=== PATIENT | female | born 1970 | race Caucasian/White ===

== ENCOUNTER → 2016-10-30 | Outpatient (REF) | payer BC ==
[~2016-10-30] MED LIST: PROBCAP4 PO; VITAD1000T PO; [UNRECOGNIZED DRUG - OTHER] SC
[2016-11-03 14:08] LABS: F8 ACTIVITY FOR F8 PANEL 147 % (57-163); F8 ACTIVITY vWB FOR F8 PANEL 116 % (50-200); F8 ANTIGEN FOR F8 PANEL 175 % (50-200); INTERPRETATION: Note (.)
== END ==
LOC: M LAB REF 16:40
PROVIDERS: ATTEND Internal Medicine Medical Oncology
DX: D69.3 Immune thrombocytopenic purpura (principal)

== ENCOUNTER → 2016-12-04 | Outpatient (REF) | payer BC ==
[2016-12-04 19:52] LABS: MICROSCOPIC INDICATED? MAN YES (NO)
[2016-12-04 21:48] LABS: BACTERIA, URINE LARGE AMOUNT; HYALINE CAST, URINE NONE SEEN /lpf (0-1); MICROSCOPIC EXAM PERFORMED; SQUAMOUS EPITHELIAL CELL URINE SMALL AMOUNT /hpf (SMALL AMT)
== END ==
LOC: M LAB REF 16:39
PROVIDERS: ATTEND Internal Medicine Medical Oncology
DX: D69.3 Immune thrombocytopenic purpura (principal)

== ENCOUNTER → 2016-12-09 | Outpatient (REF) | payer BC | LOC: M LAB REF 12:35 | PROVIDERS: ATTEND Internal Medicine Medical Oncology | DX: D69.3 Immune thrombocytopenic purpura (principal) ==

== ENCOUNTER → 2017-01-23 | Outpatient (REF) | payer BC | LOC: M LAB REF 14:22 | PROVIDERS: ATTEND Internal Medicine Nephrology | DX: N39.0 Urinary tract infection, site not specified (principal) ==

== ENCOUNTER → 2017-02-27 | Outpatient (REF) | payer BC | LOC: M LAB REF 17:09 | PROVIDERS: ATTEND Internal Medicine Nephrology | DX: N39.0 Urinary tract infection, site not specified (principal) ==

== ENCOUNTER 2017-03-14 14:00 | Outpatient (CLI) | payer BC ==
[~2017-03-14] VITALS: Ht 154.9 cm; Wt 65.8 kg
[2017-03-14] MEDS ORDERED: cefTRIAXone SOD 2 GM in D5W MINI-BAG PLUS 50 ML IV ONE (14:15)
[2017-03-14] MEDS ORDERED: MAGN400T5 PO (15:52)
[2017-03-15] MEDS ORDERED: ROCE1INJ4 IV (14:32)
== END 2017-03-14 15:15 | disposition home or self-care (01) ==
LOC: M INFU 14:00
PROVIDERS: ATTEND Internal Medicine Nephrology
DX: N39.0 Urinary tract infection, site not specified (principal); B96.20 Unspecified Escherichia coli [E. coli] as the cause of diseases classified elsewhere; M31.1 Thrombotic microangiopathy; Z88.2 Allergy status to sulfonamides; Z79.899 Other long term (current) drug therapy
CPT/HCPCS: 96365; J0696

== ENCOUNTER 2017-03-15 13:40 | Outpatient (CLI) | payer BC ==
[~2017-03-15 13:40] MED LIST changes: +MAGN400T5 PO
[2017-03-15 14:00] VITALS: BP 135/92
[2017-03-15] MEDS ORDERED: ROCE1INJ4 IV (14:32)
[2017-03-15] MEDS ORDERED: cefTRIAXone SOD 2 GM in D5W MINI-BAG PLUS 50 ML IV ONE (15:00)
== END 2017-03-15 15:45 | disposition home or self-care (01) ==
LOC: M OPCLI4PR 13:40 → M PED 13:46 → M OPCLI4PR 15:45
PROVIDERS: ATTEND Internal Medicine Nephrology
DX: N39.0 Urinary tract infection, site not specified (principal); B96.20 Unspecified Escherichia coli [E. coli] as the cause of diseases classified elsewhere; Z16.30 Resistance to unspecified antimicrobial drugs; Z88.2 Allergy status to sulfonamides
CPT/HCPCS: 96365; J0696

== ENCOUNTER 2017-03-16 13:58 | Outpatient (CLI) | payer BC ==
[~2017-03-16] VITALS: Ht 154.9 cm; Wt 65.0 kg
[~2017-03-16 13:58] MED LIST changes: +ROCE1INJ4 IV
[2017-03-16] MEDS ORDERED: cefTRIAXone SOD 2 GM in D5W MINI-BAG PLUS 50 ML IV ONE (14:15)
[2017-03-16 14:28] VITALS: BP 118/72
== END 2017-03-16 14:48 | disposition home or self-care (01) ==
LOC: M OPCLI4PR 13:58 → M PED 14:05 → M OPCLI4PR 14:48
PROVIDERS: ATTEND Internal Medicine Nephrology
DX: N39.0 Urinary tract infection, site not specified (principal); B96.20 Unspecified Escherichia coli [E. coli] as the cause of diseases classified elsewhere; Z16.30 Resistance to unspecified antimicrobial drugs; Z88.2 Allergy status to sulfonamides
CPT/HCPCS: 96365; J0696

== ENCOUNTER 2017-03-17 14:07 | Outpatient (CLI) | payer BC ==
[~2017-03-17 14:07] MED LIST changes: +cefTRIAXone SOD 2 GM in D5W MINI-BAG PLUS 50 ML IV ONE
== END 2017-03-17 15:15 | disposition home or self-care (01) ==
LOC: M INFU 14:07
PROVIDERS: ATTEND Internal Medicine Nephrology
DX: N39.0 Urinary tract infection, site not specified (principal); Z88.2 Allergy status to sulfonamides; Z79.899 Other long term (current) drug therapy
CPT/HCPCS: 96365; J0696

== ENCOUNTER 2017-03-18 13:54 | Outpatient (CLI) | payer BC ==
[~2017-03-18] VITALS: Ht 154.9 cm; Wt 65.9 kg
== END 2017-03-18 15:00 | disposition home or self-care (01) ==
LOC: M INFU 13:54
PROVIDERS: ATTEND Internal Medicine Nephrology
DX: N39.0 Urinary tract infection, site not specified (principal); Z88.2 Allergy status to sulfonamides; Z79.899 Other long term (current) drug therapy
CPT/HCPCS: 96365; J0696

== ENCOUNTER 2017-03-19 12:51 | Outpatient (CLI) | payer BC ==
[~2017-03-19] VITALS: Ht 154.9 cm; Wt 65.9 kg
[~2017-03-19 12:51] MED LIST changes: -cefTRIAXone SOD 2 GM in D5W MINI-BAG PLUS 50 ML IV ONE
[2017-03-19] MEDS ORDERED: cefTRIAXone SOD 2 GM in D5W MINI-BAG PLUS 50 ML IV ONE (13:00)
== END 2017-03-19 14:00 | disposition home or self-care (01) ==
LOC: M INFU 12:51
PROVIDERS: ATTEND Internal Medicine Nephrology
DX: N39.0 Urinary tract infection, site not specified (principal); Z88.2 Allergy status to sulfonamides; Z79.899 Other long term (current) drug therapy
CPT/HCPCS: 96365; J0696

== ENCOUNTER 2017-03-20 13:51 | Outpatient (CLI) | payer BC ==
[~2017-03-20 13:51] MED LIST changes: +cefTRIAXone SOD 2 GM in D5W MINI-BAG PLUS 50 ML IV ONE
== END 2017-03-20 14:55 | disposition home or self-care (01) ==
LOC: M INFU 13:51
PROVIDERS: ATTEND Internal Medicine Nephrology
DX: N39.0 Urinary tract infection, site not specified (principal); Z88.2 Allergy status to sulfonamides; Z79.899 Other long term (current) drug therapy
CPT/HCPCS: 96365; J0696

== ENCOUNTER → 2017-03-28 | Outpatient (REF) | payer BC ==
[~2017-03-28] MED LIST changes: -cefTRIAXone SOD 2 GM in D5W MINI-BAG PLUS 50 ML IV ONE
== END ==
LOC: M LAB REF 13:07
PROVIDERS: ATTEND Internal Medicine Nephrology
DX: N39.0 Urinary tract infection, site not specified (principal)

== ENCOUNTER → 2017-08-20 | Outpatient (CLI) | payer BC ==
--- NOTE | 2017-08-20 13:35 | REP ---
Clinical: Chronic medical renal disease stage III. Technique: Real time sparrow scale ultrasound examination using curved array transducer. Findings: The kidneys are normal in contour, size, echogenicity without hydronephrosis, nephrolithiasis, cystic or renal mass lesion. Scattered bilateral renovascular calcifications are consistent with chronic medical disease. No perinephric fluid collection. Right kidney measures 9.9 x 5.0 x 5.1 cm. Left kidney measures 10.5 x 4.2 x 4.2 cm. The bladder is under distended and grossly unremarkable as imaged. Impression: Chronic medical renal disease. No hydronephrosis. Signed by Michelet Smith MD 08/20/2017 01:26 P
== END ==
LOC: M RAD 12:41
PROVIDERS: ATTEND Internal Medicine Nephrology
DX: N18.3 Chronic kidney disease, stage 3 (moderate) (principal)

== ENCOUNTER 2018-08-11 10:19 | Inpatient (IN) | payer BC ==
[~2018-08-11 10:19] MED LIST changes: -MAGN400T5 PO; +PANTOPRAZOLE 40MG INJ (PROTONIX) (C9113) IV; -PROBCAP4 PO; -ROCE1INJ4 IV; -VITAD1000T PO; -[UNRECOGNIZED DRUG - OTHER] SC
[2018-08-11] MEDS: NS 1,000 ML IV ×3 (11:09→16:32)
[2018-08-11] MEDS: ONDANSETRON 4MG/2ML VIAL (J2405) IV ×3 (11:09→23:43)
[2018-08-11] MEDS: ACETAMINOPHEN 325 MG TAB PO (11:17)
[2018-08-11 11:18] LABS: BASO # 0.1 10^3/uL (0.0-0.2); BASO % 0.2 % (0.0-1.0); HEMATOCRIT 43.1 % (36.0-47.0); HEMOGLOBIN 15.1 g/dl (12.0-15.5); IMMATURE GRANULOCYTE % 0.6 % (0-3.0); LYMPH # 0.9 10^3/uL (1.5-4.5); LYMPH % 3.4 % (24.0-44.0); MEAN CORPUSCULAR HEMOGLOBIN 31.4 pg (27.0-33.0); MEAN CORPUSCULAR VOLUME 89.6 fl (80.0-96.0); MONO # 1.3 10^3/uL (0.0-0.8); MONO % 4.8 % (0.0-5.0); NEUTROPHILS # 24.4 10^3/uL (1.8-7.7); RED BLOOD COUNT 4.81 10^6/uL (4.00-5.40); RED CELL DISTRIBUTION WIDTH 13.1 % (11.5-14.5); WHITE BLOOD COUNT 26.9 10^3/uL (4.0-10.0)
[2018-08-11 11:30] LABS: INR 1.13; PROTHROMBIN TIME 14.6 SECONDS (12.1-14.4)
[2018-08-11 11:31] LABS: PARTIAL THROMBOPLASTIN TIME 38.6 SECONDS (25.4-37.6)
[2018-08-11 11:39] LABS: ERYTHROCYTE SEDIMENTATION RATE 50 mm/hr (0-20)
[2018-08-11 11:49] LABS: INFLUENZA A AMPLIFICATION NEGATIVE (NEGATIVE); INFLUENZA B AMPLIFICATION NEGATIVE (NEGATIVE)
[2018-08-11 11:54] LABS: ALBUMIN 3.4 GM/DL (3.2-5.2); ALBUMIN/GLOBULIN RATIO 0.58 (1.00-1.93); ALKALINE PHOSPHATASE 107 U/L (45-117); ALT/SGPT 33 U/L (12-78); ANION GAP 11 MEQ/L (8-16); AST/SGOT 32 U/L (7-37); BILIRUBIN,DIRECT 0.1 MG/DL (0.0-0.2); BILIRUBIN,TOTAL 0.7 MG/DL (0.2-1.0); BLOOD UREA NITROGEN 30 MG/DL (7-18); CALCIUM LEVEL 8.9 MG/DL (8.5-10.1); CARBON DIOXIDE LEVEL 25 MEQ/L (21-32); CHLORIDE LEVEL 93 MEQ/L (98-107); CREATININE FOR GFR 1.86 MG/DL (0.55-1.30); GLOMERULAR FILTRATION RATE 30.8 (>58); GLUCOSE, FASTING 123 MG/DL (70-100); LIPASE 116 U/L (73-393); POTASSIUM SERUM 4.2 MEQ/L (3.5-5.1); SODIUM LEVEL 129 MEQ/L (136-145); TOTAL PROTEIN 9.3 GM/DL (6.4-8.2)
[2018-08-11 11:55] LABS: PLATELET COUNT, AUTOMATED 74 10^3/uL (150-450)
[2018-08-11 11:56] LABS: PLATELET F 71; POSITIVE MORPH POS FLAG
[2018-08-11] MEDS: METOCLOPRAMIDE INJ 10MG/2ML VIAL (J2765) IV (13:09)
[2018-08-11 13:59] LABS: LACTIC ACID SEPSIS PROTOCOL 2.2 MMOL/L (0.4-2.0)
[2018-08-11 14:46] LABS: KETONE, URINE AUTO RFX 1+ mg/dL (NEGATIVE); MUCUS, URINE RFX SMALL (NEGATIVE); RBC, URINE AUTO RFX 60 /HPF (0-3); SPECIFIC GRAVITY UR AUTO RFX 1.019 (1.002-1.035); SQUAM EPITHELIAL CELL UR AURFX 0 /HPF (0-6)
[2018-08-11 14:47] LABS: LEUKOCYTE ESTERASE UR AUTO RFX TRACE (NEGATIVE); NITRITE, URINE AUTO RFX POSITIVE (NEGATIVE); WBC, URINE AUTO RFX 23 /HPF (0-3)
[2018-08-11] MEDS: PANTOPRAZOLE 40MG INJ (PROTONIX) (C9113) IV ×2 (15:28→21:03)
[2018-08-11] MEDS: cefTRIAXone SOD 1 GM in D5W MINI-BAG PLUS 50 ML IV (15:28)
[2018-08-11 15:35] LABS: CPK CREATINE PHOSPHOKINASE 110 U/L (26-192)
[2018-08-11] MEDS: PROMETHAZINE INJ 25 MG/ML VIAL (J2550) IV (16:32)
[2018-08-11 17:49] LABS: REASON FOR REVIEW PLATELET MORPHOLOGY; SLIDE REVIEW Report; SOURCE PERIPHERAL SMEAR
[2018-08-11 17:55] LABS: HEMATOCRIT 38.3 % (36.0-47.0); HEMOGLOBIN 13.2 g/dl (12.0-15.5); MEAN CORPUSCULAR HEMOGLOBIN 31.1 pg (27.0-33.0); MEAN CORPUSCULAR HGB CONC 34.5 g/dl (32.0-36.5); MEAN CORPUSCULAR VOLUME 90.1 fl (80.0-96.0); RED BLOOD COUNT 4.25 10^6/uL (4.00-5.40); RED CELL DISTRIBUTION WIDTH 13.2 % (11.5-14.5); WHITE BLOOD COUNT 29.6 10^3/uL (4.0-10.0)
[2018-08-11 17:58] LABS: PLATELET COUNT, AUTOMATED 45 10^3/uL (150-450)
[2018-08-11 18:06] LABS: FIBRINOGEN 524 MG/DL (221-452)
[2018-08-11 18:28] LABS: LACTIC ACID SEPSIS PROTOCOL 3.5 MMOL/L (0.4-2.0)
[2018-08-11 18:40] LABS: LDH LACTATE DEHYDROGENASE 207 U/L (84-246)
[2018-08-11] MEDS: predniSONE 20 MG TAB PO (19:45)
[2018-08-11] MEDS: PERCOCET 5MG/325MG TAB PO (21:03)
[2018-08-12] MEDS: ACETAMINOPHEN TAB 650MG DOSE (2X325MG) PO ×4 (00:13→18:32)
[2018-08-12] MEDS: SUCRALFATE 1 GM TAB PO ×3 (00:13→21:00)
[2018-08-12] MEDS: NS 1,000 ML IV ×2 (00:16→16:19)
[2018-08-12 00:40] LABS: HEMATOCRIT 38.1 % (36.0-47.0); HEMOGLOBIN 13.6 g/dl (12.0-15.5); MEAN CORPUSCULAR HEMOGLOBIN 31.4 pg (27.0-33.0); MEAN CORPUSCULAR HGB CONC 35.7 g/dl (32.0-36.5); RED BLOOD COUNT 4.33 10^6/uL (4.00-5.40); RED CELL DISTRIBUTION WIDTH 13.2 % (11.5-14.5)
[2018-08-12 00:44] LABS: PLATELET COUNT, AUTOMATED 30 10^3/uL (150-450); POS COUNT POS FLAG; WHITE BLOOD COUNT 30.1 10^3/uL (4.0-10.0)
[2018-08-12] MEDS: cefTRIAXone SOD 1 GM in D5W MINI-BAG PLUS 50 ML IV ×2 (03:15→16:20)
[2018-08-12] MEDS: ONDANSETRON 4MG/2ML VIAL (J2405) IV ×3 (05:11→18:24)
[2018-08-12 06:04] LABS: BASO % 0.1 % (0.0-1.0); HEMATOCRIT 36.5 % (36.0-47.0); HEMOGLOBIN 12.9 g/dl (12.0-15.5); IMMATURE GRANULOCYTE % 0.7 % (0-3.0); LYMPH # 0.6 10^3/uL (1.5-4.5); LYMPH % 2.6 % (24.0-44.0); MEAN CORPUSCULAR HEMOGLOBIN 31.3 pg (27.0-33.0); MEAN CORPUSCULAR HGB CONC 35.3 g/dl (32.0-36.5); MEAN CORPUSCULAR VOLUME 88.6 fl (80.0-96.0); MONO # 1.6 10^3/uL (0.0-0.8); MONO % 6.3 % (0.0-5.0); NEUTROPHILS # 22.2 10^3/uL (1.8-7.7); NEUTROPHILS % 90.3 % (36.0-66.0); RED BLOOD COUNT 4.12 10^6/uL (4.00-5.40); RED CELL DISTRIBUTION WIDTH 13.3 % (11.5-14.5); WHITE BLOOD COUNT 24.6 10^3/uL (4.0-10.0)
[2018-08-12 06:16] LABS: INR 1.21; PROTHROMBIN TIME 15.5 SECONDS (12.1-14.4)
[2018-08-12 06:27] LABS: POS COUNT POS FLAG
[2018-08-12 06:28] LABS: ALBUMIN 2.7 GM/DL (3.2-5.2); ALBUMIN/GLOBULIN RATIO 0.51 (1.00-1.93); ALKALINE PHOSPHATASE 86 U/L (45-117); ALT/SGPT 23 U/L (12-78); ANION GAP 8 MEQ/L (8-16); AST/SGOT 11 U/L (7-37); BILIRUBIN,TOTAL 0.4 MG/DL (0.2-1.0); BLOOD UREA NITROGEN 18 MG/DL (7-18); CARBON DIOXIDE LEVEL 25 MEQ/L (21-32); CHLORIDE LEVEL 105 MEQ/L (98-107); CREATININE FOR GFR 1.21 MG/DL (0.55-1.30); GLOMERULAR FILTRATION RATE 50.6 (>58); GLUCOSE, FASTING 191 MG/DL (70-100); PLATELET COUNT, AUTOMATED 21 10^3/uL (150-450); POTASSIUM SERUM 3.5 MEQ/L (3.5-5.1); SODIUM LEVEL 138 MEQ/L (136-145)
[2018-08-12] MEDS: predniSONE 20 MG TAB PO (08:29)
[2018-08-12] MEDS: PANTOPRAZOLE 40MG INJ (PROTONIX) (C9113) IV ×2 (08:29→21:00)
[2018-08-12] MEDS: VANCOMYCIN HCL 1,000 MG, VIAL MATE ADAPTER 1 EACH in D5W 250 ML IV (08:29)
[2018-08-12] MEDS ORDERED: PANTOPRAZOLE 40MG INJ (PROTONIX) (C9113) IV (09:00)
[2018-08-12] MEDS: VANCOMYCIN HCL 500 MG in D5W MINI-BAG PLUS 100 ML IV (10:30)
[2018-08-12 12:07] LABS: IMMEDIATE SPIN CROSSMATCH 1
[2018-08-12 14:12] LABS: IMMEDIATE SPIN CROSSMATCH 1
[2018-08-12] MEDS: PERCOCET 5MG/325MG TAB PO ×2 (14:12→14:43)
[2018-08-12 16:36] LABS: HEMATOCRIT 34.6 % (36.0-47.0); HEMOGLOBIN 12.1 g/dl (12.0-15.5); MEAN CORPUSCULAR HEMOGLOBIN 31.7 pg (27.0-33.0); MEAN CORPUSCULAR VOLUME 90.6 fl (80.0-96.0); RED BLOOD COUNT 3.82 10^6/uL (4.00-5.40); RED CELL DISTRIBUTION WIDTH 13.3 % (11.5-14.5); WHITE BLOOD COUNT 19.5 10^3/uL (4.0-10.0)
[2018-08-12 16:41] LABS: PLATELET COUNT, AUTOMATED 9 10^3/uL (150-450); POS COUNT POS FLAG
[2018-08-12 16:42] LABS: IMMATURE PLATELET FRACTION % 31.4 % (0.0-9.6)
[2018-08-12] MEDS ORDERED: IMMUNE GLOBULIN 10% 10GM 100ML 0 GM in APPROPRIATE DILUENT 1 EA IV (17:15)
[2018-08-12] MEDS: IMMUNE GLOBULIN 10% 10GM 100ML 10 GM in APPROPRIATE DILUENT 1 EA IV (18:00)
[2018-08-12] MEDS: IMMUNE GLOBULIN 10% 20GM 200ML 60 GM in APPROPRIATE DILUENT 1 EA IV (18:00)
[2018-08-12 18:09] LABS: BASO % 0.1 % (0.0-1.0); HEMATOCRIT 33.6 % (36.0-47.0); HEMOGLOBIN 11.8 g/dl (12.0-15.5); IMMATURE GRANULOCYTE % 0.6 % (0-3.0); LYMPH # 0.6 10^3/uL (1.5-4.5); LYMPH % 3.4 % (24.0-44.0); MEAN CORPUSCULAR HEMOGLOBIN 31.2 pg (27.0-33.0); MEAN CORPUSCULAR HGB CONC 35.1 g/dl (32.0-36.5); MEAN CORPUSCULAR VOLUME 88.9 fl (80.0-96.0); MONO # 1.5 10^3/uL (0.0-0.8); MONO % 8.5 % (0.0-5.0); NEUTROPHILS # 15.8 10^3/uL (1.8-7.7); NEUTROPHILS % 87.4 % (36.0-66.0); RED BLOOD COUNT 3.78 10^6/uL (4.00-5.40); RED CELL DISTRIBUTION WIDTH 13.4 % (11.5-14.5); WHITE BLOOD COUNT 18.1 10^3/uL (4.0-10.0)
[2018-08-12 18:14] LABS: PLATELET COUNT, AUTOMATED 4 10^3/uL (150-450); POS COUNT POS FLAG; POSITIVE MORPH POS FLAG; SUSPECT SAMPLE POS FLAG
[2018-08-12 18:21] LABS: FIBRINOGEN 733 MG/DL (221-452); INR 1.19; PROTHROMBIN TIME 15.3 SECONDS (12.1-14.4)
[2018-08-12 18:30] LABS: LDH LACTATE DEHYDROGENASE 215 U/L (84-246)
[2018-08-12] MEDS: diphenhydrAMINE 25 MG CAP PO (18:32)
[2018-08-13] MEDS: NS 1,000 ML IV ×2 (01:20→06:25)
[2018-08-13] MEDS: cefTRIAXone SOD 1 GM in D5W MINI-BAG PLUS 50 ML IV (04:30)
[2018-08-13 05:35] LABS: BASO % 0.1 % (0.0-1.0); HEMATOCRIT 27.5 % (36.0-47.0); IMMATURE GRANULOCYTE % 0.6 % (0-3.0); LYMPH % 6.8 % (24.0-44.0); MEAN CORPUSCULAR HEMOGLOBIN 33.4 pg (27.0-33.0); MEAN CORPUSCULAR HGB CONC 35.6 g/dl (32.0-36.5); MEAN CORPUSCULAR VOLUME 93.9 fl (80.0-96.0); MONO # 1.7 10^3/uL (0.0-0.8); MONO % 11.9 % (0.0-5.0); NEUTROPHILS # 11.8 10^3/uL (1.8-7.7); NEUTROPHILS % 80.6 % (36.0-66.0); RED BLOOD COUNT 2.93 10^6/uL (4.00-5.40); RED CELL DISTRIBUTION WIDTH 13.5 % (11.5-14.5); WHITE BLOOD COUNT 14.6 10^3/uL (4.0-10.0)
[2018-08-13 05:38] LABS: HEMOGLOBIN 9.8 g/dl (12.0-15.5); PLATELET COUNT, AUTOMATED 7 10^3/uL (150-450); POS COUNT POS FLAG; POSITIVE MORPH POS FLAG; SUSPECT SAMPLE POS FLAG
[2018-08-13 05:46] LABS: FIBRINOGEN 616 MG/DL (221-452); INR 1.18; PROTHROMBIN TIME 15.2 SECONDS (12.1-14.4)
[2018-08-13] MEDS: ONDANSETRON 4MG/2ML VIAL (J2405) IV ×4 (05:48→18:07)
[2018-08-13 06:04] LABS: ALBUMIN 2.2 GM/DL (3.2-5.2); ALBUMIN/GLOBULIN RATIO 0.35 (1.00-1.93); ALKALINE PHOSPHATASE 75 U/L (45-117); ALT/SGPT 24 U/L (12-78); ANION GAP 4 MEQ/L (8-16); AST/SGOT 13 U/L (7-37); BILIRUBIN,TOTAL 0.5 MG/DL (0.2-1.0); BLOOD UREA NITROGEN 23 MG/DL (7-18); CALCIUM LEVEL 8.3 MG/DL (8.5-10.1); CARBON DIOXIDE LEVEL 28 MEQ/L (21-32); CHLORIDE LEVEL 108 MEQ/L (98-107); CREATININE FOR GFR 1.25 MG/DL (0.55-1.30); GLOMERULAR FILTRATION RATE 48.7 (>58); GLUCOSE, FASTING 110 MG/DL (70-100); LDH LACTATE DEHYDROGENASE 165 U/L (84-246); POTASSIUM SERUM 3.7 MEQ/L (3.5-5.1); SODIUM LEVEL 140 MEQ/L (136-145); TOTAL PROTEIN 8.4 GM/DL (6.4-8.2)
[2018-08-13 08:06] LABS: HAPTOGLOBIN 197 mg/dL (34-200)
[2018-08-13] MEDS: predniSONE 20 MG TAB PO (08:06)
[2018-08-13] MEDS: SUCRALFATE 1 GM TAB PO ×2 (08:06→20:01)
[2018-08-13] MEDS: PANTOPRAZOLE 40MG INJ (PROTONIX) (C9113) IV ×2 (08:06→19:58)
[2018-08-13] MEDS: VANCOMYCIN HCL 1,000 MG, VIAL MATE ADAPTER 1 EACH in D5W 250 ML IV (08:07)
[2018-08-13] MEDS: ACETAMINOPHEN TAB 650MG DOSE (2X325MG) PO ×2 (08:08→18:07)
[2018-08-13] MEDS ORDERED: IMMUNE GLOBULIN 10% 10GM 100ML 10 GM in APPROPRIATE DILUENT 1 EA IV (09:00)
[2018-08-13] MEDS ORDERED: IMMUNE GLOBULIN 10% 20GM 200ML 60 GM in APPROPRIATE DILUENT 1 EA IV (09:00)
[2018-08-13] MEDS ORDERED: NON-FORMULARY 1 EA EA SQ (11:00)
[2018-08-13 12:42] LABS: HEMATOCRIT 31.5 % (36.0-47.0); HEMOGLOBIN 10.9 g/dl (12.0-15.5); MEAN CORPUSCULAR HEMOGLOBIN 32.2 pg (27.0-33.0); MEAN CORPUSCULAR HGB CONC 34.6 g/dl (32.0-36.5); MEAN CORPUSCULAR VOLUME 93.2 fl (80.0-96.0); RED BLOOD COUNT 3.38 10^6/uL (4.00-5.40); RED CELL DISTRIBUTION WIDTH 13.5 % (11.5-14.5); WHITE BLOOD COUNT 13.4 10^3/uL (4.0-10.0)
[2018-08-13 12:48] LABS: PLATELET COUNT, AUTOMATED 23 10^3/uL (150-450); POS COUNT POS FLAG
[2018-08-13] MEDS: ACYCLOVIR 200 MG CAPSULE PO ×3 (13:03→20:01)
[2018-08-13] MEDS ORDERED: ROMIPLOSTIM 250MCG VIAL (NPLATE) (J2796 PER 10MCG) (FOR ONCOLOGY) SC (14:00)
[2018-08-13] MEDS: cefTRIAXone SOD 2 GM in D5W MINI-BAG PLUS 50 ML IV (16:12)
[2018-08-13] MEDS: ROMIPLOSTIM 250MCG VIAL (NPLATE) (J2796 PER 10MCG) (FOR ONCOLOGY) SC (16:14)
[2018-08-13] MEDS: diphenhydrAMINE 25 MG CAP PO (18:07)
[2018-08-13] MEDS: IMMUNE GLOBULIN 10% 10GM 100ML 10 GM in APPROPRIATE DILUENT 1 EA IV (18:44)
[2018-08-13] MEDS: IMMUNE GLOBULIN 10% 20GM 200ML 60 GM in APPROPRIATE DILUENT 1 EA IV (20:14)
[2018-08-14] MEDS: ONDANSETRON 4MG/2ML VIAL (J2405) IV ×5 (00:13→23:43)
[2018-08-14] MEDS: ACETAMINOPHEN TAB 650MG DOSE (2X325MG) PO (02:26)
[2018-08-14] MEDS: diphenhydrAMINE 25 MG CAP PO (02:26)
[2018-08-14] MEDS: cefTRIAXone SOD 2 GM in D5W MINI-BAG PLUS 50 ML IV ×2 (03:58→15:48)
[2018-08-14 05:42] LABS: BASO % 0.3 % (0.0-1.0); HEMATOCRIT 26.7 % (36.0-47.0); HEMOGLOBIN 9.5 g/dl (12.0-15.5); IMMATURE GRANULOCYTE % 1.5 % (0-3.0); LYMPH # 1.8 10^3/uL (1.5-4.5); LYMPH % 15.6 % (24.0-44.0); MEAN CORPUSCULAR HEMOGLOBIN 34.8 pg (27.0-33.0); MEAN CORPUSCULAR HGB CONC 35.6 g/dl (32.0-36.5); MEAN CORPUSCULAR VOLUME 97.8 fl (80.0-96.0); MONO # 1.3 10^3/uL (0.0-0.8); MONO % 11.3 % (0.0-5.0); NEUTROPHILS # 8.3 10^3/uL (1.8-7.7); NEUTROPHILS % 71.3 % (36.0-66.0); RED BLOOD COUNT 2.73 10^6/uL (4.00-5.40); RED CELL DISTRIBUTION WIDTH 15.2 % (11.5-14.5); WHITE BLOOD COUNT 11.7 10^3/uL (4.0-10.0)
[2018-08-14 05:51] LABS: PLATELET COUNT, AUTOMATED 65 10^3/uL (150-450)
[2018-08-14 05:52] LABS: IMMATURE PLATELET FRACTION % 33.3 % (0.0-9.6)
[2018-08-14 05:55] LABS: INR 1.18; PROTHROMBIN TIME 15.1 SECONDS (12.1-14.4)
[2018-08-14 06:01] LABS: ALBUMIN 1.8 GM/DL (3.2-5.2); ALBUMIN/GLOBULIN RATIO 0.26 (1.00-1.93); ALKALINE PHOSPHATASE 111 U/L (45-117); ALT/SGPT 63 U/L (12-78); ANION GAP 4 MEQ/L (8-16); AST/SGOT 66 U/L (7-37); BILIRUBIN,TOTAL 0.4 MG/DL (0.2-1.0); BLOOD UREA NITROGEN 30 MG/DL (7-18); C REACTIVE PROTEIN QUANTITATIV 6.72 MG/DL (0.00-0.30); CALCIUM LEVEL 8.3 MG/DL (8.5-10.1); CARBON DIOXIDE LEVEL 27 MEQ/L (21-32); CHLORIDE LEVEL 108 MEQ/L (98-107); CREATININE FOR GFR 1.39 MG/DL (0.55-1.30); GLOMERULAR FILTRATION RATE 43.1 (>58); GLUCOSE, FASTING 115 MG/DL (70-100); POTASSIUM SERUM 3.4 MEQ/L (3.5-5.1); SODIUM LEVEL 139 MEQ/L (136-145); TOTAL PROTEIN 8.7 GM/DL (6.4-8.2)
[2018-08-14] MEDS: ACYCLOVIR 200 MG CAPSULE PO ×5 (06:34→21:02)
[2018-08-14] MEDS: predniSONE 20 MG TAB PO (08:32)
[2018-08-14] MEDS: PANTOPRAZOLE 40MG INJ (PROTONIX) (C9113) IV ×2 (08:33→21:02)
[2018-08-14] MEDS: SUCRALFATE 1 GM TAB PO ×2 (08:33→21:02)
[2018-08-14] MEDS: POTASSIUM CHLORIDE 10 MEQ SR TABLET PO (08:33)
[2018-08-14 09:47] LABS: CHLORIDE,RANDOM URINE 13 MEQ/L; CREATININE,RANDOM URINE 28.6 MG/DL; SODIUM,RANDOM URINE 18 MEQ/L; TOTAL PROTEIN,RANDOM URINE 36.2 MG/DL (0.0-12.0)
[2018-08-14 11:35] LABS: OSMOLALITY URINE 228 MOSM/KG (500-800)
[2018-08-14 11:39] LABS: HAPTOGLOBIN 227 mg/dL (34-200)
[2018-08-14 11:39] LABS: APPEARANCE, URINE CLEAR (CLEAR); BACTERIA, URINE AUTO 1+ (NEGATIVE); BILIRUBIN, URINE AUTO NEGATIVE (NEGATIVE); BLOOD, URINE BLOOD 2+ (NEGATIVE); COLOR, URINE STRAW (YELLOW); GLUCOSE, URINE (UA) AUTO NEGATIVE (NEGATIVE); HAPTOGLOBIN 238 mg/dL (34-200); KETONE, URINE AUTO NEGATIVE (NEGATIVE); LEUKOCYTE ESTERASE, URINE AUTO NEGATIVE (NEGATIVE); NITRITE, URINE AUTO NEGATIVE (NEGATIVE); PROTEIN, URINE AUTO NEGATIVE (NEGATIVE); RBC, URINE AUTO 3 /HPF (0-3); SPECIFIC GRAVITY URINE AUTO 1.006 (1.002-1.035); SQUAMOUS EPITHELIAL CELL UR AU 0 /HPF (0-6); UROBILINOGEN, URINE AUTO 0.2 mg/dL (0.0-2.0); WBC, URINE AUTO 1 /HPF (0-3)
[2018-08-14 11:44] LABS: HEMATOCRIT 31.2 % (36.0-47.0); HEMOGLOBIN 11.2 g/dl (12.0-15.5); MEAN CORPUSCULAR HEMOGLOBIN 34.5 pg (27.0-33.0); MEAN CORPUSCULAR HGB CONC 35.9 g/dl (32.0-36.5); RED BLOOD COUNT 3.25 10^6/uL (4.00-5.40); RED CELL DISTRIBUTION WIDTH 14.2 % (11.5-14.5); WHITE BLOOD COUNT 16.8 10^3/uL (4.0-10.0)
[2018-08-14 11:46] LABS: PLATELET COUNT, AUTOMATED 97 10^3/uL (150-450)
[2018-08-14] MEDS: NS 1,000 ML IV (12:06)
[2018-08-14 13:15] LABS: CSF MONONUCLEAR CELL % 25.9 % (0-0); CSF POLYMORPHONUCLEAR CELL % 74.1 % (0-0); CSF RBC < 2 10^3/uL (<2); CSF WBC 1944 /uL (0-10)
[2018-08-14 13:17] LABS: COLOR, CSF YELLOW (COLORLESS); CSF TUBE# CELL CNT TUBE 1
[2018-08-14 13:18] LABS: APPEARANCE, CSF HAZY (CLEAR); CSF DIFF IF INDICATED? YES (NO)
[2018-08-14 13:19] LABS: CSF MONONUCLEAR CELL % 21.8 % (0-0); CSF POLYMORPHONUCLEAR CELL % 78.2 % (0-0); CSF RBC < 2 10^3/uL (<2); CSF WBC 1412 /uL (0-10)
[2018-08-14 13:20] LABS: APPEARANCE, CSF HAZY (CLEAR); CSF DIFF IF INDICATED? YES (NO); CSF TUBE# CELL CNT TUBE 4
[2018-08-14 13:36] LABS: CSF TUBE# GLU TUBE 2; CSF TUBE# TP TUBE 2; GLUCOSE CSF 49 MG/DL (40-75); TOTAL PROTEIN,CSF 94 MG/DL (15-45)
[2018-08-14] MEDS ORDERED: LIDOCAINE 1% MDV 20ML VIAL As Ordered (15:09)
[2018-08-14] MEDS: SODIUM CHLORIDE 0.9% INJ 10 ML SYR IV (17:01)
[2018-08-15 00:06] LABS: GLYCOPROTEIN IV ANTIBODY Positive (Negative); HLA CLASS 1 ANTIBODY Positive (Negative); IIb/IIIa ANTIBODY Positive (Negative); Ib/IX ANTIBODY Positive (Negative)
[2018-08-15] MEDS: cefTRIAXone SOD 2 GM in D5W MINI-BAG PLUS 50 ML IV (05:12)
[2018-08-15] MEDS: ACYCLOVIR 200 MG CAPSULE PO ×2 (05:13→09:10)
[2018-08-15] MEDS: SODIUM CHLORIDE 0.9% INJ 10 ML SYR IV ×2 (05:13→09:11)
[2018-08-15] MEDS: ONDANSETRON 4MG/2ML VIAL (J2405) IV (05:13)
[2018-08-15 05:36] LABS: BASO # 0.1 10^3/uL (0.0-0.2); BASO % 0.7 % (0.0-1.0); EOS % 0.1 % (0.0-3.0); HEMATOCRIT 27.8 % (36.0-47.0); HEMOGLOBIN 9.7 g/dl (12.0-15.5); LYMPH # 3.1 10^3/uL (1.5-4.5); LYMPH % 20.2 % (24.0-44.0); MEAN CORPUSCULAR HEMOGLOBIN 33.1 pg (27.0-33.0); MEAN CORPUSCULAR HGB CONC 34.9 g/dl (32.0-36.5); MEAN CORPUSCULAR VOLUME 94.9 fl (80.0-96.0); MONO % 12.9 % (0.0-5.0); NEUTROPHILS # 9.3 10^3/uL (1.8-7.7); NEUTROPHILS % 61.1 % (36.0-66.0); PLATELET COUNT, AUTOMATED 101 10^3/uL (150-450); RED BLOOD COUNT 2.93 10^6/uL (4.00-5.40); RED CELL DISTRIBUTION WIDTH 12.7 % (11.5-14.5); WHITE BLOOD COUNT 15.2 10^3/uL (4.0-10.0)
[2018-08-15 05:44] LABS: INR 1.09; PROTHROMBIN TIME 14.2 SECONDS (12.1-14.4)
[2018-08-15 05:59] LABS: ALBUMIN/GLOBULIN RATIO 0.36 (1.00-1.93); ALKALINE PHOSPHATASE 111 U/L (45-117); ALT/SGPT 82 U/L (12-78); ANION GAP 4 MEQ/L (8-16); AST/SGOT 45 U/L (7-37); BILIRUBIN,TOTAL 0.6 MG/DL (0.2-1.0); BLOOD UREA NITROGEN 30 MG/DL (7-18); CALCIUM LEVEL 7.2 MG/DL (8.5-10.1); CARBON DIOXIDE LEVEL 29 MEQ/L (21-32); CHLORIDE LEVEL 109 MEQ/L (98-107); CREATININE FOR GFR 1.35 MG/DL (0.55-1.30); GLOMERULAR FILTRATION RATE 44.6 (>58); GLUCOSE, FASTING 108 MG/DL (70-100); POTASSIUM SERUM 3.8 MEQ/L (3.5-5.1); SODIUM LEVEL 142 MEQ/L (136-145); TOTAL PROTEIN 7.6 GM/DL (6.4-8.2)
[2018-08-15] MEDS: ACETAMINOPHEN TAB 650MG DOSE (2X325MG) PO (09:10)
[2018-08-15] MEDS: amLODIPine 5 MG TAB PO (09:10)
[2018-08-15] MEDS: PANTOPRAZOLE 40MG INJ (PROTONIX) (C9113) IV (09:10)
[2018-08-15] MEDS: SUCRALFATE 1 GM TAB PO (09:10)
== END 2018-08-15 11:52 | disposition home health service (06) | DRG 720 ==
LOC: M ED 10:19 → M ED INP 17:43 → M PCU 20:51
PROVIDERS: Specialist
PROC: 009U3ZX Drainage of Spinal Canal, Percutaneous Approach, Diagnostic (ICD-10-PCS; principal; 2018-08-14)
DX: A40.3 Sepsis due to Streptococcus pneumoniae (principal); D69.3 Immune thrombocytopenic purpura; N17.9 Acute kidney failure, unspecified; M32.9 Systemic lupus erythematosus, unspecified; E87.1 Hypo-osmolality and hyponatremia; B37.0 Candidal stomatitis; N39.0 Urinary tract infection, site not specified; B96.29 Other Escherichia coli [E. coli] as the cause of diseases classified elsewhere; Z88.2 Allergy status to sulfonamides; K29.70 Gastritis, unspecified, without bleeding; Z90.81 Acquired absence of spleen

== ENCOUNTER → 2018-08-25 | Outpatient (REF) | payer BC ==
[2018-08-25 15:46] LABS: BASO # 0.1 10^3/uL (0.0-0.2); BASO % 0.7 % (0.0-1.0); EOS % 0.2 % (0.0-3.0); HEMATOCRIT 33.4 % (36.0-47.0); HEMOGLOBIN 10.9 g/dl (12.0-15.5); IMMATURE GRANULOCYTE % 0.6 % (0-3.0); LYMPH # 1.8 10^3/uL (1.5-4.5); LYMPH % 19.3 % (24.0-44.0); MEAN CORPUSCULAR HEMOGLOBIN 31.7 pg (27.0-33.0); MEAN CORPUSCULAR HGB CONC 32.6 g/dl (32.0-36.5); MEAN CORPUSCULAR VOLUME 97.1 fl (80.0-96.0); MONO # 1.6 10^3/uL (0.0-0.8); MONO % 17.3 % (0.0-5.0); NEUTROPHILS # 5.6 10^3/uL (1.8-7.7); NEUTROPHILS % 61.9 % (36.0-66.0); PLATELET COUNT, AUTOMATED 188 10^3/uL (150-450); RED BLOOD COUNT 3.44 10^6/uL (4.00-5.40); RED CELL DISTRIBUTION WIDTH 16.2 % (11.5-14.5); WHITE BLOOD COUNT 9.1 10^3/uL (4.0-10.0)
[2018-08-25 15:47] LABS: ALBUMIN 3.1 GM/DL (3.2-5.2); ALBUMIN/GLOBULIN RATIO 0.56 (1.00-1.93); ALKALINE PHOSPHATASE 134 U/L (45-117); ALT/SGPT 27 U/L (12-78); ANION GAP 6 MEQ/L (8-16); AST/SGOT 18 U/L (7-37); BILIRUBIN,TOTAL 0.5 MG/DL (0.2-1.0); BLOOD UREA NITROGEN 23 MG/DL (7-18); C REACTIVE PROTEIN QUANTITATIV 2.42 MG/DL (0.00-0.30); CALCIUM LEVEL 8.9 MG/DL (8.5-10.1); CARBON DIOXIDE LEVEL 29 MEQ/L (21-32); CHLORIDE LEVEL 100 MEQ/L (98-107); CREATININE FOR GFR 1.24 MG/DL (0.55-1.30); GLOMERULAR FILTRATION RATE 49.1 (>58); GLUCOSE, FASTING 85 MG/DL (70-100); POTASSIUM SERUM 4.6 MEQ/L (3.5-5.1); SODIUM LEVEL 135 MEQ/L (136-145); TOTAL PROTEIN 8.6 GM/DL (6.4-8.2)
[2018-08-25 16:13] LABS: ADD MORPHOLOGY? YES; POS COUNT POS FLAG
[2018-08-25 16:14] LABS: PLATELET ESTIMATE NORMAL (NORMAL)
[2018-08-25 16:15] LABS: GIANT PLATELETS 1+; POLYCHROMASIA 1+
[2018-08-25 16:41] LABS: ERYTHROCYTE SEDIMENTATION RATE 126 mm/hr (0-20)
== END ==
LOC: M SFHCPLAZ 12:18
DX: G00.1 Pneumococcal meningitis (principal)
CPT/HCPCS: 80053

== ENCOUNTER → 2018-08-31 | Outpatient (REF) | payer BC ==
[2018-08-31 15:23] LABS: BASO # 0.1 10^3/uL (0.0-0.2); BASO % 0.7 % (0.0-1.0); EOS % 0.5 % (0.0-3.0); HEMATOCRIT 31.8 % (36.0-47.0); HEMOGLOBIN 10.6 g/dl (12.0-15.5); IMMATURE GRANULOCYTE % 0.6 % (0-3.0); LYMPH # 1.7 10^3/uL (1.5-4.5); MEAN CORPUSCULAR HEMOGLOBIN 32.3 pg (27.0-33.0); MEAN CORPUSCULAR HGB CONC 33.3 g/dl (32.0-36.5); MONO # 1.1 10^3/uL (0.0-0.8); MONO % 13.1 % (0.0-5.0); NEUTROPHILS # 5.5 10^3/uL (1.8-7.7); NEUTROPHILS % 65.1 % (36.0-66.0); RED BLOOD COUNT 3.28 10^6/uL (4.00-5.40); RED CELL DISTRIBUTION WIDTH 17.2 % (11.5-14.5); WHITE BLOOD COUNT 8.5 10^3/uL (4.0-10.0)
[2018-08-31 15:47] LABS: POSITIVE MORPH POS FLAG
[2018-08-31 16:06] LABS: ALBUMIN 3.4 GM/DL (3.2-5.2); ALBUMIN/GLOBULIN RATIO 0.67 (1.00-1.93); ALKALINE PHOSPHATASE 107 U/L (45-117); ALT/SGPT 26 U/L (12-78); ANION GAP 7 MEQ/L (8-16); AST/SGOT 17 U/L (7-37); BILIRUBIN,TOTAL 0.5 MG/DL (0.2-1.0); BLOOD UREA NITROGEN 22 MG/DL (7-18); C REACTIVE PROTEIN QUANTITATIV 1.02 MG/DL (0.00-0.30); CALCIUM LEVEL 9.4 MG/DL (8.5-10.1); CARBON DIOXIDE LEVEL 28 MEQ/L (21-32); CHLORIDE LEVEL 101 MEQ/L (98-107); COMPLEMENT C3 106 MG/DL (90-180); COMPLEMENT C4 5 MG/DL (10-40); CREATININE FOR GFR 1.41 MG/DL (0.55-1.30); GLOMERULAR FILTRATION RATE 42.4 (>58); GLUCOSE, FASTING 91 MG/DL (70-100); POTASSIUM SERUM 3.9 MEQ/L (3.5-5.1); RHEUMATOID FACTOR QUANT < 10.0 IU/ML (<15.0); SODIUM LEVEL 136 MEQ/L (136-145); TOTAL PROTEIN 8.5 GM/DL (6.4-8.2)
[2018-08-31 19:55] LABS: ERYTHROCYTE SEDIMENTATION RATE 126 mm/hr (0-20)
[2018-09-03 00:31] LABS: ANA (HEP2) Positive (.)
== END ==
LOC: M LABDRAW1 13:16
DX: M32.9 Systemic lupus erythematosus, unspecified (principal); D69.3 Immune thrombocytopenic purpura; G00.1 Pneumococcal meningitis
CPT/HCPCS: 80053

== ENCOUNTER → 2018-09-08 | Outpatient (REF) | payer BC ==
[2018-09-08 14:17] LABS: APPEARANCE, URINE CLEAR (CLEAR); BACTERIA, URINE AUTO NEGATIVE (NEGATIVE); BILIRUBIN, URINE AUTO NEGATIVE (NEGATIVE); BLOOD, URINE BLOOD NEGATIVE (NEGATIVE); COLOR, URINE YELLOW (YELLOW); GLUCOSE, URINE (UA) AUTO NEGATIVE (NEGATIVE); KETONE, URINE AUTO NEGATIVE (NEGATIVE); LEUKOCYTE ESTERASE, URINE AUTO NEGATIVE (NEGATIVE); NITRITE, URINE AUTO NEGATIVE (NEGATIVE); PROTEIN, URINE AUTO NEGATIVE (NEGATIVE); RBC, URINE AUTO 1 /HPF (0-3); SPECIFIC GRAVITY URINE AUTO 1.014 (1.002-1.035); SQUAMOUS EPITHELIAL CELL UR AU 0 /HPF (0-6); UROBILINOGEN, URINE AUTO 0.2 mg/dL (0.0-2.0); WBC, URINE AUTO 2 /HPF (0-3)
[2018-09-08 14:19] LABS: BASO % 0.6 % (0.0-1.0); EOS % 0.3 % (0.0-3.0); HEMATOCRIT 36.8 % (36.0-47.0); HEMOGLOBIN 11.8 g/dl (12.0-15.5); IMMATURE GRANULOCYTE % 0.6 % (0-3.0); LYMPH # 1.3 10^3/uL (1.5-4.5); LYMPH % 21.1 % (24.0-44.0); MEAN CORPUSCULAR HEMOGLOBIN 32.1 pg (27.0-33.0); MEAN CORPUSCULAR HGB CONC 32.1 g/dl (32.0-36.5); MONO # 0.9 10^3/uL (0.0-0.8); MONO % 14.4 % (0.0-5.0); RED BLOOD COUNT 3.68 10^6/uL (4.00-5.40); RED CELL DISTRIBUTION WIDTH 16.2 % (11.5-14.5); WHITE BLOOD COUNT 6.3 10^3/uL (4.0-10.0)
[2018-09-08 14:33] LABS: URINE TOTAL PROTEIN 22.4 MG/DL (0-12)
[2018-09-08 14:45] LABS: CPK CREATINE PHOSPHOKINASE 39 U/L (26-192)
[2018-09-08 14:45] LABS: TOTAL PROTEIN 7.7 GM/DL (6.4-8.2)
[2018-09-08 14:49] LABS: PLATELET COUNT, AUTOMATED 78 10^3/uL (150-450); POS COUNT POS FLAG
[2018-09-08 14:54] LABS: ERYTHROCYTE SEDIMENTATION RATE 79 mm/hr (0-20)
[2018-09-08 15:01] LABS: IMMATURE PLATELET FRACTION % 50.7 % (0.0-9.6)
[2018-09-10 10:35] LABS: ALBUMIN 3.67 GM/DL (3.29-5.55); ALBUMIN % 47.6 % (55.8-66.1); ALPHA-1-GLOBULIN % 4.5 % (2.9-4.9); ALPHA-1-GLOBULINS 0.35 GM/DL (0.17-0.41); ALPHA-2-GLOBULINS 0.72 GM/DL (0.42-0.99); ALPHA-2-GLOBULINS % 9.4 % (7.1-11.8); BETA-1-GLOBULINS 0.45 GM/DL (0.28-0.60); BETA-1-GLOBULINS % 5.9 % (4.7-7.2); BETA-2-GLOBULINS 0.37 GM/DL (0.19-0.55); BETA-2-GLOBULINS % 4.8 % (3.2-6.5); GAMMA GLOBULIN % 27.8 % (11.1-18.8); GAMMA GLOBULINS 2.14 GM/DL (0.65-1.58)
[2018-09-10 11:57] LABS: IMMUNOTYPING SERUM IGG ABNORMAL (NORMAL); IMMUNOTYPING SERUM KAPPA ABNORMAL (NORMAL)
[2018-09-10 14:50] LABS: UPEP INTERPRETATION NO M-SPIKE NOTED; URINE VOLUME RANDOM ML
== END ==
LOC: M SFHCPLAZ 10:47
DX: R80.1 Persistent proteinuria, unspecified (principal); D69.3 Immune thrombocytopenic purpura
CPT/HCPCS: 82550

== ENCOUNTER → 2018-09-30 | Outpatient (CLI) | payer BC ==
[~2018-09-30] MED LIST changes: +ACYC200CA PO; +AMLO5TAB6 PO; +LEVO750T13 PO; +MAGN400T5 PO; -PANTOPRAZOLE 40MG INJ (PROTONIX) (C9113) IV; +PROBCAP14 PO; +PROBCAP4 PO; +PROHANCE 279.3MG/ML 15ML VIAL (A9576) As Ordered ONE; +PROTPAK PO; +ROCE1INJ6 IJ; +ROCE1INJ6 IV; +VITAD1000T PO; +[UNRECOGNIZED DRUG - CODE] SC; +[UNRECOGNIZED DRUG - OTHER] SC
--- NOTE | 2018-09-30 18:16 | REP ---
MRI lumbar spine without and with IV contrast: History: Low back pain with radiculopathy. Worsening low back pain. History of ITP. Recently treated for meningitis. Technique: Sagittal and axial T1 and T2-weighted scans are acquired in the usual fashion with and without fat saturation. Sequences include spin echo, turbo spin-echo, and STIR imaging sequences. Gadolinium enhancement dose: 6.4 ml of intravenous ProHance (half-dose protocol). Comparison CT imaging August 11, 2018. MRI findings: There is low T1 and high T2 signal intensity on either side of the posterior aspect of the L5-S1 disc. The posterior margin of this disc is seen to be bulging. There is associated thickening of the epidural soft tissues along the posterior aspect of the L5 and S1 vertebral bodies producing effacement of the epidural fat and minimal thecal sac compression. There is fairly avid gadolinium enhancement in this epidural tissue as well as in the posterior portion of the L5 S1 disc and the in the posterior aspect of the L5 and the S1 vertebral bodies. There is a small amount of T2 hyperintensity within the posterior portion of the L5-S1 disc. There is focal disruption of the endplates posteriorly suggesting early bone destruction. These changes are most compatible with acute infectious diskitis at L5-S1 with epidural granulation tissue and enhancement. No yeni epidural fluid collection is seen. There is osteoarthritic facet hypertrophy bilaterally at L5-S1. No central canal stenosis is seen. No other abnormal gadolinium enhancement is seen. There is mild diffuse bulging of the 4-5 disc and mild central canal stenosis is noted L4-5 due to disc bulging, developmentally short pedicles, and facet and ligamentum flavum hypertrophy. Study is otherwise unremarkable. Impression: Findings consistent with infectious diskitis L5-S1 with some epidural granulation tissue producing minimal thecal sac compression. There is early bony erosive change at the L5-S1 disc. Electronically Signed by Juan King MD 10/01/2018 08:49 A
== END ==
LOC: M RAD 15:40
PROVIDERS: ATTEND Internal Medicine Infectious Disease
DX: M51.26 Other intervertebral disc displacement, lumbar region (principal); M48.07 Spinal stenosis, lumbosacral region; M12.88 Other specific arthropathies, not elsewhere classified, other specified site
CPT/HCPCS: 72158; A9576

== ENCOUNTER → 2018-12-10 | Outpatient (REF) | payer BC ==
[~2018-12-10] MED LIST changes: -PROHANCE 279.3MG/ML 15ML VIAL (A9576) As Ordered ONE; +ZITHTAB PO
== END ==
LOC: M LAB REF 17:18
PROVIDERS: ATTEND Internal Medicine Nephrology
DX: N39.0 Urinary tract infection, site not specified (principal)

== ENCOUNTER → 2018-12-31 | Outpatient (REF) | payer BC ==
[2018-12-31 13:59] LABS: APPEARANCE, URINE CLEAR (CLEAR); BACTERIA, URINE AUTO NEGATIVE (NEGATIVE); BILIRUBIN, URINE AUTO NEGATIVE (NEGATIVE); BLOOD, URINE BLOOD NEGATIVE (NEGATIVE); COLOR, URINE YELLOW (YELLOW); GLUCOSE, URINE (UA) AUTO NEGATIVE (NEGATIVE); KETONE, URINE AUTO NEGATIVE (NEGATIVE); LEUKOCYTE ESTERASE, URINE AUTO NEGATIVE (NEGATIVE); MUCUS, URINE SMALL (NEGATIVE); NITRITE, URINE AUTO NEGATIVE (NEGATIVE); PROTEIN, URINE AUTO 1+ mg/dL (NEGATIVE); RBC, URINE AUTO 1 /HPF (0-3); SPECIFIC GRAVITY URINE AUTO 1.013 (1.002-1.035); SQUAMOUS EPITHELIAL CELL UR AU 0 /HPF (0-6); UROBILINOGEN, URINE AUTO 0.2 mg/dL (0.0-2.0); WBC, URINE AUTO 0 /HPF (0-3)
[2018-12-31 14:45] LABS: ALBUMIN 3.5 GM/DL (3.2-5.2); BILIRUBIN,TOTAL 0.4 MG/DL (0.2-1.0); CALCIUM LEVEL 9.1 MG/DL (8.5-10.1); CREATININE FOR GFR 1.19 MG/DL (0.55-1.30); FREE T4 1.26 NG/DL (0.76-1.46); GLOMERULAR FILTRATION RATE 51.3 (>58); POTASSIUM SERUM 4.4 MEQ/L (3.5-5.1); THYROID STIMULATING HORMONE 1.45 uIU/ML (0.358-3.740); TOTAL PROTEIN 8.1 GM/DL (6.4-8.2)
[2018-12-31 14:51] LABS: CREATININE,RANDOM URINE 99.8 MG/DL; TOTAL PROTEIN,RANDOM URINE 56.3 MG/DL (0.0-12.0)
[2019-01-01 14:18] LABS: RNP ANTIBODY 2.2 AI (0.0-0.9); SMITHS ANTIBODY 1.1 AI (0.0-0.9); SSA SJOGRENS A <0.2 AI (0.0-0.9); SSB SJOGRENS B <0.2 AI (0.0-0.9)
[2019-01-05 00:09] LABS: ANTI JO-1 ANTIBODIES <0.2 AI (0.0-0.9); CYCLIC CITRULLINATED PEPTIDE 8 units (0-19)
== END ==
LOC: M SFHCPLAZ 09:51
PROVIDERS: ATTEND Internal Medicine Rheumatology
DX: M32.9 Systemic lupus erythematosus, unspecified (principal)

== ENCOUNTER → 2019-03-24 | Outpatient (REF) | payer BC ==
[~2019-03-24] MED LIST changes: +ACYC1CAP20 PO; -ACYC200CA PO
[2019-03-24 15:09] LABS: BASO # 0.1 10^3/uL (0.0-0.2); BASO % 1.2 % (0.0-1.0); EOS % 0.6 % (0.0-3.0); HEMATOCRIT 40.6 % (36.0-47.0); HEMOGLOBIN 13.8 g/dl (12.0-15.5); LYMPH # 2.3 10^3/uL (1.5-4.5); LYMPH % 35.3 % (24.0-44.0); MEAN CORPUSCULAR HEMOGLOBIN 31.2 pg (27.0-33.0); MEAN CORPUSCULAR VOLUME 91.6 fl (80.0-96.0); MONO % 15.7 % (0.0-5.0); NEUTROPHILS % 46.9 % (36.0-66.0); PLATELET COUNT, AUTOMATED 155 10^3/uL (150-450); RED BLOOD COUNT 4.43 10^6/uL (4.00-5.40); WHITE BLOOD COUNT 6.5 10^3/uL (4.0-10.0)
[2019-03-24 15:11] LABS: APPEARANCE, URINE CLEAR (CLEAR); BACTERIA, URINE AUTO NEGATIVE (NEGATIVE); BILIRUBIN, URINE AUTO NEGATIVE (NEGATIVE); BLOOD, URINE BLOOD 1+ (NEGATIVE); COLOR, URINE STRAW (YELLOW); GLUCOSE, URINE (UA) AUTO NEGATIVE (NEGATIVE); KETONE, URINE AUTO NEGATIVE (NEGATIVE); LEUKOCYTE ESTERASE, URINE AUTO NEGATIVE (NEGATIVE); MUCUS, URINE SMALL (NEGATIVE); NITRITE, URINE AUTO NEGATIVE (NEGATIVE); PROTEIN, URINE AUTO NEGATIVE (NEGATIVE); RBC, URINE AUTO 3 /HPF (0-3); SPECIFIC GRAVITY URINE AUTO 1.001 (1.002-1.035); SQUAMOUS EPITHELIAL CELL UR AU 1 /HPF (0-6); UROBILINOGEN, URINE AUTO 0.2 mg/dL (0.0-2.0); WBC, URINE AUTO 1 /HPF (0-3)
[2019-03-24 15:26] LABS: CREATININE,RANDOM URINE < 13.0 MG/DL; TOTAL PROTEIN,RANDOM URINE 12.6 MG/DL (0.0-12.0)
[2019-03-24 16:07] LABS: ALBUMIN 3.3 GM/DL (3.2-5.2); BILIRUBIN,TOTAL 0.3 MG/DL (0.2-1.0); C REACTIVE PROTEIN QUANTITATIV 0.31 MG/DL (0.00-0.30); CALCIUM LEVEL 8.5 MG/DL (8.5-10.1); CREATININE FOR GFR 1.32 MG/DL (0.55-1.30); GLOMERULAR FILTRATION RATE 45.5 (>58); POTASSIUM SERUM 3.9 MEQ/L (3.5-5.1); TOTAL PROTEIN 7.9 GM/DL (6.4-8.2)
[2019-03-24 22:10] LABS: ERYTHROCYTE SEDIMENTATION RATE 44 mm/hr (0-20)
== END ==
LOC: M LAB REF 14:26
PROVIDERS: ATTEND Internal Medicine Rheumatology
DX: M32.9 Systemic lupus erythematosus, unspecified (principal)

== ENCOUNTER 2019-10-08 13:43 | Inpatient (IN) | payer BC ==
[~2019-10-08] VITALS: Ht 154.9 cm; Wt 64.3 kg
[~2019-10-08 13:43] MED LIST changes: +CEPH250T PO
[2019-10-08] MEDS ORDERED: predniSONE 20 MG TAB PO ONE (15:00)
[2019-10-08] MEDS ORDERED: IMMUNE GLOBULIN IV SCH (15:00)
[2019-10-08] MEDS ORDERED: NPLA500I SC (15:12)
[2019-10-08] MEDS ORDERED: ACET-897 PO (15:12)
[2019-10-08] MEDS ORDERED: IMMUNE GLOBULIN IV ONE (16:00)
[2019-10-08] MEDS ORDERED: IMMUNE GLOBULIN 10% 5GM 5 GM in IV 1 EA IV ONE (16:00)
--- NOTE | 2019-10-08 16:58 | HPEPDOC ---
[facility] Medical History & Physical Date of Admission Oct 08, 2019 Date of Service: Oct 08, 2019 Attending Physician: NATASHA NIELSON MD History and Physical CHIEF COMPLAINT: Sent by filter tip inspector/oncologist office for IVIG and prednisone HISTORY OF PRESENT ILLNESS: 49-year-old female with past medical history of ITP status post splenectomy and lupus is sent from filter tip inspector/oncologist office for ITP/lupus flare. Patient reports easy bruising with petechiae, epistaxis and found to have platelet count of 1 at oncologist's office today. She was advised to come to the emergency room for IVIG infusion and steroids. Patient also reports generalized fatigue and migratory arthralgia with a cough over the past couple of weeks, denies fever. She has no other complaints at this time, denies any shortness of breath, nausea, vomiting, abdominal pain or diarrhea. 10 point review of system is negative except for above PAST MEDICAL HISTORY: 1. ITP. 2. Lupus. PAST SURGICAL HISTORY: 1. 2. 2. Splenectomy 3. SOCIAL HISTORY: Never smoker. Denies alcohol. Denies drug use FAMILY HISTORY: Positive for heart disease in her mother ALLERGIES: Please see below. HOME MEDICATIONS: Please see below. PHYSICAL EXAMINATION: VITAL SIGNS: Please see below. GENERAL: No distress HEENT: Normocephalic, atraumatic, moist mucous membranes NECK: Supple CARDIOVASCULAR EXAMINATION: S1, S2, no murmurs RESPIRATORY EXAMINATION: Clear to auscultation, no wheezing ABDOMINAL EXAMINATION: Soft, nontender, nondistended, positive bowel sounds EXTREMITIES: Range of motion intact SKIN: Petechiae noted on all extremities NEUROLOGICAL EXAMINATION: Alert and oriented 3, no focal deficits PSYCHIATRIC EXAMINATION: Calm and cooperative LABORATORY DATA: See below. MICROBIOLOGY: Please see below. ASSESSMENT: 49-year-old female with past medical history of ITP and lupus is admitted for ITP flare up. PLAN: 1. ITP flare. IVIG 65 g per day for 2 days, started on prednisone 80 mg daily with slow taper, ordered rheumatological workup workup, respiratory viral panel ordered. DVT prophylaxis: None. GI prophylaxis: Not needed Vital Signs Vital Signs Date Time Temp Pulse Resp B/P (MAP) Pulse Ox O2 Delivery O2 Flow Rate FiO2 10/08/19 15:16 166/98 (120) 10/08/19 13:47 97.3 100 20 98 Room Air Home Medications Scheduled Romiplostim (Nplate) 500 Mcg Vial, 300 MCG SC QWEEK Scheduled PRN Acetaminophen (Tylenol Extra Strength) 500 Mg Tablet, 1,000 MG PO TID PRN for PAIN Allergies Coded Allergies: Sulfa (Sulfonamide Antibiotics) (Verified Allergy, Mild, rash, 01/07/19) A-FIB/CHADSVASC A-FIB History Current/History of A-Fib/PAF?: No NATASHA NIELSON MD Oct 08, 2019 16:58
[2019-10-08] MEDS ORDERED: ACETAMINOPHEN TAB 650MG DOSE (2X325MG) PO ONE (17:00)
[2019-10-08] MEDS ORDERED: diphenhydrAMINE 25 MG CAP PO ONE (17:00)
[2019-10-08 21:00] VITALS: BP 160/80
[2019-10-09] VITALS (18 sets, daily range): BP systolic 140–160; BP diastolic 68–100
[2019-10-09 05:45] LABS: HEMATOCRIT 31.5 % (36.0-47.0); HEMOGLOBIN 10.2 g/dl (12.0-15.5); MEAN CORPUSCULAR HEMOGLOBIN 28.3 pg (27.0-33.0); MEAN CORPUSCULAR HGB CONC 32.4 g/dl (32.0-36.5); MEAN CORPUSCULAR VOLUME 87.3 fl (80.0-96.0); RED BLOOD COUNT 3.61 10^6/uL (4.00-5.40); WHITE BLOOD COUNT 4.3 10^3/uL (4.0-10.0)
[2019-10-09 05:46] LABS: PLATELET COUNT, AUTOMATED 1 10^3/uL (150-450)
[2019-10-09 06:21] LABS: ALBUMIN 2.4 GM/DL (3.2-5.2); ALT/SGPT 19 U/L (12-78); BILIRUBIN,TOTAL 0.7 MG/DL (0.2-1.0); BLOOD UREA NITROGEN 32 MG/DL (7-18); CALCIUM LEVEL 8.1 MG/DL (8.5-10.1); CARBON DIOXIDE LEVEL 24 MEQ/L (21-32); CHLORIDE LEVEL 104 MEQ/L (98-107); CREATININE FOR GFR 1.59 MG/DL (0.55-1.30); GLOMERULAR FILTRATION RATE 36.6 (>51); GLUCOSE, FASTING 157 MG/DL (70-100); MAGNESIUM LEVEL 2.2 MG/DL (1.8-2.4); POTASSIUM SERUM 4.7 MEQ/L (3.5-5.1); RHEUMATOID FACTOR QUANT < 10.0 IU/ML (<15.0); SODIUM LEVEL 135 MEQ/L (136-145); TOTAL PROTEIN 8.5 GM/DL (6.4-8.2)
[2019-10-09] MEDS: ACETAMINOPHEN 500 MG TAB PO PRN ×2 (08:00→17:21)
[2019-10-09] MEDS: predniSONE 20 MG TAB PO SCH (08:00)
[2019-10-09] MEDS ORDERED: diphenhydrAMINE 25 MG CAP PO ONE (17:00)
[2019-10-09] MEDS ORDERED: IMMUNE GLOBULIN IV ONE (18:00)
[2019-10-09] MEDS ORDERED: IMMUNE GLOBULIN 10% 5GM 5 GM in IV 1 EA IV ONE (18:00)
--- NOTE | 2019-10-09 21:50 | IPNPDOC ---
Date Seen The patient was seen on 10/09/19. Progress Note HISTORY OF PRESENT ILLNESS: 49-year-old female with past medical history of ITP status post splenectomy and lupus is sent from business integration analyst/oncologist office for ITP/lupus flare. Patient reports easy bruising with petechiae, epistaxis and found to have platelet count of 1 at oncologist's office today. She was advised to come to the emergency room for IVIG infusion and steroids. Patient also rep orts generalized fatigue and migratory arthralgia with a cough over the past couple of weeks, denies fever. She has no other complaints at this time, denies any shortness of breath, nausea, vomiting, abdominal pain or diarrhea. 10/09/19 No acute events overnight, received slow infusion of IVIG which completed around 10:30 am today which would explain the lack of improvement in platelet count. Patient without complaints, denies SOB, CP, N/V/D or abdominal pain. 10 point review of system is negative except for above PHYSICAL EXAMINATION: VITAL SIGNS: Please see below. GENERAL: No distress HEENT: Normocephalic, atraumatic, moist mucous membranes NECK: Supple CARDIOVASCULAR EXAMINATION: S1, S2, no murmurs RESPIRATORY EXAMINATION: Clear to auscultation, no wheezing ABDOMINAL EXAMINATION: Soft, nontender, nondistended, positive bowel sounds EXTREMITIES: Range of motion intact SKIN: Petechiae noted on all extremities NEUROLOGICAL EXAMINATION: Alert and oriented 3, no focal deficits PSYCHIATRIC EXAMINATION: Calm and cooperative LABORATORY DATA: See below. MICROBIOLOGY: Please see below. ASSESSMENT: 49-year-old female with past medical history of ITP and lupus is admitted for ITP flare up. PLAN: 1. ITP flare. IVIG 65 g per day for 2 days, continue prednisone 80 mg daily with slow taper, rheumatological & infectious workup negative so far. DVT prophylaxis: None. GI prophylaxis: Not needed VS, I&O, 24H, Fishbone Vital Signs/I&O Vital Signs Date Time Temp Pulse Resp B/P (MAP) Pulse Ox O2 Delivery O2 Flow Rate FiO2 10/09/19 19:03 97.3 87 20 160/80 (106) 95 Room Air I&O- Last 24 Hours up to 6 AM 10/09/19 06:00 Intake Total 0 ml Output Total 400 ml Balance -400 ml Laboratory Data 24H LABS Laboratory Tests 2 10/08/19 22:57: Urine Color YELLOW, Urine Appearance CLEAR, Urine pH 6.0, Urine Specific [place] 1.005, Urine Protein 2+H, Urine Glucose (UA) NEGATIVE, Urine Ketones NEGATIVE, Urine Blood 3+H, Urine Nitrite NEGATIVE, Urine Bilirubin NEGATIVE, Urine Urobilinogen 0.2, Urine Leukocyte Esterase NEGATIVE, Urine WBC (Auto) 4H, Urine RBC (Auto) 90H, Urine Hyaline Casts (Auto) 0, Urine Bacteria (Auto) 1+H, Urine Squamous Epithelial Cells 0, Urine Mucus (Auto) SMALL, Urine Sperm (Auto) 10/09/19 05:29: Nucleated Red Blood Cells % (auto) 0.0, Anion Gap 7L, Glomerular Filtration Rate 36.6L, Calcium Level 8.1L, Phosphorus Level 4.0, Magnesium Level 2.2, Total Bilirubin 0.7, Aspartate Amino Transf (AST/SGOT) 23, Alanine Aminotransferase (ALT/SGPT) 19, Alkaline Phosphatase 79, Total Protein 8.5H, Albumin 2.4L, Albumin/Globulin Ratio 0.39L, Rheumatoid Factor < 10.0 CBC/BMP Laboratory Tests 10/09/19 05:29 Microbiology Microbiology 10/08/19 Respiratory Virus Panel (PCR) (PRISCILLA) - Final, Complete NATASHA NIELSON MD Oct 09, 2019 21:50
[2019-10-10 00:45] VITALS: BP 152/70
[2019-10-10] MEDS: ACETAMINOPHEN 500 MG TAB PO PRN (00:51)
[2019-10-10 04:00] VITALS: BP 148/70
[2019-10-10 05:48] LABS: HEMATOCRIT 24.3 % (36.0-47.0); HEMOGLOBIN 8.4 g/dl (12.0-15.5); MEAN CORPUSCULAR HEMOGLOBIN 31.8 pg (27.0-33.0); MEAN CORPUSCULAR HGB CONC 34.6 g/dl (32.0-36.5); RED BLOOD COUNT 2.64 10^6/uL (4.00-5.40)
[2019-10-10 05:54] LABS: PLATELET COUNT, AUTOMATED 17 10^3/uL (150-450)
[2019-10-10 06:10] LABS: CALCIUM LEVEL 7.7 MG/DL (8.5-10.1); CREATININE FOR GFR 1.59 MG/DL (0.55-1.30); GLOMERULAR FILTRATION RATE 36.6 (>51); POTASSIUM SERUM 4.1 MEQ/L (3.5-5.1)
[2019-10-10 08:00] VITALS: BP 140/70
[2019-10-10] MEDS: predniSONE 20 MG TAB PO SCH (09:07)
[2019-10-10] MEDS ORDERED: PRED10TA2 PO (10:57)
[2019-10-10] MEDS ORDERED: PROT1TAB2 PO (10:57)
[2019-10-10 12:00] VITALS: BP 140/90
--- NOTE | 2019-10-10 20:46 | DS.PDOC ---
Discharge Summary General Date of Admission Oct 08, 2019 at 15:59 Date of Discharge 10/10/19 Attending Physician: NATASHA NIELSON MD Discharge Summary PROCEDURES PERFORMED DURING STAY: None. ADMITTING DIAGNOSES: 1. ITP flare. DISCHARGE DIAGNOSES: 1. ITP flare. 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 HISTORY OF PRESENT ILLNESS: 49-year-old female with past medical history of ITP and lupus with chronic kidney disease, was admitted for ITP flare with platelet count of 1. Patient had been evaluated by laundry agent oncologist and sent to the hospital for admission and treatment with IVIG and high-dose steroids. Patient received 2 days of IVIG along with prednisone 80 mg daily 2 days. Patient's platelet count has increased to 17, she has remained asymptomatic, only having scant epistaxis, no other signs of gross bleeding. Patient patient's hemoglobin is down trending over the past month, possibly due to occult bleed, UA on admission showed hematuria as well. Patient not having gross bleeding, hemolytic workup is negative, has an appointment with hematology oncology tomorrow, advised that further outpatient workup and treatment as necessary. Patient understands and agrees with discharge plan. HOSPITAL COURSE: As above DISCHARGE MEDICATIONS: Please see below. ALLERGIES: Please see below. PHYSICAL EXAMINATION: VITAL SIGNS: Please see below. GENERAL: No distress HEENT: Normocephalic, atraumatic, moist mucous membranes NECK: Supple CARDIOVASCULAR EXAMINATION: S1, S2, no murmurs RESPIRATORY EXAMINATION: Clear to auscultation, no wheezing ABDOMINAL EXAMINATION: Soft, nontender, nondistended, positive bowel sounds EXTREMITIES: Range of motion intact SKIN: No rash NEUROLOGICAL EXAMINATION: Alert and oriented 3, no focal deficits PSYCHIATRIC EXAMINATION: Calm and cooperative LABORATORY DATA: Please see below. PROGNOSIS: Fair ACTIVITY: As tolerated. DIET: Regular DISCHARGE PLAN: Follow with PCP and laundry agent tomorrow DISPOSITION: 01 Home, Self-Care. DISCHARGE INSTRUCTIONS: 1. As above DISCHARGE CONDITION: Stable. TIME SPENT ON DISCHARGE: Greater than 34 minutes. Vital Signs/I&Os Vital Signs Date Time Temp Pulse Resp B/P (MAP) Pulse Ox O2 Delivery O2 Flow Rate FiO2 10/10/19 12:00 97.7 72 20 140/90 (107) 96 Room Air I&O- Last 24 Hours up to 6 AM 10/10/19 06:00 Intake Total 1840 ml Output Total 3250 ml Balance -1410 ml Laboratory Data Labs 24H Laboratory Tests 2 10/10/19 05:23: Nucleated Red Blood Cells % (auto) 0.2H, Immature Platelet Fraction 62.2H, Anion Gap 6L, Glomerular Filtration Rate 36.6L, Calcium Level 7.7L CBC/BMP Laboratory Tests 10/10/19 05:23 Microbiology Microbiology 10/08/19 Respiratory Virus Panel (PCR) (PRISCILLA) - Final, Complete Discharge Medications Scheduled Pantoprazole Sodium (Protonix) 40 Mg Tablet.dr, 1 TAB PO DAILY Prednisone (Prednisone) 10 Mg Tablet, 1 TAB PO DAILY Take 6 tabs daily x3 days then 4 tabs daily x3 days then 2 tabs daily x3 days then 1 tab daily x3 days then 0.5 tab daily x3 Romiplostim (Nplate) 500 Mcg Vial, 300 MCG SC QWEEK, (Reported) Scheduled PRN Acetaminophen (Tylenol Extra Strength) 500 Mg Tablet, 1,000 MG PO TID PRN for PAIN, (Reported) Allergies Coded Allergies: Sulfa (Sulfonamide Antibiotics) (Verified Allergy, Mild, rash, 01/07/19) NATASHA NIELSON MD Oct 10, 2019 20:46
== END 2019-10-10 13:26 | disposition home or self-care (01) | DRG 661 ==
LOC: EDBD 13:43 → M ED 13:43 → M ED INP 15:59 → ENRESERVTM 20:04 → ENRESERVDT 20:04 → M PCU 21:00
PROVIDERS: ADMIT Internal Medicine; ATTEND Internal Medicine
DX: D69.3 Immune thrombocytopenic purpura (principal); B18.9 Chronic viral hepatitis, unspecified; Z79.899 Other long term (current) drug therapy; Z90.81 Acquired absence of spleen; Z88.2 Allergy status to sulfonamides

== ENCOUNTER 2019-10-27 09:47 | Inpatient (IN) | payer BC ==
[~2019-10-27] VITALS: Ht 154.9 cm; Wt 63.8 kg
[2019-10-27] VITALS (14 sets, daily range): BP systolic 124–144; BP diastolic 80–85
[~2019-10-27 09:47] MED LIST changes: +ACET-897 PO; +HEPARIN SOD (PORCINE) 5000 UNITS/ML VIAL SC SCH; +NPLA500I SC; +PRED10TA2 PO; +PROT1TAB2 PO
[2019-10-27] MEDS ORDERED: predniSONE 20 MG TAB PO ONE (10:15)
[2019-10-27 10:42] LABS: INR 1.01
[2019-10-27] MEDS ORDERED: IMMUNE GLOBULIN IV SCH (10:45)
[2019-10-27] MEDS ORDERED: PANT-23 PO (10:49)
[2019-10-27] MEDS ORDERED: PRED20TA PO (10:49)
[2019-10-27] MEDS ORDERED: FERR1TAB8 PO (10:51)
[2019-10-27] MEDS ORDERED: ASCO500T PO (10:51)
[2019-10-27 10:58] LABS: ALBUMIN 2.8 GM/DL (3.2-5.2); BILIRUBIN,TOTAL 0.6 MG/DL (0.2-1.0); CALCIUM LEVEL 8.1 MG/DL (8.5-10.1); CREATININE FOR GFR 1.66 MG/DL (0.55-1.30); GLOMERULAR FILTRATION RATE 34.8 (>51); POTASSIUM SERUM 4.3 MEQ/L (3.5-5.1); TOTAL PROTEIN 7.5 GM/DL (6.4-8.2)
[2019-10-27] MEDS ORDERED: IMMUNE GLOBULIN 10% 20GM 200ML 20 GM in IV 1 EA IV ONE ×6 (11:15)
[2019-10-27] MEDS ORDERED: IMMUNE GLOBULIN 10% 5GM 5 GM in IV 1 EA IV ONE (11:15)
[2019-10-27] MEDS ORDERED: diphenhydrAMINE 25 MG CAP As Ordered ONE (12:08)
[2019-10-27] MEDS ORDERED: ACETAMINOPHEN 500 MG TAB As Ordered ONE (12:08)
[2019-10-27] MEDS ORDERED: diphenhydrAMINE 25 MG CAP PO ONE (12:15)
[2019-10-27] MEDS ORDERED: ACETAMINOPHEN 500 MG TAB PO ONE (12:15)
--- NOTE | 2019-10-27 13:47 | HPEPDOC ---
[facility] Medical History & Physical Date of Admission Oct 27, 2019 Date of Service: Oct 27, 2019 Other Provider Tj Mills Attending Physician: DOMO REYNA MD History and Physical CHIEF COMPLAINT: ITP flare instructed to present to ER for IVIG and prednisone flare HISTORY OF PRESENT ILLNESS: Patient is a pleasant 49-year-old female with past medical history significant for ITP status post splenectomy and lupus. Who presented to the ER at the direction of her solutions engineer/oncologist Dr. Mueller ITP/lupus flare. On presentation she complained of nose bleed from bilateral nostrils that been going on for the last couple of days.She denied any petechia, denied any hematuria, denied any blood per rectum, denied any arthralgia, denied any fever, denied any recent illness. She does admit to general lethargic. Denies chest pain, denies nausea, denied vomiting, denies changes in vision. Denies any recent illness. Denies shortness of breath, or difficulty breathing. In the ER patient received IV steroids, and her IVIG was started. ROS CONSTITUTIONAL: No fevers, denies chills, denies weight loss, Admits to lethargy HEENT: No rhinorrhea, admits nosebleeds CARDIOVASCULAR: No murmurs no palpitations and arrhythmias RESPIRATORY: Not cough, No SOB, no issues to report GASTROINTESTINAL: No nausea, no vomiting, no difficulty swallowing, no pain with eating, no diarrhea HEMATOLOGICAL:Positive for nosebleeding, oral mucosa, bleeding, HEMATOLOGIC/LYMPHATIC: Positive for bleeding, no swelling PAST MEDICAL HISTORY: 1. ITP. 2. Lupus. PAST SURGICAL HISTORY: 1. 2. 2. Splenectomy 3. SOCIAL HISTORY: Never smoker. Denies alcohol. Denies drug use FAMILY HISTORY: Positive for heart disease in her mother ALLERGIES: Please see below. HOME MEDICATIONS: Please see below. PHYSICAL EXAMINATION: VITAL SIGNS: Please see below. GENERAL: Pleasant, female, accompanied by her , in no acute distress HEENT: Normocephalic, atraumatic, mild epitaxis noted noted from bilateral nostrils, oral mucosa has open blisters NECK: Supple CARDIOVASCULAR EXAMINATION: S1, S2, no murmurs, no gallops RESPIRATORY EXAMINATION: Clear to auscultation, no wheezing ABDOMINAL EXAMINATION: No organomegaly, normal bowel sounds present EXTREMITIES: Range of motion intact SKIN: Petechiae noted on all extremities LABORATORY DATA: See below. MICROBIOLOGY: Please see below. ASSESSMENT: 49-year-old female with past medical history of ITP and lupus is admitted for ITP flare up. Will begin treatment with IVIG and IV steroids PLAN: #ITP flare. Secondary to lupus flare, secondary to ITP flare, secondary to stress, secondary to possibility of accessory spleen IVIG 65 g per day, started on prednisone 40 mg daily with slow taper -Will f/u w Heme to determine duration of treatment and if pt needs repeat imaging to look for accessory spleen -f/u DAYLIN complement 3 and complement 4, and double-stranded DNA ordered to investigate if lupus flare contributing to acute drop in plts #Lupus -f/u DAYLIN complement 3 and complement 4, and double-stranded DNA #OSWALDO -Baseline creatine in 1.28 -Presenting creatinine is 1.66, gentle IV hydration -Will continue to monitor -f/u urine studies to calculate FENA #Macrocytic anemia -Vitamin B12 -Folate -Reticulocyte count -TSH #Hyperglycemia -likely 2/2 steroids.continue monitor GI prophylaxis: -Oral Protonix DVT prophylaxis: -Teds Vital Signs Vital Signs Date Time Temp Pulse Resp B/P (MAP) Pulse Ox O2 Delivery O2 Flow Rate FiO2 10/27/19 13:09 98.2 97 16 135/81 (99) 97 Room Air Laboratory Data Labs 24H Laboratory Tests 2 10/27/19 10:17: Prothrombin Time 13.0, Prothromb Time International Ratio 1.01, Anion Gap 8, Glomerular Filtration Rate 34.8L, Calcium Level 8.1L, Total Bilirubin 0.6, Aspartate Amino Transf (AST/SGOT) 26, Alanine Aminotransferase (ALT/SGPT) 36, Alkaline Phosphatase 115, Total Protein 7.5, Albumin 2.8L, Albumin/Globulin Ratio 0.60L CBC/BMP Laboratory Tests 10/27/19 10:17 Home Medications Scheduled Ascorbic Acid (Ascorbic Acid) 500 Mg Tablet, 1,000 MG PO DAILY Ferrous Sulfate (Ferrous Sulfate) 325 Mg Tablet, 325 MG PO DAILY Pantoprazole Sodium (Pantoprazole Sodium) 40 Mg Tablet.dr, 40 MG PO DAILY Taking while on prednisone Prednisone (Prednisone) 20 Mg Tablet, 40 MG PO ASDIRECTED 40mg per Oncology with IVIG Will taper after IVIG administration Romiplostim (Nplate) 500 Mcg Vial, 300 MCG SC QWEEK Scheduled PRN Acetaminophen (Tylenol Extra Strength) 500 Mg Tablet, 1,000 MG PO TID PRN for PAIN Allergies Coded Allergies: Sulfa (Sulfonamide Antibiotics) (Verified Allergy, Mild, rash, 10/27/19) GME ATTESTATION GME ATTESTATION My faculty preceptor for this patient encounter was physically present during the encounter and was fully available. All aspects of the patient interview, examination, medical decision making process, and medical care plan development were reviewed and approved by the faculty preceptor. The faculty preceptor is aware and concurs with the plan as stated in the body of this note and will attest to such by his/her cosignature. ATTENDING NOTE I examined the patient at 132pm, reviewed and edited the note and agree with the findings as documented by the resident. SILVESTRE ALVES DO Oct 27, 2019 13:47 DOMO REYNA MD Oct 27, 2019 16:31
[2019-10-27] MEDS ORDERED: SODIUM CHLORIDE 0.9% NASAL GEL 15GM (AYR) PRN (14:00)
[2019-10-27 14:21] LABS: PARTIAL THROMBOPLASTIN TIME 35.9 SECONDS (25.0-38.4)
[2019-10-27] MEDS: PANTOPRAZOLE 40MG TAB (PROTONIX) PO SCH (15:04)
[2019-10-27 18:07] LABS: COMPLEMENT C4 1.99999 MG/DL (10-40)
[2019-10-28] VITALS (17 sets, daily range): BP systolic 127–143; BP diastolic 81–95
[2019-10-28 06:06] LABS: HEMATOCRIT 24.5 % (36.0-47.0); HEMOGLOBIN 8.1 g/dl (12.0-15.5); MEAN CORPUSCULAR HEMOGLOBIN 31.8 pg (27.0-33.0); MEAN CORPUSCULAR HGB CONC 33.1 g/dl (32.0-36.5); MEAN CORPUSCULAR VOLUME 96.1 fl (80.0-96.0); RED BLOOD COUNT 2.55 10^6/uL (4.00-5.40); WHITE BLOOD COUNT 6.5 10^3/uL (4.0-10.0)
[2019-10-28 06:19] LABS: PLATELET COUNT, AUTOMATED 2 10^3/uL (150-450)
[2019-10-28 06:35] LABS: CALCIUM LEVEL 7.6 MG/DL (8.5-10.1); CREATININE FOR GFR 1.49 MG/DL (0.55-1.30); GLOMERULAR FILTRATION RATE 39.4 (>51); THYROID STIMULATING HORMONE 0.44 uIU/ML (0.358-3.740)
[2019-10-28] MEDS ORDERED: IMMUNE GLOBULIN 10% 20GM 200ML 40 GM in IV 1 EA IV ONE (09:00)
[2019-10-28] MEDS ORDERED: IMMUNE GLOBULIN IV ONE (09:00)
[2019-10-28] MEDS ORDERED: IMMUNE GLOBULIN 10% 5GM 5 GM in IV 1 EA IV ONE (09:00)
[2019-10-28] MEDS: PANTOPRAZOLE 40MG TAB (PROTONIX) PO SCH (09:13)
[2019-10-28] MEDS: FERROUS SULFATE 325MG TAB PO SCH (09:13)
[2019-10-28] MEDS: ASCORBIC ACID 500 MG TAB PO SCH (09:13)
[2019-10-28] MEDS: predniSONE 20 MG TAB PO SCH (09:13)
[2019-10-28] MEDS: ACETAMINOPHEN 500 MG TAB PO PRN ×2 (10:36→19:49)
[2019-10-28] MEDS ORDERED: diphenhydrAMINE 25 MG CAP PO ONE (10:45)
[2019-10-28 10:50] LABS: FOLATE 6.7 NG/ML (>5.4)
[2019-10-28] MEDS ORDERED: IMMUNE GLOBULIN IV SCH (13:30)
--- NOTE | 2019-10-28 14:24 | IPNPDOC ---
Text Note Date of Service The patient was seen on 10/28/19. NOTE SUBJECTIVE: Patient was examined at bedside. She had no acute complains. She was accompanied by her husbands. She tolerated her IVIG treatment yesterday without any difficulties. NS PHYSICAL EXAMINATION: VITAL SIGNS: Please see below. GENERAL: alert no acute complaints HEENT: Normocephalic, atraumatic, moist oral mucosal, no bleeding NECK: Supple, no JVD CARDIOVASCULAR EXAMINATION: S1, S2, no murmurs, no gallops RESPIRATORY EXAMINATION: Clear to auscultation, no wheezing LABORATORY DATA: Please see below. ASSEMENT AND PLAN: ASSESSMENT: 49-year-old female with past medical history of ITP and lupus is admitted for ITP flare up. Will begin treatment with IVIG and IV steroids PLAN: #ITP flare. Secondary to lupus flare, secondary to ITP flare, secondary to stress, secondary to possibility of accessory spleen IVIG 65 g per day, for a total of 2 days. This is day 2. Started on prednisone 40 mg daily at discharge --Pending lups flare labs #Lupus -pending DAYLIN complement 3 and complement 4, and double-stranded DNA #OSWALDO -Baseline creatine in 1.28 -Presenting creatinine is 1.66, gentle IV hydration -Will continue to monitor -f/u urine studies to calculate FENA #Macrocytic anemia -Vitamin B12 -Folate -Reticulocyte count -TSH #Hyperglycemia -likely 2/2 steroids.continue monitor GI prophylaxis: -Oral Protonix DVT prophylaxis: -Teds VS,Fishbone, I+O VS, Fishbone, I+O Laboratory Tests 10/28/19 05:16 Vital Signs Date Time Temp Pulse Resp B/P (MAP) Pulse Ox O2 Delivery O2 Flow Rate FiO2 10/28/19 11:45 97.9 80 17 127/82 (97) 98 Room Air I&O- Last 24 Hours up to 6 AM 10/28/19 06:00 Intake Total 1112 ml Output Total 1225 ml Balance -113 ml SILVESTRE ALVES DO Oct 28, 2019 14:24
[2019-10-28] MEDS ORDERED: NS 1,000 ML IV SCH (15:00)
[2019-10-29 01:35] LABS: CREATININE,RANDOM URINE 28.9 MG/DL
[2019-10-29 06:00] VITALS: BP 137/87
[2019-10-29 06:05] LABS: HEMATOCRIT 23.6 % (36.0-47.0); HEMOGLOBIN 7.6 g/dl (12.0-15.5); MEAN CORPUSCULAR HEMOGLOBIN 32.2 pg (27.0-33.0); MEAN CORPUSCULAR HGB CONC 32.2 g/dl (32.0-36.5); RED BLOOD COUNT 2.36 10^6/uL (4.00-5.40); WHITE BLOOD COUNT 8.9 10^3/uL (4.0-10.0)
[2019-10-29 06:07] LABS: PLATELET COUNT, AUTOMATED 82 10^3/uL (150-450)
[2019-10-29 06:34] LABS: CALCIUM LEVEL 8.1 MG/DL (8.5-10.1); CREATININE FOR GFR 1.46 MG/DL (0.55-1.30); GLOMERULAR FILTRATION RATE 40.4 (>51); MAGNESIUM LEVEL 2.1 MG/DL (1.8-2.4)
[2019-10-29] MEDS: PANTOPRAZOLE 40MG TAB (PROTONIX) PO SCH (09:29)
[2019-10-29] MEDS: predniSONE 20 MG TAB PO SCH (09:29)
[2019-10-29] MEDS: ASCORBIC ACID 500 MG TAB PO SCH (09:29)
[2019-10-29] MEDS: FERROUS SULFATE 325MG TAB PO SCH (09:30)
[2019-10-29 10:03] LABS: FOLATE 7.2 NG/ML (>5.4)
--- NOTE | 2019-10-29 13:14 | IPNPDOC ---
Text Note Date of Service The patient was seen on 10/29/19. NOTE SUBJECTIVE: Patient was examined at bedside. She was accompanied by her . She has completed her IVIG treatments. She states she feels better, just little tired. Patient had no events overnight PHYSICAL EXAMINATION: VITAL SIGNS: Please see below. GENERAL: Pleasant, ambulating in the room HEENT: No bleeding noticed and oral mucosa, neck is supple CARDIOVASCULAR EXAMINATION: S1, S2, no murmurs, no gallops RESPIRATORY EXAMINATION: Clear to auscultation, no wheezing Skin exam had no bruising, no murmurs, no erythema, no sign of trauma LABORATORY DATA: Please see below. ASSEMENT AND PLAN: ASSESSMENT: 49-year-old female with past medical history of ITP and lupus is admitted for ITP flare up. Will begin treatment with IVIG and IV steroids PLAN: #ITP flare. Secondary to lupus flare, secondary to ITP flare, secondary to stress, secondary to possibility of accessory spleen -Has completed two day treatment of IVIG - Will follow up with him otology and oncology #Lupus -pending DAYLIN -Pending anti double stranded DNA -Low C3 and C4 #OSWALDO on CKD stage 3 -Baseline creatine in 1. -Improviing #Macrocytic anemia -B12, folate, within normal limits, will repeat H&H every 6 hours, and monitor until stable. -Will Transfuse if patient become symptomatic #Hyperglycemia -likely 2/2 steroids.continue monitor GI prophylaxis: -Oral Protonix DVT prophylaxis: -Teds VS,Fishbone, I+O VS, Fishbone, I+O Laboratory Tests 10/29/19 05:13 Vital Signs Date Time Temp Pulse Resp B/P (MAP) Pulse Ox O2 Delivery O2 Flow Rate FiO2 10/29/19 06:00 98.0 79 17 137/87 (104) 97 10/28/19 22:00 Room Air I&O- Last 24 Hours up to 6 AM 10/29/19 06:00 Intake Total 1670 ml Output Total 5155 ml Balance -3485 ml SILVESTRE ALVES DO Oct 29, 2019 13:14
[2019-10-29 14:00] VITALS: BP 143/91
[2019-10-29 14:06] LABS: HEMATOCRIT 26.6 % (36.0-47.0); HEMOGLOBIN 8.9 g/dl (12.0-15.5)
[2019-10-29 18:30] VITALS: BP 148/92
[2019-10-29 19:24] LABS: HEMATOCRIT 27.7 % (36.0-47.0); HEMOGLOBIN 8.8 g/dl (12.0-15.5)
[2019-10-30] VITALS: BP 125/68
[2019-10-30 07:13] LABS: HEMATOCRIT 25.6 % (36.0-47.0); HEMOGLOBIN 8.2 g/dl (12.0-15.5); MEAN CORPUSCULAR HEMOGLOBIN 31.8 pg (27.0-33.0); MEAN CORPUSCULAR VOLUME 99.2 fl (80.0-96.0); PLATELET COUNT, AUTOMATED 206 10^3/uL (150-450); RED BLOOD COUNT 2.58 10^6/uL (4.00-5.40)
[2019-10-30 07:36] LABS: CALCIUM LEVEL 8.3 MG/DL (8.5-10.1); CREATININE FOR GFR 1.4 MG/DL (0.55-1.30); GLOMERULAR FILTRATION RATE 42.4 (>51); POTASSIUM SERUM 3.8 MEQ/L (3.5-5.1)
[2019-10-30 07:57] VITALS: BP 166/84
[2019-10-30] MEDS: predniSONE 20 MG TAB PO SCH (08:10)
[2019-10-30] MEDS: PANTOPRAZOLE 40MG TAB (PROTONIX) PO SCH (08:10)
[2019-10-30] MEDS: FERROUS SULFATE 325MG TAB PO SCH (08:10)
[2019-10-30] MEDS: ASCORBIC ACID 500 MG TAB PO SCH (08:11)
[2019-10-30] MEDS ORDERED: PRED10TA2 PO (08:34)
--- NOTE | 2019-10-30 16:03 | DS.PDOC ---
Discharge Summary General Date of Admission Oct 27, 2019 at 11:12 Date of Discharge 10/30/19 Attending Physician: MELISA SAMUELS MD Discharge Summary PROCEDURES PERFORMED DURING STAY: None. ADMITTING DIAGNOSES: 1. ITP flare. DISCHARGE DIAGNOSES: 1. ITP flare. 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 HISTORY OF PRESENT ILLNESS/HOSPITAL COURSE:lorenzo is a pleasant 49-year-old female with past medical history significant for ITP status post splenectomy and lupus. Who presented to the ER at the direction of her dielectric testing machine operator/oncologist Dr. Mueller ITP/lupus flare. On presentation she complained of nose bleed from bilateral nostrils that been going on for the last couple of days.She denied any petechia, denied any hematuria, denied any blood per rectum, denied any arthralgia, denied any fever, denied any recent illness. She does admit to general lethargic. Denies chest pain, denies nausea, denied vomiting, denies changes in vision. Denies any recent illness. Denies shortness of breath, or difficulty breathing. During admission she received 2 days of IVIG along with prednisone 40 mg daily 2 days. Patient's platelet count has increased to 206 on day of discharge. She presented with a plaletet count of 2. On day of discharge, patient did not have any symptomatic bleeding. She was discharged high spirits and encouraged to follow-up with dielectric testing machine operator as well as dot compliance manager for her ITP and lupus respectively. Patient agreed with discharge plan. DISCHARGE MEDICATIONS: Please see below. ALLERGIES: Please see below. PHYSICAL EXAMINATION: VITALS: See Below GENERAL APPEARANCE: Alert no acute distress. SKIN: Warm, well perfused. ENT: , Neck supple, no thyromegaly, moist oral mucosa, no bleeding, no epistaxis THORAX: Symmetrical. LUNGS: Clear to auscultation bilaterally. HEART: Normal S1, S2. No murmurs, no rubs, no gallops ABDOMEN: Soft. No masses. Bowel sounds are present. TRUNK/SPINE:Straight. EXTREMITIES: Moves all extremities equally. No gross deformities. PULSES: 2+ upper and lower extremity . LABORATORY DATA: Please see below. PROGNOSIS: Fair ACTIVITY: As tolerated. DIET: Regular DISCHARGE PLAN: Follow with PCP, dielectric testing machine operator as well as dot compliance manager DISPOSITION: 01 Home, Self-Care. DISCHARGE INSTRUCTIONS: 1. Follow-up with dielectric testing machine operator, dot compliance manager PCP 2. Monitor for symptomatic bleeding DISCHARGE CONDITION: Stable. TIME SPENT ON DISCHARGE: Greater than 37 minutes. Vital Signs/I&Os Vital Signs Date Time Temp Pulse Resp B/P (MAP) Pulse Ox O2 Delivery O2 Flow Rate FiO2 10/30/19 07:57 99.0 77 18 166/84 (111) 98 Room Air I&O- Last 24 Hours up to 6 AM 10/30/19 06:00 Intake Total 1840 ml Output Total 1800 ml Balance 40 ml Laboratory Data Labs 24H Laboratory Tests 2 10/30/19 07:00: Nucleated Red Blood Cells % (auto) 1.1H, Anion Gap 4L, Glomerular Filtration Rate 42.4L, Calcium Level 8.3L, Magnesium Level 2.0 CBC/BMP Laboratory Tests 10/29/19 19:08 10/30/19 07:00 Microbiology Microbiology 10/30/19 Stool Occult Blood (PRISCILLA) - Final, Complete Discharge Medications Scheduled Ascorbic Acid (Ascorbic Acid) 500 Mg Tablet, 1,000 MG PO DAILY, (Reported) Ferrous Sulfate (Ferrous Sulfate) 325 Mg Tablet, 325 MG PO DAILY, (Reported) Pantoprazole Sodium (Pantoprazole Sodium) 40 Mg Tablet.dr, 40 MG PO DAILY, (Reported) Taking while on prednisone Prednisone (Prednisone) 10 Mg Tablet, 10 MG PO TAPER Take 4 tabs daily x 3 days, then 3 tabs daily x 3 days, then 2 tabs daily x 3 days, then 1 tab daily x 3 days and stop Romiplostim (Nplate) 500 Mcg Vial, 300 MCG SC QWEEK, (Reported) Scheduled PRN Acetaminophen (Tylenol Extra Strength) 500 Mg Tablet, 1,000 MG PO TID PRN for PAIN, (Reported) Allergies Coded Allergies: Sulfa (Sulfonamide Antibiotics) (Verified Allergy, Mild, rash, 10/27/19) SILVESTRE ALVES DO Oct 30, 2019 15:59
== END 2019-10-30 10:55 | disposition home or self-care (01) | DRG 346 ==
LOC: M ED 09:47 → M ED INP 11:12 → ENRESERV 12:39 → M MSPAV 13:14 → M PED 10-29 17:58
PROVIDERS: ADMIT Internal Medicine; ATTEND Internal Medicine
DX: M32.9 Systemic lupus erythematosus, unspecified (principal); D69.3 Immune thrombocytopenic purpura; N17.9 Acute kidney failure, unspecified; Z90.81 Acquired absence of spleen; D53.9 Nutritional anemia, unspecified; Z79.899 Other long term (current) drug therapy; Z88.2 Allergy status to sulfonamides; R73.9 Hyperglycemia, unspecified; Z79.52 Long term (current) use of systemic steroids

== ENCOUNTER 2019-11-15 12:49 | Outpatient (CLI) | payer BC ==
[~2019-11-15] VITALS: Ht 160 cm; Wt 65.0 kg
[~2019-11-15 12:49] MED LIST changes: +ASCO500T PO; +FERR1TAB8 PO; -HEPARIN SOD (PORCINE) 5000 UNITS/ML VIAL SC SCH; +PANT-23 PO; +PRED20TA PO
[2019-11-15] MEDS ORDERED: IMMUNE GLOBULIN 10% 20 GM in IV 1 EA IV ONE (13:00)
[2019-11-15 13:16] VITALS: BP 125/78
[2019-11-15] MEDS ORDERED: DECA4TAB PO (13:16)
[2019-11-15 14:00] VITALS: BP 131/74
[2019-11-15 14:30] VITALS: BP 129/68
[2019-11-15 15:00] VITALS: BP 134/74
[2019-11-15 16:00] VITALS: BP 146/80
[2019-11-15 16:20] VITALS: BP 138/71
== END 2019-11-15 16:15 | disposition home or self-care (01) ==
LOC: M INFU 12:49
PROVIDERS: ATTEND Internal Medicine Hematology
DX: D69.3 Immune thrombocytopenic purpura (principal); Z88.2 Allergy status to sulfonamides
CPT/HCPCS: 96365; 96366; J1459

== ENCOUNTER 2019-11-23 09:12 | Outpatient (CLI) | payer BC ==
[~2019-11-23] VITALS: Ht 154.9 cm; Wt 64.5 kg
[2019-11-23 09:10] VITALS: BP 128/77
[~2019-11-23 09:12] MED LIST changes: +DECA4TAB PO
[2019-11-23] MEDS ORDERED: RITU10VLL IV (09:25)
[2019-11-23] MEDS ORDERED: IMMUNE GLOBULIN 10% 20 GM in IV 1 EA IV ONE (09:30)
[2019-11-23 09:45] VITALS: BP 131/78
[2019-11-23 10:00] VITALS: BP 123/75
[2019-11-23 10:15] VITALS: BP 133/71
[2019-11-23 11:31] VITALS: BP 122/80
[2019-11-24] MEDS ORDERED: ACET-897 PO (10:42)
[2019-11-24] MEDS ORDERED: [UNRECOGNIZED DRUG - CODE] SQ (10:42)
== END 2019-11-23 11:30 | disposition home or self-care (01) ==
LOC: M INFU 09:12
PROVIDERS: ATTEND Internal Medicine Hematology
DX: D69.3 Immune thrombocytopenic purpura (principal); Z88.2 Allergy status to sulfonamides
CPT/HCPCS: 96365; 96366; J1459

== ENCOUNTER 2019-11-24 09:47 | Inpatient (IN) | payer BC ==
[~2019-11-24] VITALS: Ht 154.9 cm; Wt 63.5 kg
[2019-11-24] VITALS (8 sets, daily range): BP systolic 121–140; BP diastolic 71–79
[~2019-11-24 09:47] MED LIST changes: +RITU10VLL IV
--- NOTE | 2019-11-24 10:13 | REP ---
Clinical: Trauma. Fall . Comparison: 08/12/2018 . Findings: The ventricles, sulci, and cisterns are normal in position and appearance. Reed-white differentiation is maintained. No acute intracranial hemorrhage, mass/mass effect, pathology or trauma/injury. No evidence for acute infarction. No extra-axial fluid collection. Calvarium is intact. Paranasal sinuses and mastoid air cells are clear. Impression: Normal noncontrast head CT. No evidence for acute intracranial pathology or trauma/injury. Electronically Signed by Michelet Smith MD 11/24/2019 10:06 A
[2019-11-24] MEDS ORDERED: ACET-897 PO (10:42)
[2019-11-24] MEDS ORDERED: [UNRECOGNIZED DRUG - CODE] SQ (10:42)
[2019-11-24 11:08] LABS: CK-MB VALUE MASS < 1.0 NG/ML (<3.6); CPK CREATINE PHOSPHOKINASE 22 U/L (26-192); MB/CK RELATIVE INDEX 4.55 (< OR =4); TROPONIN I < 0.02 NG/ML (< 0.10)
[2019-11-24] MEDS ORDERED: IMMUNE GLOBULIN 10% 20 GM in IV 1 EA IV ONE (16:00)
--- NOTE | 2019-11-24 16:19 | HPEPDOC ---
[facility] Medical History & Physical Date of Admission Nov 24, 2019 Date of Service: Nov 24, 2019 Attending Physician: NATASHA NIELSON MD History and Physical CHIEF COMPLAINT: Syncope, low platelets HISTORY OF PRESENT ILLNESS: 49-year-old female with past medical history of ITP, SLE and chronic kidney disease presents from home with a syncopal episode. Patient felt nauseous with dry heaving, had bowel movement and afterwards felt nauseous again before having a syncopal episode. Patient's was nearby who reports patient woke up after a few seconds, asymptomatic since then. Patient went to her oncologist appointment today, found to have platelet count of 2 and advised to come to the hospital for syncopal workup and IVIG. Patient has had multiple hospitalizations over the past 2 months for steroids/IVIG for ITP, was also started on Rituxan last week. Patient is currently comfortable in bed, denies any shortness of breath, dizziness, headache, chest pain, abdominal pain, nausea, vomiting or diarrhea. 10 point review of systems is negative except for above PAST MEDICAL HISTORY: 1. ITP. 2. SLE. 3. Chronic kidney disease. PAST SURGICAL HISTORY: 1. Splenectomy 3. SOCIAL HISTORY: Never smoker. Social use. Denies drug use FAMILY HISTORY: Mother has heart disease ALLERGIES: Please see below. HOME MEDICATIONS: Please see below. PHYSICAL EXAMINATION: VITAL SIGNS: Please see below. GENERAL: No distress HEENT: Normocephalic, atraumatic, moist mucous membranes NECK: Supple CARDIOVASCULAR EXAMINATION: S1, S2, no murmurs RESPIRATORY EXAMINATION: Clear to auscultation, no wheezing ABDOMINAL EXAMINATION: Soft, nontender, nondistended, positive bowel sounds EXTREMITIES: Range of motion intact SKIN: No rash NEUROLOGICAL EXAMINATION: Alert and oriented 3, no focal deficits PSYCHIATRIC EXAMINATION: Calm and cooperative LABORATORY DATA: See below. MICROBIOLOGY: Please see below. ASSESSMENT: 49-year-old female with past medical history of ITP, lupus, chronic kidney disease presents from oncologist's office with low platelets, who also had a syncopal episode at home earlier today. PLAN: 1. Vasovagal Syncope. Patient was nauseous prior to syncopal episode, only passed out for a few seconds, asymptomatic since then, telemonitoring. Extensive workup is not needed 2) ITP. We'll discuss with oncologist, IVIG 20 g 1, further dosing based on oncologist recommendations, we'll discuss need for inpatient liver/spleen imaging. 3) chronic kidney disease. Creatinine close to baseline, we'll monitor DVT prophylaxis: Contraindicated. GI prophylaxis: Not needed Vital Signs Vital Signs Date Time Temp Pulse Resp B/P (MAP) Pulse Ox O2 Delivery O2 Flow Rate FiO2 11/24/19 13:25 98.7 19 97 140/79 (99) 100 Room Air Laboratory Data Labs 24H Laboratory Tests 2 11/24/19 10:21: Total Creatine Kinase 22L, Creatine Kinase MB < 1.0, Creatine Kinase MB Relative Index 4.55H, Troponin I < 0.02 Home Medications Scheduled Rituximab (Rituxan) 10 Mg/1 Ml Vial, 125 MG IV ASDIRECTED PATIENT RECEIVED OVER 3 DAYS ON 11/16, 11/17, 11/18/2019 Romiplostim (Nplate) 125 Mcg Vial, 125 MCG SQ QWEEK FRIDAYS Scheduled PRN Acetaminophen (Tylenol Extra Strength) 500 Mg Tablet, 1,000 MG PO TID PRN for PAIN Allergies Coded Allergies: Sulfa (Sulfonamide Antibiotics) (Verified Allergy, Mild, rash, 10/27/19) A-FIB/CHADSVASC A-FIB History Current/History of A-Fib/PAF?: No NATASHA NIELSON MD Nov 24, 2019 16:19
[2019-11-24] MEDS ORDERED: IMMUNE GLOBULIN IV ONE (17:00)
[2019-11-24] MEDS: diphenhydrAMINE 25 MG CAP PO PRN (18:33)
[2019-11-24] MEDS: ACETAMINOPHEN 500 MG TAB PO PRN (18:34)
--- NOTE | 2019-11-24 20:35 | ECGEPIP ---
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
[2019-11-25 06:00] VITALS: BP 118/73
[2019-11-25 06:52] LABS: HEMATOCRIT 30.3 % (36.0-47.0); HEMOGLOBIN 9.5 g/dl (12.0-15.5); MEAN CORPUSCULAR HEMOGLOBIN 30.9 pg (27.0-33.0); MEAN CORPUSCULAR HGB CONC 31.4 g/dl (32.0-36.5); MEAN CORPUSCULAR VOLUME 98.7 fl (80.0-96.0); PLATELET COUNT, AUTOMATED 13 10^3/uL (150-450); RED BLOOD COUNT 3.07 10^6/uL (4.00-5.40); WHITE BLOOD COUNT 4.7 10^3/uL (4.0-10.0)
[2019-11-25 07:13] LABS: ALBUMIN 2.3 GM/DL (3.2-5.2); BILIRUBIN,TOTAL 0.3 MG/DL (0.2-1.0); CREATININE FOR GFR 1.67 MG/DL (0.55-1.30); GLOMERULAR FILTRATION RATE 34.6 (>51); MAGNESIUM LEVEL 2.2 MG/DL (1.8-2.4); POTASSIUM SERUM 4.1 MEQ/L (3.5-5.1)
[2019-11-25] MEDS ORDERED: IMMUNE GLOBULIN 10% 20 GM in IV 1 EA IV ONE ×2 (09:15→11:00)
--- NOTE | 2019-11-25 12:55 | REP ---
Nuclear liver spleen scan: History: Prior splenectomy 05/24/1993 the [employer] and ITP. Subsequent repeat splenectomy for recurrent splenic tissue. Technique: 6.4 mCi technetium 99m sulfur colloid is injected and standard liver spleen scan images are acquired. Scintigraphic findings: Homogeneous hepatic uptake is seen. No focal liver mass lesion is seen. The liver is not felt to be overall enlarged. No uptake is seen in the left upper quadrant to suggest recurrent splenic tissue. There is some colloid shift, with uptake in the skeletal reticular appendiceal system. The study is otherwise unremarkable. Impression: There is some colloid shift which may reflect mild hepatocellular dysfunction. There is no evidence of residual or recurrent splenic activity. No focal liver lesion is seen. Electronically Signed by Juan King MD 11/25/2019 12:47 P
[2019-11-25 14:00] VITALS: BP 133/80
[2019-11-25 14:31] VITALS: BP 146/78
--- NOTE | 2019-11-25 14:34 | DS.PDOC ---
Discharge Summary General Date of Admission Nov 24, 2019 at 11:41 Date of Discharge 11/25/2019 Attending Physician: NATASAH NIELSON MD Discharge Summary PROCEDURES PERFORMED DURING STAY: None. ADMITTING DIAGNOSES: 1. ITP flare, vasovagal syncope. DISCHARGE DIAGNOSES: 1. ITP flare, vasovagal syncope. COMPLICATIONS/CHIEF COMPLAINT: Autoimmune Thrombocytopenia,Systemic Lupus. HISTORY OF PRESENT ILLNESS: [49-year-old female with past medical history of ITP, lupus and chronic kidney disease, was admitted for Ms. Little syncope and ITP flare. Patient was treated with IVIG based on recommendations from oncologist, Dr. Mueller. Patient had a vasovagal syncopal episode, asymptomatic since then, telemetry monitoring without any abnormalities, no extensive workup needed. Patient's platelet count improved to 13 today, patient is cleared for discharge and close follow with Dr. Mueller in within the next few days. Patient is clinically, he was in, I was able for discharge and outpatient follow-up at this time. Patient underwent liver/spleen nuclear medicine test to assess for accessory splenic tissue which was negative. HOSPITAL COURSE: As above. DISCHARGE MEDICATIONS: Please see below. ALLERGIES: Please see below. PHYSICAL EXAMINATION: VITAL SIGNS: Please see below. GENERAL: No distress HEENT: Normocephalic, atraumatic, moist mucous membranes NECK: Supple CARDIOVASCULAR EXAMINATION: S1, S2, no murmurs RESPIRATORY EXAMINATION: Clear to auscultation, no wheezing ABDOMINAL EXAMINATION: Soft, nontender, nondistended, positive bowel sounds EXTREMITIES: Range of motion intact SKIN: No rash NEUROLOGICAL EXAMINATION: Alert and oriented 3, no focal deficits PSYCHIATRIC EXAMINATION: Calm and cooperative LABORATORY DATA: Please see below. IMAGING: Liver/spleen test negative for residual splenic tissue PROGNOSIS: Fair ACTIVITY: As tolerated. DIET: Cardiac DISCHARGE PLAN: Follow with oncologist within 1 week and PCP within 1-2 weeks DISPOSITION: Home. DISCHARGE INSTRUCTIONS: 1. As above. DISCHARGE CONDITION: Stable. TIME SPENT ON DISCHARGE: Greater than 34 minutes. Vital Signs/I&Os Vital Signs Date Time Temp Pulse Resp B/P (MAP) Pulse Ox O2 Delivery O2 Flow Rate FiO2 11/25/19 06:00 97.0 79 17 118/73 (88) 99 Room Air I&O- Last 24 Hours up to 6 AM 11/25/19 06:00 Intake Total 300 ml Output Total 1250 ml Balance -950 ml Laboratory Data Labs 24H Laboratory Tests 2 11/25/19 06:30: Nucleated Red Blood Cells % (auto) 1.5H, Anion Gap 2L, Glomerular Filtration Rate 34.6L, Calcium Level 8.0L, Magnesium Level 2.2, Total Bilirubin 0.3, Aspartate Amino Transf (AST/SGOT) 18, Alanine Aminotransferase (ALT/SGPT) 21, Alkaline Phosphatase 64, Total Protein 8.0, Albumin 2.3L, Albumin/Globulin Ratio 0.40L CBC/BMP Laboratory Tests 11/25/19 06:30 Discharge Medications Scheduled Romiplostim (Nplate) 125 Mcg Vial, 125 MCG SQ QWEEK, (Reported) FRIDAYS Scheduled PRN Acetaminophen (Tylenol Extra Strength) 500 Mg Tablet, 1,000 MG PO TID PRN for PAIN, (Reported) Allergies Coded Allergies: Sulfa (Sulfonamide Antibiotics) (Verified Allergy, Mild, rash, 10/27/19) NATASHA NIELSON MD Nov 25, 2019 14:34
[2019-11-25 15:00] VITALS: BP 140/77
[2019-11-25 15:39] VITALS: BP 138/76
[2019-11-25 16:23] VITALS: BP 139/82
[2019-11-25] MEDS: diphenhydrAMINE 25 MG CAP PO PRN (16:23)
[2019-11-25] MEDS: ACETAMINOPHEN 500 MG TAB PO PRN (16:23)
== END 2019-11-25 18:25 | disposition home or self-care (01) | DRG 661 ==
LOC: M ED 09:47 → M ED INP 11:41 → ENRESERV 12:31 → M MSPAV 13:25
PROVIDERS: ADMIT Internal Medicine; ATTEND Internal Medicine
DX: D69.3 Immune thrombocytopenic purpura (principal); R55 Syncope and collapse; N18.9 Chronic kidney disease, unspecified; Z79.899 Other long term (current) drug therapy; Z88.2 Allergy status to sulfonamides; M32.9 Systemic lupus erythematosus, unspecified

== ENCOUNTER 2019-12-08 06:53 | Outpatient (CLI) | payer BC ==
[~2019-12-08] VITALS: Ht 154.9 cm; Wt 64.5 kg
[~2019-12-08 06:53] MED LIST changes: +[UNRECOGNIZED DRUG - CODE] SQ
[2019-12-08 07:00] VITALS: BP 134/71
[2019-12-08] MEDS ORDERED: IMMUNE GLOBULIN 10% 20 GM in IV 1 EA IV ONE (07:30)
[2019-12-08 07:39] LABS: HEMATOCRIT 27.9 % (36.0-47.0); MEAN CORPUSCULAR HEMOGLOBIN 29.9 pg (27.0-33.0); MEAN CORPUSCULAR HGB CONC 32.3 g/dl (32.0-36.5); MEAN CORPUSCULAR VOLUME 92.7 fl (80.0-96.0); RED BLOOD COUNT 3.01 10^6/uL (4.00-5.40)
[2019-12-08 08:00] VITALS: BP 120/72
[2019-12-08 08:14] LABS: PLATELET COUNT, AUTOMATED 16 10^3/uL (150-450)
[2019-12-08 08:30] VITALS: BP 137/77
[2019-12-08 09:00] VITALS: BP 147/77
[2019-12-08 09:59] VITALS: BP 154/77
== END 2019-12-08 10:00 | disposition home or self-care (01) ==
LOC: M INFU 06:53
PROVIDERS: ATTEND Internal Medicine Hematology
DX: D69.3 Immune thrombocytopenic purpura (principal); Z88.2 Allergy status to sulfonamides
CPT/HCPCS: 85027; 85049; 85055; 96365; 96366; J1459

== ENCOUNTER 2019-12-15 07:56 | Outpatient (CLI) | payer BC ==
[~2019-12-15] VITALS: Ht 154.9 cm; Wt 64.5 kg
[2019-12-15] VITALS (7 sets, daily range): BP systolic 129–143; BP diastolic 68–83
[2019-12-15] MEDS ORDERED: NS IV ONE (08:15)
[2019-12-15] MEDS ORDERED: FAMOTIDINE/NS 20 MG/50 ML BAG (S0028) IV ONE (08:15)
[2019-12-15] MEDS ORDERED: ACETAMINOPHEN TAB 650MG DOSE (2X325MG) PO ONE (08:15)
[2019-12-15] MEDS ORDERED: diphenhydrAMINE 25 MG CAP PO ONE (08:15)
[2019-12-15] MEDS ORDERED: dexameTHASONE 20 MG/5 ML VIAL (J1100) IV ONE (08:15)
[2019-12-15] MEDS ORDERED: RITUXIMAB IV ONE (08:15)
[2019-12-15 08:42] LABS: HEMATOCRIT 30.9 % (36.0-47.0); MEAN CORPUSCULAR HEMOGLOBIN 29.2 pg (27.0-33.0); MEAN CORPUSCULAR HGB CONC 32.4 g/dl (32.0-36.5); MEAN CORPUSCULAR VOLUME 90.4 fl (80.0-96.0); RED BLOOD COUNT 3.42 10^6/uL (4.00-5.40); WHITE BLOOD COUNT 5.2 10^3/uL (4.0-10.0)
[2019-12-15 08:44] LABS: PLATELET COUNT, AUTOMATED 27 10^3/uL (150-450)
== END 2019-12-15 12:30 | disposition home or self-care (01) ==
LOC: M INFU 07:56
PROVIDERS: ATTEND Internal Medicine Hematology
DX: D69.3 Immune thrombocytopenic purpura (principal); Z88.2 Allergy status to sulfonamides
CPT/HCPCS: 36415; 85027; 85049; 85055; 96375; 96413; 96415; J1100; J9312

== ENCOUNTER 2019-12-16 07:42 | Outpatient (CLI) | payer BC ==
[~2019-12-16] VITALS: Ht 155 cm; Wt 64.5 kg
[2019-12-16] MEDS ORDERED: dexameTHASONE 20 MG IV IV ONE ×2 (08:00→08:15)
[2019-12-16] MEDS ORDERED: FAMOTIDINE 20 MG IV IV ONE ×2 (08:00)
[2019-12-16] MEDS ORDERED: diphenhydrAMINE 25 MG PO PO ONE (08:00)
[2019-12-16] MEDS ORDERED: ACETAMINOPHEN 650 MG PO PO ONE (08:00)
[2019-12-16] MEDS ORDERED: RITUXIMAB IV ONE (09:00)
[2019-12-16] MEDS ORDERED: NS IV ONE (09:00)
[2019-12-17] MEDS ORDERED: [UNRECOGNIZED DRUG - CODE] PO (14:40)
[2019-12-20] MEDS ORDERED: [UNRECOGNIZED DRUG - CODE] PO (09:21)
== END 2019-12-16 12:15 | disposition home or self-care (01) ==
LOC: M INFU 07:42
PROVIDERS: ATTEND Internal Medicine Hematology
DX: D69.3 Immune thrombocytopenic purpura (principal); Z88.2 Allergy status to sulfonamides
CPT/HCPCS: J1100; J9312

== ENCOUNTER 2019-12-17 07:55 | Outpatient (CLI) | payer BC ==
[~2019-12-17] VITALS: Ht 155 cm; Wt 64.5 kg
[2019-12-17 08:00] VITALS: BP 160/94
[2019-12-17] MEDS ORDERED: dexameTHASONE 20 MG IV IV ONE ×2 (08:00→08:15)
[2019-12-17] MEDS ORDERED: diphenhydrAMINE 25 MG PO PO ONE (08:00)
[2019-12-17] MEDS ORDERED: ACETAMINOPHEN 650 MG PO PO ONE (08:00)
[2019-12-17] MEDS ORDERED: FAMOTIDINE 20 MG IV IV ONE ×2 (08:00)
[2019-12-17] MEDS ORDERED: RITUXIMAB IV ONE (09:00)
[2019-12-17] MEDS ORDERED: NS IV ONE (09:00)
[2019-12-17 09:45] VITALS: BP 111/62
[2019-12-17 10:15] VITALS: BP 122/89
[2019-12-17 10:45] VITALS: BP 109/61
[2019-12-17 11:10] VITALS: BP 121/67
[2019-12-17 12:00] VITALS: BP 109/62
[2019-12-17] MEDS ORDERED: [UNRECOGNIZED DRUG - CODE] PO (14:40)
[2019-12-20] MEDS ORDERED: [UNRECOGNIZED DRUG - CODE] PO (09:21)
== END 2019-12-17 11:30 | disposition home or self-care (01) ==
LOC: M INFU 07:55
PROVIDERS: ATTEND Internal Medicine Hematology
DX: D69.3 Immune thrombocytopenic purpura (principal); Z88.2 Allergy status to sulfonamides
CPT/HCPCS: 96367; 96375; 96413; 96415; J1100; J9312

== ENCOUNTER 2019-12-17 12:50 | Outpatient (CLI) | payer BC ==
[~2019-12-17] VITALS: Ht 154.9 cm; Wt 64.5 kg
[2019-12-17 13:00] VITALS: BP 126/82
[2019-12-17] MEDS ORDERED: IMMUNE GLOBULIN 10% 20 GM in IV 1 EA IV ONE (14:00)
[2019-12-17] MEDS ORDERED: ACETAMINOPHEN TAB 650MG DOSE (2X325MG) PO ONE (14:00)
[2019-12-17] MEDS ORDERED: diphenhydrAMINE INJ 50MG/ML VIAL (J1200) IV ONE (14:00)
[2019-12-17 14:30] VITALS: BP 119/59
[2019-12-17] MEDS ORDERED: [UNRECOGNIZED DRUG - CODE] PO (14:40)
[2019-12-17 15:00] VITALS: BP 122/59
[2019-12-17 15:30] VITALS: BP 109/61
[2019-12-17 16:00] VITALS: BP 122/67
[2019-12-17 16:45] VITALS: BP 119/66
[2019-12-20] MEDS ORDERED: [UNRECOGNIZED DRUG - CODE] PO (09:21)
== END 2019-12-17 16:45 | disposition home or self-care (01) ==
LOC: M INFU 12:50
PROVIDERS: ATTEND Internal Medicine Hematology
DX: D69.3 Immune thrombocytopenic purpura (principal); Z88.2 Allergy status to sulfonamides
CPT/HCPCS: 36415; 85027; 85049; 85055; 96365; 96366; 96375; J1200; J1459

== ENCOUNTER 2019-12-20 11:57 | Outpatient (CLI) | payer BC ==
[~2019-12-20] VITALS: Ht 154.9 cm; Wt 64.5 kg
[~2019-12-20 11:57] MED LIST changes: +[UNRECOGNIZED DRUG - CODE] PO
[2019-12-20] MEDS ORDERED: diphenhydrAMINE 25 MG CAP PO ONE (12:15)
[2019-12-20] MEDS ORDERED: IMMUNE GLOBULIN 10% 20 GM in IV 1 EA IV ONE (12:15)
[2019-12-20] MEDS ORDERED: ACETAMINOPHEN TAB 650MG DOSE (2X325MG) PO ONE (12:15)
[2019-12-20 12:45] VITALS: BP 139/82
[2019-12-20 13:30] VITALS: BP 146/89
[2019-12-20 14:00] VITALS: BP 132/89
[2019-12-20 14:30] VITALS: BP 128/61
[2019-12-20 15:35] VITALS: BP 122/63
[2019-12-23] MEDS ORDERED: [UNRECOGNIZED DRUG - CODE] PO (11:54)
== END 2019-12-20 15:35 | disposition home or self-care (01) ==
LOC: M INFU 11:57
PROVIDERS: ATTEND Internal Medicine Hematology
DX: D69.3 Immune thrombocytopenic purpura (principal); Z88.2 Allergy status to sulfonamides
CPT/HCPCS: 36415; 82565; 83735; 84132; 84520; 85027; 85049; 85055; 96365; 96366; 96372; J1459; J2796

== ENCOUNTER 2019-12-22 14:51 | Outpatient (CLI) | payer BC ==
[~2019-12-22] VITALS: Ht 154.9 cm; Wt 64.5 kg
[2019-12-22 15:00] VITALS: BP 132/61
[2019-12-22 15:50] VITALS: BP 111/60
[2019-12-22] MEDS ORDERED: diphenhydrAMINE 25 MG CAP PO ONE (16:00)
[2019-12-22] MEDS ORDERED: IMMUNE GLOBULIN 10% 20 GM in IV 1 EA IV ONE (16:00)
[2019-12-22] MEDS ORDERED: ACETAMINOPHEN TAB 650MG DOSE (2X325MG) PO ONE (16:00)
[2019-12-22 16:20] VITALS: BP 131/65
[2019-12-22 16:50] VITALS: BP 169/92
[2019-12-22 17:45] VITALS: BP 160/90
[2019-12-23] MEDS ORDERED: [UNRECOGNIZED DRUG - CODE] PO (11:54)
== END 2019-12-22 17:45 | disposition home or self-care (01) ==
LOC: M INFU 14:51
PROVIDERS: ATTEND Internal Medicine Hematology
DX: D69.3 Immune thrombocytopenic purpura (principal); Z88.2 Allergy status to sulfonamides
CPT/HCPCS: 36415; 85027; 85049; 85055; 96365; 96366; J1459

== ENCOUNTER 2019-12-29 11:20 | Outpatient (CLI) | payer BC ==
[~2019-12-29] VITALS: Ht 154.9 cm; Wt 64.5 kg
[2019-12-29] MEDS ORDERED: IMMUNE GLOBULIN 10% 20 GM in IV 1 EA IV ONE (11:30)
[2019-12-29] MEDS ORDERED: ACETAMINOPHEN TAB 650MG DOSE (2X325MG) PO ONE (11:45)
[2019-12-29 11:50] VITALS: BP 170/81
[2019-12-29 12:45] VITALS: BP 142/65
[2019-12-29 13:15] VITALS: BP 127/60
[2019-12-29 14:35] VITALS: BP 149/65
[2020-01-03] MEDS ORDERED: CARV3.12 PO (11:24)
== END 2019-12-29 14:35 | disposition home or self-care (01) ==
LOC: M INFU 11:20
PROVIDERS: ATTEND Internal Medicine Hematology
DX: D69.3 Immune thrombocytopenic purpura (principal); Z88.2 Allergy status to sulfonamides
CPT/HCPCS: 36415; 85027; 85049; 85055; 96365; 96366; J1459

== ENCOUNTER → 2019-12-31 | Outpatient (CLI) | payer BC ==
[~2019-12-31] MED LIST changes: +CARV3.12 PO
--- NOTE | 2019-12-31 15:54 | REP ---
ULTRASOUND ABDOMEN: Real-time sonographic evaluation of the abdomen performed to evaluate for possible hematoma or fluid collection. No definite hematoma or fluid collection is seen in any portion of the visualized abdomen. In order to completely exclude retroperitoneal hematoma, CT is recommended. Electronically Signed by Abdulaziz Reed MD 12/31/2019 03:58 P
== END ==
LOC: M RAD 14:35
PROVIDERS: ATTEND Internal Medicine Hematology
DX: R31.9 Hematuria, unspecified (principal); D69.6 Thrombocytopenia, unspecified

== ENCOUNTER 2020-01-05 13:19 | Outpatient (CLI) | payer BC ==
[~2020-01-05] VITALS: Ht 154.9 cm; Wt 63.7 kg
[2020-01-05 13:25] VITALS: BP 150/87
[2020-01-05] MEDS ORDERED: diphenhydrAMINE 25 MG CAP PO ONE (13:30)
[2020-01-05] MEDS ORDERED: ACETAMINOPHEN 325 MG TAB PO ONE (13:30)
[2020-01-05] MEDS ORDERED: IMMUNE GLOBULIN 10% 20 GM in IV 1 EA IV ONE (13:30)
[2020-01-05] MEDS ORDERED: IMMUNE GLOBULIN 10% 20GM 200ML BOTTLE (PRIVIGEN) (J1459 PER 500MG) As Ordered ONE (13:42)
[2020-01-05 14:15] VITALS: BP 141/74
[2020-01-05 14:45] VITALS: BP 147/70
[2020-01-05 15:13] VITALS: BP 130/74
[2020-01-05 16:00] VITALS: BP 144/74
== END 2020-01-05 16:00 | disposition home or self-care (01) ==
LOC: M INFU 13:19
PROVIDERS: ATTEND Internal Medicine Hematology
DX: D69.3 Immune thrombocytopenic purpura (principal); Z88.2 Allergy status to sulfonamides
CPT/HCPCS: 96365; 96366; J1459

== ENCOUNTER → 2020-01-05 | Outpatient (CLI) | payer BC ==
--- NOTE | 2020-01-05 13:43 | REP ---
MRI CERVICAL SPINE WITHOUT CONTRAST: HISTORY: Hand numbness. Neck and mid back pain. Tingling in the arms and legs. History of ITP. No comparison cervical spine imaging. TECHNIQUE: Sagittal and axial T1- and T2-weighted scans are acquired in the usual fashion with and without fat saturation. Sequences include spin echo, turbo spin-echo, and STIR imaging sequences. MRI FINDINGS: There is a small hemangioma in the C2 vertebral body. At C6, there is a hemangioma posteriorly measuring 10 mm in greatest diameter. Cortical and medullary bone signal intensity are otherwise normal. No bony destructive lesion is seen. Alignment is normal. Vertebral body heights are preserved. Craniocervical junction is unremarkable. Cervical cord is normal in coarse, caliber and signal intensity on T1- and T2-weighted scans. There is no evidence of intramedullary lesion or signal abnormality. Axial and sagittal images at the C2-3 level show no abnormality. At C3-C4, there is no evidence of disc protrusion central canal stenosis or foraminal narrowing. At C4-C5, there is a tiny annulus tear in the midline of the posterior disc margin with very subtle indentation of the ventral subarachnoid space. No central canal stenosis is seen. No foraminal narrowing is seen. At C5-6, there is a small central focal disc protrusion effacing the ventral subarachnoid space and contacting the ventral margin of the cord. There is minimal ligamentum flavum hypertrophy at C5-6. The mid line AP dimension of the thecal sac is 7.8 mm at C5-6. Canal size is felt to be borderline. Neural foramen are adequate. At C6-C7, there is mild central disc bulging. No other finding. The C7-T1 level is unremarkable. IMPRESSION: Borderline canal size at C5-6 with a central small focal disc protrusion at C5-6. Incidental hemangioma at the C6 and C2 vertebral bodies. Otherwise negative. Electronically Signed by Juan King MD 01/05/2020 03:26 P
== END ==
LOC: M RAD 10:51
PROVIDERS: ATTEND Internal Medicine Hematology
DX: M50.222 Other cervical disc displacement at C5-C6 level (principal); R20.0 Anesthesia of skin

== ENCOUNTER → 2020-01-05 | Outpatient (CLI) | payer BC ==
--- NOTE | 2020-01-05 13:52 | REP ---
MRI THORACIC SPINE WITHOUT CONTRAST: HISTORY: Thoracic pain. Lupus thrombocytopenia. Neck and mid back pain with bilateral arm and leg numbness and tingling. No comparison thoracic imaging. TECHNIQUE: Sagittal and axial T1- and T2-weighted scans are acquired in the usual fashion with and without fat saturation. Sequences include spin echo, turbo spin-echo, and STIR imaging sequences. MRI FINDINGS: Incidental note is made of a small hemangioma in the T4 vertebral body. No bony destructive lesion is seen. Cortical and medullary bone signal intensity are otherwise normal. The thoracic cord is normal in coarse, caliber and signal intensity on T1- and T2-weighted scans. There are mild degenerative disc spurring changes along the anterior margin of the mid thoracic spine. No cord compressive lesion is seen. No thoracic disc herniation is seen. No extra vertebral abnormality is observed. IMPRESSION: Mild degenerative disc changes in the mid thoracic spine. Incidental hemangioma T4. No cord compressive lesion, foraminal encroachment, or abnormal intramedullary lesion is seen. Electronically Signed by Juan King MD 01/05/2020 03:26 P
== END ==
LOC: M RAD 10:44
PROVIDERS: ATTEND Internal Medicine Nephrology
DX: M54.6 Pain in thoracic spine (principal); M32.10 Systemic lupus erythematosus, organ or system involvement unspecified; D69.6 Thrombocytopenia, unspecified

== ENCOUNTER 2020-01-07 11:18 | Outpatient (CLI) | payer BC ==
[~2020-01-07] VITALS: Ht 154.9 cm; Wt 63.7 kg
[2020-01-07 11:25] VITALS: BP 148/76
[2020-01-07] MEDS ORDERED: diphenhydrAMINE 25 MG PO PO ONE (11:30)
[2020-01-07] MEDS ORDERED: ACETAMINOPHEN 325 MG TAB PO ONE (11:30)
[2020-01-07] MEDS ORDERED: IMMUNE GLOBULIN 10% 20 GM in IV 1 EA IV ONE (12:00)
[2020-01-07 12:15] VITALS: BP 134/91
[2020-01-07 12:45] VITALS: BP 138/73
[2020-01-07 13:15] VITALS: BP 155/83
[2020-01-07 14:04] VITALS: BP 156/94
== END 2020-01-07 14:00 | disposition home or self-care (01) ==
LOC: M INFU 11:18
PROVIDERS: ATTEND Internal Medicine Hematology
DX: D69.3 Immune thrombocytopenic purpura (principal); Z88.2 Allergy status to sulfonamides
CPT/HCPCS: 36415; 85027; 85049; 85055; 96365; 96366; J1459

== ENCOUNTER 2020-01-10 12:26 | Outpatient (CLI) | payer BC ==
[~2020-01-10] VITALS: Ht 154.9 cm; Wt 63.7 kg
[2020-01-10] MEDS ORDERED: IMMUNE GLOBULIN 10% 20 GM in IV 1 EA IV ONE (12:45)
[2020-01-10] MEDS ORDERED: ACETAMINOPHEN 325 MG TAB PO ONE (12:45)
[2020-01-10] MEDS ORDERED: diphenhydrAMINE 25 MG CAP PO ONE (12:45)
[2020-01-10 13:30] VITALS: BP 174/79
[2020-01-10 13:45] VITALS: BP 158/68
[2020-01-10 14:15] VITALS: BP 143/71
[2020-01-10 15:30] VITALS: BP 134/91
== END 2020-01-10 15:30 | disposition home or self-care (01) ==
LOC: M INFU 12:26
PROVIDERS: ATTEND Internal Medicine Hematology
DX: D69.3 Immune thrombocytopenic purpura (principal); Z88.2 Allergy status to sulfonamides
CPT/HCPCS: 36415; 85027; 85049; 85055; 96365; 96366; J1459; J2796

== ENCOUNTER 2020-01-13 10:00 | Outpatient (CLI) | payer BC ==
[~2020-01-13] VITALS: Ht 154.9 cm; Wt 63.7 kg
[2020-01-13 10:05] VITALS: BP 159/92
[2020-01-13] MEDS ORDERED: diphenhydrAMINE 25MG CAP PO ONE (10:15)
[2020-01-13] MEDS ORDERED: IMMUNE GLOBULIN 10% 20 GM in IV 1 EA IV ONE (10:15)
[2020-01-13] MEDS ORDERED: ACETAMINOPHEN TAB 650MG DOSE (2X325MG) PO ONE (10:15)
[2020-01-13 11:08] LABS: BASO # 0.1 10^3/uL (0.0-0.2); BASO % 2.5 % (0.0-1.0); EOS % 0.4 % (0.0-3.0); HEMOGLOBIN 9.6 g/dl (12.0-15.5); LYMPH # 1.7 10^3/uL (1.5-5.0); LYMPH % 35.2 % (24.0-44.0); MEAN CORPUSCULAR HEMOGLOBIN 27.4 pg (27.0-33.0); MEAN CORPUSCULAR VOLUME 85.5 fl (80.0-96.0); NEUTROPHILS # 1.9 10^3/uL (1.5-8.5); NEUTROPHILS % 40.7 % (36.0-66.0); RED BLOOD COUNT 3.51 10^6/uL (4.00-5.40); WHITE BLOOD COUNT 4.7 10^3/uL (4.0-10.0)
[2020-01-13 11:10] LABS: PLATELET COUNT, AUTOMATED 7 10^3/uL (150-450)
[2020-01-13 11:25] LABS: ALBUMIN 2.9 GM/DL (3.2-5.2); BILIRUBIN,TOTAL 0.3 MG/DL (0.2-1.0); CALCIUM LEVEL 8.4 MG/DL (8.5-10.1); CREATININE FOR GFR 1.52 MG/DL (0.55-1.30); GLOMERULAR FILTRATION RATE 38.5 (>51); POTASSIUM SERUM 4.1 MEQ/L (3.5-5.1); TOTAL PROTEIN 8.3 GM/DL (6.4-8.2)
[2020-01-13 12:00] VITALS: BP 173/93
[2020-01-13 12:30] VITALS: BP 177/82
[2020-01-13 13:00] VITALS: BP 137/77
[2020-01-13 13:30] VITALS: BP 129/80
[2020-01-13 14:05] VITALS: BP 152/83
== END 2020-01-13 14:05 | disposition home or self-care (01) ==
LOC: M INFU 10:00
PROVIDERS: ATTEND Internal Medicine Medical Oncology
DX: D69.3 Immune thrombocytopenic purpura (principal); Z88.2 Allergy status to sulfonamides
CPT/HCPCS: 80053; 85025; 96365; 96366; J1459

== ENCOUNTER 2020-01-17 12:42 | Outpatient (CLI) | payer BC ==
[2020-01-17] VITALS (7 sets, daily range): BP systolic 121–166; BP diastolic 66–94
[~2020-01-17] VITALS: Ht 154.9 cm; Wt 63.7 kg
[2020-01-17] MEDS ORDERED: diphenhydrAMINE 25MG CAP PO ONE (13:30)
[2020-01-17] MEDS ORDERED: ACETAMINOPHEN TAB 650MG DOSE (2X325MG) PO ONE (13:30)
[2020-01-17] MEDS ORDERED: dexameTHASONE 20 MG IV IV ONE ×2 (13:45)
[2020-01-17] MEDS ORDERED: IMMUNE GLOBULIN 10% 5 GM in IV 1 EA IV ONE (14:30)
[2020-01-17] MEDS ORDERED: IMMUNE GLOBULIN 10% 20 GM in IV 1 EA IV ONE (14:30)
[2020-01-17] MEDS: FAMOTIDINE 20 MG IV IV ONE ×4 (16:00→16:43)
[2020-01-17] MEDS ORDERED: RITUXIMAB IV ONE (16:30)
[2020-01-17] MEDS: RITUXIMAB IV ONE ×2 (16:30→17:30)
[2020-01-17] MEDS: NS IV ONE ×2 (16:30→17:30)
[2020-01-17] MEDS ORDERED: NS IV ONE (16:30)
[2020-01-24] MEDS ORDERED: TRAM50TA2 PO (09:07)
[2020-01-24] MEDS ORDERED: PROM50TA28 PO (11:27)
== END 2020-01-17 18:45 | disposition other institution (70) ==
LOC: M INFU 12:42
PROVIDERS: ATTEND Internal Medicine Hematology
DX: D69.3 Immune thrombocytopenic purpura (principal); Z88.2 Allergy status to sulfonamides
CPT/HCPCS: 36415; 70450; 71045; 80048; 82550; 82553; 83735; 84439; 84443; 84484; 85025; 85027; 85049; 85055; 85610; 85730; 93005; 93041; 94760; 96360; 96361; 96367; 96413; 96415; 99285; J1100; J1459; J2796; J9312

== ENCOUNTER 2020-01-17 18:52 | Emergency (ER) | payer BC ==
[~2020-01-17] VITALS: Ht 154.9 cm; Wt 68.2 kg
[2020-01-17] MEDS ORDERED: NS 1,000 ML IV ONE ×2 (19:30→22:00)
[2020-01-17 19:33] LABS: BASO # 0.1 10^3/uL (0.0-0.2); BASO % 0.3 % (0.0-1.0); EOS % 0.1 % (0.0-3.0); HEMATOCRIT 37.1 % (36.0-47.0); HEMOGLOBIN 11.9 g/dl (12.0-15.5); LYMPH % 4.9 % (24.0-44.0); MEAN CORPUSCULAR HEMOGLOBIN 27.2 pg (27.0-33.0); MEAN CORPUSCULAR HGB CONC 32.1 g/dl (32.0-36.5); MEAN CORPUSCULAR VOLUME 84.9 fl (80.0-96.0); MONO # 0.3 10^3/uL (0.0-0.8); MONO % 1.5 % (0.0-5.0); NEUTROPHILS # 18.7 10^3/uL (1.5-8.5); NEUTROPHILS % 92.4 % (36.0-66.0); RED BLOOD COUNT 4.37 10^6/uL (4.00-5.40); WHITE BLOOD COUNT 20.2 10^3/uL (4.0-10.0)
--- NOTE | 2020-01-17 19:38 | REPVR ---
PROCEDURE INFORMATION: Exam: CT Head Without Contrast Exam date and time: 01/17/2020 7:32 PM Age: 49 years old Clinical indication: Pain; Headache; Additional info: Syncope, incontinent, vomiting TECHNIQUE: Imaging protocol: Computed tomography of the head without contrast. Radiation optimization: All CT scans at this facility use at least one of these dose optimization techniques: automated exposure control; mA and/or kV adjustment per patient size (includes targeted exams where dose is matched to clinical indication); or iterative reconstruction. COMPARISON: CT Head without contrast 11/24/2019 9:58 AM FINDINGS: Brain: There is no evidence for an acute large vessel territorial infarct, intracranial hemorrhage, mass, mass effect, or herniation. Incidental note is made of calcifications in the globus pallidus bilaterally, which are unchanged compared to the prior CT on 11/24/2019. Brainstem: Unremarkable. Midline shift: There is no midline shift. Ventricles: Normal. No ventriculomegaly. Bones/joints: Unremarkable. No acute fracture. Sinuses: There is mild opacification of the left ethmoid sinus. No air-fluid levels. The sinuses were not fully imaged. Mastoid air cells: Visualized mastoid air cells are well-aerated. Soft tissues: Unremarkable. IMPRESSION: No acute intracranial abnormality. Electronically signed by: Tj Méndez On 01/17/2020 19:38:18 PM
[2020-01-17 19:44] LABS: INR 1.12; PARTIAL THROMBOPLASTIN TIME 32.9 SECONDS (25.0-38.4); PROTHROMBIN TIME 14.2 SECONDS (11.8-14.0)
[2020-01-17 19:58] LABS: PLATELET COUNT, AUTOMATED 22 10^3/uL (150-450)
[2020-01-17 20:10] LABS: CALCIUM LEVEL 8.3 MG/DL (8.5-10.1); CK-MB VALUE MASS 1.1 NG/ML (<3.6); CREATININE FOR GFR 1.55 MG/DL (0.55-1.30); FREE T4 1.39 NG/DL (0.76-1.46); GLOMERULAR FILTRATION RATE 37.7 (>51); MB/CK RELATIVE INDEX 2.39 (< OR =4); POTASSIUM SERUM 3.8 MEQ/L (3.5-5.1); THYROID STIMULATING HORMONE 1.74 uIU/ML (0.358-3.740); TROPONIN I 0.02 NG/ML (< 0.10)
[2020-01-17 23:06] VITALS: BP 132/87
--- NOTE | 2020-01-18 07:07 | REP ---
CHEST, SINGLE VIEW: There is no evidence of acute infiltrate. No pleural effusion is seen. The heart is normal in size. The mediastinal silhouette is unremarkable. The visualized osseous structures are intact. IMPRESSION: No acute pulmonary disease. Electronically Signed by Abdulaziz Reed MD 01/18/2020 10:41 A
--- NOTE | 2020-01-18 09:14 | ECGEPIP ---
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
== END 2020-01-17 23:08 | disposition home or self-care (01) ==
LOC: M ED 18:52
DX: I95.1 Orthostatic hypotension (principal); R00.0 Tachycardia, unspecified; R94.31 Abnormal electrocardiogram [ECG] [EKG]; I10 Essential (primary) hypertension; D69.3 Immune thrombocytopenic purpura; R55 Syncope and collapse; Z79.899 Other long term (current) drug therapy; Z88.2 Allergy status to sulfonamides

== ENCOUNTER 2020-01-19 11:48 | Outpatient (CLI) | payer BC ==
[2020-01-19] VITALS (8 sets, daily range): BP systolic 160–178; BP diastolic 88–98
[~2020-01-19] VITALS: Ht 154.9 cm; Wt 63.7 kg
[2020-01-19] MEDS ORDERED: IMMUNE GLOBULIN 10% 20 GM in IV 1 EA IV ONE (12:15)
[2020-01-19] MEDS ORDERED: ACETAMINOPHEN TAB 650MG DOSE (2X325MG) PO ONE (12:15)
[2020-01-19] MEDS ORDERED: IMMUNE GLOBULIN 10% 40 GM in IV 1 EA IV ONE (12:15)
[2020-01-19] MEDS ORDERED: diphenhydrAMINE 25MG CAP PO ONE (12:15)
[2020-01-19 13:21] LABS: ALBUMIN 3.1 GM/DL (3.2-5.2); BILIRUBIN,TOTAL 0.6 MG/DL (0.2-1.0); CALCIUM LEVEL 8.9 MG/DL (8.5-10.1); CREATININE FOR GFR 1.36 MG/DL (0.55-1.30); GLOMERULAR FILTRATION RATE 43.8 (>51); POTASSIUM SERUM 3.5 MEQ/L (3.5-5.1); TOTAL PROTEIN 8.8 GM/DL (6.4-8.2)
== END 2020-01-19 17:45 | disposition home or self-care (01) ==
LOC: M INFU 11:48
PROVIDERS: ATTEND Internal Medicine Hematology
DX: D69.3 Immune thrombocytopenic purpura (principal); Z88.2 Allergy status to sulfonamides
CPT/HCPCS: 36415; 36592; 80053; 85027; 85049; 85055; 96365; 96366; G0463; J1459

== ENCOUNTER 2020-01-20 10:09 | Outpatient (CLI) | payer BC ==
[~2020-01-20] VITALS: Ht 154.9 cm; Wt 63.7 kg
[2020-01-20] VITALS (9 sets, daily range): BP systolic 138–170; BP diastolic 79–98
[2020-01-20] MEDS ORDERED: diphenhydrAMINE 25MG CAP PO ONE (10:30)
[2020-01-20] MEDS ORDERED: ACETAMINOPHEN TAB 650MG DOSE (2X325MG) PO ONE (10:30)
[2020-01-20] MEDS ORDERED: IMMUNE GLOBULIN 10% 40 GM in IV 1 EA IV ONE (11:00)
[2020-01-20] MEDS ORDERED: IMMUNE GLOBULIN 10% 20 GM in IV 1 EA IV ONE (11:00)
[2020-01-24] MEDS ORDERED: TRAM50TA2 PO (09:07)
[2020-01-24] MEDS ORDERED: PROM50TA28 PO (11:27)
== END 2020-01-20 15:40 | disposition home or self-care (01) ==
LOC: M INFU 10:09
PROVIDERS: ATTEND Internal Medicine Medical Oncology
DX: D69.3 Immune thrombocytopenic purpura (principal); Z88.2 Allergy status to sulfonamides
CPT/HCPCS: 96365; 96366; J1459

== ENCOUNTER → 2020-01-26 | Outpatient (CLI) | payer BC ==
[~2020-01-26] MED LIST changes: +PROM50TA28 PO; +TRAM50TA2 PO
[2020-01-26 11:10] LABS: BILIRUBIN,TOTAL 0.5 MG/DL (0.2-1.0); CALCIUM LEVEL 8.8 MG/DL (8.5-10.1); CREATININE FOR GFR 1.57 MG/DL (0.55-1.30); GLOMERULAR FILTRATION RATE 37.1 (>51); PERCENT SATURATION 14.2 % (13.2-45.0); POTASSIUM SERUM 4.3 MEQ/L (3.5-5.1); TOTAL PROTEIN 9.4 GM/DL (6.4-8.2)
[2020-01-26 11:19] LABS: BASO # 0.1 10^3/uL (0.0-0.2); EOS % 0.3 % (0.0-3.0); HEMATOCRIT 29.8 % (36.0-47.0); HEMOGLOBIN 9.9 g/dl (12.0-15.5); LYMPH # 1.9 10^3/uL (1.5-5.0); LYMPH % 26.9 % (24.0-44.0); MEAN CORPUSCULAR HEMOGLOBIN 28.3 pg (27.0-33.0); MEAN CORPUSCULAR HGB CONC 33.2 g/dl (32.0-36.5); MEAN CORPUSCULAR VOLUME 85.1 fl (80.0-96.0); MONO # 1.3 10^3/uL (0.0-0.8); MONO % 19.3 % (0.0-5.0); NEUTROPHILS # 3.5 10^3/uL (1.5-8.5); NEUTROPHILS % 50.6 % (36.0-66.0); WHITE BLOOD COUNT 6.9 10^3/uL (4.0-10.0)
[2020-01-26 11:25] LABS: PLATELET COUNT, AUTOMATED 45 10^3/uL (150-450)
== END ==
LOC: M LAB 09:59
PROVIDERS: ATTEND Internal Medicine Hematology
DX: D47.2 Monoclonal gammopathy (principal)

== ENCOUNTER 2020-01-28 11:35 | Outpatient (CLI) | payer BC ==
[~2020-01-28] VITALS: Ht 154.9 cm; Wt 63.2 kg
[2020-01-28 11:40] VITALS: BP 161/89
[2020-01-28] MEDS ORDERED: ACETAMINOPHEN TAB 650MG DOSE (2X325MG) PO ONE (12:00)
[2020-01-28] MEDS ORDERED: diphenhydrAMINE 25MG CAP PO ONE (12:00)
[2020-01-28] MEDS ORDERED: IMMUNE GLOBULIN 10% 10 GM in IV 1 EA IV ONE (12:30)
[2020-01-28] MEDS ORDERED: IMMUNE GLOBULIN 10% 20 GM in IV 1 EA IV ONE (12:30)
[2020-01-28 12:50] VITALS: BP 159/93
[2020-01-28 13:20] VITALS: BP 154/84
[2020-01-28 13:50] VITALS: BP 156/85
[2020-01-28 14:50] VITALS: BP 145/78
[2020-01-28 15:15] VITALS: BP 153/84
== END 2020-01-28 15:15 | disposition home or self-care (01) ==
LOC: M INFU 11:35
PROVIDERS: ATTEND Internal Medicine Hematology
DX: D47.2 Monoclonal gammopathy (principal); Z88.2 Allergy status to sulfonamides
CPT/HCPCS: 96365; 96366; J1459

== ENCOUNTER → 2020-01-28 | Outpatient (CLI) | payer BC ==
[2020-01-28 10:48] LABS: BASO # 0.1 10^3/uL (0.0-0.2); BASO % 1.8 % (0.0-1.0); EOS % 0.3 % (0.0-3.0); HEMATOCRIT 29.7 % (36.0-47.0); HEMOGLOBIN 9.7 g/dl (12.0-15.5); LYMPH # 1.9 10^3/uL (1.5-5.0); LYMPH % 31.8 % (24.0-44.0); MEAN CORPUSCULAR HGB CONC 32.7 g/dl (32.0-36.5); MEAN CORPUSCULAR VOLUME 85.6 fl (80.0-96.0); MONO # 1.2 10^3/uL (0.0-0.8); MONO % 19.8 % (0.0-5.0); NEUTROPHILS # 2.7 10^3/uL (1.5-8.5); NEUTROPHILS % 45.3 % (36.0-66.0); RED BLOOD COUNT 3.47 10^6/uL (4.00-5.40)
[2020-01-28 11:02] LABS: PLATELET COUNT, AUTOMATED 3 10^3/uL (150-450)
[2020-01-28 11:19] LABS: BILIRUBIN,TOTAL 0.5 MG/DL (0.2-1.0); CALCIUM LEVEL 8.9 MG/DL (8.5-10.1); CREATININE FOR GFR 1.5 MG/DL (0.55-1.30); GLOMERULAR FILTRATION RATE 39.1 (>51); POTASSIUM SERUM 4.1 MEQ/L (3.5-5.1); TOTAL PROTEIN 9.5 GM/DL (6.4-8.2)
== END ==
LOC: M LAB 10:24
PROVIDERS: ATTEND Internal Medicine Hematology
DX: D47.2 Monoclonal gammopathy (principal)

== ENCOUNTER 2020-01-31 12:28 | Outpatient (CLI) | payer BC ==
[~2020-01-31] VITALS: Ht 154.9 cm; Wt 63.2 kg
[2020-01-31] MEDS ORDERED: diphenhydrAMINE 25MG CAP PO ONE (12:45)
[2020-01-31] MEDS ORDERED: ACETAMINOPHEN 325 MG TAB PO ONE (12:45)
[2020-01-31 13:00] VITALS: BP 160/89
[2020-01-31] MEDS ORDERED: IMMUNE GLOBULIN 10% 10 GM in IV 1 EA IV ONE (13:15)
[2020-01-31] MEDS ORDERED: IMMUNE GLOBULIN 10% 20 GM in IV 1 EA IV ONE (13:15)
[2020-01-31 14:00] VITALS: BP 131/76
[2020-01-31 14:30] VITALS: BP 124/74
[2020-01-31 15:00] VITALS: BP 132/71
[2020-01-31 15:30] VITALS: BP 134/74
[2020-01-31 16:40] VITALS: BP 153/93
== END 2020-01-31 16:40 | disposition home or self-care (01) ==
LOC: M INFU 12:28
PROVIDERS: ATTEND Internal Medicine Hematology
DX: D47.2 Monoclonal gammopathy (principal); Z88.2 Allergy status to sulfonamides
CPT/HCPCS: 36415; 80053; 85027; 85049; 85055; 96365; 96366; J1459; J2796

== ENCOUNTER → 2020-01-31 | Outpatient (CLI) | payer BC ==
[2020-01-31 10:23] LABS: BASO # 0.1 10^3/uL (0.0-0.2); BASO % 2.1 % (0.0-1.0); EOS % 0.5 % (0.0-3.0); HEMATOCRIT 31.1 % (36.0-47.0); HEMOGLOBIN 10.1 g/dl (12.0-15.5); LYMPH # 1.8 10^3/uL (1.5-5.0); LYMPH % 26.6 % (24.0-44.0); MEAN CORPUSCULAR HEMOGLOBIN 27.6 pg (27.0-33.0); MEAN CORPUSCULAR HGB CONC 32.5 g/dl (32.0-36.5); MONO # 1.2 10^3/uL (0.0-0.8); MONO % 17.6 % (0.0-5.0); NEUTROPHILS # 3.5 10^3/uL (1.5-8.5); NEUTROPHILS % 52.6 % (36.0-66.0); RED BLOOD COUNT 3.66 10^6/uL (4.00-5.40); WHITE BLOOD COUNT 6.7 10^3/uL (4.0-10.0)
[2020-01-31 10:25] LABS: PLATELET COUNT, AUTOMATED 10 10^3/uL (150-450)
[2020-01-31 10:54] LABS: BILIRUBIN,TOTAL 0.5 MG/DL (0.2-1.0); CALCIUM LEVEL 8.7 MG/DL (8.5-10.1); CREATININE FOR GFR 1.49 MG/DL (0.55-1.30); GLOMERULAR FILTRATION RATE 39.4 (>51); POTASSIUM SERUM 4.1 MEQ/L (3.5-5.1); TOTAL PROTEIN 9.4 GM/DL (6.4-8.2)
== END ==
LOC: M LAB 10:04
PROVIDERS: ATTEND Internal Medicine Hematology
DX: D47.2 Monoclonal gammopathy (principal)

== ENCOUNTER → 2020-02-02 | Outpatient (CLI) | payer BC ==
[2020-02-02 11:02] LABS: BASO # 0.1 10^3/uL (0.0-0.2); BASO % 1.4 % (0.0-1.0); EOS % 0.5 % (0.0-3.0); HEMATOCRIT 31.5 % (36.0-47.0); HEMOGLOBIN 10.1 g/dl (12.0-15.5); LYMPH # 1.6 10^3/uL (1.5-5.0); LYMPH % 21.6 % (24.0-44.0); MEAN CORPUSCULAR HEMOGLOBIN 27.6 pg (27.0-33.0); MEAN CORPUSCULAR HGB CONC 32.1 g/dl (32.0-36.5); MEAN CORPUSCULAR VOLUME 86.1 fl (80.0-96.0); MONO # 1.1 10^3/uL (0.0-0.8); MONO % 14.6 % (0.0-5.0); NEUTROPHILS # 4.5 10^3/uL (1.5-8.5); NEUTROPHILS % 61.4 % (36.0-66.0); RED BLOOD COUNT 3.66 10^6/uL (4.00-5.40); WHITE BLOOD COUNT 7.3 10^3/uL (4.0-10.0)
[2020-02-02 11:03] LABS: PLATELET COUNT, AUTOMATED 52 10^3/uL (150-450)
[2020-02-02 11:29] LABS: BILIRUBIN,TOTAL 0.5 MG/DL (0.2-1.0); CALCIUM LEVEL 8.9 MG/DL (8.5-10.1); CREATININE FOR GFR 1.58 MG/DL (0.55-1.30); GLOMERULAR FILTRATION RATE 36.9 (>51); PERCENT SATURATION 8.1 % (13.2-45.0); POTASSIUM SERUM 4.4 MEQ/L (3.5-5.1); TOTAL PROTEIN 9.6 GM/DL (6.4-8.2)
== END ==
LOC: M LAB 10:21
PROVIDERS: ATTEND Internal Medicine Hematology
DX: D47.2 Monoclonal gammopathy (principal)

== ENCOUNTER 2020-02-04 11:36 | Outpatient (CLI) | payer BC ==
[~2020-02-04] VITALS: Ht 154.9 cm; Wt 63.2 kg
[2020-02-04] MEDS ORDERED: IMMUNE GLOBULIN 10% 10 GM in IV 1 EA IV ONE (11:45)
[2020-02-04] MEDS ORDERED: diphenhydrAMINE 25MG CAP PO ONE (11:45)
[2020-02-04] MEDS ORDERED: ACETAMINOPHEN TAB 650MG DOSE (2X325MG) PO ONE (11:45)
[2020-02-04] MEDS ORDERED: IMMUNE GLOBULIN 10% 20 GM in IV 1 EA IV ONE (11:45)
[2020-02-04 12:15] VITALS: BP 178/77
[2020-02-04 13:00] VITALS: BP 138/80
[2020-02-04 13:30] VITALS: BP 136/82
[2020-02-04 14:00] VITALS: BP 158/80
[2020-02-04 14:54] VITALS: BP 140/78
[2020-02-04 15:43] VITALS: BP 138/88
== END 2020-02-04 15:45 | disposition home or self-care (01) ==
LOC: M INFU 11:36
PROVIDERS: ATTEND Internal Medicine Hematology
DX: D47.2 Monoclonal gammopathy (principal); Z88.2 Allergy status to sulfonamides
CPT/HCPCS: 96365; 96366; J1459

== ENCOUNTER → 2020-02-07 | Outpatient (CLI) | payer BC ==
[2020-02-07 09:00] LABS: BASO # 0.1 10^3/uL (0.0-0.2); BASO % 2.3 % (0.0-1.0); EOS % 0.6 % (0.0-3.0); HEMATOCRIT 31.2 % (36.0-47.0); HEMOGLOBIN 10.1 g/dl (12.0-15.5); LYMPH # 1.4 10^3/uL (1.5-5.0); LYMPH % 28.8 % (24.0-44.0); MEAN CORPUSCULAR HEMOGLOBIN 27.5 pg (27.0-33.0); MEAN CORPUSCULAR HGB CONC 32.4 g/dl (32.0-36.5); MONO % 20.4 % (0.0-5.0); NEUTROPHILS # 2.3 10^3/uL (1.5-8.5); NEUTROPHILS % 47.7 % (36.0-66.0); RED BLOOD COUNT 3.67 10^6/uL (4.00-5.40); WHITE BLOOD COUNT 4.9 10^3/uL (4.0-10.0)
[2020-02-07 09:01] LABS: PLATELET COUNT, AUTOMATED 40 10^3/uL (150-450)
[2020-02-07 09:30] LABS: BILIRUBIN,TOTAL 0.5 MG/DL (0.2-1.0); CALCIUM LEVEL 8.9 MG/DL (8.5-10.1); CREATININE FOR GFR 1.74 MG/DL (0.55-1.30); PERCENT SATURATION 17.4 % (13.2-45.0); POTASSIUM SERUM 4.2 MEQ/L (3.5-5.1); TOTAL PROTEIN 9.4 GM/DL (6.4-8.2)
== END ==
LOC: M LAB 08:36
PROVIDERS: ATTEND Internal Medicine Hematology
DX: D47.2 Monoclonal gammopathy (principal)

== ENCOUNTER 2020-02-09 10:11 | Outpatient (CLI) | payer BC ==
[~2020-02-09] VITALS: Ht 154.9 cm; Wt 63.2 kg
[2020-02-09 10:20] VITALS: BP 143/75
[2020-02-09] MEDS ORDERED: ACETAMINOPHEN 325 MG TAB PO ONE (10:30)
[2020-02-09] MEDS ORDERED: IMMUNE GLOBULIN 10% 10 GM in IV 1 EA IV ONE (10:30)
[2020-02-09] MEDS ORDERED: diphenhydrAMINE 25MG CAP PO ONE (10:30)
[2020-02-09] MEDS ORDERED: IMMUNE GLOBULIN 10% 20 GM in IV 1 EA IV ONE (10:30)
[2020-02-09 11:20] VITALS: BP 126/75
[2020-02-09 11:50] VITALS: BP 137/85
[2020-02-09 12:20] VITALS: BP 146/93
[2020-02-09 12:50] VITALS: BP 154/80
[2020-02-09 14:10] VITALS: BP 134/78
== END 2020-02-09 14:15 | disposition home or self-care (01) ==
LOC: M INFU 10:11
PROVIDERS: ATTEND Internal Medicine Hematology
DX: D47.2 Monoclonal gammopathy (principal); Z88.2 Allergy status to sulfonamides
CPT/HCPCS: 36415; 85027; 85049; 85055; 96365; 96366; J1459

== ENCOUNTER → 2020-03-08 | Outpatient (REF) | payer BC ==
[2020-03-08 10:35] LABS: APPEARANCE, URINE CLEAR (CLEAR); BACTERIA, URINE AUTO NEGATIVE (NEGATIVE); BILIRUBIN, URINE AUTO NEGATIVE (NEGATIVE); BLOOD, URINE BLOOD NEGATIVE (NEGATIVE); COLOR, URINE YELLOW (YELLOW); GLUCOSE, URINE (UA) AUTO NEGATIVE (NEGATIVE); KETONE, URINE AUTO NEGATIVE (NEGATIVE); LEUKOCYTE ESTERASE, URINE AUTO NEGATIVE (NEGATIVE); MUCUS, URINE SMALL (NEGATIVE); NITRITE, URINE AUTO NEGATIVE (NEGATIVE); PROTEIN, URINE AUTO 2+ mg/dL (NEGATIVE); RBC, URINE AUTO 2 /HPF (0-3); SPECIFIC GRAVITY URINE AUTO 1.013 (1.002-1.035); SQUAMOUS EPITHELIAL CELL UR AU 1 /HPF (0-6); UROBILINOGEN, URINE AUTO 0.2 mg/dL (0.0-2.0); WBC, URINE AUTO 1 /HPF (0-3)
[2020-03-08 10:45] LABS: COMPLEMENT C3 71 MG/DL (90-180); COMPLEMENT C4 2 MG/DL (10-40)
[2020-03-08 11:01] LABS: TOTAL PROTEIN,RANDOM URINE 108.3 MG/DL (0.0-12.0)
[2020-03-10 11:45] LABS: DRVV SCREEN 52.6 SEC
[2020-03-10 11:51] LABS: PTT LUPUS TYPE ANTICOAG SCREEN 1.3 (0-1.2)
[2020-03-10 12:00] LABS: DRVV CONFIRM 41.1 SEC
[2020-03-10 12:06] LABS: NORMALIZED RATIO 1.3 (0.00-1.20)
[2020-03-10 14:08] LABS: ANTI DS-DNA AB Positive (Negative); BETA-2 GLYCOPROTEIN I ABY IGA 13 (0-25); BETA-2 GLYCOPROTEIN I ABY IGG <9 (0-20); BETA-2 GLYCOPROTEIN I ABY IGM 23 (0-32); CARDIOLIPIN IGA ANTIBODY 11 APL U/mL (0-11); CARDIOLIPIN IGG ANTIBODY <9 GPL U/mL (0-14); CARDIOLIPIN IGM ANTIBODY 46 MPL U/mL (0-12); ENDOMYSIAL ABY IgA Negative (Negative); SSA SJOGRENS A <0.2 AI (0.0-0.9); SSB SJOGRENS B <0.2 AI (0.0-0.9)
== END ==
LOC: M LAB REF 09:45
PROVIDERS: ATTEND Internal Medicine
DX: D69.3 Immune thrombocytopenic purpura (principal)

== ENCOUNTER → 2020-03-28 | Outpatient (REF) | payer BC ==
[~2020-03-28] MED LIST changes: +AMLO1TAB24 PO; -AMLO5TAB6 PO; +CELL500T PO; +FAMO40TA3 PO; +PRED10PA2 PO; +PROM75TA2 PO
[2020-03-28 18:25] LABS: INR 1.1; PROTHROMBIN TIME 13.9 SECONDS (11.8-14.0)
== END ==
LOC: M LAB REF 16:33
PROVIDERS: ATTEND Internal Medicine Nephrology
DX: R31.9 Hematuria, unspecified (principal)

== ENCOUNTER 2020-04-20 11:24 | Inpatient (IN) | payer BC ==
[2020-04-20] VITALS (11 sets, daily range): BP systolic 57–180; BP diastolic 36–103
[~2020-04-20] VITALS: Ht 154.9 cm; Wt 76.5 kg
[~2020-04-20 11:24] MED LIST changes: -CELL500T PO; -FAMO40TA3 PO; -PRED10PA2 PO
--- NOTE | 2020-04-20 12:23 | IRHP ---
[facility] IR Pre-Procedure H & P General Date of Service: Apr 20, 2020 Procedure: Same Day Surgery Interval History and Physical I have seen the patient and reviewed last H & P performed within 30 days. There is no significant interval change. History of Present Illness Chief Complaint The patient is a 49-year-old female admitted with a reason for visit of Proteinuria. PRE-PROCEDURE DIAGNOSIS: proteinuria HEART: normal rate LUNGS: normal breathing at rest. ASA Classification ASA Classification: III-Severe systemic dis. Mallampati Score: II NPO: Yes Problems with prior sedation: No Obstructive Sleep Apnea: No Plan moderate sedation Allergies Coded Allergies: Sulfa (Sulfonamide Antibiotics) (Verified Allergy, Mild, rash, 10/27/19) Home Medications Scheduled Eltrombopag Olamine (Promacta), 50 MG PO DAILY Scheduled PRN Acetaminophen (Tylenol Extra Strength), 1,000 MG PO TID PRN for PAIN, (Reported) Discontinued Medications Eltrombopag Olamine (Promacta), 75 MG PO DAILY Discontinued Reason: Pt states not taking VS, I&O, 24H, Fishbone Vital Signs/I&O Vital Signs Date Time Temp Pulse Resp B/P (MAP) Pulse Ox O2 Delivery O2 Flow Rate FiO2 04/20/20 11:40 98.3 80 18 97 Room Air Laboratory Data CBC/BMP HOMAR RITCHIE MD Apr 20, 2020 12:23
[2020-04-20 12:26] LABS: HEMATOCRIT 31.2 % (36.0-47.0); HEMOGLOBIN 9.7 g/dl (12.0-15.5); MEAN CORPUSCULAR HEMOGLOBIN 26.4 pg (27.0-33.0); MEAN CORPUSCULAR HGB CONC 31.1 g/dl (32.0-36.5); MEAN CORPUSCULAR VOLUME 84.8 fl (80.0-96.0); PLATELET COUNT, AUTOMATED 191 10^3/uL (150-450); RED BLOOD COUNT 3.68 10^6/uL (4.00-5.40); WHITE BLOOD COUNT 8.3 10^3/uL (4.0-10.0)
[2020-04-20] MEDS ORDERED: diphenhydrAMINE 50MG/ML VIAL (J1200) As Ordered ONE (12:37)
[2020-04-20] MEDS ORDERED: MIDAZOLAM INJ 2MG/2ML VIAL (J2250 PER 1MG) As Ordered ONE (12:38)
[2020-04-20] MEDS ORDERED: fentaNYL 100 MCG/2 ML INJECTION (J3010) As Ordered ONE (12:38)
[2020-04-20] MEDS ORDERED: PROMETHAZINE INJ 25 MG/ML VIAL (J2550) As Ordered ONE (12:38)
[2020-04-20] MEDS ORDERED: LIDOCAINE 1% MDV 20ML VIAL As Ordered ONE (12:39)
--- NOTE | 2020-04-20 13:16 | POST-OPPD ---
Postoperative Procedure Note Date Of Procedure: Apr 20, 2020 Time Of Procedure: 13:15 PREOPERATIVE DIAGNOSIS: proteinuria POSTOPERATIVE DIAGNOSIS: same FINDINGS: unremarkable left kidney PROCEDURE: left kidney biopsy SURGEON: gulshan ANESTHESIA: mod sed SPECIMENS: cores x 3 ESTIMATED BLOOD LOSS: < 5 ml COMPLICATIONS: none POSTOPERATIVE CONDITION: stable HOMAR RITCHIE MD Apr 20, 2020 13:16
[2020-04-20] MEDS ORDERED: ONDANSETRON 4MG/2ML VIAL As Ordered ONE ×2 (13:47→17:10)
[2020-04-20] MEDS ORDERED: ACETAMINOPHEN TAB 650MG DOSE (2X325MG) PO ONE (16:00)
[2020-04-20] MEDS ORDERED: ACETAMINOPHEN 325 MG TAB As Ordered ONE (16:01)
[2020-04-20] MEDS ORDERED: NS 1,000 ML IV SCH (17:15)
[2020-04-20] MEDS ORDERED: NS 1,000 ML IV ONE ×5 (17:15→23:45)
[2020-04-20] MEDS ORDERED: ONDANSETRON 4MG/2ML VIAL IV ONE (17:15)
[2020-04-20 17:31] LABS: MEAN CORPUSCULAR HEMOGLOBIN 26.7 pg (27.0-33.0); MEAN CORPUSCULAR HGB CONC 31.2 g/dl (32.0-36.5); MEAN CORPUSCULAR VOLUME 85.5 fl (80.0-96.0); RED BLOOD COUNT 2.21 10^6/uL (4.00-5.40); WHITE BLOOD COUNT 18.4 10^3/uL (4.0-10.0)
[2020-04-20 17:44] LABS: HEMATOCRIT 18.9 % (36.0-47.0); HEMOGLOBIN 5.9 g/dl (12.0-15.5); PLATELET COUNT, AUTOMATED 85 10^3/uL (150-450)
[2020-04-20] MEDS ORDERED: ISOVUE-370 76% 100ML VIAL As Ordered ONE (19:11)
[2020-04-20] MEDS ORDERED: ACETAMINOPHEN TAB 650MG DOSE (2X325MG) PO PRN (19:15)
--- NOTE | 2020-04-20 19:41 | HPEPDOC ---
General Date of Admission 04/20/20 Date of Service: Apr 20, 2020 Chief Complaint The patient is a 49-year-old female admitted with a reason for visit of Proteinuria. Source: Patient Exam Limitations: No limitations Severity: Severe Associated Symptoms: Weakness History of Present Illness Patient's 49 years old female with past medical history of ITP, chronic kidney diseases, status post splenectomy, SLE, infectious meningitis,monoclonal gammopathy of uncertain significance presented hospital for elective kidney biopsy. Of note, the patient has a history of relapsing, refractory ITP. She receives Promacta 50 mg by mouth daily. After biopsy patient developed severe hypotension. Hemoglobin dropped to 5.7, platelets count dropped from 191 to 85. Patient received 2 units of blood transfusion, aggressive IV fluid replenish. Dr. Mills will proceed with abdominal CT to rule out possible retroperitoneal bleed. I talked to Dr. Umaña, she recommended blood transfusion with platelets transfusion if platelets significantly drop and initiate by mouth steroids. Home Medications Scheduled Eltrombopag Olamine (Promacta) 50 Mg Tablet, 50 MG PO DAILY Scheduled PRN Acetaminophen (Tylenol Extra Strength) 500 Mg Tablet, 1,000 MG PO TID PRN for PAIN, (Reported) Allergies Coded Allergies: Sulfa (Sulfonamide Antibiotics) (Verified Allergy, Mild, rash, 10/27/19) Past Medical History Medical History chronic immune thrombocytopenic purpura and chronic kidney disease complicating systemic lupus erythematosus. anemia of chronic kidney disease, monoclonal gammopathy of uncertain significance as detailed above. She is status post splenectomy. There is also a history of infectious meningitis in the past as well as degenerative disease of the spine documented on MRI imaging in January 2020 Surgical History She is status post splenectomy Family History The patient's parents are alive and well. There is no history of immune thrombocytopenic purpura in any first-degree relatives. Family history is otherwise noncontributory. Social History * Smoker: Denies Alcohol: Denies Drugs: denies A-FIB/CHADSVASC A-FIB History Current/History of A-Fib/PAF?: No Current PO Anticoag Therapy: No Review of Systems Constitutional: Reports: Weakness; Denies: Chills, Fever Eyes: Denies: Pain ENT: Denies: Head Aches Skin: Denies: Rash Pulmonary: Denies: Dyspnea Cardiovascular: Denies: Chest Pain Gastrointestinal: Denies: Nausea Genitourinary: Denies: Dysuria Hematologic: Denies: Bruising, Petecchia Endocrine: Denies: Polydipsia Musculoskeletal: Denies: Neck Pain Neurological: Denies: Weakness Psych: Reports: Mood Normal Physical Examination General Exam: Positive: Alert, Cooperative Eye Exam: Positive: PERRLA ENT Exam: Positive: Atraumatic Neck Exam: Positive: Supple Chest Exam: Positive: Clear to auscultation Heart Exam: Positive: Tachycardic; Negative: Rate Normal Telemetry: Positive: Sinus Abdomen Exam: Positive: Normal bowel sounds Extremity Exam: Negative: Clubbing Skin Exam: Positive: Nl turgor and temperature; Negative: Rash Neuro Exam: Positive: Sensation Intact, Cranial Nerves 3-12 NL Psych Exam: Positive: Mental status NL Vital Signs Vital Signs Date Time Temp Pulse Resp B/P (MAP) Pulse Ox O2 Delivery O2 Flow Rate FiO2 04/20/20 18:35 93 18 99 Nasal Cannula 2 04/20/20 11:40 98.3 Laboratory Data Labs 24H Laboratory Tests 2 04/20/20 11:49: Nucleated Red Blood Cells % (auto) 0.7H 04/20/20 17:07: Nucleated Red Blood Cells % (auto) 0.2H, Immature Platelet Fraction 44.5H 04/20/20 17:18: Bedside Glucose (Misc Panel) 146H CBC/BMP Laboratory Tests 04/20/20 11:49 04/20/20 17:07 Assessment/Plan Patient's 49 years old female with past medical history of ITP, chronic kidney diseases, status post splenectomy, SLE, infectious meningitis,monoclonal gammopathy of uncertain significance presented hospital for elective kidney biopsy. Of note, the patient has a history of relapsing, refractory ITP. She receives Promacta 50 mg by mouth daily. After biopsy patient developed severe hypotension. Hemoglobin dropped to 5.7, platelets count dropped from 191 to 85. Patient received 2 units of blood transfusion, aggressive IV fluid replenish. Blood pressure was stabilized. Dr. Mills will proceed with abdominal CT after initial stabilization to rule out retroperitoneal bleed. I talked to Dr. Umaña, she recommended blood transfusion with platelets transfusion if platelets significantly drop and initiate by mouth steroids Problems (1) Acute blood loss as cause of postoperative anemia Status: Acute Problem Text: There is concern for retroperitoneal bleed after kidney biopsy We'll proceed with CT abd /pelvis after initial stabilization of BP. If there is bleeding from the biopsied kidney pt might need embolization. Will discuss CT findings with Dr. Mills and surgical team. Will start pressors if pt remains hypotensive We'll continue blood transfusion Will monitor platelets, if drop less than 50,000 we'll give platelets transfusion Will continue to monitor CBC every 4 hours Case discussed with Dr Vazquez as a sign out. (2) Idiopathic thrombocytopenia purpura Status: Acute Problem Text: patient has a history of relapsing, refractory ITP. She receives Promacta [address] mg by mouth daily Dr. Umaña recommended prednisone 60 mg by mouth daily (3) Thrombocytopenia Status: Acute Problem Text: See above Plan / VTE VTE Prophylaxis Ordered?: No VTE Exclusion Pharmacological: Active Bleeding ALANNAH EDUARDO DO Apr 20, 2020 19:41
[2020-04-20] MEDS ORDERED: predniSONE 20 MG TAB PO ONE (20:00)
--- NOTE | 2020-04-20 20:18 | IRPN ---
[facility] IR Progress Note IR Progress Note DATE: Apr 20, 2020 FOLLOW-UP: Status post left kidney biopsy today, patient became hypotensive 80/50 associated with a normal pulse rate, diaphoretic and nauseous. Patient rapidly responded to fluid bolus with blood pressure increase to 140s over 90s. Again when patient tried to sit up, blood pressure dropped and again fluid bolus was given. Patient received 5 L fluid bolus. Patient had a hemoglobin check which demonstrated hemoglobin level dropped from 9 to 6 and hematocrit 31 to 19. Platelets 85. Patient complained of some abdominal bloating but denied any back pain. Patient was given 2 units of blood stat, after which she felt better with improved color. Once patient was stabilized, patient was transferred under my supervision to the CT scanner. A CTA was performed, with noncontrast, arterial and venous phase images. I personally reviewed the CTA images. These demonstrate small-volume ascites measuring 20 Hounsfield units, in the abdomen. This is likely the source of her abdominal bloating. Arterial phase images demonstrate a small 1 mm vessel located anterior and inferior to the kidney which abruptly terminates in a small pseudoaneurysm. There is no pooling or extravasation of contrast from this region on delayed images. Minimal left perirenal hematoma. No significant retroperitoneal hematoma. No free blood in the abdomen. I discussed my findings with the patient and her . All questions were answered. I updated Dr. Link, admitting hospitalist. Patient was transferred in stable condition to the ICU. Admitted under the hospitalist team. Patient will be under observation overnight in the ICU with regular CBC check and conservative management. Please call with any critical updates or if patient becomes unstable. Thank you. Allergies Coded Allergies: Sulfa (Sulfonamide Antibiotics) (Verified Allergy, Mild, rash, 10/27/19) Current Medications Current Medications Medications (Trade) Dose Ordered Sig/Theodore Route PRN Reason Start Time Stop Time Status Last Admin Dose Admin Acetaminophen (Tylenol Tab) 650 mg Q4H PRN PO PAIN OR FEVER 04/20/20 19:15 Miscellaneous (Unresolved Patient Own Med Order) SEE LABEL COMMENTS DAILY XX 04/20/20 09:00 Patient Own Medication (Patient'S Own Med) Promacta 50mg tab... DAILY PO 04/21/20 09:00 UNV Prednisone (Deltasone) 60 mg DAILY PO 04/21/20 09:00 Sodium Chloride 1,000 ml @ 999 mls/hr Q1H1M IV 04/20/20 17:15 04/20/20 17:40 DC VS,Fishbone, I+O VS, Fishbone, I+O Laboratory Tests 04/20/20 11:49 04/20/20 17:07 Vital Signs Date Time Temp Pulse Resp B/P (MAP) Pulse Ox O2 Delivery O2 Flow Rate FiO2 04/20/20 19:50 93 18 100 Nasal Cannula 2 04/20/20 11:40 98.3 HOMAR RITCHIE MD Apr 20, 2020 20:18
--- NOTE | 2020-04-20 21:09 | REPVR ---
PROCEDURE INFORMATION: Exam: CT Abdomen And Pelvis Without And With Contrast Exam date and time: 04/20/2020 7:36 PM Age: 49 years old Clinical indication: Other: Acute blood loss; Additional info: Hypotension, acute blood loss TECHNIQUE: Imaging protocol: Computed tomography of the abdomen and pelvis without and with intravenous contrast. 3D rendering: MIP and/or 3D reconstructed images were created by the technologist. Radiation optimization: All CT scans at this facility use at least one of these dose optimization techniques: automated exposure control; mA and/or kV adjustment per patient size (includes targeted exams where dose is matched to clinical indication); or iterative reconstruction. Contrast material: ISOVUE 370; Contrast volume: 100 ml; Contrast route: INTRAVENOUS (IV); COMPARISON: CT ABD PELVIS W/O CONTRAST 08/11/2018 3:14 PM FINDINGS: Lungs: There is subpleural atelectasis of the dependent portions of the lungs. There may be minimal pleural effusions. Liver: There are no focal liver lesions present. Gallbladder and bile ducts: The gallbladder is normal. Pancreas: The pancreas is normal. Spleen: Splenectomy. Adrenals: The adrenal glands are unremarkable. Kidneys and ureters: The kidneys are normal. Stomach and bowel: There is no evidence of intestinal obstruction. Appendix: No evidence of appendicitis. Intraperitoneal space: Ascites. Some of the ascitic fluid in the left abdomen and pelvis could represent hemoperitoneum since the Hounsfield unit determination is 55. Vasculature: There is no evidence of an infrarenal abdominal aortic aneurysm. Lymph nodes: Unremarkable. No enlarged lymph nodes. Bladder: The bladder is unremarkable. Reproductive: Unremarkable as visualized. Bones/joints: There is cupping of multiple vertebral body end plates which could be due to osteopenic compression fractures. This finding was also present on the 2018 CT. Soft tissues: Unremarkable. IMPRESSION: Ascites with possible hemoperitoneum as well since some of the ascitic fluid appears radiodense in the left abdomen and pelvis. The source of the hemorrhage is not identified. Electronically signed by: Iona Birmingham On 04/20/2020 21:09:24 PM
[2020-04-20 21:23] LABS: BASO # 0.1 10^3/uL (0.0-0.2); BASO % 0.5 % (0.0-1.0); HEMATOCRIT 29.9 % (36.0-47.0); HEMOGLOBIN 9.6 g/dl (12.0-15.5); LYMPH # 1.5 10^3/uL (1.5-5.0); LYMPH % 11.3 % (24.0-44.0); MEAN CORPUSCULAR HEMOGLOBIN 28.1 pg (27.0-33.0); MEAN CORPUSCULAR HGB CONC 32.1 g/dl (32.0-36.5); MEAN CORPUSCULAR VOLUME 87.4 fl (80.0-96.0); MONO # 0.9 10^3/uL (0.0-0.8); NEUTROPHILS # 10.5 10^3/uL (1.5-8.5); NEUTROPHILS % 80.5 % (36.0-66.0); RED BLOOD COUNT 3.42 10^6/uL (4.00-5.40); WHITE BLOOD COUNT 13.1 10^3/uL (4.0-10.0)
[2020-04-20 21:26] LABS: PLATELET COUNT, AUTOMATED 80 10^3/uL (150-450)
[2020-04-20] MEDS ORDERED: ACETAMINOPHEN *IV* 1,000 MG in IV 1 EA IV ONE (21:45)
[2020-04-20] MEDS: ONDANSETRON 4MG/2ML VIAL IV PRN (22:08)
[2020-04-20] MEDS: PROMACTA 50 MG PO SCH (22:41)
[2020-04-20] MEDS: MORPHINE 2 MG/ML 1ML VIAL (J2270) IV PRN (23:12)
[2020-04-21] VITALS (52 sets, daily range): BP systolic 60–171; BP diastolic 35–94
[2020-04-21 00:21] LABS: BASO % 0.3 % (0.0-1.0); HEMATOCRIT 23.5 % (36.0-47.0); HEMOGLOBIN 7.6 g/dl (12.0-15.5); LYMPH # 1.5 10^3/uL (1.5-5.0); LYMPH % 12.5 % (24.0-44.0); MEAN CORPUSCULAR HGB CONC 32.3 g/dl (32.0-36.5); MEAN CORPUSCULAR VOLUME 86.7 fl (80.0-96.0); MONO # 1.3 10^3/uL (0.0-0.8); MONO % 10.7 % (0.0-5.0); NEUTROPHILS % 75.5 % (36.0-66.0); RED BLOOD COUNT 2.71 10^6/uL (4.00-5.40); WHITE BLOOD COUNT 11.9 10^3/uL (4.0-10.0)
[2020-04-21 00:23] LABS: PLATELET COUNT, AUTOMATED 63 10^3/uL (150-450)
[2020-04-21 00:43] LABS: ALBUMIN 2.2 GM/DL (3.2-5.2); BILIRUBIN,TOTAL 0.5 MG/DL (0.2-1.0); CALCIUM LEVEL 7.1 MG/DL (8.5-10.1); CREATININE FOR GFR 1.42 MG/DL (0.55-1.30); GLOMERULAR FILTRATION RATE 41.7 (>51); MAGNESIUM LEVEL 1.7 MG/DL (1.8-2.4); POTASSIUM SERUM 4.3 MEQ/L (3.5-5.1); TOTAL PROTEIN 5.3 GM/DL (6.4-8.2)
--- NOTE | 2020-04-21 00:44 | REPVR ---
PROCEDURE INFORMATION: Exam: CT Abdomen And Pelvis Without Contrast Exam date and time: 04/20/2020 11:39 PM Age: 49 years old Clinical indication: Abdominal pain; Generalized; Patient HX: S/P left renal bx; Additional info: Evaluate for further bleeding TECHNIQUE: Imaging protocol: Computed tomography of the abdomen and pelvis without contrast. Radiation optimization: All CT scans at this facility use at least one of these dose optimization techniques: automated exposure control; mA and/or kV adjustment per patient size (includes targeted exams where dose is matched to clinical indication); or iterative reconstruction. COMPARISON: CT ABD PELVIS W/O FOL BY WIT 04/20/2020 7:33 PM FINDINGS: Limitations: Limited without IV contrast. Lungs: Dependent atelectasis in the lung. Pleural space: Small bilateral pleural effusions. Heart: Mild pericardial effusion measuring up to 9 mm thick. Liver: Normal. No mass. Gallbladder and bile ducts: Normal. No calcified stones. No ductal dilation. Pancreas: Normal. No ductal dilation. Spleen: Status post splenectomy. Adrenals: Normal. No mass. Kidneys and ureters: No hydronephrosis. Mild left perinephric stranding. There is mild persistent nephrograms. Small gas in the left perinephric space. Residual contrast in the urinary collecting system. Stomach and bowel: No abnormal bowel wall thickening. Copious stool in the rectum. Rectum measures 6.6 cm in diameter. Evaluation of the bowel is limited secondary to fluid. Appendix: The appendix is not seen. However, there is no evidence of appendicitis. Intraperitoneal space: Moderate free fluid. No free air. Surgical clip in the left lower quadrant of the abdomen. Vasculature: Mild calcified atherosclerotic disease. No aortic aneurysm. Lymph nodes: Unremarkable. No enlarged lymph nodes. Bladder: Residual contrast in the bladder. Bladder is otherwise unremarkable. Reproductive: Uterus is normal. Bones/joints: Mild degenerative spine. No acute fracture. Soft tissues: Surgical clip in the umbilicus. IMPRESSION: 1. Examination is limited without intravascular contrast. 2. Mild left perinephric stranding. Small gas in the left perinephric space. Consistent with postop status. 3. Moderate free fluid. Consistent with hemoperitoneum. Mildly increased from prior. 4. Mild persistent nephrograms. Correlate with renal function. 5. Small bilateral pleural effusions. No change from prior. 6. Mild pericardial effusion. No change from prior. 7. Additional findings as described. COMMENTS: Verbally discussed with Dr. ESTEVEZ at 04/21/2020 12:41 AM EDT. Electronically signed by: Jossie Galeas On 04/21/2020 00:43:55 AM
[2020-04-21] MEDS: NS 1,000 ML IV SCH ×2 (01:00→11:21)
[2020-04-21] MEDS ORDERED: LIDOCAINE 1% MDV 20ML VIAL As Ordered ONE (02:14)
[2020-04-21] MEDS ORDERED: ISOVUE-300 61% 50ML VIAL As Ordered ONE ×3 (02:14→03:18)
--- NOTE | 2020-04-21 04:48 | POST-OPPD ---
Postoperative Procedure Note Date Of Procedure: Apr 21, 2020 Time Of Procedure: 04:45 PREOPERATIVE DIAGNOSIS: bleeding post kidney biopsy POSTOPERATIVE DIAGNOSIS: same FINDINGS: unremarkable SMA, KALPANA and left lumbar arteries. Contrast pooling distal to segmental left lower pole renal artery in region of biopsy tract. This appears same as on CTA. This was embolized successfully. PROCEDURE: embolization as above DOCTOR: Lina ANESTHESIA: per anesthesia team ESTIMATED BLOOD LOSS: < 5 ml COMPLICATIONS: none POSTOPERATIVE CONDITION: stable HOMAR RITCHIE MD Apr 21, 2020 04:48
--- NOTE | 2020-04-21 05:05 | IPNPDOC ---
Text Note Date of Service The patient was seen on 04/21/20. NOTE Subjective: Patient is a 49-year-old female with a PMHx of ITP (on Promacta), SLE, CKD3, s/p Splenectomy, Recent infectious meningitis, Monoclonal gammopathy of unknown significance who had presented to [facility] for an elective left kidney biopsy with IR, Dr. Mills. I was called evaluate this patient multiple times this evening for hypotension / abdominal pain / low Hg. Patient is reporting abdominal discomfort as well as dizziness and nausea. Objective: Vitals (See below) General: Lying in bed, awake / alert HEENT: NC, AT CVS: RRR, +S1S2 Lungs: Fair air entry b/l, -w/r/r Abdomen: Soft, tenderness diffusely, no rebound / guarding Extremities: - Edema, - Calf tenderness Assessment and plan: Acute blood loss anemia - likely 2/2 extravasation of blood - Repeat CBC has shown a drop in hemoglobin - Repeat CT abdomen has shown possible increase in hemoperitoneum - Case was discussed with Dr. Mills (IR), as well as Dr. Pierce (General surgery) - Patient will continue to receive 2 additional units of PRBC transfusion and IV fluid hydration - Dr. Mills will be taking patient urgently for angiography to evaluate for bleeding / possible intervention, Dr. Pierce may take patient to the OR for further intervention if required thereafter ITP - Platelet counts have trended down - s/p Home medications and dose of Prednisone based on hematology recommendations - Will transfuse platelets based on hematology recommendations if required VS,Aylin, I+O VS, Jenae, I+O Laboratory Tests 04/20/20 11:49 04/20/20 17:07 04/20/20 20:59 04/20/20 23:59 Vital Signs Date Time Temp Pulse Resp B/P (MAP) Pulse Ox O2 Delivery O2 Flow Rate FiO2 04/21/20 02:20 97.5 100 20 145/85 Room Air 04/21/20 02:15 98 04/20/20 20:24 2.0 I&O- Last 24 Hours up to 6 AM 04/21/20 06:00 Intake Total 6100 ml Output Total 770 ml Balance 5330 ml ELIEZER ESTEVEZ MD Apr 21, 2020 03:01
[2020-04-21 05:18] LABS: BASO % 0.1 % (0.0-1.0); HEMATOCRIT 25.1 % (36.0-47.0); HEMOGLOBIN 8.2 g/dl (12.0-15.5); LYMPH % 8.2 % (24.0-44.0); MEAN CORPUSCULAR HEMOGLOBIN 28.5 pg (27.0-33.0); MEAN CORPUSCULAR HGB CONC 32.7 g/dl (32.0-36.5); MEAN CORPUSCULAR VOLUME 87.2 fl (80.0-96.0); MONO # 0.3 10^3/uL (0.0-0.8); MONO % 2.3 % (0.0-5.0); NEUTROPHILS # 10.8 10^3/uL (1.5-8.5); NEUTROPHILS % 88.4 % (36.0-66.0); RED BLOOD COUNT 2.88 10^6/uL (4.00-5.40); WHITE BLOOD COUNT 12.3 10^3/uL (4.0-10.0)
[2020-04-21 05:20] LABS: PLATELET COUNT, AUTOMATED 72 10^3/uL (150-450)
[2020-04-21 05:34] LABS: CALCIUM LEVEL 6.8 MG/DL (8.5-10.1); CREATININE FOR GFR 1.32 MG/DL (0.55-1.30); GLOMERULAR FILTRATION RATE 45.4 (>51); MAGNESIUM LEVEL 1.7 MG/DL (1.8-2.4); POTASSIUM SERUM 4.6 MEQ/L (3.5-5.1)
[2020-04-21] MEDS: MORPHINE 2 MG/ML 1ML VIAL (J2270) IV PRN (06:12)
[2020-04-21] MEDS ORDERED: NS 1,000 ML IV ONE (06:25)
[2020-04-21] MEDS: ONDANSETRON 4MG/2ML VIAL IV PRN ×2 (06:28→16:19)
[2020-04-21] MEDS: PERCOCET 5MG/325MG TAB PO PRN ×2 (07:25→16:21)
[2020-04-21] MEDS ORDERED: MAG SULF 1GM/100ML (MAG RUN) 1 GM in IV 1 EA IV ONE (09:15)
[2020-04-21] MEDS ORDERED: PERCOCET 5MG/325MG TAB PO PRN (09:15)
[2020-04-21 09:17] LABS: BASO % 0.1 % (0.0-1.0); HEMATOCRIT 29.2 % (36.0-47.0); HEMOGLOBIN 9.5 g/dl (12.0-15.5); LYMPH # 1.1 10^3/uL (1.5-5.0); LYMPH % 9.4 % (24.0-44.0); MEAN CORPUSCULAR HEMOGLOBIN 28.4 pg (27.0-33.0); MEAN CORPUSCULAR HGB CONC 32.5 g/dl (32.0-36.5); MEAN CORPUSCULAR VOLUME 87.2 fl (80.0-96.0); MONO # 0.7 10^3/uL (0.0-0.8); MONO % 5.8 % (0.0-5.0); NEUTROPHILS # 10.1 10^3/uL (1.5-8.5); NEUTROPHILS % 83.8 % (36.0-66.0); RED BLOOD COUNT 3.35 10^6/uL (4.00-5.40); WHITE BLOOD COUNT 12.1 10^3/uL (4.0-10.0)
[2020-04-21 09:18] LABS: PLATELET COUNT, AUTOMATED 72 10^3/uL (150-450)
[2020-04-21] MEDS ORDERED: FUROSEMIDE 40MG/4ML VIAL (J1940) IV ONE ×2 (09:30→14:00)
--- NOTE | 2020-04-21 09:57 | CR ---
DATE OF CONSULTATION: 04/21/2020 REASON FOR CONSULTATION: Intra-abdominal bleeding. HISTORY OF THE PRESENT ILLNESS: The patient is a pleasant woman with a long history of idiopathic thrombocytopenic purpura (ITP). She has been treated previously with steroids, IV immunoglobulin, rituximab, methotrexate, splenectomy and others. Recently, she has been on eltrombopag (Promacta) after poorly responding to rituximab. She has undergone evaluation for possible lupus and has renal insufficiency for which a biopsy of the kidney was recommended to evaluate for lupus nephritis. She was brought into interventional radiology on 04/20/2020 and underwent a prone needle biopsy of the left kidney. She apparently tolerated this well initially, but then developed hypotension. Testing revealed that her hemoglobin had dropped significantly. She was transfused 2 units of packed red blood cells as well as some additional IV fluid. A CT scan was obtained that showed some free blood within the abdomen. She was admitted to the intensive care unit (ICU) for monitoring. Her blood pressure stabilized, but subsequently softened again and she has been receiving a third unit of packed red blood cells. A repeat CT scan shows increased blood within the abdomen from her prior study approximately [address] Vazquez has now consulted me to consider intervention to address her intra-abdominal bleeding. ALLERGIES: The patient has a reported allergy to SULFA ANTIBIOTICS: Her current medications include: - Tylenol as needed for pain - eltrombopag 50 mg by mouth daily Medical history is significant primarily for her longstanding ITP. She has systemic lupus erythematous with some chronic kidney disease. She has a degree of chronic anemia. SURGICAL HISTORY: The patient has undergone two sections. She underwent splenectomy, but required reoperation on two occasions for accessory or residual splenic tissue. These were apparently accomplished laparoscopically. She has also undergone endometrial ablation. FAMILY HISTORY: The record indicates the patient's parents are alive and there is no family history of immune thrombocytopenia. SOCIAL HISTORY: She denies tobacco use or alcohol use. REVIEW OF SYSTEMS: She is currently in significant discomfort both of her abdomen diffusely and her shoulders. She denies any history of cardiac or respiratory problems. The ITP has been difficult to treat and she has used multiple different drug regimens. She has been following in the hematology clinic at the [facility]. She has been seeing Dr. Kline of nephrology. PHYSICAL EXAMINATION: The patient is lying quietly in the ICU. She is alert and responsive. Her pulse is approximately 105. Blood pressure is 123/79. Room air oxygen saturation is normal. She has been afebrile. She is uncomfortable with any movement. Her lips are pale and the skin is somewhat dry. Heart exam reveals a regular tachycardia. The lungs are clear. The abdomen is full. There are a some bowel sounds present. The abdomen is full and she has diffuse mild to moderate tenderness to palpation. There is no evident hernia. LABORATORY STUDIES: Most recently at 2359 hours show a white count of 12, hemoglobin 8, hematocrit 24, and a platelet count of 63,000. Her chemistries also at 2359 hours on 04/20/2020 show a sodium of 143, potassium 4.3, chloride 114, CO2 of 21, BUN of 19, creatinine 1.4, and a glucose of 159. Protein is 5.3 with an albumin of 2.2. IMAGING: The patient had her CT-guided needle biopsy of the left kidney with the time stamp on the imaging right around 1:00 p.m. on 04/20/2020. She had a CT scan with contrast at 1934 hours on 04/20/2020. This shows a large amount of free fluid within the abdomen particularly around the liver, but also in the right and left paracolic gutters and down into the pelvis. There was no free air identified. She had a repeat CT scan at 5 minutes past midnight in the front of house manager of 04/21/2020. I reviewed the images of all of these studies. There appears to be more free fluid noted on the most recent study. She also has now developed some small areas of pleural effusion and/or atelectasis bilaterally. There is still no free air identified. She does have contrast in her bladder. IMPRESSION: The patient appears to be having significant intra-abdominal bleeding following her CT-guided percutaneous biopsy of the left kidney earlier today. She is now at the time of this dictation approximately 14 hours out from her biopsy. She is receiving her third unit of packed red blood cells currently and per the nurse caring for her she received approximately 6 liters of IV crystalloid otherwise during her treatment. RECOMMENDATIONS: At this point, I have spoken with Dr. Vazquez regarding care of the patient. He spoke with Dr. Mills after the second CT scan was obtained. I also spoke with Dr. Mills. I am concerned that the volume of free blood in the abdomen has increased from the earlier evening study until now. Dr. Vazquez also reported to me that when he spoke with the radiologist reading the studies that it was reported that there was increased blood the abdomen. She clearly has not stopped bleeding. Her platelet count is down to 63,000. She did receive a dose of prednisone earlier. Dr. Mills has suggested that she attempt arteriography to see if there is an embolizable source of bleeding. If she does not identify a bleeding point or cannot occlude it, then laparoscopy and/or laparotomy may be necessary to address her bleeding point. Unfortunately, this is likely to be difficult. She has a large amount of blood within the abdomen that would need to be cleared to be able to see anything. The bleeding is also on the side where she had her several procedures for her splenectomy and subsequent reoperation. The source of bleeding should be localized to the area right around and anterior to the inferior pole of the left kidney. If Dr. Mills is unsuccessful she will let me know and we can proceed to the operating room. I did speak with the patient about Dr. Mills's recommendations and the potential need for surgical intervention if angiographic techniques are not successful in stopping any bleeding. I did check with the blood bank and they do have one pheresis pack of platelets and I recommended they obtain additional platelets. I will be waiting to hear from Dr. Mills if surgical intervention is necessary. At this point, I would anticipate attempting laparoscopy to clear the blood and try to identify the source of bleeding but if this is unsuccessful, then a laparotomy hopefully focused on the area of interest would be necessary. GILMAR
[2020-04-21 10:43] LABS: CORTISOL BASELINE 37.2 UG/DL (4.3-22.4)
[2020-04-21] MEDS: PROCHLORPERAZINE 10MG/2ML VIAL (J0780 PER 1) IV PRN ×2 (10:44→19:40)
[2020-04-21] MEDS: predniSONE 20 MG TAB PO SCH (10:44)
[2020-04-21] MEDS: MORPHINE 4 MG/ML 1ML VIAL/SYRINGE (J2270) IV PRN ×2 (10:45→19:41)
[2020-04-21 13:13] LABS: BASO % 0.2 % (0.0-1.0); HEMATOCRIT 24.8 % (36.0-47.0); HEMOGLOBIN 8.2 g/dl (12.0-15.5); LYMPH # 1.5 10^3/uL (1.5-5.0); LYMPH % 6.5 % (24.0-44.0); MEAN CORPUSCULAR HEMOGLOBIN 28.4 pg (27.0-33.0); MEAN CORPUSCULAR HGB CONC 33.1 g/dl (32.0-36.5); MEAN CORPUSCULAR VOLUME 85.8 fl (80.0-96.0); MONO # 1.8 10^3/uL (0.0-0.8); MONO % 7.9 % (0.0-5.0); NEUTROPHILS # 19.7 10^3/uL (1.5-8.5); NEUTROPHILS % 84.5 % (36.0-66.0); RED BLOOD COUNT 2.89 10^6/uL (4.00-5.40); WHITE BLOOD COUNT 23.3 10^3/uL (4.0-10.0)
[2020-04-21 13:14] LABS: PLATELET COUNT, AUTOMATED 86 10^3/uL (150-450)
--- NOTE | 2020-04-21 13:45 | IPNPDOC ---
Text Note Date of Service The patient was seen on 04/21/20. NOTE Subjective: Complains of persistent severe abdominal pain and nausea and vomi ting. Not much urine output inspite of lasix, She is positive 6.5 liters. Nofever or chills, Does not complain of SOB. Physical Exam: Vitals (See below) General: Lying in bed, awake / alert, mild distress due to abdominal pain and nausea. Neck supple, No JVD. HEENT: NC, AT, moist mucous membranes an icteric eyes. CVS: tachycardia, regular, no rub, murmur or gallop Lungs: Fair air entry b/l, some basal crackles. Abdomen: Soft, tenderness diffusely, no rebound / guarding , bowel sounds slugg temo. Extremities: - Edema, - Calf tenderness Labs and Radiology Reviewed CT Abdomen and Pelvis: 1. Examination is limited without intravascular contrast. 2. Mild left perinephric stranding. Small gas in the left perinephric space. Consistent with postop status. 3. Moderate free fluid. Consistent with hemoperitoneum. Mildly increased from prior. 4. Mild persistent nephrograms. Correlate with renal function. 5. Small bilateral pleural effusions. No change from prior. 6. Mild pericardial effusion. No change from prior. 7. Copious stool in the rectum. Rectum measures 6.6 cm in diameter. 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 Of note, the patient has a history of relapsing, refractory ITP. After biopsy patient developed severe hypotension. Hemoglobin dropped to 5.7, platelets count dropped from 191 to 85. So the patient was admitted to ICU for bleeding post procedure with Acute blood loss anemia, hemorrhagic shock. CT abdomen showed Ascites with possible hemoperitoneum as well since some of the ascitic fluid appears radiodense in the left abdomen and pelvis. The source of the hemorrhage is not identified. All though out night she has been hypotensive with abdominal pain so Dr Pierce from surgery was consulted. It was felt that patient was actively bleeding as inspite of blood and fluid resuscitation she remained tachycardic. Her HH was not rising appropriately. Dr Mills took her back to the IR suite and did embolization of a lower renal pole branch artery. Acute blood anemia bleeding from area of kidney biopsy received 4 units of PRBC s/p IR embolization of lower pole branch of renal artery. Continue to monitor HH q 4 hours and transfuse at needed to maintain HH around 9.0 Hemorrhagic shock continue blood product transfusion as needed. remains tachycardic and HH again dropping will transfuse PRBC . After transfusion will give Lasix IV . She is > 5 l positive. Please hold IVF while getting blood products. Spoke with Dr Pierce again and updated him with her most recent labs and vitals. Abdominal pain severe and persistent due to hemoperitoneum and embolization of the lower pole of left kidney continue IV morphine 4 mg q 3 hours. Zofran. Hypocalcemia will give IV calcium gluconate Hypomagnesemia will give IV magnesium. ITP Thrombocytopenia discussed over phone with insights analyst continue platelets transfusion as needed prednisone po. SLE/CKD creatinine stable at this time will recheck appreciate Dr Kline's input. DVT prophylaxis TEDS VS,Fishbone, I+O VS, Fishbone, I+O Laboratory Tests 04/20/20 17:07 04/20/20 20:59 04/20/20 23:59 04/21/20 05:05 04/21/20 08:57 Vital Signs Date Time Temp Pulse Resp B/P (MAP) Pulse Ox O2 Delivery O2 Flow Rate FiO2 04/21/20 10:55 19 95 Room Air 04/21/20 09:45 98.0 128 139/85 04/21/20 09:30 97.0 I&O- Last 24 Hours up to 6 AM 04/21/20 06:00 Intake Total 6100 ml Output Total 1370 ml Balance 4730 ml CHINMAY PALACIOS MD Apr 21, 2020 13:45
[2020-04-21] MEDS ORDERED: CALCIUM GLUCONATE 1,000 MG in D5W MINI-BAG PLUS 100 ML IV ONE (14:00)
[2020-04-21] MEDS: PANTOPRAZOLE 40MG VIAL (C9113 PER 1) IV SCH (14:21)
[2020-04-21 17:34] LABS: BASO % 0.2 % (0.0-1.0); HEMATOCRIT 25.7 % (36.0-47.0); HEMOGLOBIN 8.7 g/dl (12.0-15.5); LYMPH # 1.4 10^3/uL (1.5-5.0); LYMPH % 7.9 % (24.0-44.0); MEAN CORPUSCULAR HEMOGLOBIN 29.6 pg (27.0-33.0); MEAN CORPUSCULAR HGB CONC 33.9 g/dl (32.0-36.5); MEAN CORPUSCULAR VOLUME 87.4 fl (80.0-96.0); MONO # 1.8 10^3/uL (0.0-0.8); MONO % 9.9 % (0.0-5.0); NEUTROPHILS # 14.7 10^3/uL (1.5-8.5); NEUTROPHILS % 81.1 % (36.0-66.0); RED BLOOD COUNT 2.94 10^6/uL (4.00-5.40); WHITE BLOOD COUNT 18.1 10^3/uL (4.0-10.0)
[2020-04-21 17:36] LABS: PLATELET COUNT, AUTOMATED 80 10^3/uL (150-450)
[2020-04-21 18:04] LABS: CREATININE FOR GFR 1.89 MG/DL (0.55-1.30)
[2020-04-21 18:05] LABS: ALBUMIN 2.5 GM/DL (3.2-5.2); BILIRUBIN,TOTAL 0.4 MG/DL (0.2-1.0); CALCIUM LEVEL 7.8 MG/DL (8.5-10.1); MAGNESIUM LEVEL 2.2 MG/DL (1.8-2.4); POTASSIUM SERUM 4.8 MEQ/L (3.5-5.1)
--- NOTE | 2020-04-21 20:05 | CR.PDOC ---
General Date of Consultation: Apr 21, 2020 Referring Provider: ALANNAH EDUARDO DO Primary Care Physician: Tj Rodriges MD Attending Physician: ALANNAH EDUARDO DO Consultation REASON FOR CONSULTATION/CHIEF COMPLAINT: ITP. HISTORY OF PRESENT ILLNESS: Ms. Marleen Gurrola is a 49-year-old woman with long-standing ITP, refractory to multiple treatments and is currently on Eltrombopag (Promacta) since February of this year. She had a kidney biopsy yesterday under interventional radiology and was noted to be hypotensive post kidney biopsy. Hemoglobin was noted to be decreased at 5.9. She has received packed red cell transfusions a total of 5 units since yesterday. She also underwent embolization of segmental left lower pole renal artery region of biopsy tract very early this morning. Platelet counts noted to be moderately decreased, but staying above 60 K/UL so far. She has been started on prednisone and also received a platelet transfusion. ALLERGIES: Please see below. HOME MEDICATIONS: Please see below. PAST MEDICAL HISTORY: Long-standing ITP. Chronic kidney disease. SLE. MGUS. Splenectomy. History of Infectious meningitis. PAST SURGICAL HISTORY: As above. FAMILY HISTORY: Noncontributory. SOCIAL HISTORY: . Nonsmoker. Does not drink alcohol. REVIEW OF SYSTEMS: CONSTITUTIONAL: Reports: Fatigue, Normal appetite; Denies: Chills, Fever, Malaise, Night Sweats, Weakness, Weight Loss, Lethargy. HEENT: Denies: Head Aches, Ear Pain, Dysphagia, Sinus Congestion, Post Nasal Drip, Sore Throat, Epistaxis CARDIOVASCULAR:Reports: Palpitations (on exertion); Lt Headedness Denies: Chest Pain, Orthopnea, Paroxysmal Noc. Dyspnea, Edema RESPIRATORY: Denies: Dyspnea, Cough, Pleuritic Chest Pain. GENITOURINARY: Denies: Dysuria, Frequency, Incontinence, Hematuria, Retention MUSCULOSKELETAL: . GASTROINTESTINAL: Reports diffuse abdominal pain and nausea Denies:Vomiting,Diarrhea, Constipation, Melena, Hematochezia Rest of review of systems negative. PHYSICAL EXAMINATION: VITAL SIGNS: Please see below. GENERAL APPEARANCE: Alert, awake, not in respiratory distress, pale looking. HEENT: Pinkish conjunctiva, anicteric sclerae. Moist oral mucosa. RESPIRATORY: Fair entry. No rales, rhonchi, no wheezes. CARDIOVASCULAR: S1, S2 regular. No murmur. No gallop. ABDOMEN: Tender, decreased bowel sounds. EXTREMITIES: No pedal edema. No cyanosis. No clubbing. No calf tenderness. NEUROLOGICAL: Alert, oriented 3, moves all extremities spontaneously PSYCHIATRIC: Mental status normal. Oriented 3. LABORATORY DATA: Please see below. ASSESSMENT/PLAN: Chronic ITP on Eltrombopag (Promacta). Presenting with abdominal bleed, post kidney biopsy. Underwent embolization early this morning. Would continue Promacta at 150 mg daily for now while patient has moderate thrombocytopenia as patient has been known to drop platelet counts in acute situations. Continue prednisone. Would consider IVIG if platelet count should decrease further. Would consider DIC workup ie check fibrinogen, PT, PTT if patient continues to show signs/evidence of bleeding. Thank you for informing us of Ms. Marleen Gurrola's admission. Vital Signs/I&O Vital Signs Date Time Temp Pulse Resp B/P (MAP) Pulse Ox O2 Delivery O2 Flow Rate FiO2 04/21/20 18:00 136 141/79 (99) 94 Room Air 04/21/20 17:00 97.8 04/21/20 16:51 20 04/21/20 09:30 97.0 I&O- Last 24 Hours up to 6 AM 04/21/20 06:00 Intake Total 6100 ml Output Total 1370 ml Balance 4730 ml Laboratory Data Labs 24H Laboratory Tests 2 04/20/20 20:59: Immature Granulocyte % (Auto) 0.7, Neutrophils (%) (Auto) 80.5H, Lymphocytes (%) (Auto) 11.3L, Monocytes (%) (Auto) 7.0H, Eosinophils (%) (Auto) 0.0, Basophils (%) (Auto) 0.5, Neutrophils # (Auto) 10.5H, Lymphocytes # (Auto) 1.5, Monocytes # (Auto) 0.9H, Eosinophils # (Auto) 0.0, Basophils # (Auto) 0.1, Nucleated Red Blood Cells % (auto) 0.3H 04/20/20 23:40: Bedside Glucose (Misc Panel) 172H 04/20/20 23:59: Immature Granulocyte % (Auto) 1.0, Neutrophils (%) (Auto) 75.5H, Lymphocytes (%) (Auto) 12.5L, Monocytes (%) (Auto) 10.7H, Eosinophils (%) (Auto) 0.0, Basophils (%) (Auto) 0.3, Neutrophils # (Auto) 9.0H, Lymphocytes # (Auto) 1.5, Monocytes # (Auto) 1.3H, Eosinophils # (Auto) 0.0, Basophils # (Auto) 0.0, Nucleated Red Blood Cells % (auto) 0.3H, Anion Gap 8, Glomerular Filtration Rate 41.7L, Lactic Acid Level 3.1*H, Calcium Level 7.1L, Magnesium Level 1.7L, Total Bilirubin 0.5, Aspartate Amino Transf (AST/SGOT) 17, Alanine Aminotransferase (ALT/SGPT) 12, Alkaline Phosphatase 52, Total Protein 5.3L, Albumin 2.2L, Albumin/Globulin Ratio 0.7L, Cortisol Baseline 37.2H 04/21/20 05:05: Immature Granulocyte % (Auto) 1.0, Neutrophils (%) (Auto) 88.4H, Lymphocytes (%) (Auto) 8.2L, Monocytes (%) (Auto) 2.3, Eosinophils (%) (Auto) 0.0, Basophils (%) (Auto) 0.1, Neutrophils # (Auto) 10.8H, Lymphocytes # (Auto) 1.0L, Monocytes # ( Auto) 0.3, Eosinophils # (Auto) 0.0, Basophils # (Auto) 0.0, Nucleated Red Blood Cells % (auto) 0.3H, Anion Gap 10, Glomerular Filtration Rate 45.4L, Calcium Level 6.8L, Magnesium Level 1.7L, Lactic Acid Followup at 4 Hours 2.0 04/21/20 08:57: Immature Granulocyte % (Auto) 0.9, Neutrophils (%) (Auto) 83.8H, Lymphocytes (%) (Auto) 9.4L, Monocytes (%) (Auto) 5.8H, Eosinophils (%) (Auto) 0.0, Basophils (%) (Auto) 0.1, Neutrophils # (Auto) 10.1H, Lymphocytes # (Auto) 1.1L, Monocytes # (Auto) 0.7, Eosinophils # (Auto) 0.0, Basophils # (Auto) 0.0, Nucleated Red Blood Cells % (auto) 0.4H 04/21/20 12:59: Immature Granulocyte % (Auto) 0.9, Neutrophils (%) (Auto) 84.5H, Lymphocytes (%) (Auto) 6.5L, Monocytes (%) (Auto) 7.9H, Eosinophils (%) (Auto) 0.0, Basophils (%) (Auto) 0.2, Neutrophils # (Auto) 19.7H, Lymphocytes # (Auto) 1.5, Monocytes # (Auto) 1.8H, Eosinophils # (Auto) 0.0, Basophils # (Auto) 0.0, Nucleated Red Blood Cells % (auto) 0.3H 04/21/20 17:06: Immature Granulocyte % (Auto) 0.9, Neutrophils (%) (Auto) 81.1H, Lymphocytes (%) (Auto) 7.9L, Monocytes (%) (Auto) 9.9H, Eosinophils (%) (Auto) 0.0, Basophils (%) (Auto) 0.2, Neutrophils # (Auto) 14.7H, Lymphocytes # (Auto) 1.4L, Monocytes # (Auto) 1.8H, Eosinophils # (Auto) 0.0, Basophils # (Auto) 0.0, Nucleated Red Blood Cells % (auto) 0.5H, Anion Gap 9, Glomerular Filtration Rate 30.0L, Calcium Level 7.8L, Magnesium Level 2.2, Total Bilirubin 0.4, Aspartate Amino Tr ansf (AST/SGOT) 15, Alanine Aminotransferase (ALT/SGPT) 14, Alkaline Phosphatase 52, Total Protein 6.0L, Albumin 2.5L, Albumin/Globulin Ratio 0.7L CBC/BMP Laboratory Tests 04/20/20 20:59 04/20/20 23:59 04/21/20 05:05 04/21/20 08:57 04/21/20 12:59 04/21/20 17:06 Microbiology Microbiology 04/21/20 Respiratory Virus Panel (PCR) (PRIS[facility]LLA) - Final, Complete Allergies Coded Allergies: Sulfa (Sulfonamide Antibiotics) (Verified Allergy, Mild, rash, 10/27/19) Home Medications Scheduled Eltrombopag Olamine (Promacta) 50 Mg Tablet, 50 MG PO DAILY for 90 Days, #90 Scheduled PRN Acetaminophen (Tylenol Extra Strength) 500 Mg Tablet, 1,000 MG PO TID PRN for PAIN, (Reported) KEVIN GORDILLO MD Apr 21, 2020 20:05
[2020-04-21] MEDS ORDERED: PROMETHAZINE INJ 25 MG/ML VIAL (J2550) IV PRN (20:15)
--- NOTE | 2020-04-21 20:45 | IPN ---
DATE: 04/21/2020 HISTORY: The patient had undergone a CT-guided percutaneous needle biopsy of the left kidney by Dr. Mills yesterday. The patient became hypotensive postprocedure, and on CT was found to have some significant intra-abdominal blood. She received a transfusion as well as some crystalloid. She subsequently had a repeat drop in her blood pressure and repeat CT showed additional accumulation of blood within the abdomen. I had been consulted by Dr. Vazquez to consider surgical intervention if necessary. I discussed with Dr. Mills the plan, and we agreed that she would attempt angiographic control, and I would take the patient to the operating room if necessary. The patient does have ITP with an underlying significant thrombocytopenia. Dr. Mills was able to perform arteriography and reported to me at about 4:15 this morning that she had identified a pooling of contrast after injection of an inferior pole renal vessel on the left. She reports that she embolized this area with Gelfoam and placed a coil. The patient has remained stable following this, although she is quite tachycardiac since early this morning. Her blood pressure has been acceptable. Vital signs: Show that the patient's pulse is in the 130s. Respiratory rate is in the 18-24 range. Her blood pressure is good. And oxygen saturation on room air are normal. Intake and output show that yesterday she had 5600 recorded in with 500 of urine output. Today she has had a liter of urine output. She has received 2 units of packed cells overnight and a third unit is being started this afternoon. PHYSICAL EXAMINATION: The patient is lying quietly on the hospital bed. She appears somewhat uncomfortable and complains of primarily abdominal pain with movement. She is not having any nausea or vomiting. She appears to be breathing easily. She is somewhat apprehensive but not markedly so. Heart exam shows a regular tachycardia. The lungs show bilateral breath sounds. She is breathing shallowly because of her abdominal discomfort. The abdomen is full and mildly protuberant. She does have a few bowel sounds present. She has some diffuse mild to moderate tenderness on palpation. She has strong radial and posterior tibial pulses. Laboratory studies most recently at 1259 hours this afternoon show a white count of 23,000, hemoglobin of 8, hematocrit of 25, and a platelet count of 86,000. Differential count shows 84% neutrophils, 6% lymphocytes and 8% monocytes. Chemistry profile at 5:05 this morning showed a sodium of 147, potassium 4.6, chloride 116, CO2 of 21, BUN of 18, creatinine 1.3 and a glucose of 185. Her lactic acid is 2.0 this morning. Her protein and albumin at about midnight were 5.3 and 2.2. The patient did receive a unit of pheresis platelets at 9:30 this morning by the order of Dr. Kline. IMPRESSION: Patient has an adequate blood pressure, though she remains quite tachycardiac at this point. She is making good urine output after fairly vigorous hydration yesterday. She has received a total of 5 units of packed red blood cells with the most recent coming after her most recent blood test showing a hemoglobin of 8 and a hematocrit of 25. I do not think she is having any ongoing bleeding at this point. Dr. Mills seemed quite confident that she had identified the source of the bleeding. I suspect the patient's tachycardia relates more to the pain of her hemoperitoneum and possibly also a contribution of pain from embolization of a portion of the inferior pole of the left kidney. The patient's platelet count has improved slightly today. She has been receiving steroids and did receive one pheresis pack of platelets. RECOMMENDATIONS: The patient should receive analgesics as necessary. Her pulse and blood pressure should certainly be monitored very closely, but she appears to be perfusing very well despite her significant tachycardia. I counseled the patient the resolution of her hemoperitoneum will take some time and that she will likely feel full because of the fluid within her abdomen for quite some time. I would expect that the discomfort of the blood would diminish fairly quickly. GILMAR
[2020-04-21 20:49] LABS: HEMATOCRIT 23.1 % (36.0-47.0); HEMOGLOBIN 7.6 g/dl (12.0-15.5); MEAN CORPUSCULAR HEMOGLOBIN 29.2 pg (27.0-33.0); MEAN CORPUSCULAR HGB CONC 32.9 g/dl (32.0-36.5); MEAN CORPUSCULAR VOLUME 88.8 fl (80.0-96.0); WHITE BLOOD COUNT 18.8 10^3/uL (4.0-10.0)
[2020-04-21 20:50] LABS: PLATELET COUNT, AUTOMATED 70 10^3/uL (150-450)
[2020-04-21 20:51] LABS: PLATELET COUNT, AUTOMATED 70 10^3/uL (150-450)
[2020-04-21 20:58] LABS: INR 1.34; PROTHROMBIN TIME 16.3 SECONDS (11.8-14.0)
[2020-04-21 20:59] LABS: PARTIAL THROMBOPLASTIN TIME 30.9 SECONDS (25.0-38.4)
[2020-04-21] MEDS ORDERED: ENTER DRUG NAME HERE (PATIENT'S OWN MED) PO SCH (21:00)
--- NOTE | 2020-04-21 21:00 | REPVR ---
PROCEDURE INFORMATION: Exam: XR Chest, 1 View Exam date and time: 04/21/2020 8:32 PM Age: 49 years old Clinical indication: Other: Hypoxia TECHNIQUE: Imaging protocol: XR of the chest Views: 1 view. COMPARISON: CR PORTABLE CHEST X-RAY 01/17/2020 7:28 PM FINDINGS: Tubes, catheters and devices: External monitoring devices are present. Surgical clips project in the epigastrium. Lungs: Coarse linear opacities at both lung bases. Low lung volumes. Focal of subsegmental atelectasis/consolidation left lower lobe Pleural space: Unremarkable. No pleural effusion. No pneumothorax. Heart/Mediastinum: Unremarkable. No cardiomegaly. Bones/joints: Unremarkable. IMPRESSION: Low lung volumes with discoid atelectasis at both lung bases. Focal subsegmental atelectasis/consolidation left lower lobe Electronically signed by: Modesta Bacon On 04/21/2020 21:00:34 PM
[2020-04-21 21:01] LABS: D-DIMER QUANT 787.53 ng/ml (<500)
[2020-04-21] MEDS: PROMACTA 50 MG PO SCH (21:19)
[2020-04-21 22:10] LABS: C REACTIVE PROTEIN QUANTITATIV 1.04 MG/DL (0.00-0.30)
[2020-04-21 23:42] LABS: ALBUMIN 2.4 GM/DL (3.2-5.2); ALT/SGPT 14 U/L (12-78); BILIRUBIN,DIRECT < 0.1 MG/DL (0.0-0.2); BILIRUBIN,TOTAL 0.5 MG/DL (0.2-1.0); BLOOD UREA NITROGEN 30 MG/DL (7-18); C REACTIVE PROTEIN QUANTITATIV 1.05 MG/DL (0.00-0.30); CALCIUM LEVEL 7.4 MG/DL (8.5-10.1); CARBON DIOXIDE LEVEL 18 MEQ/L (21-32); CHLORIDE LEVEL 112 MEQ/L (98-107); CPK CREATINE PHOSPHOKINASE 45 U/L (26-192); CREATININE FOR GFR 2.77 MG/DL (0.55-1.30); GLOMERULAR FILTRATION RATE 19.3 (>51); GLUCOSE, FASTING 214 MG/DL (70-100); NT-PRO BNP 595 PG/ML (<125); POTASSIUM SERUM 5.2 MEQ/L (3.5-5.1); SODIUM LEVEL 142 MEQ/L (136-145); TOTAL PROTEIN 5.7 GM/DL (6.4-8.2)
[2020-04-22] VITALS (10 sets, daily range): BP systolic 110–174; BP diastolic 64–99
[2020-04-22] MEDS: MORPHINE 4 MG/ML 1ML VIAL/SYRINGE (J2270) IV PRN ×2 (00:58→07:18)
[2020-04-22 03:24] LABS: HEMATOCRIT 34.9 % (36.0-47.0); MEAN CORPUSCULAR HEMOGLOBIN 29.4 pg (27.0-33.0); MEAN CORPUSCULAR HGB CONC 33.8 g/dl (32.0-36.5); RED BLOOD COUNT 4.01 10^6/uL (4.00-5.40); WHITE BLOOD COUNT 16.1 10^3/uL (4.0-10.0)
[2020-04-22 03:27] LABS: HEMOGLOBIN 11.8 g/dl (12.0-15.5); PLATELET COUNT, AUTOMATED 54 10^3/uL (150-450)
[2020-04-22 05:36] LABS: BASO % 0.1 % (0.0-1.0); HEMATOCRIT 33.7 % (36.0-47.0); HEMOGLOBIN 11.4 g/dl (12.0-15.5); LYMPH # 1.3 10^3/uL (1.5-5.0); LYMPH % 8.3 % (24.0-44.0); MEAN CORPUSCULAR HEMOGLOBIN 29.3 pg (27.0-33.0); MEAN CORPUSCULAR HGB CONC 33.8 g/dl (32.0-36.5); MEAN CORPUSCULAR VOLUME 86.6 fl (80.0-96.0); MONO # 3.6 10^3/uL (0.0-0.8); MONO % 23.3 % (0.0-5.0); NEUTROPHILS # 10.4 10^3/uL (1.5-8.5); NEUTROPHILS % 67.6 % (36.0-66.0); RED BLOOD COUNT 3.89 10^6/uL (4.00-5.40); WHITE BLOOD COUNT 15.3 10^3/uL (4.0-10.0)
[2020-04-22 05:38] LABS: PLATELET COUNT, AUTOMATED 60 10^3/uL (150-450)
[2020-04-22 05:42] LABS: ALBUMIN 2.6 GM/DL (3.2-5.2); MAGNESIUM LEVEL 2.1 MG/DL (1.8-2.4); PHOSPHORUS LEVEL 7.3 MG/DL (2.5-4.9)
[2020-04-22 05:44] LABS: CALCIUM LEVEL 7.7 MG/DL (8.5-10.1); CREATININE FOR GFR 3.11 MG/DL (0.55-1.30); GLOMERULAR FILTRATION RATE 16.9 (>51); POTASSIUM SERUM 5.7 MEQ/L (3.5-5.1)
[2020-04-22 05:46] LABS: PARTIAL THROMBOPLASTIN TIME 28.8 SECONDS (25.0-38.4)
[2020-04-22 05:48] LABS: D-DIMER QUANT 1660.9 ng/ml (<500)
[2020-04-22 05:49] LABS: INR 1.2; PROTHROMBIN TIME 14.9 SECONDS (11.8-14.0)
--- NOTE | 2020-04-22 06:08 | ECHO ---
DATE OF PROCEDURE: 04/21/2020 DATE OF : 1970 REFERRING PROVIDER: Dr. Galilea Toth ROOM #: [id number] REASON FOR STUDY: Pericardial effusion. 2-D MEASUREMENTS: IVS: 1.6 cm LVPW: 1.6 cm LV: 2.1 cm Aorta: 2.7 cm LA: 2.9 cm IVC: 1.9 cm DOPPLER MEASUREMENTS: Peak velocity across the aortic valve: 1.5 m/s Peak velocity across the LVOT: 1.2 m/s Mitral E: 0.7 Mitral A: 1.1 Ratio: 0.7 2-D COMMENTS: 1. Normal left ventricular size with moderately increased left ventricular wall thickness. Left ventricular systolic function is normal, with a left ventricular ejection fraction (LVEF) estimated at 65-70%. The left ventricle was hyperdynamic. 2. Normal left atrium. Normal right atrium and right ventricle. 3. The atrial septum appeared to be normal without evidence of defect or shunt. 4. Normal aortic root. 5. Small to moderate pericardial effusion noted, no evidence of cardiac tamponade, it was a moderate at the base of the heart, close to the right atrium. 6. The aortic valve, mitral valve, tricuspid valve, and pulmonic valve appear to be normal. The proximal pulmonary artery branches also appear to be normal. 7. The inferior vena cava was normal in size, central venous pressure appeared normal. DOPPLER: No significant valvular abnormalities detected, but trace mitral regurgitation and trace tricuspid regurgitation were noted in limited views. Abnormal relaxation pattern was noted across the mitral valve leaflets as well as the mitral valve annulus consistent with features of grade 1 left ventricular diastolic dysfunction. IMPRESSIONS: 1. Normal global left ventricular systolic function with a hyperdynamic left ventricle. Moderate concentric left ventricular hypertrophy was noted. There are features of grade 1 left ventricular diastolic dysfunction manifested by abnormal relaxation. 2. No significant valvular abnormalities detected, but trace mitral regurgitation and trace tricuspid regurgitation. 3. Small to moderate pericardial effusion noted as mentioned above, no evidence of cardiac tamponade. MTDD
[2020-04-22] MEDS: predniSONE 20 MG TAB PO SCH (08:27)
--- NOTE | 2020-04-22 10:03 | IPNPDOC ---
Text Note Date of Service The patient was seen on 04/22/20. NOTE Mrs. Gurrola is seen today. She had bleeding after kidney biopsy and subsequently had 5 units of packed RBC transfusion and mesenteric angiogram with embolization on the inferior pole of the left kidney. Post procedure she has remained hemodynamically stable but tachycardic. She is making adequate urine output. This morning she reports mild improvement of her abdominal discomfort, though feels overall bloated. She denies any nausea and has been tolerating clear liquids. Review of her final she was hemodynamically stable, tachycardic from mid 120s to mid 130s, regular rhythm I/O Showing a total of 1500 mL's of urine spontaneously yesterday On examination Patient overall looks comfortable, she is able to move around the bed without any increased discomfort. She is sitting up on the bed. She still has O2 via nasal cannula at 2 L and her sats are only mid 90s. She appears mildly anasarcous. Lung sounds are clear to auscultation bilaterally As mentioned she is tachycardic, she remains in sinus rhythm Abdomen looks mildly distended, soft no gross evidence of hematoma of the abdominal wall or flank area. She had a right groin access for her angiogram no evidence of bleeding likewise the left flank needle access point from her biopsy is also no evidence for ongoing bleed Mild extremity edema Impression and plan Chronic kidney disease status post percutaneous biopsy on the left kidney with subsequent intraperitoneal bleeding, status post mesenteric angiogram with embolization of the inferior pole of the left kidney Postembolization her hemoglobin and hematocrit has remained stable, has not required any further transfusion. Most recent hemoglobin at 11.4 Chronic ITP on Promacta Her latest platelet count is 60 which has been stable. It looks like her bleeding post biopsy has been stopped and she remains hemodynamically stable. She still remains tachycardic which most likely is multifactorial from the peritoneal irritation of the hemoperitoneum, adrenergic response from her bleeding in her biopsy. At this point I don't think she needs any surgical intervention. Would intermittently for follow-up on her but otherwise rest of the management will be in the medical side. VS,Fishbone, I+O VS, Fishbone, I+O Laboratory Tests 04/21/20 12:59 04/21/20 17:06 04/21/20 20:35 04/21/20 23:03 04/22/20 03:05 04/22/20 05:06 Vital Signs Date Time Temp Pulse Resp B/P (MAP) Pulse Ox O2 Delivery O2 Flow Rate FiO2 04/22/20 07:18 20 04/22/20 04:00 97.5 129 147/98 (114) 92 Room Air 04/21/20 09:30 97.0 I&O- Last 24 Hours up to 6 AM 04/22/20 05:59 Intake Total 3910 ml Output Total 1300 ml Balance 2610 ml JUAN JOSE JAMA MD Apr 22, 2020 10:03
--- NOTE | 2020-04-22 11:34 | IPNPDOC ---
Text Note Date of Service The patient was seen on 04/22/20. NOTE Subjective: Looks a little bit more comfortable today. Denies any nausea or v omiting. Says abdominal pain may be be a little better though she feels very bloated. Minimal urine output overnight. Infact she is now anuric. No fever or chills, Remains tachycardic to 120s to 130s sinus. She is at 8.1 liters positive balance in 2 days. Physical Exam: Vitals (See below) General: Lying in bed, awake / alert, No acute distress when laying still. Some distress due to pain when trying to move around. Neck supple, JVD present. HEENT: NC, AT, moist mucous membranes an icteric eyes. CVS: tachycardia, regular, no rub, murmur or gallop Lungs: Fair air entry b/l, some basal crackles. Abdomen: Soft, distended, tenderness all over, no guarding or rigidity, bowel sounds better heard today. Extremities: edema present. SKin: No hematoma at the flanks or groin or site of renal biopsy. Labs and Radiology Reviewed CT Abdomen and Pelvis: 1. Examination is limited without intravascular contrast. 2. Mild left perinephric stranding. Small gas in the left perinephric space. Consistent with postop status. 3. Moderate free fluid. Consistent with hemoperitoneum. Mildly increased from prior. 4. Mild persistent nephrograms. Correlate with renal function. 5. Small bilateral pleural effusions. No change from prior. 6. Mild pericardial effusion. No change from prior. 7. Copious stool in the rectum. Rectum measures 6.6 cm in diameter. 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 Of note, the patient has a history of relapsing, refractory ITP. After biopsy patient developed severe hypotension. Hemoglobin dropped to 5.7, platelets count dropped from 191 to 85. So the patient was admitted to ICU for bleeding post procedure with Acute blood loss anemia, hemorrhagic shock. CT abdomen showed Ascites with possible hemoperitoneum as well since some of the ascitic fluid appears radiodense in the left abdomen and pelvis. The source of the hemorrhage is not identified. All though out night she has been hypotensive with abdominal pain so Dr Pierce from surgery was consulted. It was felt that patient was actively bleeding as inspite of blood and fluid resuscitation she remained tachycardic. Her HH was not rising appropriately. Dr Mills took her back to the IR suite and did embolization of a lower renal pole branch artery. Anuric Acute renal Failure on CKD with Hyperkalemia and fluid overload. No resp compromise. Multifactorial ATN from hypotension with contrast exposure so probably also has contrast nephropathy No more IVF. plan as per nephrology. Hyperphosphatemia due to OSWALDO. Acute blood anemia bleeding from area of kidney biopsy received 7 units of PRBC and 1 unit of platelet. s/p IR embolization of lower pole branch of renal artery. Continue to monitor HH. S/P Hemorrhagic shock BP is stable but remains tachycardic. HH stable. Abdominal pain persistent due to hemoperitoneum and embolization of the lower pole of left kidney continue IV morphine 4 mg q 3 hours. Zofran. Hypocalcemia given IV calcium gluconate Hypomagnesemia replaced. ITP Thrombocytopenia appreciated hematology consult. continue platelets transfusion as needed prednisone po. SLE/CKD now with anuric OSWALDO DVT prophylaxis TEDS VS,Fishbone, I+O VS, Fishbone, I+O Laboratory Tests 04/21/20 12:59 04/21/20 17:06 04/21/20 20:35 04/21/20 23:03 04/22/20 03:05 04/22/20 05:06 Vital Signs Date Time Temp Pulse Resp B/P (MAP) Pulse Ox O2 Delivery O2 Flow Rate FiO2 04/22/20 08:00 97.7 133 22 164/81 (108) 96 Nasal Cannula 2.0 I&O- Last 24 Hours up to 6 AM 04/22/20 06:00 Intake Total 4010 ml Output Total 700 ml Balance 3310 ml CHINMAY PALACIOS MD Apr 22, 2020 11:34
[2020-04-22] MEDS ORDERED: FUROSEMIDE 100MG/10ML VIAL (J1940) IV ONE (13:00)
[2020-04-22] MEDS: GASTROGRAFIN SOLUTION 30ML PO SCH ×2 (13:36→14:17)
[2020-04-22] MEDS: PANTOPRAZOLE 40MG VIAL (C9113 PER 1) IV SCH (13:37)
[2020-04-22] MEDS: MEROPENEM INJ 500 MG in IV 1 EA IV SCH (13:38)
[2020-04-22 14:29] LABS: HEMATOCRIT 28.7 % (36.0-47.0); HEMOGLOBIN 9.7 g/dl (12.0-15.5); MEAN CORPUSCULAR HEMOGLOBIN 29.4 pg (27.0-33.0); MEAN CORPUSCULAR HGB CONC 33.8 g/dl (32.0-36.5); WHITE BLOOD COUNT 16.5 10^3/uL (4.0-10.0)
[2020-04-22 14:42] LABS: ALBUMIN 2.7 GM/DL (3.2-5.2); CALCIUM LEVEL 7.6 MG/DL (8.5-10.1); CREATININE FOR GFR 3.38 MG/DL (0.55-1.30); GLOMERULAR FILTRATION RATE 15.3 (>51); POTASSIUM SERUM 5.4 MEQ/L (3.5-5.1)
[2020-04-22 15:23] LABS: PLATELET COUNT, AUTOMATED 45 10^3/uL (150-450)
[2020-04-22] MEDS ORDERED: ROCURONIUM BROMIDE 50 MG/5 ML VIAL As Ordered ONE ×3 (16:43→20:17)
[2020-04-22] MEDS ORDERED: LIDOCAINE 2% 100MG/5ML SDV (FOR ANES.) As Ordered ONE (16:43)
[2020-04-22] MEDS ORDERED: propofoL 200 MG/20 ML VIAL As Ordered ONE (16:43)
[2020-04-22] MEDS ORDERED: dexameTHASONE 4 MG/ML 1ML VIAL (J1100 PER 1MG) As Ordered ONE (16:44)
[2020-04-22] MEDS ORDERED: ONDANSETRON 4MG/2ML VIAL As Ordered ONE (16:44)
[2020-04-22] MEDS ORDERED: MIDAZOLAM INJ 2MG/2ML VIAL (J2250 PER 1MG) As Ordered ONE (16:44)
[2020-04-22] MEDS ORDERED: fentaNYL 100 MCG/2 ML INJECTION (J3010) As Ordered ONE ×2 (16:44→21:10)
--- NOTE | 2020-04-22 17:26 | IPNPDOC ---
Text Note Date of Service The patient was seen on 04/22/20. NOTE I was informed by Dr. Kline that the pathologist looking at th [place]if[place] biopsy found small bowel mucosa on the specimen thus patient had small bowel puncture/injury aside from the bleeding. This was not recognized prior to the read of the pathologist. She remains hemodynamically stable (on the hypertensive side) but remains tachycardic with her HR in the 140s. She dropped her urine output overnight and was given a dose of lasix with effect today and she tolerated the lasix dose. On exam, she looks mildly uncomfortable and looks slightly winded when conversing. She is at 2L NC with sats about 94%. she continues to have mild distention with mild discomfort tenderness below the umbilicus at the midline without gross rebound or guarding to suggest peritonitis. Labs shows leukocytosis of 16,000 lower than it was yesterday, hgb of 9.7 slightly trailing from this morning's labs I repeated her CT today with PO contrast. Looks like the small bowel is deflected towards the right side and a large hematoma on the left side. There is large perihepatic fluid/hematoma. No extravasation. No free air. Stable probably improved bubbles of air around left kidney, new coil embolization at the lower pole of the kidney Impression and plan Patient with postprocedure bleeding from kidney biopsy and now with possible bowel injury from the biopsy. She remains tachycardic, despite repletion of the blood lost and maybe having some low grade sepsis from an infected hematoma c ollectiion vs ongoing injury/leak from the small bowel. I think it is prudent to have a look inside with laparoscopy to evacuate the hematoma and run the bowel to look for the injury and repair/resect the injured bowel. I had a long discussion with her and her regarding the pros and cons of acting and not acting on her current situation and they are in agreement with proceeding with surgery. I have given a call to our hospitalist and to our cryptoanalysis teacher as well as to Dr. Kline that we are proceeding with surgery. I have also called our blood bank and we have platelets available for her. VS,Fishbone, I+O VS, Fishbone, I+O Laboratory Tests 04/21/20 20:35 04/21/20 23:03 04/22/20 03:05 04/22/20 05:06 04/22/20 14:13 04/22/20 14:16 Vital Signs Date Time Temp Pulse Resp B/P (MAP) Pulse Ox O2 Delivery O2 Flow Rate FiO2 04/22/20 16:00 98.7 141 29 166/99 (121) 96 Nasal Cannula 2.0 I&O- Last 24 Hours up to 6 AM 04/22/20 06:00 Intake Total 4010 ml Output Total 700 ml Balance 3310 ml JUAN JOSE JAMA MD Apr 22, 2020 17:26
[2020-04-22] MEDS ORDERED: ETOMIDATE INJ 20MG/10ML VIAL As Ordered ONE (18:09)
[2020-04-22] MEDS ORDERED: LIDOCAINE 1% SDV 30ML VIAL As Ordered ONE (18:26)
[2020-04-22] MEDS ORDERED: BUPIVACAINE HCL 0.25% 30ML VIAL As Ordered ONE (18:26)
[2020-04-22] MEDS ORDERED: HYDROmorphone HCL 2 MG/ML 1ML VIAL (J1170) As Ordered ONE (19:05)
[2020-04-22] MEDS ORDERED: fentaNYL 250 MCG/5 ML INJECTION (J3010) As Ordered ONE (19:16)
[2020-04-22] MEDS ORDERED: BUPIVACAINE HCL 0.25% 10ML VIAL As Ordered ONE (20:21)
[2020-04-22] MEDS ORDERED: BUPIVACAINE LIPOSOME/PF 1.3% 20ML VIAL (13.3MG/ML)(EXPAREL)(C9290 PER1MG) As Ordered ONE (20:22)
[2020-04-22] MEDS ORDERED: PROPOFOL 1,000 MG/100 ML VIAL As Ordered ONE (20:44)
[2020-04-22] MEDS: propofoL 1,000 MG in IV 1 EA IV SCH (21:05)
--- NOTE | 2020-04-22 21:06 | POST-OPPD ---
Postoperative Procedure Note Date Of Procedure: Apr 22, 2020 PREOPERATIVE DIAGNOSIS: postprocedure bleed, sepsis, concern for infected hematoma, bowel injury POSTOPERATIVE DIAGNOSIS: hematoma and hemoperitoneum, no succus or sb injury noted, possible compartment syndrome, possible dic FINDINGS: PROCEDURE: Exploratory Laparotomy, evacuation of hematoma, placement of left subclavian triple lumen catheter SURGEON: Rich Reeves MD ENVIRONMENTAL PROTECTION GEOLOGIST: ANESTHESIA: General Anesthesia SPECIMENS: cultures - peritoneal fluid ESTIMATED BLOOD LOSS: 200 mLs, 3 L of hemoperitoneum and hematoma evacuated REPLACED: DRAINS: 2 19 manda drains, left at the medial side of the descending colon where most of the hematoma is located, right around the liver COMPLICATIONS: none POSTOPERATIVE CONDITION: stable, remains intubated in PACU RICH REEVES MD Apr 22, 2020 21:06
[2020-04-22] MEDS ORDERED: CALCIUM CHLORIDE 10% 1 GM/10 ML SYR As Ordered ONE (21:08)
[2020-04-22] MEDS ORDERED: fentaNYL 100 MCG/2 ML INJECTION (J3010) IV PRN (21:45)
[2020-04-22] MEDS ORDERED: fentaNYL 100 MCG/2 ML INJECTION (J3010) IV ONE (21:45)
[2020-04-22] MEDS ORDERED: HYDROMORPHONE HCL 0.5 MG/ 0.5 ML SYRINGE (J1170 PER 1) IV PRN (21:45)
[2020-04-22] MEDS ORDERED: ONDANSETRON 4MG/2ML VIAL IV PRN (21:45)
[2020-04-22] MEDS ORDERED: METOCLOPRAMIDE INJ 10MG/2ML VIAL (J2765 PER 1) IV PRN (21:45)
[2020-04-22] MEDS ORDERED: NS 1,000 ML IV SCH (21:45)
[2020-04-22 21:48] LABS: ABG BASE EXCESS -11.2 (-2.0-2.0); ABG HCO3 14.5 MEQ/L (22.0-26.0); ABG O2 SATURATION 96.6 % (95.0-99.0); ABG PARTIAL PRESSURE CO2 32.4 mmHg (35.0-45.0); ABG PARTIAL PRESSURE O2 88.2 mmHg (75.0-100.0); ABG STANDARD HCO3 15.8 MEQ/L (22.0-26.0); ABG TOTAL CO2 15.5 MEQ/L (22.0-29.0)
[2020-04-22 21:54] LABS: BASO % 0.2 % (0.0-1.0); HEMATOCRIT 39.1 % (36.0-47.0); LYMPH # 0.5 10^3/uL (1.5-5.0); MEAN CORPUSCULAR VOLUME 88.3 fl (80.0-96.0); MONO # 1.7 10^3/uL (0.0-0.8); MONO % 10.4 % (0.0-5.0); NEUTROPHILS % 85.8 % (36.0-66.0); RED BLOOD COUNT 4.43 10^6/uL (4.00-5.40); WHITE BLOOD COUNT 16.3 10^3/uL (4.0-10.0)
[2020-04-22 21:56] LABS: HEMOGLOBIN 13.3 g/dl (12.0-15.5); PLATELET COUNT, AUTOMATED 14 10^3/uL (150-450)
[2020-04-22 22:05] LABS: INR 1.45; PROTHROMBIN TIME 17.4 SECONDS (11.8-14.0)
[2020-04-22 22:06] LABS: FIBRINOGEN 169 MG/DL (221-452); PARTIAL THROMBOPLASTIN TIME 32.6 SECONDS (25.0-38.4)
[2020-04-22] MEDS ORDERED: IMMUNE GLOBULIN 10% 0 GM in IV 1 EA IV SCH (22:15)
--- NOTE | 2020-04-22 22:17 | CR ---
DATE OF CONSULTATION: 04/22/2020 REQUESTING PHYSICIAN: Galilea Toth MD CONSULTING PHYSICIAN: Jean Ramos MD REASON FOR CONSULTATION: Management of acute renal failure. CHIEF COMPLAINT: The patient was admitted on 04/20/2020 after complications of her renal biopsy. HISTORY OF PRESENT ILLNESS: Marleen Gurrola is a 49-year-old female with past medical history of chronic kidney disease stage III with a baseline creatinine of around 1.5, history of SLE, proteinuria, ITP, status post splenectomy chronically on Promacta. She has had proteinuria for about 3 years and in order to diagnose her for possible lupus nephritis, the patient was sent to IR for CT guided renal biopsy. The patient got a left renal biopsy done on 04/20/2020. However, after that the patient became hypotensive and went into hemorrhagic shock. She required 2 units of PRBC on 04/20/2020 and 5 units of PRBC yesterday and 1 unit of platelets yesterday. The patient underwent angiography in IR yesterday to localize the bleeding. There was contrast pooling distal to the segmental left lower pole renal artery which was embolized. The patient became oliguric today morning and she is developing metabolic acidosis. Nephrology service was called for further help in the management of this patient. I saw and evaluated the patient today morning at the bedside in the ICU. She is complaining of abdominal bloating and distension. The patient also complained of shortness of breath and she is nauseated and reports decreased appetite. She had severe pain yesterday and reports the pain is optimized with the current pain medications. PAST MEDICAL HISTORY: Past medical history of chronic kidney disease stage III, baseline creatinine of 1.5, history of proteinuria, SLE, ITP, anemia in chronic disease, monoclonal gammopathy of undetermined significance, history of infectious meningitis in the past. PAST SURGICAL HISTORY: Status post splenectomy, status post left-sided renal biopsy on 04/20/2020 followed by IR embolization of the left lower pole renal artery. ALLERGIES: The patient is allergic to SULFA DRUGS. FAMILY HISTORY: No significant family history of end-stage renal disease requiring hemodialysis. SOCIAL HISTORY: The patient denies any smoking, illicit drug abuse or alcohol abuse. REVIEW OF SYSTEMS: Constitutional: Patient reports feeling very weak and tired . Eyes: She denies any blurry vision, double vision. ENT: She denies any dysphagia, odynophagia, ear discharge. Cardiovascular: She reports fast heart rate. Respiratory: She reports moderate shortness of breath. She denies any cough. GI: She reports abdominal distension and pain. Genitourinary: She reports recent bleeding from left-sided renal biopsy site. She denies any hematuria. Musculoskeletal: She denies any muscle aches and pains. Skin: She denies any rashes or ulcers. Psychiatric: She denies any depression or anxiety. Hematologic/Oncologic: She reports recent bleeding from the biopsy site and she has history of ITP as well status post been splenectomy. All other review of systems is negative. PHYSICAL EXAMINATION: General: The patient is awake, alert, oriented times three, laying in bed, mild respiratory distress. Vital signs: Temperature is 97.7 degrees Fahrenheit, blood pressure 174/84, pulse is 132, respiratory rate of 22, saturating 95% on nasal cannula at 2 liters. Intake and output: Urine output was 1.5 liters yesterday and when I saw her in the morning, she was oliguric with less than 200 mL of urine since overnight. Head and neck exam: Extraocular muscles intact. Pupils equally round and reactive to light. Mucous membranes are moist. Neck is supple. She has elevated JVD. Cardiovascular: S1, S2, she has tachycardia. No edema of the bilateral lower extremities. Respiratory: Mildly decreased breath sounds at the bases with mild inspiratory crackles. Abdomen: Tense and tender to deep palpation all over. She has decreased bowel sounds. She actually has aortic pulsation and sounds in the abdominal area as well. Genitourinary: She has an indwelling Graves catheter, very small amount of urine was found in the Graves bag. Musculoskeletal: No clubbing or cyanosis. Pulses are 2+. ROAD ROLLER OPERATOR: No focal deficit. Power is 5/5 in all extremities. LABORATORY REVIEW: CBC showed WBC of 15.3, hemoglobin 11.4, platelets of 60 in the morning. Repeat CBC done in the afternoon showed WBC 16.5, hemoglobin 9.7, platelets of 45. INR done in the morning showed 1.2. BMP done in the morning showed sodium 140, potassium 5.7, chloride 113, bicarbonate 20, BUN 34, creatinine is 3.1, lactic acid today was 3, calcium 7.7, LDH was 362, albumin is 2.6. IMAGING STUDIES: Chest x-ray was done yesterday at nighttime which showed low lung volumes with discoid atelectasis in both lung huff. She got a CT scan of the abdomen and pelvis done today morning with oral contrast, official report is pending. The patient was taken to IR yesterday and she got embolization of the left lower pole renal artery. CURRENT INPATIENT MEDICATIONS: The patient's medications were all reviewed by me. Because of lactic acidosis and recent intraperitoneal bleed, I have started her empirically on meropenem 500 mg IV daily. I also gave her a dose of Lasix 60 mg IV times one dose. She continues to been on oxycodone as needed along with IV morphine for pain. She is on Promacta home dose of 50 mg daily and she is also on prednisone 60 mg daily. ASSESSMENT: 49-year-old female status post left renal biopsy on 04/20/2020. Postprocedure course was complicated by hemorrhagic shock. Nephrology service is following the patient for acute renal failure. PLAN: 1. Acute renal failure. The patient has acute oliguric renal failure which is multifactorial. She had hemorrhagic shock and multiple episodes of hypotension and she also had IV contrast yesterday with a fluoroscopic procedure.Now she has intra-abdominal blood. The patient has signs of fluid overload. I gave the patient a dose of 60 mg Lasix IV to convert her from oliguric renal failure nonoliguric renal failure. I will continue to monitor her labs and if needed if her acidosis gets worse than we might have to start the patient on hemodialysis. 2. Hyperkalemia. It is secondary to acute renal failure. I am hopeful that with the diuresis potassium level should improve. Repeat labs showed that her potassium was 5.4. 3. Normal anion gap metabolic acidosis. It is secondary to acute renal failure. No need of IV bicarbonate administration at this time since the patient is already fluid overloaded. I am hopeful that the acidosis should get better after lactic acidosis and renal function starts improving. 4. Lactic acidosis. It is secondary to hemorrhagic shock and possibility of gut complication because the preliminary renal biopsy from [facility] showed there was small intestine in the kidney biopsy. 5. Idiopathic thrombocytopenic purpura. The patient continues to be on her home dose of Eltrombopag. Hematology-oncology is also on board. Continue prednisone as well. 6. Hemorrhagic shock. The patient is getting transfusion as needed. Transfuse as needed for hemoglobin below 8. Continue to monitor serial CBCs. Patient is status post IR embolization of the left lower pole renal artery. 7. Presence of her small intestine in kidney biopsy. We got a call from [facility] from the renal pathology division that immuno sample had no kidney tissue in the biopsy specimen. They did see some small intestine and because of that and risk of intestinal perforation, the patient underwent CT scan of the abdomen and pelvis with oral contrast. Official report is pending. She is being empirically covered with IV meropenem. Thank you for involving me in the care of this patient. I shall be following the patient along with you tomorrow morning. Total critical care time spent in the management of this patient today morning in the ICU excluding all the procedures was 1 hour and 30 minutes. GILMAR
[2020-04-22 22:23] LABS: D-DIMER QUANT > 4000 ng/ml (<500)
[2020-04-22] MEDS ORDERED: IMMUNE GLOBULIN 10% 40 GM in IV 1 EA IV ONE (22:30)
[2020-04-22] MEDS ORDERED: IMMUNE GLOBULIN 10% 20 GM in IV 1 EA IV ONE (22:30)
[2020-04-22] MEDS ORDERED: IMMUNE GLOBULIN 10% 10 GM in IV 1 EA IV ONE (22:30)
[2020-04-22 22:33] LABS: ALBUMIN 1.5 GM/DL (3.2-5.2); BILIRUBIN,TOTAL 0.4 MG/DL (0.2-1.0); CALCIUM LEVEL 7.4 MG/DL (8.5-10.1); CREATININE FOR GFR 2.54 MG/DL (0.55-1.30); GLOMERULAR FILTRATION RATE 21.3 (>51); PHOSPHORUS LEVEL 6.2 MG/DL (2.5-4.9); POTASSIUM SERUM 4.7 MEQ/L (3.5-5.1); TOTAL PROTEIN 3.8 GM/DL (6.4-8.2)
[2020-04-22] MEDS ORDERED: SODIUM BICARBONATE 8.4% INJ 50 ML SYRINGE IV ONE (23:00)
[2020-04-22] MEDS: PROMACTA 50 MG PO SCH (23:02)
[2020-04-22] MEDS: methylPREDNISolone 125MG 2ML VIAL IV SCH (23:02)
[2020-04-22] MEDS: CHLORHEXIDINE GLUCONATE 0.12 % 15ML UDC (PERIDEX ORAL RINSE) MT SCH (23:02)
[2020-04-22] MEDS ORDERED: SODIUM BICARBONATE 8.4% INJ 50 ML SYRINGE As Ordered ONE (23:05)
[2020-04-23] VITALS (56 sets, daily range): BP systolic 59–189; BP diastolic 57–90; O2SAT 91–97
[2020-04-23] MEDS: propofoL 1,000 MG in IV 1 EA IV SCH ×6 (00:26→22:12)
[2020-04-23] MEDS: MORPHINE 4 MG/ML 1ML VIAL/SYRINGE (J2270) IV PRN ×7 (02:15→22:37)
[2020-04-23 02:37] LABS: ABG BASE EXCESS -0.7 (-2.0-2.0); ABG HCO3 22.1 MEQ/L (22.0-26.0); ABG O2 SATURATION 96.3 % (95.0-99.0); ABG PARTIAL PRESSURE CO2 29.5 mmHg (35.0-45.0); ABG PARTIAL PRESSURE O2 78.8 mmHg (75.0-100.0); ABG STANDARD HCO3 23.9 MEQ/L (22.0-26.0); ABG pH (ARTERIAL) 7.493 UNITS (7.350-7.450)
[2020-04-23 02:43] LABS: APPEARANCE, URINE CLEAR (CLEAR); BACTERIA, URINE AUTO NEGATIVE (NEGATIVE); BILIRUBIN, URINE AUTO NEGATIVE (NEGATIVE); BLOOD, URINE BLOOD 3+ (NEGATIVE); COLOR, URINE STRAW (YELLOW); GLUCOSE, URINE (UA) AUTO NEGATIVE (NEGATIVE); KETONE, URINE AUTO NEGATIVE (NEGATIVE); LEUKOCYTE ESTERASE, URINE AUTO NEGATIVE (NEGATIVE); MUCUS, URINE SMALL (NEGATIVE); NITRITE, URINE AUTO NEGATIVE (NEGATIVE); PROTEIN, URINE AUTO 1+ mg/dL (NEGATIVE); RBC, URINE AUTO 94 /HPF (0-3); SPECIFIC GRAVITY URINE AUTO 1.014 (1.002-1.035); SQUAMOUS EPITHELIAL CELL UR AU 0 /HPF (0-6); UROBILINOGEN, URINE AUTO 0.2 mg/dL (0.0-2.0); WBC, URINE AUTO 2 /HPF (0-3)
[2020-04-23 02:43] LABS: HEMATOCRIT 22.9 % (36.0-47.0); MEAN CORPUSCULAR HEMOGLOBIN 30.7 pg (27.0-33.0); MEAN CORPUSCULAR HGB CONC 35.8 g/dl (32.0-36.5); MEAN CORPUSCULAR VOLUME 85.8 fl (80.0-96.0); RED BLOOD COUNT 2.67 10^6/uL (4.00-5.40); WHITE BLOOD COUNT 10.3 10^3/uL (4.0-10.0)
[2020-04-23 02:48] LABS: HEMOGLOBIN 8.2 g/dl (12.0-15.5); PLATELET COUNT, AUTOMATED 7 10^3/uL (150-450)
[2020-04-23 02:55] LABS: INR 1.33; PROTHROMBIN TIME 16.2 SECONDS (11.8-14.0)
[2020-04-23 02:56] LABS: FIBRINOGEN 250 MG/DL (221-452); PARTIAL THROMBOPLASTIN TIME 73.3 SECONDS (25.0-38.4)
[2020-04-23 03:23] LABS: D-DIMER QUANT > 4000 ng/ml (<500)
[2020-04-23 05:32] LABS: BASO % 0.1 % (0.0-1.0); LYMPH # 0.5 10^3/uL (1.5-5.0); MEAN CORPUSCULAR HEMOGLOBIN 30.7 pg (27.0-33.0); MEAN CORPUSCULAR HGB CONC 35.8 g/dl (32.0-36.5); MEAN CORPUSCULAR VOLUME 85.8 fl (80.0-96.0); MONO # 1.3 10^3/uL (0.0-0.8); MONO % 12.8 % (0.0-5.0); NEUTROPHILS # 8.1 10^3/uL (1.5-8.5); NEUTROPHILS % 81.7 % (36.0-66.0); RED BLOOD COUNT 2.25 10^6/uL (4.00-5.40); WHITE BLOOD COUNT 9.9 10^3/uL (4.0-10.0)
[2020-04-23] MEDS: methylPREDNISolone 125MG 2ML VIAL IV SCH ×3 (05:32→18:01)
[2020-04-23 05:33] LABS: HEMATOCRIT 19.3 % (36.0-47.0); HEMOGLOBIN 6.9 g/dl (12.0-15.5); PLATELET COUNT, AUTOMATED 12 10^3/uL (150-450)
[2020-04-23 05:54] LABS: ABG BASE EXCESS -2.2 (-2.0-2.0); ABG HCO3 20.7 MEQ/L (22.0-26.0); ABG PARTIAL PRESSURE CO2 27.3 mmHg (35.0-45.0); ABG PARTIAL PRESSURE O2 85.4 mmHg (75.0-100.0); ABG STANDARD HCO3 22.6 MEQ/L (22.0-26.0); ABG TOTAL CO2 21.5 MEQ/L (22.0-29.0); ABG pH (ARTERIAL) 7.497 UNITS (7.350-7.450)
[2020-04-23 06:00] LABS: CALCIUM LEVEL 7.1 MG/DL (8.5-10.1); CREATININE FOR GFR 2.33 MG/DL (0.55-1.30); GLOMERULAR FILTRATION RATE 23.5 (>51); MAGNESIUM LEVEL 1.8 MG/DL (1.8-2.4); PHOSPHORUS LEVEL 4.7 MG/DL (2.5-4.9); POTASSIUM SERUM 3.5 MEQ/L (3.5-5.1)
--- NOTE | 2020-04-23 08:19 | CR ---
DATE OF CONSULTATION: 04/22/2020 History was obtained from the patient's chart and from collaterals as patient is intubated and sedated and unable to provide a history. 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 The patient was started on Promacta in February for her refractory ITP earlier this year. She also has a history of SLE and CKD and chronic anemia who initially presented for an outpatient procedure on 04/20/2020 of a left renal biopsy. Post procedure the patient developed hypotension and anemia. She had a CT at that time which showed free blood within the abdomen with hemoperitoneum. The patient was continued with multiple units of PRBC and did have improvement in her blood pressure. The patient had also gone for a repeat IR procedure where she had embolization of a left lower pole renal artery in the region of the biopsy tract. Post embolization however, the patient continued to have tachycardia and continued to require transfusions. She was also noted to have increasing abdominal distension as well as worsening renal failure and decreasing urine output. As of earlier in the day today the patient has had a total of 7 units of PRBC since her admission as well as 1 unit of platelets. She has also developed increased pleural effusions and has been requiring nasal cannula oxygen supplementation. Nephrology was consulted earlier today given her worsening renal failure as well as metabolic acidosis and hyperkalemia. She was given a dose of Lasix to see if she would have some improved urine output and she was not anuric. Later on in the afternoon however, the patient's repeat hemoglobin had shown a drop again and her platelets which had been around the 60s had showed a decrease as well. The patient also was noted to have increased lactic acidosis and there was some concern for potential bowel perforation and sepsis as the pathology results from the renal biopsy had reportedly shown some small bowel. The patient was started on broad-spectrum antibiotics with meropenem earlier in the day. Given her increasing abdominal distension and concern for possible abdominal compartment syndrome as well as for continued bleeding, the patient was taken to the OR where she had an exploratory laparotomy procedure performed. During the procedure there was evacuation of the hemoperitoneum and hematoma of approximately 3 liters of blood. There was no bowel injury that was visualized and no active bleeding source noted. Most of the clot appeared around the left bowel so there was possibility of an injury to the artery there initially. The patient did receive IV fluids during the surgery as well as an additional 4 units of PRBC and additional 1 unit of platelet. She was noted postoperatively to have increased urine output of 600 mL and her tachycardia did improve as well. The patient's blood pressure had remained stable throughout the surgery. She also had the placement of a right radial arterial line and a left subclavian triple-lumen catheter. The patient did continue to have oozing after closure of the incision and around her central line site. She was ordered for 2 units of FFP which are currently running. The patient also received 1 gram of calcium postoperatively as well. She remains intubated and is sedated with propofol. PAST MEDICAL AND SURGICAL HISTORY: 1. ITP. 2. CKD. 3. SLE. 4. Anemia. 5. Monoclonal gammopathy status post splenectomy. 6. History of meningitis. FAMILY HISTORY: No family history of ITP or other autoimmune disorders. HOME MEDICATIONS: - Promacta - Tylenol ALLERGIES: SULFA SOCIAL HISTORY: Denies history of alcohol use or tobacco use. REVIEW OF SYSTEMS: Unable to be obtained as the patient is intubated and sedated. PHYSICAL EXAMINATION: VITAL SIGNS: Temperature 98.7, pulse 124, respirations 15, blood pressure 132/67, oxygen saturation 100% on the vent. GENERAL: Patient is intubated and sedated. She is not responsive to any painful stimuli currently, she is deeply sedated. HEENT: Normocephalic, atraumatic. Pupils are small but subtly reactive to light bilaterally. There is moist mucous membranes noted. She has an OG tube in place which is draining dark maroon output. Neck is supple. Trachea is midline. No palpable cervical adenopathy. CARDIOVASCULAR: Tachycardiac, regular rate and rhythm. Normal S1, S2. Unable to appreciate any murmurs. There is a left subclavian line in place with some oozing around the dressing site. PULMONARY: Coarse ventilated breath sounds bilaterally with diminished breath sounds at the bases with no wheezing or rhonchi noted. ABDOMEN: Appears less distended from previous reportedly. There is a midline incision with a dressing in place which is soaked with some blood. She has two MAURO drains noted, one in the left side and one more on the right side, there appears to be blood in the MAURO drainage bags. EXTREMITIES: Are cool to the touch. There is no significant lower extremity edema noted bilaterally. LABORATORY DATA: Repeat CBC: WBC 16.3, hemoglobin 13.3, platelets are 14. Repeat chemistry is still pending. Chemistry from earlier in the afternoon: Sodium was 140, potassium 5.4, chloride is 111, bicarbonate is 18, BUN 42, creatinine is 3.38, glucose is 132. Repeat coagulations: INR increased to 1.45, PTT increase to 32.6, fibrinogen trending down to 169, D-dimer is increased. ABG: pH is 7.270, pCO2 of 32.4, pO2 of 85.2, lactic acid earlier was 3.0. IMAGING: Chest x-ray shows ET tube approximately 1.5 to 2 cm above the al. There is an OG tube in place coursing below the diaphragm. There is a left subclavian line in place. There appears to be layering effusions bilaterally, somewhat more on the left with pulmonary vascular congestion. ASSESSMENT/PLAN: The patient is a 49-year-old female with a history of ITP, SLE, CKD, status post splenectomy who presented initially for a left renal biopsy which was complicated by hemorrhagic shock. The patient had an IR embolization of the left renal artery however continued to have persistent tachycardia as well as continued to require transfusion of PRBCs and was noted to have worsening abdominal distension and acute on chronic renal failure with hyperkalemia and worsened non-anion gap metabolic acidosis. Earlier today the patient was noted to have worsening anemia and thrombocytopenia. Her pathology results from the renal biopsy had come back showing some specimens with small bowel tissue. Surgery has been following the patient and the decision was made to take her to the OR for exploratory laparotomy in particular to evaluate for possible perforated bowel. The patient had evacuation of hematoma and hemoperitoneum but was not found to have any significant bowel perforation. She had MAURO drains placed postoperatively and was also noted to have some continued oozing from her dressing. Hemorrhage secondary to possible mesenteric artery injury during a renal biopsy procedure. The patient is now status post 12 units of PRBC as well as 2 units of platelets and 2 units of FFP. The patient is having increasing coagulopathy as well as decreasing fibrinogen consistent with DIC likely secondary to her hemorrhage. The patient also with a history of ITP chronically and her platelets which had been stable around the 70s has been trending down and postoperatively after receiving a unit of platelets was noted to be 14. - Will transfuse the patient an additional 2 units of FFP for her DIC. She does not currently require cryoprecipitate but if her fibrinogen continues to trend down may need cryoprecipitate transfusion. - Will continue to monitor her coagulations and fibrinogen closely. - Will continue to monitor her hemoglobin and hematocrit and transfuse as needed. - The patient will be ordered an additional 2 units of platelets for transfusion and will continue to monitor her platelet count and transfuse as needed if there is continued bleeding. - The patient was on prednisone for her ITP as well as continued on her home medication of eltrombopag. She will be changed to Solu-Medrol now and will also administer IVIG for her worsening thrombocytopenia. It is likely multifactorial secondary to consumption from bleeding as well as DIC and her ITP. - Appreciate surgery consult and recommendations. She does have two MAURO drains in place in her abdomen and will continue to monitor their output. - The patient also has an OG tube in place which is draining some maroon colored fluid. Will change her pantoprazole to twice a day. Acute on chronic renal failure with a non-anion gap metabolic acidosis secondary to her acute renal failure. Patient also with a lactic acidosis secondary to hemorrhage. - Patient likely with a component abdominal compartment syndrome contributing to her worsening renal failure and decreasing urine output as postoperatively she did have improvement in her kidney function as well as increased urine output. - Will continue to monitor her intake and outputs and will continue to monitor electrolytes. Her hyperkalemia has also improved postoperatively. - The patient does continue to have metabolic acidosis and she was given 1 ampule of bicarbonate postoperatively. Her ABG also shows a respiratory acidosis as well which we will adjust her vent settings for compensation. - Will continue to trend her lactic acid. - Appreciate renal consult and their recommendations. Patient does not appear to require emergent dialysis at this time. Acute respiratory failure - Patient was intubated for her exploratory laparotomy surgery. Postoperatively she has been kept intubated and is on propofol for sedation. - Will continue the patient on propofol for sedation and will continue with daily sedation vacations weaning trials as tolerated. - - Continue with morphine as needed for pain control. - Patient does have evidence of bilateral pleural effusions and some associated atelectasis. She will likely benefit from some diuresis at some point to help optimize her respiratory status for extubation. - Patient did have hypoxemic respiratory failure prior to her surgery in the setting of pulmonary vascular congestion and pleural effusions. - Will continue with daily chest x-rays and ABGs while intubated. - Will continue the patient on PRVC with settings of 420 and increase her respiratory rate to 20 with a FiO2 of 40 and a PEEP of 5. Will continue to adjust her vent settings based on her ABGs. - Vent bundle care with head of bed elevation and chlorhexidine mouthwash. Patient with persistent tachycardia which appeared to have improved somewhat postoperatively. Likely in the setting of her hemorrhage as well as possibly from a component of pain. The patient also had an echocardiogram done which did show evidence of a small to moderate pericardial effusion with no evidence of tamponade. Will need to continue to monitor clinically and will likely need a repeat echocardiogram at some point in the future. DVT prophylaxis. TEDs and SCDs. GI prophylaxis. PPI. Code status. FULL CODE. Total critical care time spent not including procedures approximately 2 hours and 15 minutes. MTDD
[2020-04-23] MEDS: PANTOPRAZOLE 40MG VIAL (C9113 PER 1) IV SCH ×2 (08:36→20:24)
[2020-04-23] MEDS: MEROPENEM INJ 500 MG in IV 1 EA IV SCH ×2 (08:36→17:00)
[2020-04-23] MEDS: CHLORHEXIDINE GLUCONATE 0.12 % 15ML UDC (PERIDEX ORAL RINSE) MT SCH ×2 (08:36→20:24)
[2020-04-23] MEDS ORDERED: CALCIUM GLUCONATE 1,000 MG in D5W MINI-BAG PLUS 100 ML IV ONE (09:00)
--- NOTE | 2020-04-23 09:11 | REP ---
REASON: Followup. COMPARISON: Yesterday. The lung bases show bilateral pleural effusions, which have increased, along with bibasilar opacities, also increased, consistent with subsegmental atelectatic changes/basilar pneumonia/combination of both. Once again, the examination is limited by the lack of intravenous contrast administration. The degree of free fluid in the abdomen appears to have increased. There is dense material filling the gallbladder lumen, consistent with vicarious excretion of contrast material. There is abnormal low density seen in the inferior pole of the left kidney with spray artifact, all representing a change from the prior exam. There are additional surgical clips seen along the superior pole region of the left kidney; however, these were present on the prior exam. There is either matted bowel in the left abdomen and/or increased hemoperitoneum. Opacified bowel loops appear to be draped or partially draped over this region. Pancreas and adrenal glands unchanged. The patient is status post splenectomy. None of the given oral contrast has extravasated in the abdominal cavity. There is a Graves balloon in the urinary bladder. There is no evidence of change involving the imaged osseous structures. IMPRESSION: 1. Exam is limited. 2. New abnormal low density in the left kidney adjacent to new metallic spray artifact seen in that kidney. I have been given no history of instrumentation involving that kidney since the last exam; however, I cannot imagine it was not performed somehow. I am concerned that there is renal infarction. 3. Increased ascites and possible increased hemoperitoneum/hematoma/matted non-opacified bowel loops. 4. Increased pleural effusions and bibasilar opacities, as described above. 5. Other findings as described above. Electronically Signed by Bahman Cabrales DO 04/23/2020 09:38 A
[2020-04-23] MEDS ORDERED: KCL 20MEQ IN 100ML SWI (KRUN) 20 MEQ in IV 1 EA IV ONE ×4 (10:00→13:00)
--- NOTE | 2020-04-23 10:16 | REP ---
REASON: Assess for foreign body. Curvilinear radiodensities in the form of tubes scattered about the abdomen. Etiology uncertain. There is a right parasagittal skin staple line in place with 12 visible emma. There is a 2 cm long, 1 mm wide linear radiodensity in the right lower quadrant superimposed over the cecal region. There is a thread-like coiled metallic-appearing radiodensity in the left upper quadrant. Numerable surgical emma are also seen in the left upper quadrant. There is the distal portion of a nasogastric tube identified; the proximal port is in the distal esophagus with the tip being just distal to the gastroesophageal junction. Contrast opacifies some of the bowel. The intestinal gas pattern is nonspecific. The osseous structures are within normal limits. IMPRESSION: Numerable radiodensities, the etiologies of which are all uncertain to me. I have been given no history other than miscount in OR. Electronically Signed by Bahman Cabrales DO 04/23/2020 10:33 A
--- NOTE | 2020-04-23 10:24 | REP ---
REASON FOR EXAM: Status post operative procedure and intubation. The examination is 04/22/2020 at 8:55:30 p.m. compared to 04/21/2020 at 8:16:30 p.m. The technique utilized in obtaining the radiograph has magnified the cardiac silhouette and accentuated the interstitial markings. Since the last examination, an endotracheal tube has been placed, the tip of which is in satisfactory position at the level of the aortic knob. There is a left-sided subclavian central venous catheter, the tip of which is in the superior vena cava. A nasogastric tube has been placed since the last exam; the proximal port is in the distal esophagus, and the tip of the tube is in the region just distal to the gastroesophageal junction, presumably within the stomach fundal region. The lung huff are essentially unchanged from the prior exam. There is hypoexpansion and basilar subsegmental atelectatic change. No definite new abnormal opacities have developed. The cardiac silhouette is again seen to be magnified by technique. The patient is tilted and rotated somewhat to the left. There is no change in the osseous structures. IMPRESSION: Tubes and line as described above. No significant change in the appearance of the lung huff, as described above. Electronically Signed by Bahman Cabrales DO 04/23/2020 10:33 A
--- NOTE | 2020-04-23 11:24 | REP ---
REASON FOR EXAM: Followup. COMPARISON EXAM: 04/22/2020, also portable. The technique utilized in obtaining the radiograph has magnified the cardiac silhouette and accentuated the interstitial markings. The endotracheal tube, nasogastric tube, and central venous catheter are all unchanged. There is no significant change in the appearance of the lung huff. There are no new abnormal opacities. There is no significant change in the osseous structures. IMPRESSION: No significant change. Electronically Signed by Bahman Cabrales DO 04/23/2020 12:06 P
[2020-04-23] MEDS ORDERED: MAG SULF 1GM/100ML (MAG RUN) 1 GM in IV 1 EA IV ONE (13:00)
--- NOTE | 2020-04-23 13:26 | IRPN ---
[facility] IR Progress Note IR Progress Note DATE: Apr 23, 2020 FOLLOW-UP: 49-year-old female with ITP, lupus and renal failure, underwent left renal biopsy on followed by increasing intraperitoneal hemorrhage over the past 48 hours despite negative mesenteric angiogram. She was stable after left lower pole segmental renal artery embolization then developed increasing tachycardia and again dropped her hemoglobin. Her urine output decreased. She was then diagnosed with abdominal compartment syndrome and taken for exploratory laparotomy last night. At laparotomy, intraperitoneal hematoma was removed. No active arterial hemorrhage was seen. No bowel injury was seen. No peritoneal breach seen. Post laparotomy the wound was closed. Patient's urine output has improved since laparotomy. Tachycardia has resolved. No fevers. Patient is on broad spectrum antibiotics, standard vent settings and oxygenating well. Today's chest x-ray appears clear. On examination: Patient's color appears normal. Patient is sedated on a venti lator. Blood pressure 117/88 heart rate 85 afebrile. Skin warm to touch. No significant pedal edema. Abdomen nondistended and soft. Midline dressings from laparotomy. [address] 345 ml serosanguineous output from the bilateral abdominal drains since 0700 hours this morning. No oozing at the IV or right groin access site. No bruising on her arms or legs. 900 mL urine output since 0600 this morning. Patient has second bag of fresh frozen plasma hanging. The second bag of platelets is also hanging. Patient completed last unit of blood transfusion at 7 AM this morning. Repeat CBC will be drawn in an hour. Labs: 04/23/2020 0500 hours hemoglobin 6.9 hematocrit 19.3 WBC 9.9 platelets 12 sodium 139 potassium 3.5 BUN 39 creatinine 2.33 GFR 23.5 (improved from 15.3 04/22/2020) fasting glucose 152 lactic acid 1.0 (0912 hrs) albumin 2.0 04/22/2020 total bilirubin 0.4 AST 35 ALT 23 ALP 36 INR 1.33 PT 16.2 APTT 73.3 Fibrinogen 250 IMPRESSION: 49-year-old female with ITP, lupus and chronic renal failure with intraperitoneal hemorrhage status post kidney biopsy and abdominal compartment syndrome, now status post abdominal decompression and hematoma evacuation. Patient remains in critical condition with the ongoing issue of platelet consumption. Patient is on IVIG and steroids. Patient is receiving platelet transfusion. Will continue to monitor and follow. Allergies Coded Allergies: Sulfa (Sulfonamide Antibiotics) (Verified Allergy, Mild, rash, 10/27/19) Current Medications Current Medications Medications (Trade) Dose Ordered Sig/Theodore Route PRN Reason Start Time Stop Time Status Last Admin Dose Admin Acetaminophen (Tylenol Tab) 650 mg Q4H PRN PO PAIN OR FEVER 04/20/20 19:15 04/21/20 09:07 DC Chlorhexidine Gluconate (Peridex Oral Rinse) SWAB/BRUSH ORAL CAVITY BID MT 04/22/20 21:00 04/23/20 08:36 Diatrizoate Meglum/ Diatrizoate Sod (Gastrografin) 10 ml Q30M PO 04/22/20 13:30 04/22/20 14:01 DC 04/22/20 14:17 Fentanyl Citrate (Sublimaze) 25 mcg Q5MP PRN IV PAIN LEVEL 5-10 04/22/20 21:45 04/22/20 22:44 DC Hydromorphone HCl (Dilaudid) 0.2 mg Q5MP PRN IV PAIN LEVEL 4-7 04/22/20 21:45 04/22/20 22:44 DC Immune Globulin / IV Miscellaneous Supplies 0 ml @ 0 mls/hr ASDIRECTED IV 04/22/20 22:15 04/22/20 22:19 DC Meropenem 500 mg/ IV Miscellaneous Supplies 50 ml @ 100 mls/hr DAILY IV 04/22/20 09:00 04/23/20 12:48 DC 04/23/20 08:36 Meropenem 500 mg/ IV Miscellaneous Supplies 50 ml @ 100 mls/hr Q8H IV 04/23/20 17:00 04/29/20 08:59 Methylprednisolone (SOLUmedrol) 60 mg Q8H IV 04/22/20 22:00 04/23/20 12:44 DC 04/23/20 05:32 Methylprednisolone (SOLUmedrol) 125 mg Q6H IV 04/23/20 12:45 04/26/20 12:44 UNV Metoclopramide HCl (REGLAN INJection) 10 mg Q6HP PRN IV NAUSEA OR VOMITING 04/22/20 21:45 04/22/20 22:44 DC Miscellaneous (Unresolved Patient Own Med Order) SEE LABEL COMMENTS DAILY XX 04/20/20 09:00 04/20/20 22:22 DC Morphine Sulfate (Morphine Sulfate Inj) 1 mg Q3H PRN IV MODERATE PAIN (PS 5-7) 04/20/20 21:45 04/21/20 09:07 DC 04/21/20 06:12 Morphine Sulfate (Morphine Sulfate Inj) 4 mg Q2HP PRN IV SEVERE PAIN (PS 8-10) 04/23/20 10:00 04/23/20 10:38 Morphine Sulfate (Morphine Sulfate Inj) 4 mg Q3HP PRN IV SEVERE PAIN (PS 8-10) 04/21/20 09:15 04/23/20 09:48 DC 04/23/20 05:32 Ondansetron HCl (ZOFRAN INJection) 4 mg Q4HP PRN IV NAUSEA OR VOMITING 04/22/20 21:45 04/22/20 22:44 DC Ondansetron HCl (ZOFRAN INJection) 4 mg Q6HP PRN IV NAUSEA OR VOMITING 04/20/20 21:45 04/21/20 20:09 DC 04/21/20 16:19 Oxycodone/ Acetaminophen (Percocet 5mg/ 325mg Tablet) 1 tab Q6HP PRN PO MILD/MODERATE PAIN (PS 1-7) 04/21/20 09:15 04/22/20 20:49 DC Oxycodone/ Acetaminophen (Percocet 5mg/ 325mg Tablet) 2 tab Q6HP PRN PO SEVERE PAIN (PS 8-10) 04/21/20 06:00 04/22/20 20:49 DC 04/21/20 16:21 Pantoprazole Sodium (Protonix) 40 mg BID IV 04/23/20 09:00 04/23/20 08:36 Pantoprazole Sodium (Protonix) 40 mg Q24H IV 04/21/20 14:00 04/22/20 21:58 DC 04/22/20 13:37 Patient Own Medication (Patient'S Own Med) 3 ea DAILY@2100 PO 04/21/20 21:00 UNV Patient Own Medication (Patient'S Own Med) PROMACTA - TAKE 3 TABLETS... DAILY@2100 PO 04/20/20 21:00 04/22/20 23:02 Potassium Chloride/Dextrose/ Sod Cl 1,000 ml @ 125 mls/hr Q8H IV 04/23/20 13:00 UNV Prednisone (Deltasone) 60 mg DAILY PO 04/21/20 09:00 04/22/20 20:49 DC 04/22/20 08:27 Prochlorperazine (Compazine) 10 mg Q6HP PRN IV VOMITING 04/21/20 09:15 04/21/20 20:09 DC 04/21/20 19:40 Promethazine HCl (PHENERGAN INJection) 12.5 mg Q6HP PRN IV NAUSEA 04/21/20 20:15 04/21/20 23:31 Propofol 1000 mg/ IV Miscellaneous Supplies 100 ml @ 4.398 mls/ hr [id number] IV 04/22/20 21:15 04/23/20 10:36 Sodium Chloride 1,000 ml @ 100 mls/hr Q10H IV 04/21/20 01:00 04/21/20 16:03 DC 04/21/20 11:21 Sodium Chloride 1,000 ml @ 100 mls/hr Q10H IV 04/22/20 21:45 04/22/20 21:58 DC Sodium Chloride 1,000 ml @ 999 mls/hr Q1H1M IV 04/20/20 17:15 04/20/20 17:40 DC VS,Fishbone, I+O VS, Fishbone, I+O Laboratory Tests 04/22/20 14:13 04/22/20 14:16 04/22/20 20:46 04/23/20 02:31 04/23/20 05:21 Vital Signs Date Time Temp Pulse Resp B/P (MAP) Pulse Ox O2 Delivery O2 Flow Rate FiO2 04/23/20 12:45 97.2 80 15 178/77 95 Ventilator 40 04/22/20 16:00 2.0 I&O- Last 24 Hours up to 6 AM 04/23/20 05:59 Intake Total 67634 ml Output Total 3715 ml Balance 6538 ml HOMAR RITCHIE MD Apr 23, 2020 13:25
[2020-04-23] MEDS ORDERED: KCL 20MEQ IN D5/0.45NS 1000ML 1,000 ML IV SCH (13:30)
[2020-04-23 14:58] LABS: HEMATOCRIT 15.6 % (36.0-47.0); HEMOGLOBIN 5.4 g/dl (12.0-15.5); MEAN CORPUSCULAR HEMOGLOBIN 30.9 pg (27.0-33.0); MEAN CORPUSCULAR HGB CONC 34.6 g/dl (32.0-36.5); MEAN CORPUSCULAR VOLUME 89.1 fl (80.0-96.0); RED BLOOD COUNT 1.75 10^6/uL (4.00-5.40); WHITE BLOOD COUNT 11.4 10^3/uL (4.0-10.0)
[2020-04-23 14:59] LABS: PLATELET COUNT, AUTOMATED 7 10^3/uL (150-450)
[2020-04-23 15:08] LABS: INR 1.4; PARTIAL THROMBOPLASTIN TIME 32.9 SECONDS (25.0-38.4); PROTHROMBIN TIME 16.9 SECONDS (11.8-14.0)
[2020-04-23 15:23] LABS: MEAN CORPUSCULAR HGB CONC 35.9 g/dl (32.0-36.5); RED BLOOD COUNT 1.72 10^6/uL (4.00-5.40); WHITE BLOOD COUNT 11.5 10^3/uL (4.0-10.0)
[2020-04-23 15:24] LABS: HEMATOCRIT 15.3 % (36.0-47.0); HEMOGLOBIN 5.5 g/dl (12.0-15.5); PLATELET COUNT, AUTOMATED 7 10^3/uL (150-450)
[2020-04-23] MEDS ORDERED: PHYTONADIONE 10MG/ML INJECTION (J3430) SC ONE (16:00)
[2020-04-23] MEDS ORDERED: TRANEXAMIC ACID INJection 1,000 MG in D5W 100 ML IV ONE (17:00)
[2020-04-23 18:17] LABS: MEAN CORPUSCULAR HEMOGLOBIN 30.7 pg (27.0-33.0); MEAN CORPUSCULAR HGB CONC 34.8 g/dl (32.0-36.5); MEAN CORPUSCULAR VOLUME 88.2 fl (80.0-96.0); RED BLOOD COUNT 2.12 10^6/uL (4.00-5.40); WHITE BLOOD COUNT 12.4 10^3/uL (4.0-10.0)
[2020-04-23 18:18] LABS: HEMATOCRIT 18.7 % (36.0-47.0); HEMOGLOBIN 6.5 g/dl (12.0-15.5); PLATELET COUNT, AUTOMATED 4 10^3/uL (150-450)
[2020-04-23 18:29] LABS: INR 1.42; PROTHROMBIN TIME 17.1 SECONDS (11.8-14.0)
[2020-04-23 18:30] LABS: PARTIAL THROMBOPLASTIN TIME 33.1 SECONDS (25.0-38.4)
[2020-04-23 18:41] LABS: CREATININE FOR GFR 1.84 MG/DL (0.55-1.30); GLOMERULAR FILTRATION RATE 30.9 (>51); POTASSIUM SERUM 3.9 MEQ/L (3.5-5.1)
--- NOTE | 2020-04-23 18:49 | CCN ---
DATE: 04/23/2020 The patient is seen and examined this morning during bedside rounds. Overnight, the patient had finished the dosage of IVIG. She was still thrombocytopenic and was ordered additional platelet transfusion; however, they were awaiting transfer from [place]. This morning she has not received her platelet transfusion as of yet. Her hemoglobin was noted to trend down and she was ordered for 1 unit of packed red blood cells (PRBC). The patient otherwise has remained hemodynamically stable overnight on the arterial line blood pressure tracing. She has also continued to have increasing urine output noted through her Graves. This morning the patient is intubated and sedated still. She is minimally responsive to painful stimuli. She does continue to have output from her two MAURO drains, has had a total of approximately 1 liter output overnight in the two drains. The patient has OG tube initially was draining dark maroon colored output; however, this morning it appears to be more bilious output from the OG tube. PHYSICAL EXAM: Vitals: Temperature 97.7, pulse 87, respirations 20, blood pressure 145/64, oxygen saturation 99% on 40% FIO2. Input 9.7 liters, out 2.6 liters in the past 12 hours; however, has had increased the urine output of 2 liters General: Patient is intubated and sedated. She is minimally responsive to painful stimuli as she is sedated on propofol. HEENT: Normocephalic, atraumatic. Pupils are small but slowly reactive to light bilaterally. There is moist mucous membranes noted. She has an OG tube in place which is draining more bilious output. Neck is supple. Trachea is midline. No palpable cervical adenopathy. Cardiovascular: Regular rate and rhythm. Normal S1-S2. Unable to appreciate murmurs. There is a left subclavian line in place with improvement in the previously noted oozing in the dressing site. Pulmonary: Coarse ventilated breath sounds bilaterally with some slight diminished breath sounds at the bases. No wheezing or rhonchi noted. Abdomen is soft, has a midline incision with a dressing in place, which is soaked with some blood. She has two MAURO drains, one on the left and one on the right side, which had some bloody output in there. Extremities: Appear warmer to the touch. There is palpable pulses peripherally. There is no significant lower extremity edema bilaterally. LABORATORY: WBC 9.9, hemoglobin 6.9, platelets are12. Chemistry: Sodium is 139, potassium 3.5, chloride is 109, bicarb 24, BUN 39, creatinine 2.33, glucose 152, calcium 7.1, magnesium 1.8, phosphorus 4.7. PT 16.2, INR 1.33, PTT 73.3, fibrinogen 250. Arterial blood gas (ABG): pH 7.497, pCO2 27.3, pO2 of 85.4. IMAGING: Chest x-ray showed ET tube in position with an OG tube in place coursing below the diaphragm. There is a left subclavian central line in place. There is some improvement in the previously noted pulmonary vascular congestion and small pleural effusions. ASSESSMENT/PLAN: Ms. Gurrola is a 49-year-old female with a past medical history of idiopathic thrombocytopenia purpura (ITP), systemic lupus erythematosus (SLE), chronic kidney disease (CKD), status post splenectomy, who presented initially for a left renal biopsy, which was complicated by hemorrhagic shock. The patient had IR embolization of the left renal artery; however, continued to have persistent tachycardia, as well as continue to require multiple units of packed red blood cells (PRBC) transfusion. She was also noted to have worsening abdominal distension, as well as acute on chronic renal failure with hyperkalemia and worsening non-anion gap metabolic acidosis. The patient's pathology results, preliminary, had shown no renal tissue noted, but small bowel tissue. The surgery was concerning for potential bowel perforation, as well as abdominal compartment syndrome given her increased abdominal distension and renal failure and she was taken to the OR 04/22/2020 for emergent exploratory laparotomy. The patient had evacuation of hematoma and hemoperitoneum. There was no retroperitoneal bleeding noted. There is no significant bowel perforation noted. She did have 3 liters of blood evacuated. The patient had MAURO drains placed postoperatively and was also noted to be in some disseminated intravascular coagulation (DIC) with worsened thrombocytopenia. Hemorrhage secondary to possible mesenteric artery injury during a renal biopsy procedure. The patient had continued to require PRBC transfusion for continuing bleeding and hemorrhage. Yesterday, she was at the 12 units total since her admission, as well as 2 units of platelets and 4 units of fresh frozen plasma (FFP). The patient was also having increasing coagulopathy and decreasing fibrinogen consistent with DIC likely secondary to her hemorrhage. The patient also has a chronic history of ITP and her platelets had been trending down likely from disseminated intravascular coagulation (DIC), as well as from consumption from her hemorrhage, as well as possible worsening of her ITP. - This morning the patient's hemoglobin and hematocrit (H/H) has trended down. Will give an additional 1 unit of PRBC; her total so far should be 13 units since admission. Will continue to monitor H H q.6 hours and transfuse as needed as she has continue to have considerable output from her MAURO drain - The patient's fibrinogen level has improved. However, her PTT is still elevated and she does have ongoing oozing. Will transfuse an additional 2 units of FFP for a total now of 6 units of FFP since admission. - The patient was ordered additional platelet transfusion overnight; however, there was some delay in acquiring then from [place]. Will give the 2 units of platelets that were previously ordered so that she will have a total of 4 units of platelets after this morning. - Will continue to monitor her fibrinogen and PT/PTT q.6 hours and transfuse as needed for ongoing DIC and bleeding. - For her ITP, the patient was given IVIG and Solu-Medrol yesterday. She will be continue with the Solu-Medrol, as well as her home medication of eltrombopag. - Appreciate surgery consult and recommendations. Will continue to monitor the output from her two MAURO drains in her abdomen. Her OG tube appears to have more bilious output now from the previous maroon colored output overnight. - She is on proton pump inhibitor (PPI) twice a day. Acute on chronic renal failure with a non-anion gap metabolic acidosis secondary to her acute renal failure. The patient also with a lactic acidosis, possibly secondary to her abdominal compartment syndrome, as well as from hemorrhage. - Postoperatively, the patient had improvement in her urine output and renal function, which was less likely worsened from abdominal compartment syndrome. - The patient's acidosis has also improved and her hyperkalemia has also improved. She is now hypokalemic and will be given repletion with potassium, as well as magnesium. - Will also replete calcium particularly given her multiple PRBC transfusions - The patient's mild respiratory acidosis had also improved on her ABG. Her vent settings will be adjusted today. - The patient's lactic acid has trended down. - Appreciate renal consult and recommendations. The patient was be started on some gentle maintenance fluids at this time. Acute respiratory failure. The patient was intubated for exploratory laparotomy surgery. Postoperatively, she has been kept intubated and is on propofol for sedation. - Will continue propofol for sedation, but will wean down for a target [place] of 2 to 3 - Will continue with morphine, will change to q.2 hours as needed for pain control. - Will continue with daily sedation vacation weaning trials as tolerated. - Will continue the patient on PRVC, but will adjust her settings so she will be 420/15/ 40 and 5. - Will continue daily ABGs and chest x-rays while intubated. - Will continue vent bundle care with head of bed elevation and chlorhexidine mouthwash. - The patient's chest x-ray this morning does show some improvement in her bilateral pleural effusions and the patient will hopefully be able to tolerate a weaning trial and potential extubation tomorrow. Possible sepsis. - The patient was having increasing leukocytosis, as well as tachycardia. There was also a possibility of potential of micro bowel perforation; and given the hemoperitoneum, there is also concern for possible intra-abdominal source of infection. The patient was started on meropenem yesterday, which will be continued. Will need to renally dose her antibiotics as renal function is improving. - Will followup results of cultures. Deep vein thrombosis (DVT) prophylaxis. TEDs and SCDs Gastrointestinal (GI) prophylaxis. Proton pump inhibitor (PPI). CODE STATUS: Full code. Total critical care time spent, not including procedures, approximately 40 minutes . MTDD
[2020-04-23] MEDS ORDERED: hydrALAZINE 20MG/ML 1ML VIAL (J0360 PER 20MG) IV ONE (21:15)
[2020-04-23] MEDS: PROMACTA 50 MG PO SCH (21:25)
[2020-04-23] MEDS ORDERED: MIDAZOLAM INJ 2MG/2ML VIAL (J2250 PER 1MG) As Ordered ONE (22:19)
[2020-04-23] MEDS: MIDAZOLAM INJ 2MG/2ML VIAL (J2250 PER 1MG) IV PRN (22:26)
[2020-04-23 23:59] LABS: INR 1.28; PROTHROMBIN TIME 15.7 SECONDS (11.8-14.0)
[2020-04-24] VITALS (50 sets, daily range): BP systolic 91–204; BP diastolic 53–94; O2SAT 99–100
[2020-04-24] LABS: PARTIAL THROMBOPLASTIN TIME 32.5 SECONDS (25.0-38.4)
[2020-04-24 00:14] LABS: HEMATOCRIT 23.4 % (36.0-47.0); HEMOGLOBIN 8.2 g/dl (12.0-15.5); MEAN CORPUSCULAR HEMOGLOBIN 30.9 pg (27.0-33.0); MEAN CORPUSCULAR VOLUME 88.3 fl (80.0-96.0); RED BLOOD COUNT 2.65 10^6/uL (4.00-5.40); WHITE BLOOD COUNT 11.3 10^3/uL (4.0-10.0)
[2020-04-24 00:17] LABS: PLATELET COUNT, AUTOMATED 4 10^3/uL (150-450)
[2020-04-24] MEDS: methylPREDNISolone 125MG 2ML VIAL IV SCH ×4 (00:36→18:34)
[2020-04-24] MEDS: MIDAZOLAM INJ 2MG/2ML VIAL (J2250 PER 1MG) IV PRN ×12 (00:36→23:35)
[2020-04-24] MEDS: MEROPENEM INJ 500 MG in IV 1 EA IV SCH ×3 (00:41→17:13)
[2020-04-24] MEDS: MORPHINE 4 MG/ML 1ML VIAL/SYRINGE (J2270) IV PRN ×6 (01:08→18:34)
[2020-04-24] MEDS: propofoL 1,000 MG in IV 1 EA IV SCH ×4 (01:09→22:38)
--- NOTE | 2020-04-24 03:12 | REPVR ---
PROCEDURE INFORMATION: Exam: CT Head Without Contrast Exam date and time: 04/24/2020 2:58 AM Age: 49 years old Clinical indication: Pain; Headache; Additional info: Decrease in mental status TECHNIQUE: Imaging protocol: Computed tomography of the head without contrast. Radiation optimization: All CT scans at this facility use at least one of these dose optimization techniques: automated exposure control; mA and/or kV adjustment per patient size (includes targeted exams where dose is matched to clinical indication); or iterative reconstruction. COMPARISON: CT Head without contrast 2020-01-17 19:07 FINDINGS: Brain: Normal. No hemorrhage. Unremarkable white matter. No mass effect. Ventricles: Normal. No ventriculomegaly. Bones/joints: Unremarkable. No acute fracture. Sinuses: Visualized sinuses are unremarkable. No fluid levels. Mastoid air cells: Visualized mastoid air cells are well aerated. Soft tissues: Unremarkable. IMPRESSION: No acute intracranial abnormality. Electronically signed by: Aristeo Goodson On 04/24/2020 03:11:53 AM
[2020-04-24] MEDS: hydrALAZINE 20MG/ML 1ML VIAL (J0360 PER 20MG) IV PRN ×3 (03:13→19:21)
[2020-04-24 05:38] LABS: BASO % 0.1 % (0.0-1.0); HEMOGLOBIN 7.5 g/dl (12.0-15.5); LYMPH # 0.4 10^3/uL (1.5-5.0); LYMPH % 4.4 % (24.0-44.0); MEAN CORPUSCULAR HEMOGLOBIN 31.1 pg (27.0-33.0); MEAN CORPUSCULAR HGB CONC 35.7 g/dl (32.0-36.5); MEAN CORPUSCULAR VOLUME 87.1 fl (80.0-96.0); MONO # 1.1 10^3/uL (0.0-0.8); MONO % 12.1 % (0.0-5.0); NEUTROPHILS # 7.6 10^3/uL (1.5-8.5); NEUTROPHILS % 82.9 % (36.0-66.0); RED BLOOD COUNT 2.41 10^6/uL (4.00-5.40); WHITE BLOOD COUNT 9.2 10^3/uL (4.0-10.0)
[2020-04-24 05:41] LABS: ABG BASE EXCESS 1.4 (-2.0-2.0); ABG HCO3 24.2 MEQ/L (22.0-26.0); ABG O2 SATURATION 98.3 % (95.0-99.0); ABG PARTIAL PRESSURE CO2 30.9 mmHg (35.0-45.0); ABG STANDARD HCO3 25.7 MEQ/L (22.0-26.0); ABG TOTAL CO2 25.2 MEQ/L (22.0-29.0); ABG pH (ARTERIAL) 7.512 UNITS (7.350-7.450)
[2020-04-24 05:46] LABS: PLATELET COUNT, AUTOMATED 1 10^3/uL (150-450)
[2020-04-24 05:47] LABS: INR 1.28; PROTHROMBIN TIME 15.7 SECONDS (11.8-14.0)
[2020-04-24 05:56] LABS: CREATININE FOR GFR 1.67 MG/DL (0.55-1.30); GLOMERULAR FILTRATION RATE 34.6 (>51); MAGNESIUM LEVEL 2.2 MG/DL (1.8-2.4); PHOSPHORUS LEVEL 5.1 MG/DL (2.5-4.9); POTASSIUM SERUM 3.7 MEQ/L (3.5-5.1)
[2020-04-24] MEDS ORDERED: IMMUNE GLOBULIN IV SCH (08:15)
--- NOTE | 2020-04-24 08:22 | REP ---
Portable chest x-ray: Single view. History: Intubated patient. Comparison study: April 23, 2020. Findings: Endotracheal tube remains in good position at the level of proximal clavicles. NG tube enters left upper quadrant of the abdomen and there are surgical clips in the left upper quadrant and in the midline. A left subclavian central venous catheter terminates in the expected location of the superior vena cava. There is hazy pleural opacity in the left base obscuring left hemidiaphragm suggesting small left effusion. There are air bronchograms behind the heart in the left lower lobe consistent with atelectasis or infiltrate. No new infiltrate is seen. Impression: Pleuroparenchymal changes in the left base unchanged. Electronically Signed by Juan King MD 04/24/2020 08:14 A
[2020-04-24] MEDS: PANTOPRAZOLE 40MG VIAL (C9113 PER 1) IV SCH ×2 (08:35→20:14)
[2020-04-24] MEDS: CHLORHEXIDINE GLUCONATE 0.12 % 15ML UDC (PERIDEX ORAL RINSE) MT SCH ×2 (08:35→20:14)
--- NOTE | 2020-04-24 09:03 | REP ---
REASON: Followup. COMPARISON: Multiple, the latest today at 7:02 a.m. Endotracheal tube, nasogastric tube, and central venous catheter are all stable. Bibasilar opacities persist, left greater than right with persistent silhouetting out of the diaphragmatic surface of the left lung, patient is tilted and rotated to the left. This accentuates the findings. The technique utilized in obtaining the radiograph has magnified the cardiac silhouette and accentuated the interstitial markings. No definite new abnormal opacities have developed since earlier today on this limited portable exam. IMPRESSION: 1. No change in the tubes and lines 2. Persistent basilar opacities as described above. Electronically Signed by Bahman Cabrales DO 04/24/2020 09:40 A
--- NOTE | 2020-04-24 09:18 | REP ---
Clinical: Hypoxia with bilateral lower extremity pain . Technique: Reed scale and color Doppler evaluation of the bilateral lower extremities using linear high frequency transducer. Findings: Ultrasound examination of the right and left lower extremity deep venous structures from the common femoral vein to the popliteal vein demonstrates normal compressibility flow and wave patterns in response to respiration and augmentation. There is no evidence for deep venous thrombosis. Impression: No evidence for deep venous thrombosis bilateral lower extremities . Electronically Signed by Michelet Smith MD 04/24/2020 09:09 A
[2020-04-24] MEDS: IMMUNE GLOBULIN 10% 20 GM in IV 1 EA IV ONE ×2 (09:40→12:14)
[2020-04-24] MEDS: IMMUNE GLOBULIN 10% 10 GM in IV 1 EA IV ONE ×2 (09:40→10:14)
[2020-04-24] MEDS ORDERED: FUROSEMIDE 20MG/2ML VIAL (J1940) IV ONE ×2 (09:45→15:45)
[2020-04-24] MEDS ORDERED: POTASSIUM CHLORIDE 10% LIQ 20 MEQ/15 ML UDC PO ONE (09:45)
[2020-04-24] MEDS ORDERED: IMMUNE GLOBULIN 10% 40 GM in IV 1 EA IV ONE (10:00)
--- NOTE | 2020-04-24 10:56 | ECGEPIP ---
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 Electronically Signed on 04-24-2020 10:56:18 EDT by Aristeo Smallwood
[2020-04-24] MEDS ORDERED: KCL 20MEQ IN 100ML SWI (KRUN) 20 MEQ in IV 1 EA IV ONE ×2 (11:45)
[2020-04-24 12:12] LABS: ABG BASE EXCESS 1.2 (-2.0-2.0); ABG HCO3 24.8 MEQ/L (22.0-26.0); ABG O2 SATURATION 98.2 % (95.0-99.0); ABG PARTIAL PRESSURE CO2 35.1 mmHg (35.0-45.0); ABG PARTIAL PRESSURE O2 112.3 mmHg (75.0-100.0); ABG STANDARD HCO3 25.6 MEQ/L (22.0-26.0); ABG TOTAL CO2 25.9 MEQ/L (22.0-29.0); ABG pH (ARTERIAL) 7.467 UNITS (7.350-7.450)
--- NOTE | 2020-04-24 12:41 | IPN ---
DATE OF SERVICE: 04/23/2020 SUBJECTIVE: Patient was seen and examined at the bedside today morning in the intensive care unit (ICU). She remains intubated and sedated last 24 hours were noted. Patient had to be emergently taken to the operating room (OR) yesterday because of abdominal compartment syndrome. She got exploratory laparotomy done. More than 3 liters of blood and clots were removed from the abdomen. No active bleeding site could be identified and no gut perforation was noted. Patient started making significant amount of urine after abdominal decompression. Her creatinine started trending down. She has required so far multiple blood products including 5 packed red blood cells (PRBC), 4 platelets and 4 fresh frozen plasma (FFP) since yesterday morning. Despite that her hemoglobin is still dropping, but her blood pressure is stable and she is not requiring any pressors. 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 Patient is in DIC. She had elevated partial thromboplastin time (PTT), very low platelet level and still oozing from the abdominal drains. She had to be started on Solu-Medrol and intravenous immunoglobulin (IVIG) because of thrombocytopenia. OBJECTIVE: VITAL SIGNS: Temperature is 97.1 degrees Fahrenheit. Blood pressure 136/58. Pulse is 76, respiratory rate of 15, saturating 92% on the vent with 50% FiO2. INTAKE/OUTPUT: Urine output recorded so far is 1.7 liters yesterday, 1.7 liters so far today since overnight. Gastric drainage is 400 mL. Case-Aguilar (J-P) drains so far have put out 1260 mL. She weighs 77.4 kg, which is higher than yesterday's weight. PHYSICAL EXAMINATION: GENERAL: Patient is intubated, sedated. Eyes are closed. Pupils are equally, round and reactive to light. Mucous membranes are moist. Neck is supple. She has left subclavian triple-lumen catheter. CARDIOVASCULAR: S1, S2, regular rate today. Trace edema of the bilateral lower extremities and 1+ edema of the thighs was noted. RESPIRATORY: Mildly decreased breath sounds at the bases. Otherwise, no active rales or rhonchi. ABDOMEN: Distended. She has a midline surgical dressing. Bilateral drains in the flanks. Both of the drains have bloody discharge. It is red colored. GENITOURINARY: She has an indwelling Graves catheter. Urine in the bag is light pale. MUSCULOSKELETAL: No clubbing or cyanosis. Pulses are 2+. 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 Moves extremities on painful stimuli. LAB REVIEW: CBC showed WBC of 11.5, hemoglobin is 5.5, platelets are 7. INR is 1.4, PT 16.9, PTT 32.9. Fibrinogen is 316. Urinalysis done today showed 1+ protein 3+ blood, and 94 RBCs. ABG done today morning showed pH of 7.49, pCO2 of 27, pO2 of 85, oxygen saturation is 97. BMP done today morning showed sodium 139, potassium 3.5, chloride 109, bicarbonate 24, BUN 39, creatinine is 2.3. Repeat lactic acid is 1, which is normal. Calcium was 7.1, phosphorus was 4.7, magnesium was 1.8. MICROBIOLOGY: Wound cultures are pending. IMAGING: A chest x-ray was done today morning, which showed no significant change. CURRENT INPATIENT MEDICATIONS: Looking at the blood products, since yesterday she has gotten 4 platelets, 5 PRBC, and 5 FFP in the medications. I have given her dose of calcium gluconate 1 gram IV. She was started on IV immunoglobulin yesterday. She was also started on Solu-Medrol yesterday, but I have increased the dose to 125 mg IV every 6 hours because of increase intake glomerulonephritis (GN) on the renal biopsy. She was also given vitamin K 10 mg subcu times one dose. She was also given tranexamic acid 1 gram IV times one dose. ASSESSMENT/PLAN: 1. Acute renal failure. Patient had acute oliguric renal failure yesterday, which is multifactorial, including use of IV contrast dye, hypotension and shock secondary to hemorrhage and also with a component of abdominal compartment syndrome. Patient got evacuation of hematoma yesterday from the abdomen. She is making urine. Creatinine is trending down. Acidosis is getting better. There is no urgent need of hemodialysis at this time. I have started the patient on gentle IV fluid hydration because of active hemorrhage. 2. Abdominal compartment syndrome status post exploratory laparotomy. Patient got more than 3 liters of blood and clots removed. She has Case-Aguilar (J-P) drains in both sides, which are still oozing bloody discharge. Rest of the management is as per surgical service. 3. Hemorrhage after left renal biopsy. Source of hemorrhage was not known even after exploratory laparotomy. Most likely she might be bleeding from one of the mesenteric vessels. There is no retroperitoneal hemorrhage at this time. Patient continues to be anemic despite multiple units of PRBC transfusion. 4. DIC. Patient had low fibrinogen, high PT, active bleeding, and low platelets. She is getting multiple transfusions, including PRBC, platelets and FFP. Management of low platelets is as mentioned below. 5. History of idiopathic thrombocytopenic purpura (ITP) and worsening thrombocytopenia. Patient's IV Solu-Medrol dose was increased today morning. She also got IVIG and she is getting platelet transfusions.Cont Eltrombopag. 6. History of systemic lupus erythematosus (SLE). 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 Patient is already on Solu-Medrol for ITP. I have increased the Solu-Medrol dose to 125 mg IV every 6 hours at least for initial 3 days, then she will be switched to the lower dosage. No immunosuppression at this time because of hemorrhagic shock. 7. Vent dependent respiratory failure. Patient is still intubated post-op. She is requiring 50% FiO2. Vent management is as per primary team. 8. Hypocalcemia. It is secondary to massive blood transfusions. Patient was given calcium gluconate 1 gram IV today morning. Total critical care time spent in the management of this patient today morning in the ICU was 1 hour and 20 minutes.Excluding all procedures. Edited: 04/24/2020 1411 tito SCHAFER
[2020-04-24 12:47] LABS: BASO % 0.1 % (0.0-1.0); HEMATOCRIT 23.3 % (36.0-47.0); HEMOGLOBIN 8.2 g/dl (12.0-15.5); LYMPH # 0.3 10^3/uL (1.5-5.0); LYMPH % 2.5 % (24.0-44.0); MEAN CORPUSCULAR HEMOGLOBIN 30.8 pg (27.0-33.0); MEAN CORPUSCULAR HGB CONC 35.2 g/dl (32.0-36.5); MEAN CORPUSCULAR VOLUME 87.6 fl (80.0-96.0); MONO # 1.4 10^3/uL (0.0-0.8); MONO % 12.9 % (0.0-5.0); NEUTROPHILS # 9.1 10^3/uL (1.5-8.5); NEUTROPHILS % 83.9 % (36.0-66.0); RED BLOOD COUNT 2.66 10^6/uL (4.00-5.40); WHITE BLOOD COUNT 10.8 10^3/uL (4.0-10.0)
[2020-04-24 12:51] LABS: PLATELET COUNT, AUTOMATED 1 10^3/uL (150-450)
[2020-04-24 12:58] LABS: INR 1.24; PROTHROMBIN TIME 15.3 SECONDS (11.8-14.0)
[2020-04-24 12:59] LABS: PARTIAL THROMBOPLASTIN TIME 29.3 SECONDS (25.0-38.4)
--- NOTE | 2020-04-24 13:15 | IPNPDOC ---
Text Note Date of Service The patient was seen on 04/24/20. NOTE Patient is seen this morning and discussed with her nurses as well as with Dr. Paul. She remains critically ill. She is intubated and we have increased sedation. She remains hemodynamically stable despite active oozing from her incision as well as from the drains. She is still requiring constant transfusion of packed RBC and platelets though she seemed to be clotting at the drainage from her incision. She is making adequate urine. Last night was consented whether she was seizing and thus he stent CT of the head was done which did not show any acute stroke or hemorrhage. Vitals. She's been afebrile past 24 hours. Her heart rate has started to creep up once more in the low 100. She's been hypertensive with the blood pressure creeping up to systolic 200. Currently her blood pressure stone 135/69 after increasing her sedation. I/O: Her drain put out a total of 1500 yesterday endocrine to her nurse there pulling out about 20 mL 72 hours. This is still bloody drainage but seeing some clots with the drainage now. She made 2.5 L of urine 700 mL from her OG-tube On examination: Patient is sedated and intubated Has moderate anasarca Heart rates in the low 100s, regular rhythm, no murmurs Harsh breath sounds, equal. subclavian tlc on left side. Abdomen: mildly distended, midline incision with emma, lower portion has mild ozzing with clots on it. 2 MAURO drains present with bloody fluid in the drainage. Multiple area with ecchymosis over lower abdomen, no skin breakdown Moderate anasarca and UE, LE edema Urine a lot less concentrated Impression Patient with treatment resistant ITP SLE with chronic kidney disease had DIC following bleeding from kidney biopsy. She is postop day 2 following a recurrent laparotomy and is evidence for compartment syndrome with her blood pressure and urine output improving with decompression of the abdomen. I did close the abdominal fascia and left drains in. She continues to show evidence of diffuse bleeding from the ITP and DIC. The parameters are being corrected. She received additional doses of IVIG postoperatively. I'll discuss ongoing care with our critical care person and suggested using tranexamic acid which he got a dose off today. He was ongoing discussion whether there are other avenues available for her for treatment of her ITP in a tertiary center. MIGUEL,Aylin, I+O VS, Fishbone, I+O Laboratory Tests 04/23/20 14:45 04/23/20 15:06 04/23/20 17:39 04/23/20 23:35 04/24/20 05:17 Vital Signs Date Time Temp Pulse Resp B/P (MAP) Pulse Ox O2 Delivery O2 Flow Rate FiO2 04/24/20 09:26 15 135/69 Ventilator 04/24/20 09:02 96.5 104 80 04/24/20 07:58 100 04/22/20 16:00 2.0 I&O- Last 24 Hours up to 6 AM 04/24/20 05:59 Intake Total 6883.1 ml Output Total 4103 ml Balance 2780.1 ml JUAN JOSE JAMA MD Apr 24, 2020 11:55
--- NOTE | 2020-04-24 14:40 | IPN ---
DATE OF SERVICE: 04/24/2020 SUBJECTIVE: Patient was seen and examined at the bedside today morning in the intensive care unit (ICU). Last 24 hour events were noted. Patient continues to be intubated and sedated. She is still requiring a lot of blood products. Since yesterday, patient has received 5 units of packed red blood cells (PRBC), 6 units of platelets and 4 units of fresh frozen plasma (FFP). She continues to ooze from the abdominal surgical site. She still has some drainage from the Case-Aguilar (J-P) tubes bilaterally as well. She continues to drop hemoglobin after blood transfusion. She has severe thrombocytopenia. Platelet count on today's labs is 1000. However, despite all this she is maintaining her blood pressure. She is not requiring any pressors at this time. Her renal function is stable and she is making good amount of urine at this time. Because of multiple blood transfusions, IV fluids were stopped yesterday. The patient is unable to provide any review of systems because she is intubated and sedated. OBJECTIVE: VITAL SIGNS: Temperature is 96.5 degrees Fahrenheit. Blood pressure 135/69. Pulse is 104, respiratory rate of 15, saturating 100% on 80% FiO2. INTAKE/OUTPUT: Urine output recorded is at 2.4 liters yesterday, 910 mL so far today since overnight. Weight in the bed scale is 76.6. PHYSICAL EXAMINATION: GENERAL: Patient is intubated, sedated. Eyes are closed. Pupils are equally round and reactive to light. Mucous membranes are moist. However, her tongue is very pale. CARDIOVASCULAR S1, S2, tachycardia. 2+ edema on the bilateral lower extremities. She has jugular venous distention (JVD) as well. RESPIRATORY: Decreased breath sounds at the bases. Mild respiratory crackles at the bases on deep inspiration. ABDOMEN: Soft. She has midline surgical dressing, which is soaked with blood. She has bilateral MAURO drains with some serosanguineous discharge in the drains. GENITOURINARY: She has an indwelling Graves catheter. Urine in the bag is clear. MUSCULOSKELETAL: Bilateral edema of the lower and upper extremities. Otherwise, no clubbing or cyanosis. However, she has significant pallor in the palms. CENTRAL NERVOUS SYSTEM (EMERGENCY ROOM CLERK): Patient is intubated and sedated at this time. LAB REVIEW: CBC showed WBC of 10.8, hemoglobin is 8.2, platelets are 1. INR is 1.2. PT is 15.3, PTT is 29.3. ABG done today morning showed pH of 7.46, pCO2 of 35, pO2 of 112, bicarbonate is 25, oxygen saturation 98%. BMP showed sodium 145, potassium 3.7, chloride 114, bicarbonate 27, BUN 35, creatinine is 1.6, it was 1.8 yesterday, calcium is 7, phosphorus 5.1, magnesium is 2.2, albumin is 2. MICROBIOLOGY: All the cultures are negative so far. IMAGING: A chest x-ray was done today morning, which showed no new infiltrate. Doppler of the bilateral lower extremities was done, which showed no evidence of deep venous thrombosis (DVT) in the bilateral lower extremities. CAT scan of the head was done today morning, which showed no acute intracranial abnormality. CURRENT INPATIENT MEDICATIONS: Patient's medications were all reviewed by myself. She was given another dose of IVIG. She was given KCl 20 mEq IV times one dose today morning. She was also given tranexamic acid 1 gram IV yesterday. She continues to be on IV meropenem. Patient was given a small dose of Lasix 20 mg IV today morning. She continues to be on Solu-Medrol 125 mg IV every 6 hours. No other significant change in the medications today as compared with yesterday. ASSESSMENT/PLAN: 1. Acute nonoliguric renal failure. It was secondary to hypotension and abdominal compartment syndrome. Patient is making good amount of urine today. Creatinine is improving. Okay to give her dose of Lasix to prevent transfusion related acute lung injury. 2. Persistent hemorrhage after renal biopsy. Source of bleeding is not known. Patient is still requiring a lot of FFP, platelets and PRBC. She got an angiogram on arrival and the left lower renal artery was embolized, and she got exploratory laparotomy done as well. Clots and blood was evacuated but no source of bleeding was known. 3. Status post exploratory laparotomy for abdominal compartment syndrome. Patient has two MAURO drains in the flanks. Her abdominal dressing is still getting soaked with blood. She is requiring a lot of blood products. Rest of the management is as per surgical service. 4. Thrombocytopenia. Patient has history of idiopathic thrombocytopenic purpura (ITP). She still has persistent thrombocytopenia. Platelet count is 1000 now. She continues to be on Solu-Medrol. Another dose of IVIG was given. 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 5. 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 Patient is getting high dose Solu-Medrol for ITP. That would cover her for glomerulonephritis as well. Rest of the management will be done once patient recovers from this acute hemorrhagic episode. 6. Vent dependent respiratory failure. Patient is getting fluid overloaded. FiO2 requirement went up to 100% in order to prevent transfusion related acute lung injury. Patient was given a dose of Lasix 20 mg. If she does not respond well, she can get a higher dose in few hours. 7. Hypokalemia. Patient was already given potassium and potassium level is staying stable at 3.7. 8. Nutrition. Patient is going to start Nepro tube feeds via the nasogastric (NG) tube. 9. Leukocytosis and recent exploratory laparotomy and evacuation of clots from the abdomen. Patient is getting IV meropenem empirically. All the cultures are negative so far. Total critical care time spent in the management of this patient today morning in the ICU was 1 hour. MTDD
--- NOTE | 2020-04-24 15:24 | CCN ---
DATE: 04/24/2020 CRITICAL CARE PROGRESS NOTE: The patient was seen and examined this morning during bedside rounds. Overnight the patient had continued to require transfusions of packed red blood cells (PRBC) as well as platelets. She was continuing to have output from her Case-Aguilar drains as well as oozing from her surgical site despite improvement in her DIC panel. Patient was not thought to be in DIC any futher. Her platelets had not improved despite multiple transfusions. After discussion with surgery as well as with the patient's about use of antifibrinolytic therapy of tranexamic acid which has been used in case series and clinical trial for ITP bleeding the decision was made to administer it. Patient's understood the risks and benefits including VTE. Afterwards, the patient was noted to have some clotting on her surgical site and some less output from the MAURO drain overnight, however was still having trend down in her hemoglobin and did require another unit of PRBC this morning. The patient's platelets however continued to be low and not respond to platelet transfusions. Overnight the patient was also noted to have some myoclonic activity in her arms. She is sedated still with propofol and minimally responsive to painful stimuli. She had a head CT performed overnight, a stat which did not show any acute pathology. She was also significantly hypertensive and at times and required as needed hydralazine for her hypertension. The patient early this morning was desaturating and requiring increasing FiO2 on the ventilator. Her vent settings were adjusted. PHYSICAL EXAMINATION: Vitals: Temperature 97.1, pulse 51, respirations 15, blood pressure 152/65, oxygen saturation 100% on FiO2. In 7.6, out 4.7, net positive 2.9 liters. General: Patient is intubated and sedated. She is minimally responsive to painful stimuli. HEENT: Normocephalic, atraumatic. Pupils are small but reactive to light bilaterally. There is moist mucous membranes in place. There is an orogastric (OG) tube in place draining bilious output. Neck is supple. Trachea is midline. No palpable cervical adenopathy. Cardiovascular: Regular rate and rhythm. Normal S1, S2. Unable to appreciate any murmurs. There is a left subclavian line in place. Pulmonary: Coarse ventilated breath sounds bilaterally with diminished breath sounds on the bases. No wheezing noted. Abdomen is soft. There is a midline incision with a dressing in place. The patient had two MAURO drains one on the left and one on the right which have some serosanguineous output. Extremities: There is trace pitting edema in the bilateral lower extremities. Pulses are palpable in the periphery. LABORATORY DATA: WBC 9.2, hemoglobin 7.5, platelets are 1. Chemistry: Sodium is 145, potassium 3.7, chloride 114, bicarbonate 27, BUN 35, creatinine 1.67, glucose 147, calcium 7.0, phosphorus 5.1, magnesium 2.0, albumin 2.0. INR 1.28. PTT 31.0. ABG pH 7.512, pCO2 of 30.9, pO2 of 111. IMAGING: Chest x-ray shows endotracheal tube (ET) tube in good position. There is a left subclavian line in place and OG tube in place coursing below the diaphragm. There is some pulmonary congestion as well as likely infiltrate and possible atelectasis in the left base. ASSESSMENT/PLAN: Ms. Gurrola is a 49-year-old female with past medical history of idiopathic thrombocytopenic purpura (ITP), systemic lupus erythematosus (SLE), chronic kidney disease (CKD) status post splenectomy who presented initially for a left renal biopsy which was complicated by hemorrhagic shock. The patient did have IR embolization of the left renal artery, however continued to have persistent tachycardia as well as continued anemia suspicious for ongoing bleeding. She also was noted have worsening abdominal distension as well as acute on chronic renal failure with hyperkalemia and worsening non anion gap metabolic acidosis. The patient's pathology results had also shown for on biopsy some small bowel tissue. The patient was therefore consented for emergent surgery for potential bowel perforation as well for abdominal compartment syndrome on 04/22/2020. She had exploratory laparotomy done with evacuation of hematoma and large amount of hemoperitoneum. There was no retroperitoneal bleeding noted and no significant bowel perforation noted. Postoperatively, the patient was in DIC and had worsening thrombocytopenia. She was also kept intubated and on mechanical ventilation. Hemorrhage possibly secondary to a possible injury to the mesenteric artery during a renal biopsy procedure. The patient was in hemorrhagic shock and since her admission has required multiple units of PRBC as well as FFP and platelets. The patient was also in DIC and noted to have worsening thrombocytopenia. The patient's DIC improved with FFP. However, her thrombocytopenia is still unresponsive to multiple transfusions of platelets. - The patient received IVIG overnight from 04/22/2020 into the stitcher hand of 04/23/2020. She has not had response with her platelet count yet and so will order another dose of IVIG today. - Will continue to monitor her CBC every 6 hours and transfuse hemoglobin as needed as well as her platelets as needed. - Will continue to monitor her coags. She does not appear to be in DIC currently. She was also given tranexamic acid as well to help with clotting. - The patient will be given additional 1 unit PRBC today as well as an additional 2 units of platelets after her morning unit of platelets. - Will continue the patient on stress dose Solu-Medrol as well as her home medication of eltrombopag. - appreciate hematology consult recommendations. Will discuss with them about potential transfer to [facility] given her refractory ITP. Acute on chronic renal failure with non anion gap metabolic acidosis secondary to her acute renal failure. Patient also initially with lactic acidosis possibly secondary to her abdominal compartment syndrome as well as from hemorrhage which has improved. - Postoperatively, the patient had improvement in her urine output and renal function with the resolution of her abdominal compartment syndrome. - The patient's acidosis and hyperkalemia has also resolved and she has actually been requiring repletion of her potassium for hypokalemia. - Will continue to monitor her electrolytes and replete as needed. - Will continue to replete calcium as needed, particularly given her multiple PRBC transfusions. - The patient's IV fluids yesterday were discontinued as she has been significantly net positive with all of her blood product transfusions. She will be diuresed with Lasix today given her worsening hypoxia and concern for pulmonary edema and effusions. Acute respiratory failure. The patient has had worsening hypoxemia overnight and required increased FiO2 and PEEP. She does have some pulmonary vascular congestion as well as pleural effusion and suspect some of her worsening hypoxia may be from fluid overload. - Will give the patient Lasix 20 mg IV and followup with more Lasix depending on her urine output. - The patient's vent settings were adjusted as well given her respiratory alkalosis to 400/15/75 and 12. Will continue wean down FiO2 and PEEP as tolerated. - Continue with daily ABGs and chest x-rays while intubated. - Continue with vent bundle care with head of bed elevation and chlorhexidine mouthwash. - The patient is on propofol for sedation. She was added Versed as needed for sedation. - Continue with morphine as needed for pain control. - Will also check a lower extremity duplex to evaluate for deep venous thrombosis (DVT). Cardiac: Patient with a history of mild to moderate pericardial effusion on her initial echo with no evidence of tamponade. Overnight, she has been having issues with hypertension and has require as needed hydralazine. The patient did also have a head CT performed stat that overnight, which did not show any acute pathology. - Will continue to monitor her blood pressure via her arterial line and will continue hydralazine as needed as needed. With diuresis she may have further improvement in her blood pressure as well. Sepsis. Patient had increased leukocytosis and there was concern for possible micro bowel perforation as well as with her hemoperitoneum concern for a possible intra-abdominal source of infection. She continues to have some leukocytosis but has been afebrile. She is on meropenem for broad-spectrum antibiotics, which will be renally dosed and continued. DVT prophylaxis. Thromboembolism deterrents (TEDs) and sequential compressive devices (SCDs). Gastrointestinal (GI) prophylaxis. Proton pump inhibitor (PPI) twice a day. Will attempt to start trophic tube feeds as tolerated. CODE STATUS: FULL CODE. Total critical care time spent, not including procedures, approximately 50 minutes. The patient is critical and we are discussing with FRANKI Velásquez about possibility of transfer. GILMAR
[2020-04-24 16:01] LABS: CALCIUM LEVEL 6.8 MG/DL (8.5-10.1); CREATININE FOR GFR 1.58 MG/DL (0.55-1.30); GLOMERULAR FILTRATION RATE 36.9 (>51)
[2020-04-24 19:11] LABS: MEAN CORPUSCULAR HEMOGLOBIN 30.3 pg (27.0-33.0); MEAN CORPUSCULAR HGB CONC 33.7 g/dl (32.0-36.5); MEAN CORPUSCULAR VOLUME 89.9 fl (80.0-96.0); RED BLOOD COUNT 2.28 10^6/uL (4.00-5.40); WHITE BLOOD COUNT 15.4 10^3/uL (4.0-10.0)
[2020-04-24 19:14] LABS: HEMATOCRIT 20.5 % (36.0-47.0); HEMOGLOBIN 6.9 g/dl (12.0-15.5)
[2020-04-24 19:18] LABS: PLATELET COUNT, AUTOMATED 82 10^3/uL (150-450)
[2020-04-24 20:06] LABS: LYMPHOCYTES 10 % (16-44); MONOCYTES 3 % (0-5); NEUTROPHILS 87 % (28-66)
[2020-04-24 20:07] LABS: PLATELET ESTIMATE DECREASED (NORMAL)
[2020-04-24 20:08] LABS: GIANT PLATELETS 1+
[2020-04-24 20:09] LABS: ANISOCYTOSIS 1+
[2020-04-24] MEDS: PROMACTA 50 MG PO SCH (20:14)
[2020-04-24] MEDS ORDERED: FUROSEMIDE 40MG/4ML VIAL (J1940) IV ONE (23:00)
[2020-04-24 23:37] LABS: LYMPH # 0.4 10^3/uL (1.5-5.0); LYMPH % 3.3 % (24.0-44.0); MEAN CORPUSCULAR HEMOGLOBIN 30.8 pg (27.0-33.0); MEAN CORPUSCULAR HGB CONC 34.5 g/dl (32.0-36.5); MEAN CORPUSCULAR VOLUME 89.4 fl (80.0-96.0); MONO # 1.3 10^3/uL (0.0-0.8); MONO % 10.2 % (0.0-5.0); NEUTROPHILS # 10.5 10^3/uL (1.5-8.5); NEUTROPHILS % 85.9 % (36.0-66.0); RED BLOOD COUNT 2.27 10^6/uL (4.00-5.40); WHITE BLOOD COUNT 12.3 10^3/uL (4.0-10.0)
[2020-04-24 23:38] LABS: HEMATOCRIT 20.3 % (36.0-47.0); PLATELET COUNT, AUTOMATED 24 10^3/uL (150-450)
[2020-04-25] VITALS (52 sets, daily range): BP systolic 98–200; BP diastolic 50–91
[2020-04-25] MEDS: methylPREDNISolone 125MG 2ML VIAL IV SCH ×4 (00:44→18:17)
[2020-04-25] MEDS: MIDAZOLAM INJ 2MG/2ML VIAL (J2250 PER 1MG) IV PRN ×6 (00:44→21:09)
[2020-04-25] MEDS: MEROPENEM INJ 500 MG in IV 1 EA IV SCH ×3 (00:44→18:02)
[2020-04-25] MEDS: hydrALAZINE 20MG/ML 1ML VIAL (J0360 PER 20MG) IV PRN (01:08)
[2020-04-25] MEDS: MORPHINE 4 MG/ML 1ML VIAL/SYRINGE (J2270) IV PRN ×5 (01:39→16:43)
[2020-04-25] MEDS: propofoL 1,000 MG in IV 1 EA IV SCH ×5 (03:31→21:58)
[2020-04-25 05:43] LABS: ABG BASE EXCESS 2.5 (-2.0-2.0); ABG O2 SATURATION 96.1 % (95.0-99.0); ABG PARTIAL PRESSURE CO2 35.9 mmHg (35.0-45.0); ABG STANDARD HCO3 26.7 MEQ/L (22.0-26.0); ABG TOTAL CO2 27.1 MEQ/L (22.0-29.0); ABG pH (ARTERIAL) 7.478 UNITS (7.350-7.450)
[2020-04-25 05:53] LABS: BASO % 0.1 % (0.0-1.0); HEMATOCRIT 27.2 % (36.0-47.0); HEMOGLOBIN 9.2 g/dl (12.0-15.5); LYMPH # 0.8 10^3/uL (1.5-5.0); LYMPH % 5.7 % (24.0-44.0); MEAN CORPUSCULAR HEMOGLOBIN 30.1 pg (27.0-33.0); MEAN CORPUSCULAR HGB CONC 33.8 g/dl (32.0-36.5); MEAN CORPUSCULAR VOLUME 88.9 fl (80.0-96.0); MONO # 1.5 10^3/uL (0.0-0.8); MONO % 10.1 % (0.0-5.0); NEUTROPHILS % 83.3 % (36.0-66.0); RED BLOOD COUNT 3.06 10^6/uL (4.00-5.40); WHITE BLOOD COUNT 14.5 10^3/uL (4.0-10.0)
[2020-04-25 05:56] LABS: PLATELET COUNT, AUTOMATED 48 10^3/uL (150-450)
[2020-04-25 06:04] LABS: INR 1.25; PROTHROMBIN TIME 15.4 SECONDS (11.8-14.0)
[2020-04-25 06:05] LABS: PARTIAL THROMBOPLASTIN TIME 28.7 SECONDS (25.0-38.4)
[2020-04-25 06:16] LABS: CALCIUM LEVEL 6.9 MG/DL (8.5-10.1); CREATININE FOR GFR 1.67 MG/DL (0.55-1.30); GLOMERULAR FILTRATION RATE 34.6 (>51); MAGNESIUM LEVEL 2.3 MG/DL (1.8-2.4); PHOSPHORUS LEVEL 5.7 MG/DL (2.5-4.9); POTASSIUM SERUM 3.6 MEQ/L (3.5-5.1)
--- NOTE | 2020-04-25 08:12 | REP ---
Clinical: Status post intubation. Comparison: 04/24/2020. Findings: Endotracheal tube 3.5 cm above the al. Left subclavian catheter with tip in the SVC. Nasogastric tube courses below left hemidiaphragm. Surgical clips in the left upper quadrant suggest prior bariatric surgery. Mediastinal and cardiac silhouette normal. Lung huff are relatively stable and a small layering left effusion cannot definitively be excluded. No new acute process identified. Impression: 1. Lines and tubes in stable, satisfactory position. 2. Stable appearance to the opacity at the left base suggesting small layering effusion. Electronically Signed by Michelet Smith MD 04/25/2020 08:03 A
[2020-04-25] MEDS ORDERED: POTASSIUM CHLORIDE 10% LIQ 20 MEQ/15 ML UDC NG ONE (08:30)
[2020-04-25] MEDS: PANTOPRAZOLE 40MG VIAL (C9113 PER 1) IV SCH ×2 (09:10→20:40)
[2020-04-25] MEDS: CHLORHEXIDINE GLUCONATE 0.12 % 15ML UDC (PERIDEX ORAL RINSE) MT SCH ×2 (09:10→20:41)
[2020-04-25] MEDS ORDERED: POTASSIUM CHLORIDE 10% LIQ 20 MEQ/15 ML UDC PO ONE (09:45)
[2020-04-25] MEDS ORDERED: IMMUNE GLOBULIN 10% 70 GM in IV 1 EA IV SCH (09:45)
[2020-04-25] MEDS ORDERED: CALCIUM GLUCONATE 1,000 MG in D5W MINI-BAG PLUS 100 ML IV ONE (10:00)
[2020-04-25] MEDS: FUROSEMIDE 40MG/4ML VIAL (J1940) IV SCH (10:19)
[2020-04-25] MEDS ORDERED: IMMUNE GLOBULIN 10% 10 GM in IV 1 EA IV ONE (11:00)
[2020-04-25] MEDS ORDERED: IMMUNE GLOBULIN 10% 20 GM in IV 1 EA IV ONE (11:00)
[2020-04-25] MEDS ORDERED: IMMUNE GLOBULIN 10% 40 GM in IV 1 EA IV ONE (11:00)
[2020-04-25 12:34] LABS: BASO % 0.1 % (0.0-1.0); HEMATOCRIT 23.7 % (36.0-47.0); HEMOGLOBIN 8.3 g/dl (12.0-15.5); LYMPH # 0.6 10^3/uL (1.5-5.0); LYMPH % 4.4 % (24.0-44.0); MEAN CORPUSCULAR HEMOGLOBIN 31.1 pg (27.0-33.0); MEAN CORPUSCULAR VOLUME 88.8 fl (80.0-96.0); MONO # 1.8 10^3/uL (0.0-0.8); MONO % 13.2 % (0.0-5.0); NEUTROPHILS # 10.8 10^3/uL (1.5-8.5); NEUTROPHILS % 81.5 % (36.0-66.0); RED BLOOD COUNT 2.67 10^6/uL (4.00-5.40); WHITE BLOOD COUNT 13.3 10^3/uL (4.0-10.0)
[2020-04-25 12:38] LABS: PLATELET COUNT, AUTOMATED 39 10^3/uL (150-450)
[2020-04-25] MEDS ORDERED: SILVER NITRATE APPLICATOR TOP ONE ×2 (12:45→14:00)
--- NOTE | 2020-04-25 13:42 | CCN ---
DATE: 04/25/2020 The patient was seen and examined this morning during bedside rounds. Yesterday evening, the patient's platelet count had trended down slightly to below 30 K. Her hemoglobin and hematocrit had also trended down slightly. She was transfused 1 unit of packed red blood cells (PRBC) and 1 unit of platelets overnight in the evening. The patient has not had any fevers. Blood pressure remains stable. She was given additional intravenous (IV) dose of Lasix yesterday in the afternoon as well as in the evening overnight with good urine output. The patient was able to be weaned down on her FiO2 and her positive end-expiratory pressure (PEEP) with diuresis. The patient also has been more responsive, even with sedation. She is drowsy but is able to open her eyes and follow commands appropriately while on the propofol still. PHYSICAL EXAMINATION: VITAL SIGNS: Temperature 97.9, pulse 89, respirations 15, blood pressure 138/63, oxygen saturation 98% on 45% FiO2. Input 2.7 liters, output 3.3 liters, net negative 641 mL. GENERAL: Patient is intubated and sedated. She does open her eyes with touch and is able to follow commands, although is very drowsy and falls back asleep. HEENT: Normocephalic, atraumatic. Pupils are reactive to light bilaterally. There are moist mucous membranes in place . The patient has orogastric (OG) tube in place and has been tolerating trophic tube feeds. NECK: Supple. Trachea is midline. No palpable cervical adenopathy. CARDIOVASCULAR: Regular rate and rhythm, normal S1-S2. Unable to appreciate murmurs. There is a left subclavian line in place with a dressing clean, dry, and intact. PULMONARY: Somewhat improved breath sounds bilaterally with ventilated breath sounds and diminished breath sounds more on the left base. No wheezing or rhonchi noted. ABDOMEN: Soft. There is a midline incision with some oozing noted toward the inferior part of the incision. Her abdomen does not appear distended. She has two Case-Aguilar (MAURO) drains in place, one on the left and one on the right side. The right MAURO drain appears to have more bloody output and the left with more serosanguineous output. EXTREMITIES: There is improvement in her trace pitting edema in the lower extremities. She does have peripheral pulses which are palpated. LABORATORY DATA: WBC 14.5, hemoglobin 9.2, platelets are 48. Chemistry: Sodium is 144, potassium 3.6, chloride is 110, bicarbonate 28, BUN 46, creatinine is 1.67, glucose 168, calcium 6.9. PT 15.4, INR is 1.25, PTT is 28.7, fibrinogen 286. ABG: A pH 7.478, pCO2 of 35.9, pO2 of 82. IMAGING: Chest x-ray this morning shows the endotracheal (ET) tube in good position. The left subclavian line in place. There is OG tube in place. There is mild pulmonary vascular congestion and a small left pleural effusion with questionable right trace effusion. ASSESSMENT AND PLAN: Ms. Gurrola is a 49-year female with a past history of idiopathic thrombocytopenic purpura (ITP), systemic lupus erythematosus (SLE), chronic kidney disease (CKD), status post splenectomy, who presented initially for a left renal biopsy, which was complicated by hemorrhagic shock. The patient did have interventional radiology (IR) embolization of the left renal artery performed, however, continued to have evidence of ongoing bleeding and worsening abdominal distension as well as acute on chronic renal failure. The patient's biopsy results from her kidney biopsy had also showed evidence of small-bowel tissue, and there was concern for possible perforation. The patient also was thought to have renal failure secondary to abdominal compartment syndrome. She went to the operating room (OR) on 04/22/2020 with an exploratory laparotomy with evacuation of a large amount of hemoperitoneum and hematoma. There did not appear to be retroperitoneal bleeding noted and no significant bowel perforation. Postoperatively, the patient had worsening thrombocytopenia as well as disseminated intravascular coagulation (DIC). She was kept intubated and on mechanical ventilation. Hemorrhage status post renal biopsy procedure. The patient had hemorrhagic shock and since admission has required multiple units of PRBC as well as fresh frozen plasma (FFP) and platelets. She was also in DIC and worsening thrombocytopenia. The patient's DIC appears to have resolved, and her thrombocytopenia was initially unresponsive to multiple platelet transfusions. - The patient was treated with two rounds of IVIG and yesterday evening was noted to have an improvement in her platelet count after her second dose of IVIG. - Platelet count has been trending down, and she did require another transfusion overnight. This morning, as her counts are above 30 K, would hold off on further transfusions and continue to trend her complete blood counts (CBC) every 6 hours and transfuse as needed Her hemoglobin has improved. - Hematology at [facility] ([facility] was consulted about additional recommendations. There was a recommendation for a third dose of IVIG. As her platelet count is under 50 K, will give a third dose of IVIG today. - She is still on stress-dose Solu-Medrol 125 mg IV every 6 for her ITP as well as for her likely lupus nephritis. Today is day three of stress-dose steroids and so will begin tapering Solu-Medrol starting tomorrow. - The patient's coagulopathy had improved with FFP as well as with tranexamic acid She does also appear to have less output from her MAURO drains. will cont to monitor DIC panel. With her PRBC transfusions may need additional FFP. - Will discontinue potential transfer to [facility] at [facility]. Their other recommendations were consideration of Rituxan; however, the patient has previously been on Rituxan in the past and had issues with complications and infection. - Appreciate surgery consult and recommendations. They will be evaluating her incision to see if she may benefit from additional suturing or a silver nitrate application for the oozing. Acute on chronic renal failure with non-anion gap metabolic acidosis secondary to her acute renal failure. Patient with abdominal compartment syndrome contributing to her renal failure, and after her exploratory laparotomy her renal function has improved, and her acidosis has also resolved. - The patient has a history of chronic kidney disease (CKD) at baseline. Is having good urine output with the Lasix that she was given yesterday for diuresis. - Will continue with another dose of Lasix 40 mg IV. - Will continue to monitor electrolytes and replete as needed, particularly her potassium. - Will give a dose of calcium gluconate for repletion as well. - Will continue to monitor ins and outs. - Appreciate renal consult and recommendations. Acute respiratory failure status post intubation and mechanical ventilation. Yesterday the patient had worsening hypoxemia and had required increasing FiO2 and PEEP. The patient was thought to have worsening hypoxia secondary to pulmonary vascular congestion as well as pleural effusion. - With the Lasix for diuresis, the patient's FiO2 and PEEP have been able to wean down. - She is currently on pressure-regulated volume control (PRVC) at 400/15/45 and 8. We will wean her PEEP down to 6 and continue to wean down as tolerated. - Continue with daily arterial blood gases (ABGs) and chest x-rays while intubated. - Continue with ventilator bundle care with head elevation and chlorhexidine mouthwash. - The patient is on propofol for sedation with Versed as needed for agitation. She is also on morphine for analgesia. - Will continue with daily sedation vacation and weaning trials. She does appear more responsive this morning and is following commands appropriately. If she continues to improve with diuresis, she would likely be optimized for a potential weaning trial and extubation tomorrow. - The patient's lower extremity duplex was negative for DVT. Cardiac: The patient has a history of mild to moderate pericardial effusion on her initial echo with no evidence of tamponade. She also has been having episodes of hypertension requiring as-needed hydralazine, which appears to have improved with diuresis. There is also some suspicion that her hypertension which may be due to under-damped arterial (A) line based on the waveform, as it is not entirely correlating with her cuff pressures. - Would consider discontinuing A line in the next day or two. - patient has hydralazine ordered prn if SBP above 180 or DBP above 100, her BP has improved with diuresis and she has not required prn hydralazine as often Sepsis. The patient had increased leukocytosis, and there was concern for possible bowel perforation initially as well as infection with the hemoperitoneum. She does continue to have leukocytosis but has been afebrile. The patient will be continued on meropenem for now for broad-spectrum antibiotics. Deep vein thrombosis (DVT) prophylaxis. Thromboembolic deterrents (TEDs) and sequential compression devices (SCDs). Gastrointestinal (GI). Proton pump inhibitor (PPI) twice a day. - patient tolerated trophic tube feeds yesterday. - Will continue to advance tube feeds as tolerated and monitoring for residuals. CODE STATUS: Full code. Total critical care time spent, not including procedures, approximately 45 minutes MTDD
[2020-04-25 15:23] LABS: CALCIUM LEVEL 7.2 MG/DL (8.5-10.1); CREATININE FOR GFR 1.63 MG/DL (0.55-1.30); GLOMERULAR FILTRATION RATE 35.6 (>51); POTASSIUM SERUM 3.7 MEQ/L (3.5-5.1)
[2020-04-25] MEDS ORDERED: SODIUM CHLORIDE 0.9% INJ 10 ML SYR IV PRN (16:45)
[2020-04-25 18:40] LABS: HEMOGLOBIN 7.2 g/dl (12.0-15.5); MEAN CORPUSCULAR HEMOGLOBIN 32.6 pg (27.0-33.0); MEAN CORPUSCULAR HGB CONC 34.8 g/dl (32.0-36.5); MEAN CORPUSCULAR VOLUME 93.7 fl (80.0-96.0); RED BLOOD COUNT 2.21 10^6/uL (4.00-5.40); WHITE BLOOD COUNT 14.3 10^3/uL (4.0-10.0)
[2020-04-25 18:54] LABS: HEMATOCRIT 20.7 % (36.0-47.0); PLATELET COUNT, AUTOMATED 97 10^3/uL (150-450)
[2020-04-25 19:56] LABS: ATYPICAL LYMPH 18 % (0-5); LYMPHOCYTES 3 % (16-44); MONOCYTES 1 % (0-5); NEUTROPHILS 78 % (28-66)
[2020-04-25 20:02] LABS: GIANT PLATELETS 1+; PLATELET ESTIMATE DECREASED (NORMAL); POLYCHROMASIA 1+
[2020-04-25] MEDS: PROMACTA 50 MG PO SCH (20:41)
[2020-04-25] MEDS: SODIUM CHLORIDE 0.9% INJ 10 ML SYR IV SCH (20:41)
[2020-04-26] VITALS (136 sets, daily range): BP systolic 109–226; BP diastolic 61–101
[2020-04-26 01:20] LABS: BASO % 0.1 % (0.0-1.0); HEMATOCRIT 24.4 % (36.0-47.0); HEMOGLOBIN 8.3 g/dl (12.0-15.5); LYMPH # 0.5 10^3/uL (1.5-5.0); MEAN CORPUSCULAR HEMOGLOBIN 31.6 pg (27.0-33.0); MEAN CORPUSCULAR VOLUME 92.8 fl (80.0-96.0); MONO # 1.2 10^3/uL (0.0-0.8); MONO % 9.4 % (0.0-5.0); NEUTROPHILS # 11.1 10^3/uL (1.5-8.5); NEUTROPHILS % 85.6 % (36.0-66.0); RED BLOOD COUNT 2.63 10^6/uL (4.00-5.40); WHITE BLOOD COUNT 12.9 10^3/uL (4.0-10.0)
[2020-04-26 01:24] LABS: PLATELET COUNT, AUTOMATED 93 10^3/uL (150-450)
[2020-04-26] MEDS: methylPREDNISolone 125MG 2ML VIAL IV SCH ×4 (01:43→23:14)
[2020-04-26] MEDS: MEROPENEM INJ 500 MG in IV 1 EA IV SCH ×3 (01:43→17:19)
[2020-04-26 05:30] LABS: BASO % 0.2 % (0.0-1.0); HEMATOCRIT 26.4 % (36.0-47.0); LYMPH # 0.4 10^3/uL (1.5-5.0); LYMPH % 2.7 % (24.0-44.0); MEAN CORPUSCULAR HEMOGLOBIN 31.1 pg (27.0-33.0); MEAN CORPUSCULAR HGB CONC 34.1 g/dl (32.0-36.5); MEAN CORPUSCULAR VOLUME 91.3 fl (80.0-96.0); MONO # 1.5 10^3/uL (0.0-0.8); MONO % 10.7 % (0.0-5.0); NEUTROPHILS # 12.2 10^3/uL (1.5-8.5); NEUTROPHILS % 85.6 % (36.0-66.0); PLATELET COUNT, AUTOMATED 100 10^3/uL (150-450); RED BLOOD COUNT 2.89 10^6/uL (4.00-5.40); WHITE BLOOD COUNT 14.3 10^3/uL (4.0-10.0)
[2020-04-26 05:54] LABS: ABG BASE EXCESS 2.9 (-2.0-2.0); ABG HCO3 26.2 MEQ/L (22.0-26.0); ABG O2 SATURATION 92.9 % (95.0-99.0); ABG PARTIAL PRESSURE CO2 35.2 mmHg (35.0-45.0); ABG PARTIAL PRESSURE O2 65.5 mmHg (75.0-100.0); ABG TOTAL CO2 27.3 MEQ/L (22.0-29.0)
[2020-04-26 05:57] LABS: ALBUMIN 1.6 GM/DL (3.2-5.2); CALCIUM LEVEL 7.1 MG/DL (8.5-10.1); CREATININE FOR GFR 1.52 MG/DL (0.55-1.30); GLOMERULAR FILTRATION RATE 38.5 (>51); MAGNESIUM LEVEL 2.4 MG/DL (1.8-2.4); PHOSPHORUS LEVEL 4.4 MG/DL (2.5-4.9); POTASSIUM SERUM 3.7 MEQ/L (3.5-5.1)
[2020-04-26 06:00] LABS: INR 1.22; PARTIAL THROMBOPLASTIN TIME 28.9 SECONDS (25.0-38.4); PROTHROMBIN TIME 15.1 SECONDS (11.8-14.0)
[2020-04-26] MEDS ORDERED: SILVER NITRATE APPLICATOR TOP ONE (06:00)
[2020-04-26] MEDS: SODIUM CHLORIDE 0.9% INJ 10 ML SYR IV SCH ×3 (06:01→20:43)
[2020-04-26 06:03] LABS: D-DIMER QUANT 2511.84 ng/ml (<500)
[2020-04-26] MEDS: MORPHINE 4 MG/ML 1ML VIAL/SYRINGE (J2270) IV PRN ×4 (07:30→14:28)
[2020-04-26] MEDS: hydrALAZINE 20MG/ML 1ML VIAL (J0360 PER 20MG) IV PRN (07:44)
[2020-04-26] MEDS: propofoL 1,000 MG in IV 1 EA IV SCH ×5 (08:03→20:46)
[2020-04-26] MEDS: PANTOPRAZOLE 40MG VIAL (C9113 PER 1) IV SCH ×2 (08:03→20:42)
[2020-04-26] MEDS: CHLORHEXIDINE GLUCONATE 0.12 % 15ML UDC (PERIDEX ORAL RINSE) MT SCH ×2 (08:06→20:42)
--- NOTE | 2020-04-26 08:17 | IPN ---
DATE: 04/25/2020 SUBJECTIVE: The patient was seen and examined the bedside this morning in the intensive care unit (ICU). The patient remains intubated, sedated. She remains on high-dose steroids. The patient is still oozing some blood from her abdominal surgical site. However, her packed red blood cells (PRBC) requirement is going down. Her thrombocytopenia is also slightly improving now. The patient still has good urine output. She was given IV Lasix last night. Her sedation is being cut down and she is taking up on the vent now. The patient is still not requiring any pressors at this time. Blood pressures are better controlled now with the use of diuretics and hydralazine. OBJECTIVE: Vital signs: Temperature is 98.8 degrees Fahrenheit, blood pressure 161/76, pulse is 100, respiratory of 18, saturating 95% on the vent with 40% FiO2. Intake and output urine output recorded is 2.9 liters yesterday and 2.4 liters so far today since overnight. Weight in the bed scale is 76.9 kg. PHYSICAL EXAMINATION: GENERAL: The patient is intubated, sedated. She opens eyes to loud commands. She has an endotracheal tube and orogastric tube. Neck is supple. Mildly elevated jugular venous distention (JVD). CARDIOVASCULAR: S1, S2 regular rate. 2+ edema of the bilateral lower extremities and 1+ edema of the bilateral upper extremities was noted. RESPIRATORY: She is intubated. Chest is clear to auscultation bilaterally. Bilateral equal air entry. ABDOMEN: Abdomen has a midline surgical dressing. Bilateral Case-Aguilar (MAURO) drain with serosanguineous fluid. GENITOURINARY: She has an indwelling Graves catheter. MUSCULOSKELETAL: She has 2+ edema of the bilateral lower extremities. All the way up to thighs CENTRAL NERVOUS SYSTEMS ([employer]PERATOR): The patient is intubated, sedated but she opens eyes on loud commands. LAB REVIEW: CBC showed WBC of 14.3, hemoglobin is 7.2, platelets are 97. PT is 15.4, INR is 1.25, PTT is 28.7, fibrinogen 286. ABG done this morning showed a pH of 7.47, pCO2 of 35.9, pO2 82, bicarb 27, O2 sat is 96%. BMP done this morning showed sodium 144, potassium 3.6, chloride 110, bicarb 28, BUN 46, creatinine is 1.67, calcium 6.9, phosphorus 5.7, albumin of 2. Blood bank history was reviewed. So far since yesterday the patient has received 3 units of PRBC 4 units of platelets. IMAGING STUDIES: Chest x-ray was done this morning which showed lines and tubes in satisfactory position. Stable appearance of the density of left lung base. CURRENT INPATIENT MEDICATIONS: The patient's medications were all reviewed by myself. She got another dose of IVIG today. She got a dose of calcium gluconate. She continues to be on IV meropenem. She has been started on Lasix 40 mg IV. She continues to be on hydralazine 12.5 mg every 4 hours. She is on Solu-Medrol 125 mg IV every 6 hours. He was given a dose of potassium chloride 40 mEq via the nasogastric tube (NGT) one dose. ASSESSMENT/PLAN: 1. Acute nonoliguric renal failure: Patient's renal function is stable. She is tolerating the IV Lasix dosages. Creatinine has been staying stable at 1.6. Okay to continue as needed Lasix for volume overload. 2. Intraperitoneal hemorrhage after renal biopsy. The patient got the expiratory laparotomy done. She went into disseminated intravascular coagulation (DIC) after that. Clinically she is making very slow progress. She is still oozing from the surgical dressing. However, her PRBC requirement is coming down. Transfuse as needed for hemoglobin less than 8. Management of bleeding from the surgical site is as per surgical service. 3. Thrombocytopenia with history of immune thrombocytopenia purpura (ITP) and recent DIC. The patient's platelet counts are getting better. She got third dose of IVIG. She remains on high-dose steroids and the patient already has history of splenectomy in the past. As per previous documentation the patient did not respond to rituxan in the past and clinically at this time, she is not a candidate for IV rituxan. cont home dose of Eltrombopag. 4. 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 The patient is currently on pulse dose steroids that is helping with the glomerulonephritis and ITP at the same time. Rest of the immunosuppression will be done once the patient recovers from acute illness. 5. Vent dependent respiratory failure: The patient is fluid overloaded because of massive blood transfusion protocol. FiO2 requirement on the vent at this time is 40%. Use Lasix as needed for optimization of the fluid status. 6. Hypertension: As mentioned above Lasix is being used for volume overload. She is also getting IV hydralazine [id number] every 4 hours. 7. Leukocytosis and status post exploratory laparotomy: The patient is getting IV meropenem. Dose is adequate for renal function. 8. Hypocalcemia: It is secondary to recurrent blood transfusions. The patient was given IV calcium gluconate. 9. Nutrition: The patient will be started on Nepro tube feeds today. Total critical care time spent in the management of this patient this morning in the ICU excluding all the procedures was 50 minutes. MTDD
[2020-04-26] MEDS: MIDAZOLAM INJ 2MG/2ML VIAL (J2250 PER 1MG) IV PRN ×10 (08:24→23:14)
[2020-04-26] MEDS ORDERED: FUROSEMIDE 40MG/4ML VIAL (J1940) As Ordered ONE (08:36)
[2020-04-26] MEDS: FUROSEMIDE 40MG/4ML VIAL (J1940) IV SCH ×3 (08:45→19:37)
--- NOTE | 2020-04-26 09:23 | REP ---
PORTABLE CHEST X-RAY: Single view. HISTORY: Intubated patient. COMPARISON STUDY: April 25, 2020. FINDINGS: Monitoring electrodes overlie the chest. There are surgical clips in the left upper quadrant of the abdomen. A nasogastric tube enters left upper quadrant. Endotracheal tube is seen in good position at the level of proximal clavicles. A left subclavian central venous catheter terminates in the expected location of the superior vena cava. There is pleural opacity in the lower lung bases regions bilaterally consistent with bilateral pleural effusions. This appears to be somewhat larger on the left and the left hemidiaphragm remains obscured. No focal infiltrate is appreciated. IMPRESSION: Bilateral effusions. No new infiltrate. Electronically Signed by Juan King MD 04/26/2020 12:47 P
--- NOTE | 2020-04-26 10:49 | REP ---
IR CT guided kidney biopsy. IR Moderate sedation. Clinical information: Renal failure. Lupus. ITP. Physician: Dr. Mills. Procedure: The patient was advised of the benefits, risks and alternatives of the procedure and informed consent was obtained. The time-out was performed with verification of the patient's name, MRN, site of procedure and type of procedure to be performed. The patient was positioned in the prone position on the table. The site was prepped and draped in the usual sterile fashion. Moderate sedation was performed by the physician including the presence of an independent trained observer who assisted in monitoring the patient's level of consciousness and physiologic status. Following the administration of Fentanyl and Versed, the physician spent 30 minutes of continuous face to face time with the patient. Preliminary CT of the kidneys demonstrates surgical clips in the left upper quadrant from prior splenectomy. The anticipated puncture site was anesthetized with lidocaine. A 17 G coaxial needle was inserted to the posterior renal capsule, under intermittent CT guidance. An 18 Gauge biopsy device was inserted through the coaxial needle and triggered in the usual manner. A follow-up CT was performed with the needle throw in place and this demonstrates the throw of the needle within the lower pole of the left kidney and terminating 3 mm anterior to the anterior capsule, impinging on bowel wall. The biopsy needle and the coaxial needle were retracted and a second pass was made. A follow-up CT demonstrates the throw of the needle within the lower pole of the left kidney and the tip terminating at the anterior capsule. The fat plane between the kidney and the bowel is preserved. No fluid or hematoma obscuring the fat plane between the kidney and the bowel. An additional core was obtained in this position. The specimen was labeled with the patient's name and medical record number and sent for further analysis. The coaxial needle and biopsy device were removed, pressure held and hemostasis achieved. A sterile dressing was applied to the site. The patient tolerated the procedure well and was returned to the PRU in stable condition. EBL: < 5 ml. Complications: Major hemorrhage. Conclusion: 1. CT demonstrates splenectomy for ITP. Unremarkable left kidney. 2. CT -guided core kidney biopsy complicated by intraperitoneal hemorrhage and hematoma. CC Dr. Ramos CC Dr. Kline Electronically Signed by Latrice Mills MD 04/26/2020 10:47 A
--- NOTE | 2020-04-26 11:30 | REP ---
IR Mesenteric angiogram. IR Left renal angiogram. IR Super selective left renal angiogram. IR Super selective left sub segmental renal embolization. IR Ultrasound guided right common femoral artery access. Clinical Information: Hemorrhage status post left kidney biopsy. Physician: Dr Mills.Procedure: The patient was advised of the benefits, risks, and alternatives of the procedure and informed consent was obtained.A time out was performed with verification of the patient's name, MRN, site of procedure, and type of procedure to be performed. The patient was positioned in the supine position on the angiographic table. The site was prepped and draped in the usual sterile fashion.Sedation was performed by the anesthesia team. The physician spent 120 minutes of continuous [id number] time with the patient. The right femoral artery was accessed with a micropuncture kit, under ultrasound guidance. A NovaTorque wire was advanced into the aorta. The micropuncture sheath was exchanged over the wire for a a 5-Occitan vascular sheath. A SOS catheter was used to try to catheterize the inferior mesenteric artery. This wouldn't engage the origin of the KALPANA. The catheter was exchanged over the wire for a Nation one catheter. The Nation one catheter was used to catheterize the inferior mesenteric artery . KAL[place]NA angiography was performed with magnification views over upper and lower quadrants. No active extravasation seen from branches of the inferior mesenteric artery. The catheter was then used to catheterize the superior mesenteric artery. SMA angiogram was performed. This demonstrates small and large bowel branches of the SMA. No vessel cutoff. No active extravasation and no pseudoaneurysm. The catheter was used to catheterize the left lumbar artery. An arteriogram was performed and this demonstrates no active extravasation from the lumbar branch. The catheter was used under fluoroscopy guidance, to catheterize the left renal artery. A left renal angiogram was performed and this demonstrates a focal pooling of contrast in the lower pole of the left kidney associated with an early draining vein. This is in the region of the the needle tract. The micro catheter and micro wire were inserted through the diagnostic catheter and used under fluoroscopy guidance to catheterize the third order branch off the left lower pole renal artery. An arteriogram was performed and this demonstrates successful catheterization of the distal third order branch of the left renal artery supplying the area of abnormality. A coil was deployed in this distal branch. Injection of contrast demonstrates persistent filling beyond the coil. Therefore Gelfoam slurry was injected under fluoroscopy guidance into this branch. This was followed up with additional coil embolization. The micro catheter was retracted and a follow-up arteriogram was performed. This demonstrates no further flow in the embolized branch and the abnormality is no longer seen. Normal vascular supply to the lower pole of the left kidney. The catheter and wire were removed. A 5-Occitan Mynx device was deployed to close the right groin arteriotomy. Hemostasis achieved and a sterile dressing was applied to the site. Complications: None. Estimated blood loss: Less than 5 ml. Impression: 1. Superior mesenteric, inferior mesenteric and lumbar angiograms demonstrate no active arterial extravasation. 2. Left renal angiogram demonstrates focal pooling of contrast in the lower pole of the left kidney associated with an early draining vein. This is along the track of the biopsy needle. 3. IR successful coil embolization of AV fistula in the lower pole of the left kidney. Electronically Signed by Latrice Mills MD 04/26/2020 11:29 A
[2020-04-26] MEDS ORDERED: POTASSIUM CHLORIDE 10% LIQ 20 MEQ/15 ML UDC PO ONE ×2 (11:45→13:45)
[2020-04-26] MEDS: BISACODYL 10 MG SUPP PR SCH (12:11)
[2020-04-26 12:21] LABS: HEMATOCRIT 28.7 % (36.0-47.0); HEMOGLOBIN 9.7 g/dl (12.0-15.5); MEAN CORPUSCULAR HEMOGLOBIN 30.5 pg (27.0-33.0); MEAN CORPUSCULAR HGB CONC 33.8 g/dl (32.0-36.5); MEAN CORPUSCULAR VOLUME 90.3 fl (80.0-96.0); RED BLOOD COUNT 3.18 10^6/uL (4.00-5.40); WHITE BLOOD COUNT 16.7 10^3/uL (4.0-10.0)
[2020-04-26 12:24] LABS: PLATELET COUNT, AUTOMATED 220 10^3/uL (150-450)
--- NOTE | 2020-04-26 12:38 | CCN ---
DATE: 04/26/2020 START TIME: 10:08 STOP TIME: 10:51 I attended Marleen Gurrola here in the intensive care unit. The patient is examined and chart reviewed, and I spent a very lengthy time on the phone with her this morning. Maximal temperature overnight 98, blood pressure generally in the 130s-140s. Noninvasive cuff used predominantly, as the arterial line has significant overshoot. Heart rate generally in the 50s to the low 100s. Respiratory rate 15-20. Intake and output midnight to midnight 3587 mL in with 2995 mL out. Medication list has been reviewed. She remains on Solu-Medrol, but the dose has been diminished today by nephrology. She remains on meropenem, Versed, and propofol. Lasix has been restarted twice daily. White blood cell count 14.3, hemoglobin 9.0, platelet count 100,000 this morning, 85% seg. No bands. Sodium 143, potassium 3.7, chloride 110, CO2 of 30, BUN 55, creatinine 1.52, only mildly diminished from yesterday. Arterial blood gas done this morning on a pressure-regulated volume control (PRVC) mode: Rate of 15, FiO2 of 40%, positive end-expiratory pressure (PEEP) of 6. She has a pH 7.490, pCO2 of 35.2, and a pO2 of 65, saturation 92.9%. Chest x-ray shows lines and tube in good position. She does have a little bit more of an effusion on the right today. There is some underlying edema. On exam, she is sedate but anxious when aroused. She does move all extremities. Pupils do react. Sclerae clear. Chest shows decreased breath sounds potentially at the bases with some faint crackles. Expansion although diminished is symmetric. Cardiac exam is tachycardic but regular. Peripheral pulses are diminished but palpable. There is diffuse edema noted as well as multiple bruises consistent with a recent bleeding. Abdomen shows her dressings and drains are intact. Minimal serosanguineous drainage in the previous site of abdominal wall bleeding. Extremities show no cyanosis or clubbing. Neurologic as outlined above. The most pressing problems requiring my presence at the bedside: 1. Respiratory failure, multifactorial. 2. Idiopathic thrombocytopenic purpura (ITP). 3. Hemorrhage post procedure. 4. Hemorrhagic shock. 5. Acute on chronic renal failure. At this point, her steroids have been mildly diminished by nephrology. She remains with diffuse edema, and given her recent volume requirements, I do believe she would benefit from continued diuretics. I discussed this at length with her as well. She did receive the third dose of IVIG. She has not required additional platelets since March 25. She did receive 1 unit of packed red blood cells yesterday evening. She remains on frequent laboratory checks, and this will be continued for now. She is receiving enteral feeds. We will add cathartics, as she has not had a bowel movement yet. At this point, she is not ready for ventilator weaning, and I did discuss this as well with her , who is anxious to see her weaned and extubated, as are we, but certainly the time is not appropriate at this point. I have spoken with the office of Dr. Umaña and asked that she reassess the patient today, as the patient's is quite concerned that if her platelets drop again that we have a plan to deal with that. She has responded to therapy so far, and I await Dr. Umaña's input. We will proceed as outlined above. She certainly remains quite critically ill. In view of her multiorgan dysfunction, she is certainly at high risk for further compromise. I left the bedside at 10:51 hours. A total of 43 minutes of critical care delivered at the bedside, not including procedures. GILMAR
--- NOTE | 2020-04-26 12:44 | IPNPDOC ---
Date Seen The patient was seen on 04/26/20. Progress Note SUBJECTIVE: Ms. Gurrola is a 49-year-old woman with long-standing ITP. She was initially diagnosed with ITP in 1992. Previous treatment for ITP included steroids, IV immunoglobulin, rituximab, methotrexate, splenectomy x3, danazol, cyclosporin, cyclophosphamide and Nplate/romiplostim which she received from February 2009 up to January 2020. She had an episode of significant thrombocytopenia earlier this year for which she was treated with multiple doses of IV immunoglobulin, increasing doses of Nplate as well as rituximab 01/17/2020 (which was divided into 3 doses because of previous reaction to rituximab). Platelet counts only improved and with sustained improvement after she was put on eltrombopag/Promacta 02/2020. She is currently admitted for bleeding after a renal biopsy. Initial platelet count on admission was in the 60s to 80s, but acutely dropped to less than 10 on 04/22. She is currently on high dose methylprednisolone and has received 3 doses of IVIG 04/22, 04/24 and 04/25. She is also being given Promacta via NG tube. Platelet counts have been steadily improving since yesterday. She was seen today sedated and intubated in the ICU. OBJECTIVE PHYSICAL EXAMINATION: VITAL SIGNS: Please see below. GENERAL: Lying in bed, intubated, sedated. HEENT: NG tube and ET tube in place. CARDIOVASCULAR: S1, S2, tachycardic. RESPIRATORY: Fair air entry. No wheezing. ABDOMINAL: Covered with gauze. EXTREMITIES: Edema on upper and lower extremities. NEUROLOGICAL: Sedated, not responsive. LABORATORY DATA, IMAGING STUDIES, MICROBIOLOGY: Please see below. ASSESSMENT AND PLAN: Acute on chronic ITP. She also likely has platelet dysfunction because of renal insufficiency. Acute on chronic anemia secondary to bleeding, iron deficiency and renal insufficiency. Platelet counts currently improved. Continue steroids and eltrombopag. Nursing staff aware of need to hold off on oral feeds prior to and after administration of eltrombopag. Continue monitoring platelet count closely. Blood transfusion as needed. The patient previously had a reaction to rituximab and rituximab did not work fo r ITP as administered more recently January 2020. Other options if platelet counts should go down again include danazol and additional doses of IVIG. Above discussed with the patient's spouse Mr. Edaurdo Gurrola over the phone. VS, I&O, 24H, Fishbone Vital Signs/I&O Vital Signs Date Time Temp Pulse Resp B/P (MAP) Pulse Ox O2 Delivery O2 Flow Rate FiO2 04/26/20 11:23 123 17 159/83 96 Ventilator 04/26/20 11:00 40 04/26/20 08:00 97.0 04/25/20 22:21 90.0 I&O- Last 24 Hours up to 6 AM 04/26/20 06:00 Intake Total 2643 ml Output Total 2915 ml Balance -272 ml Laboratory Data 24H LABS Laboratory Tests 2 04/25/20 14:42: Anion Gap 3L, Glomerular Filtration Rate 35.6L, Calcium Level 7.2L 04/25/20 18:20: Bedside Glucose (Misc Panel) 169H 04/25/20 18:23: Neutrophils (%) (Auto) , Nucleated Red Blood Cells % (auto) 8.7H, Neutrophils 78H, Lymphocytes (Manual) 3L, Monocytes (Manual) 1, Atypical Lymphocytes 18H, Polychromasia 1+, Giant Platelets 1+, Platelet Estimate DECREASED 04/26/20 01:00: Neutrophils (%) (Auto) 85.6H, Nucleated Red Blood Cells % (auto) 8.9H, Immature Granulocyte % (Auto) 0.9, Lymphocytes (%) (Auto) 4.0L, Monocytes (%) (Auto) 9.4H, Eosinophils (%) (Auto) 0.0, Basophils (%) (Auto) 0.1, Neutrophils # (Auto) 11.1H, Lymphocytes # (Auto) 0.5L, Monocytes # (Auto) 1.2H, Eosinophils # (Auto) 0.0, Basophils # (Auto) 0.0 04/26/20 05:17: Immature Granulocyte % (Auto) 0.8, Neutrophils (%) (Auto) 85.6H, Lymphocytes (%) (Auto) 2.7L, Monocytes (%) (Auto) 10.7H, Eosinophils (%) (Auto) 0.0, Basophils (%) (Auto) 0.2, Neutrophils # (Auto) 12.2H, Lymphocytes # (Auto) 0.4L, Monocytes # (Auto) 1.5H, Eosinophils # (Auto) 0.0, Basophils # (Auto) 0.0, Nucleated Red Blood Cells % (auto) 9.7H, Anion Gap 3L, Glomerular Filtration Rate 38.5L, Calcium Level 7.1L, Phosphorus Level 4.4#, Magnesium Level 2.4, Albumin 1.6L 04/26/20 05:26: Blood Gas Bicarbonate Standard 27.0H, Arterial Blood pH 7.490H, Arterial Blood Partial Pressure CO2 35.2, Arterial Blood Partial Pressure O2 65.5L, Arterial Blood Total CO2 27.3, Arterial Blood HCO3 26.2H, Arterial Blood Base Excess 2.9H, Arterial Blood Oxygen Saturation 92.9L 04/26/20 06:00: Prothrombin Time 15.1H, Prothromb Time International Ratio 1.22, Activated Partial Thromboplast Time 28.9, Fibrinogen 178L, D-Dimer, Quantitative 2511.84H 04/26/20 12:08: Neutrophils (%) (Auto) , Nucleated Red Blood Cells % (auto) 12.6H CBC/BMP Laboratory Tests 04/25/20 14:42 04/25/20 18:23 04/26/20 01:00 04/26/20 05:17 04/26/20 12:08 Microbiology Microbiology 04/22/20 Gram Stain - Final, Complete 04/22/20 Wound Culture - Final, Complete 04/22/20 Anaerobic Culture - Final, Complete 04/21/20 Respiratory Virus Panel (PCR) ([facility]LLA) - Final, Complete KEVIN GORDILLO MD Apr 26, 2020 12:44
[2020-04-26 12:48] LABS: LYMPHOCYTES 6 % (16-44); MONOCYTES 8 % (0-5); NEUTROPHILS 86 % (28-66)
[2020-04-26 12:49] LABS: ANISOCYTOSIS 1+; GIANT PLATELETS 1+; PLATELET ESTIMATE NORMAL (NORMAL); POLYCHROMASIA 1+
[2020-04-26 12:52] LABS: ALBUMIN 1.7 GM/DL (3.2-5.2); CALCIUM LEVEL 7.2 MG/DL (8.5-10.1); CREATININE FOR GFR 1.47 MG/DL (0.55-1.30); GLOMERULAR FILTRATION RATE 40.1 (>51); POTASSIUM SERUM 3.3 MEQ/L (3.5-5.1)
[2020-04-26] MEDS: MORPHINE 2 MG/ML 1ML VIAL (J2270) IV PRN ×2 (18:02→20:00)
[2020-04-26 18:17] LABS: HEMATOCRIT 28.5 % (36.0-47.0); HEMOGLOBIN 9.5 g/dl (12.0-15.5); MEAN CORPUSCULAR HEMOGLOBIN 30.5 pg (27.0-33.0); MEAN CORPUSCULAR HGB CONC 33.3 g/dl (32.0-36.5); MEAN CORPUSCULAR VOLUME 91.6 fl (80.0-96.0); PLATELET COUNT, AUTOMATED 204 10^3/uL (150-450); RED BLOOD COUNT 3.11 10^6/uL (4.00-5.40); WHITE BLOOD COUNT 19.3 10^3/uL (4.0-10.0)
[2020-04-26 18:41] LABS: ALBUMIN 1.7 GM/DL (3.2-5.2); CALCIUM LEVEL 7.3 MG/DL (8.5-10.1); CREATININE FOR GFR 1.53 MG/DL (0.55-1.30); GLOMERULAR FILTRATION RATE 38.2 (>51); PHOSPHORUS LEVEL 3.4 MG/DL (2.5-4.9); POTASSIUM SERUM 4.6 MEQ/L (3.5-5.1)
[2020-04-26 18:47] LABS: ANISOCYTOSIS 2+; ATYPICAL LYMPH 2 % (0-5); LYMPHOCYTES 11 % (16-44); MONOCYTES 11 % (0-5); MYELOCYTES 2 % (0-0); NEUTROPHILS 74 % (28-66)
[2020-04-26 18:48] LABS: GIANT PLATELETS 1+; PLATELET CLUMPS SMALL AMT; PLATELET ESTIMATE NORMAL (NORMAL); POLYCHROMASIA 1+
[2020-04-26] MEDS ORDERED: VANCOMYCIN HCL 1,000 MG, VIAL MATE ADAPTER 1 EACH in D5W 250 ML IV SCH (20:00)
[2020-04-26] MEDS ORDERED: VANCOMYCIN HCL 500 MG in D5W MINI-BAG PLUS 100 ML IV ONE (21:00)
[2020-04-26] MEDS: PROMACTA 50 MG PO SCH (21:02)
[2020-04-27] VITALS (34 sets, daily range): BP systolic 116–203; BP diastolic 67–109
[2020-04-27] MEDS: propofoL 1,000 MG in IV 1 EA IV SCH ×4 (00:06→09:34)
[2020-04-27 00:13] LABS: HEMATOCRIT 26.9 % (36.0-47.0); HEMOGLOBIN 8.9 g/dl (12.0-15.5); MEAN CORPUSCULAR HEMOGLOBIN 30.8 pg (27.0-33.0); MEAN CORPUSCULAR HGB CONC 33.1 g/dl (32.0-36.5); MEAN CORPUSCULAR VOLUME 93.1 fl (80.0-96.0); PLATELET COUNT, AUTOMATED 130 10^3/uL (150-450); RED BLOOD COUNT 2.89 10^6/uL (4.00-5.40); WHITE BLOOD COUNT 23.9 10^3/uL (4.0-10.0)
[2020-04-27 00:17] LABS: ALBUMIN 1.6 GM/DL (3.2-5.2); CALCIUM LEVEL 7.2 MG/DL (8.5-10.1); CREATININE FOR GFR 1.44 MG/DL (0.55-1.30); PHOSPHORUS LEVEL 3.3 MG/DL (2.5-4.9); POTASSIUM SERUM 4.2 MEQ/L (3.5-5.1)
[2020-04-27 00:36] LABS: LYMPHOCYTES 7 % (16-44); MONOCYTES 6 % (0-5); NEUTROPHILS 87 % (28-66)
[2020-04-27 00:37] LABS: PLATELET ESTIMATE DECREASED (NORMAL)
[2020-04-27 00:38] LABS: ANISOCYTOSIS 1+
[2020-04-27 00:39] LABS: GIANT PLATELETS 1+
[2020-04-27] MEDS: MEROPENEM INJ 500 MG in IV 1 EA IV SCH ×2 (01:29→08:24)
[2020-04-27] MEDS: MIDAZOLAM INJ 2MG/2ML VIAL (J2250 PER 1MG) IV PRN ×6 (01:29→11:18)
[2020-04-27] MEDS: MORPHINE 2 MG/ML 1ML VIAL (J2270) IV PRN ×4 (02:09→09:01)
[2020-04-27 05:20] LABS: HEMATOCRIT 27.2 % (36.0-47.0); HEMOGLOBIN 8.9 g/dl (12.0-15.5); MEAN CORPUSCULAR HEMOGLOBIN 30.6 pg (27.0-33.0); MEAN CORPUSCULAR HGB CONC 32.7 g/dl (32.0-36.5); MEAN CORPUSCULAR VOLUME 93.5 fl (80.0-96.0); PLATELET COUNT, AUTOMATED 155 10^3/uL (150-450); RED BLOOD COUNT 2.91 10^6/uL (4.00-5.40); WHITE BLOOD COUNT 24.7 10^3/uL (4.0-10.0)
[2020-04-27 05:40] LABS: ALBUMIN 1.6 GM/DL (3.2-5.2); CALCIUM LEVEL 7.2 MG/DL (8.5-10.1); CREATININE FOR GFR 1.33 MG/DL (0.55-1.30); MAGNESIUM LEVEL 2.6 MG/DL (1.8-2.4); PHOSPHORUS LEVEL 3.2 MG/DL (2.5-4.9); POTASSIUM SERUM 4.4 MEQ/L (3.5-5.1)
[2020-04-27 05:42] LABS: ANISOCYTOSIS 1+; LYMPHOCYTES 4 % (16-44); MONOCYTES 7 % (0-5); NEUTROPHILS 89 % (28-66); PLATELET ESTIMATE NORMAL (NORMAL)
[2020-04-27] MEDS: SODIUM CHLORIDE 0.9% INJ 10 ML SYR IV SCH (05:47)
[2020-04-27 05:53] LABS: ABG BASE EXCESS 1.9 (-2.0-2.0); ABG HCO3 24.9 MEQ/L (22.0-26.0); ABG O2 SATURATION 94.2 % (95.0-99.0); ABG PARTIAL PRESSURE CO2 33.4 mmHg (35.0-45.0); ABG PARTIAL PRESSURE O2 71.2 mmHg (75.0-100.0); ABG STANDARD HCO3 26.1 MEQ/L (22.0-26.0); ABG pH (ARTERIAL) 7.491 UNITS (7.350-7.450)
[2020-04-27] MEDS: methylPREDNISolone 125MG 2ML VIAL IV SCH (06:15)
--- NOTE | 2020-04-27 08:09 | REP ---
Clinical: Status post intubation. Comparison: 04/26/2020. Findings: Endotracheal tube 4 cm above the al. Left subclavian catheter with tip in the SVC. Nasogastric tube side port is at the level of diaphragm and warrants advancement. Mediastinum and cardiac silhouette are normal. Left lower lobe/retrocardiac consolidation and suspected bilateral layering effusions with passive atelectasis essentially unchanged. No pneumothorax. Skeletal structures intact. Impression: 1. Nasogastric tube may warrant advancement. 2. Left lower lobe consolidation along with bibasilar atelectasis and layering pleural effusions unchanged. Electronically Signed by Michelet Smith MD 04/27/2020 07:59 A
[2020-04-27] MEDS: PANTOPRAZOLE 40MG VIAL (C9113 PER 1) IV SCH (08:24)
[2020-04-27] MEDS: BISACODYL 10 MG SUPP PR SCH (08:24)
[2020-04-27] MEDS: CHLORHEXIDINE GLUCONATE 0.12 % 15ML UDC (PERIDEX ORAL RINSE) MT SCH (08:24)
--- NOTE | 2020-04-27 08:50 | IPN ---
DATE: 04/26/2020 SUBJECTIVE The patient was seen and examined at the bedside today morning in the ICU. The patient remains intubated and sedated. She was started on Jevity tube feeds. She is tolerating the tube feeds at 30 mL an hour. Renal function is stable, creatinine is stable at 1.5. The patient is nonoliguric. She responded well to the diuretics dose yesterday. She is oxygenating well and her FIO2 requirement is 40% on the vent at this time. She got one of the bleeding sites from the surgical wound cauterized yesterday. Her PRBC requirement is going down. When I saw her, she had received only 2 units of PRBC since yesterday. She was also given 1 unit of platelets and her platelet count is better now. The patient is unable to provide any review of systems because she is intubated and sedated. OBJECTIVE Vital signs: Temperature is 97.5 degrees Fahrenheit, blood pressure 165/77, pulse is 102, respiratory rate of 16, saturating 93% on the vent with 40% FIO2. Intake and output: Urine output recorded is 2.6 liters yesterday and it was 895 mL in the morning when I saw her. PHYSICAL EXAMINATION General: The patient is intubated, sedated, eyes are closed. HEENT: The pupils are equally round and reactive to light. She has an endotracheal tube and orogastric tube. Neck: Supple. Moderately elevated JVD. Cardiovascular: S1, S2, tachycardia, 2+ edema of the bilateral lower extremities. Respiratory: Mildly decreased breath sounds at the bases, otherwise no active rales or rhonchi. Abdomen: Slightly distended. She has a surgical dressing in the midline and dressing is a slightly soaked with blood. She has two MAURO drains in both the flanks and they have serosanguineous fluid. Genitourinary: She has an indwelling Graves catheter at this time. Musculoskeletal: She has 2+ edema of the bilateral lower extremities and 1+ edema of the bilateral upper extremities. 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 LABORATORY REVIEW CBC showed a WBC of 19.3, hemoglobin 9.5, platelets of 204. ABG done today morning showed pH of 47.49, pCO2 of 35, pO2 of 65, bicarb is 26. O2 sat is 92%. BMP done today morning showed sodium 144, potassium 3.3, chloride 110, bicarb 29, BUN 57, creatinine 1.47, calcium 7.2, albumin 1.7. IMAGING STUDIES A chest x-ray done today morning showed bilateral effusions. No new infiltrates. Left effusion is greater than right. CURRENT INPATIENT MEDICATIONS The patient's medications were all reviewed by me. She continues to be on propofol. She continues to be on IV meropenem. She is getting vancomycin 1 gram IV q. 24. She has been started on Lasix 40 mg IV q. 12 hourly. I have decreased the Solu-Medrol dose to 60 mg IV q. eight hourly. She was given one dose of potassium chloride 40 mEq. No other significant change in the medications today as compared with yesterday. ASSESSMENT/PLAN 1. Chronic kidney disease stage III. Patient's renal function is stable. She developed acute oliguric renal failure during this hospitalization. However, now creatinine is staying stable around 1.5-1.6, which is baseline. Okay to continue diuretics at this time. 2. Intraperitoneal hemorrhage after renal biopsy status post exploratory laparotomy and evacuation of clot. The patient's blood requirement is going down now. She only received 2 units of PRBC transfusion yesterday. Her platelet counts are also getting better. 3. Thrombocytopenia with history of ITP and recent DIC after surgery. The patient's platelet counts are better. She is status post IVIG she is also on high-dose steroids. She has a history of splenectomy in the past. Hematology/Oncology also on board. Transfuse p.r.n. only. 4. Crescentic glomerulonephritis with proteinuria and history of SLE. Patient is already getting high dose steroids, which is helping with glomerulonephritis and ITP at the same time. 5. Vent-dependent respiratory failure. The patient's FIO2 requirement is 40%. She is in positive fluid balance and bilateral effusions on x-ray. She has been started on Lasix 40 mg IV twice a day. If tolerated, this dose will be increased tomorrow morning. 6. Hypertension. It is secondary to fluid overload. She is getting p.r.n. hydralazine and Lasix as mentioned above. 7. Nutrition. The patient is getting Nepro tube feeds and she is tolerating it well. 8. Hypokalemia. The patient was already given of potassium chloride in the morning. Repeat potassium level is within the acceptable range. Total critical care time spent in the management of this patient today morning in the ICU excluding procedures was 40 minutes. MTDD
[2020-04-27] MEDS ORDERED: NYSTATIN 100,000 UNITS/GM TOPICAL PWD 15 GM TOP SCH (09:00)
[2020-04-27] MEDS: FUROSEMIDE 40MG/4ML VIAL (J1940) IV SCH (09:01)
--- NOTE | 2020-04-27 11:07 | CCN ---
DATE OF VISIT: 04/27/2020 START TIME: 906 STOP TIME: 947 I again attended Marleen Gurrola here in the intensive care unit. The patient has been examined and the chart reviewed. She remains intubated, sedated and mechanically ventilated. T-max overnight 98.4, blood pressure generally 116 to 140s by the noninvasive cuff. The arterial line still has significant overshoot. Heart rate generally 60 to the low 100s with a sinus mechanism. Respiratory rate 15 to 20. Ins and outs midnight to midnight 2400 mL in with 3535 mL out. The most recent laboratories show a white blood cell count of 24.7, 89% segmented neutrophils, 0 bands, hemoglobin 8.9 and platelet count 155,000 this morning. Sodium 147, potassium 4.4, chloride 114, CO2 29, BUN 59, creatinine down to 1.33. Arterial blood gas done on a PRVC, rate of 15, tidal volume of 400, PEEP of 6, and FiO2 of 40% has a pH of 7.491, pCO2 of 33.4 and pO2 of 71.2. Chest x-ray shows lines and tubes in good position, a little less edema today, persistent small pleural effusions. On exam, she is sedate, but moves all extremities when stimulated. Pupils do react. Sclerae are clear. Trachea is in the midline. Chest is clear to both auscultation and percussion. Her breath sounds are diminished dependently. Maybe the faintest of crackles dependently bilaterally. No rubs or wheezes. Cardiac exam is generally regular. Her edema is mildly less. Abdomen shows her dressings and drains are intact. They have minimal output today. Extremities show her hematoma in the antecubital fossa essentially unchanged, but overall she appears to have less edema. Neurologically, she is sedate, but does move all extremities. The most pressing problems requiring my presence at the bedside: 1. Respiratory alkalosis. 2. Respiratory failure requiring mechanical ventilation support. 3. Renal failure, acute on chronic. 4. Disseminated intravascular coagulation, resolved 5. Hemorrhagic shock, resolved. 6. Idiopathic thrombocytopenia purpura (ITP) with recent flare, appears to be responding to therapy. 7. Intra-abdominal hemorrhage, status post laparotomy. At this point, will make ventilator changes in hopes of achieving some weaning. Will continue to lighten her sedation as she is able. Given her mildly elevated sodium, her diuretics are only once daily and we will supplement her with some free water down her feeding tube. She is receiving daily cathartics. She does have some bowel sounds and I am hoping that that will progress. From an infectious disease standpoint, she remains on broad spectrum antimicrobials. Although her white count is probably on the basis of her steroids, vancomycin was added yesterday empirically as she is certainly at risk for methicillin-resistant Staphylococcus aureus (MRSA). I updated her yesterday. I am told he has a meeting with Dr. Umaña from hematology this morning. She remains on ulcer prophylaxis. Ventilator bundle remains in place. She has some mild intertriginous yeast and Nystatin powder was ordered. We will proceed as outlined above. She remains critically ill with multi organ dysfunction. I left the beside at 0948 hours. A total of 35 minutes of critical care time was delivered at the bedside, not including procedures.
[2020-04-27 11:23] LABS: ABG pH (ARTERIAL) 7.461 UNITS (7.350-7.450)
[2020-04-27 11:24] LABS: ABG BASE EXCESS 3.3 (-2.0-2.0); ABG HCO3 27.2 MEQ/L (22.0-26.0); ABG O2 SATURATION 94.9 % (95.0-99.0); ABG PARTIAL PRESSURE CO2 39.1 mmHg (35.0-45.0); ABG PARTIAL PRESSURE O2 75.1 mmHg (75.0-100.0); ABG STANDARD HCO3 27.3 MEQ/L (22.0-26.0); ABG TOTAL CO2 28.4 MEQ/L (22.0-29.0)
[2020-04-29] MEDS ORDERED: NYSTATIN 500,000 U/5 ML SUSP UDC ONE (01:02)
[2020-04-29] MEDS ORDERED: BISACODYL 10 MG SUPP ONE (01:02)
[2020-04-29] MEDS ORDERED: PANTOPRAZOLE 40MG VIAL (C9113 PER 1) ONE ×2 (01:02)
[2020-04-29] MEDS ORDERED: MEROPENEM 500MG IN NACL 0.9% 50ML IVBAG (J2185 PER 100MG) ONE (01:02)
[2020-04-29] MEDS ORDERED: NYSTATIN 100,000 UNITS/GM TOPICAL PWD 15 GM ONE (01:02)
[2020-04-29] MEDS ORDERED: CHLORHEXIDINE GLUCONATE 0.12 % 15ML UDC (PERIDEX ORAL RINSE) ONE ×2 (01:02)
[2020-04-29] MEDS ORDERED: traZODone 50 MG TAB ONE (01:02)
[2020-04-29] MEDS ORDERED: methylPREDNISolone 125MG 2ML VIAL ONE (01:02)
[2020-04-29] MEDS ORDERED: MORPHINE 2 MG/ML 1ML VIAL (J2270) ONE ×2 (01:02)
[2020-04-29] MEDS ORDERED: MULTIVITAMINS/MINERALS THERAP 1 TAB ONE (01:02)
[2020-04-29] MEDS ORDERED: FUROSEMIDE 40MG/4ML VIAL (J1940) ONE (01:02)
[2020-04-29] MEDS ORDERED: MULTIVITAMINS/MINERALS THERAP 1 TAB As Ordered ONE (09:47)
[2020-04-29] MEDS ORDERED: DANAZOL 200 MG ONE (11:30)
[2020-04-29] MEDS ORDERED: methylPREDNISolone 125MG 2ML VIAL As Ordered ONE (18:08)
[2020-04-29] MEDS ORDERED: traZODone 50 MG TAB As Ordered ONE (20:15)
[2020-04-29] MEDS ORDERED: NYSTATIN 500,000 U/5 ML SUSP UDC As Ordered ONE (23:59)
[2020-04-30] MEDS ORDERED: NYSTATIN 500,000 U/5 ML SUSP UDC ONE ×3 (05:41→11:37)
[2020-04-30] MEDS ORDERED: methylPREDNISolone 125MG 2ML VIAL ONE ×2 (05:41→06:17)
[2020-04-30] MEDS ORDERED: VANCOMYCIN 1000MG/20ML VIAL ONE ×2 (06:17→11:37)
[2020-04-30] MEDS ORDERED: methylPREDNISolone 125MG 2ML VIAL As Ordered ONE ×2 (06:17→17:41)
[2020-04-30] MEDS ORDERED: NYSTATIN 500,000 U/5 ML SUSP UDC As Ordered ONE ×3 (06:17→17:41)
[2020-04-30] MEDS ORDERED: MULTIVITAMINS/MINERALS THERAP 1 TAB ONE (06:17)
[2020-04-30] MEDS ORDERED: PANTOPRAZOLE 40MG VIAL (C9113 PER 1) ONE ×2 (06:17→11:37)
[2020-04-30] MEDS ORDERED: MEROPENEM 500MG IN NACL 0.9% 50ML IVBAG (J2185 PER 100MG) ONE ×2 (06:17→11:37)
[2020-04-30] MEDS ORDERED: VANCOMYCIN 1000MG/20ML VIAL As Ordered ONE ×2 (06:17→20:31)
[2020-04-30] MEDS ORDERED: IMMUNE GLOBULIN 10% 10GM 100ML BOTTLE (PRIVIGEN) (J1459 PER 500MG) ONE (10:00)
[2020-04-30] MEDS ORDERED: IMMUNE GLOBULIN 10% 40GM 400ML BOTTLE (PRIVIGEN) (J1459 PER 500MG) ONE (10:00)
[2020-04-30] MEDS ORDERED: IMMUNE GLOBULIN 10% 20GM 200ML BOTTLE (PRIVIGEN) (J1459 PER 500MG) ONE (10:00)
[2020-04-30] MEDS ORDERED: MULTIVITAMINS/MINERALS THERAP 1 TAB As Ordered ONE (10:45)
[2020-04-30] MEDS ORDERED: MEROPENEM 500MG IN NACL 0.9% 50ML IVBAG (J2185 PER 100MG) As Ordered ONE ×2 (11:15→16:38)
[2020-04-30] MEDS ORDERED: DANAZOL 200 MG ONE (13:00)
[2020-05-01] MEDS ORDERED: NYSTATIN 500,000 U/5 ML SUSP UDC As Ordered ONE ×3 (00:40→18:06)
[2020-05-01] MEDS ORDERED: NYSTATIN 500,000 U/5 ML SUSP UDC ONE ×3 (06:06→12:40)
[2020-05-01] MEDS ORDERED: methylPREDNISolone 125MG 2ML VIAL ONE ×2 (06:06→12:40)
[2020-05-01] MEDS ORDERED: PANTOPRAZOLE 40MG TAB (PROTONIX) ONE ×2 (06:06→09:33)
[2020-05-01] MEDS ORDERED: methylPREDNISolone 125MG 2ML VIAL As Ordered ONE ×2 (06:14→18:06)
[2020-05-01] MEDS ORDERED: MULTIVITAMINS/MINERALS THERAP 1 TAB As Ordered ONE (09:33)
[2020-05-01] MEDS ORDERED: MULTIVITAMINS/MINERALS THERAP 1 TAB ONE (09:33)
[2020-05-01] MEDS ORDERED: PANTOPRAZOLE 40MG TAB (PROTONIX) As Ordered ONE ×2 (09:33→21:46)
[2020-05-01] MEDS ORDERED: IMMUNE GLOBULIN 10% 40GM 400ML BOTTLE (PRIVIGEN) (J1459 PER 500MG) ONE ×2 (10:00→21:00)
[2020-05-01] MEDS ORDERED: IMMUNE GLOBULIN 10% 20GM 200ML BOTTLE (PRIVIGEN) (J1459 PER 500MG) ONE ×2 (10:00→21:00)
[2020-05-01] MEDS ORDERED: IMMUNE GLOBULIN 10% 10GM 100ML BOTTLE (PRIVIGEN) (J1459 PER 500MG) ONE ×2 (10:00→21:00)
[2020-05-01] MEDS ORDERED: PREPARATION H SUPP (HEMORRHOID) ONE (13:00)
[2020-05-01] MEDS ORDERED: NYSTATIN 100,000 UNITS/GM TOPICAL PWD 15 GM ONE (13:00)
[2020-05-02] MEDS ORDERED: NYSTATIN 500,000 U/5 ML SUSP UDC As Ordered ONE ×3 (00:51→23:21)
[2020-05-02] MEDS ORDERED: methylPREDNISolone 125MG 2ML VIAL As Ordered ONE (07:02)
[2020-05-02] MEDS ORDERED: PANTOPRAZOLE 40MG TAB (PROTONIX) ONE (09:47)
[2020-05-02] MEDS ORDERED: methylPREDNISolone 125MG 2ML VIAL ONE ×2 (09:48→18:11)
[2020-05-02] MEDS ORDERED: MULTIVITAMINS/MINERALS THERAP 1 TAB ONE (09:49)
[2020-05-02] MEDS ORDERED: MEROPENEM 500MG IN NACL 0.9% 50ML IVBAG (J2185 PER 100MG) ONE (11:30)
[2020-05-02] MEDS ORDERED: ELTROMBOPAG OLAMINE 50 MG ONE (13:00)
[2020-05-02] MEDS ORDERED: NYSTATIN 500,000 U/5 ML SUSP UDC ONE ×2 (14:05→18:11)
[2020-05-02] MEDS ORDERED: PANTOPRAZOLE 40MG TAB (PROTONIX) As Ordered ONE (22:35)
[2020-05-03] MEDS ORDERED: NYSTATIN 500,000 U/5 ML SUSP UDC As Ordered ONE ×2 (06:50→17:54)
[2020-05-03] MEDS ORDERED: methylPREDNISolone 125MG 2ML VIAL As Ordered ONE (06:50)
[2020-05-03] MEDS ORDERED: DANAZOL 200 MG ONE (09:00)
[2020-05-03] MEDS ORDERED: PREPARATION H SUPP (HEMORRHOID) ONE (09:00)
[2020-05-03] MEDS ORDERED: MULTIVITAMINS/MINERALS THERAP 1 TAB ONE ×2 (09:10→13:00)
[2020-05-03] MEDS ORDERED: PANTOPRAZOLE 40MG TAB (PROTONIX) ONE (09:11)
[2020-05-03] MEDS ORDERED: NYSTATIN 500,000 U/5 ML SUSP UDC ONE (12:04)
[2020-05-03] MEDS ORDERED: amLODIPine 5 MG TAB ONE (18:19)
[2020-05-04] MEDS ORDERED: predniSONE 20 MG TAB ONE (00:57)
[2020-05-04] MEDS ORDERED: predniSONE 10 MG TAB ONE (00:57)
[2020-05-04] MEDS ORDERED: PANTOPRAZOLE 40MG TAB (PROTONIX) ONE (00:57)
[2020-05-04] MEDS ORDERED: MULTIVITAMINS/MINERALS THERAP 1 TAB As Ordered ONE (09:23)
[2020-05-04] MEDS ORDERED: PANTOPRAZOLE 40MG TAB (PROTONIX) As Ordered ONE ×2 (09:23→21:41)
[2020-05-04] MEDS ORDERED: predniSONE 10 MG TAB As Ordered ONE ×2 (09:24→21:41)
[2020-05-04] MEDS ORDERED: NYSTATIN 500,000 U/5 ML SUSP UDC As Ordered ONE (13:45)
[2020-05-04] MEDS ORDERED: amLODIPine 5 MG TAB As Ordered ONE ×2 (13:45→21:42)
[2020-05-05] MEDS ORDERED: PANTOPRAZOLE 40MG TAB (PROTONIX) As Ordered ONE ×2 (09:17→20:58)
[2020-05-05] MEDS ORDERED: MULTIVITAMINS/MINERALS THERAP 1 TAB As Ordered ONE (09:17)
[2020-05-05] MEDS ORDERED: amLODIPine 5 MG TAB As Ordered ONE ×2 (09:18→20:59)
[2020-05-05] MEDS ORDERED: predniSONE 10 MG TAB As Ordered ONE ×2 (09:18→20:58)
[2020-05-05] MEDS ORDERED: DANAZOL 200 MG ONE (11:00)
[2020-05-05] MEDS ORDERED: PREPARATION H SUPP (HEMORRHOID) ONE (11:00)
[2020-05-05] MEDS ORDERED: predniSONE 20 MG TAB As Ordered ONE (20:58)
[2020-05-06] MEDS ORDERED: MULTIVITAMINS/MINERALS THERAP 1 TAB As Ordered ONE (09:24)
[2020-05-06] MEDS ORDERED: PANTOPRAZOLE 40MG TAB (PROTONIX) As Ordered ONE ×2 (09:24→20:47)
[2020-05-06] MEDS ORDERED: predniSONE 10 MG TAB As Ordered ONE ×2 (09:25→20:48)
[2020-05-06] MEDS ORDERED: amLODIPine 5 MG TAB As Ordered ONE ×2 (09:25→20:48)
[2020-05-06] MEDS ORDERED: PATIROMER SORBITEX CALCIUM 8.4 GM POWDER PACKET (VELTASSA) ONE ×2 (13:00)
[2020-05-06] MEDS ORDERED: DOCUSATE SODIUM 100 MG CAP As Ordered ONE ×3 (15:53→20:48)
[2020-05-07] MEDS ORDERED: DOCUSATE SODIUM 100 MG CAP As Ordered ONE ×2 (08:41→20:35)
[2020-05-07] MEDS ORDERED: PANTOPRAZOLE 40MG TAB (PROTONIX) As Ordered ONE ×2 (08:41→20:36)
[2020-05-07] MEDS ORDERED: amLODIPine 5 MG TAB As Ordered ONE ×2 (08:42→20:36)
[2020-05-07] MEDS ORDERED: predniSONE 10 MG TAB As Ordered ONE (08:42)
[2020-05-07] MEDS ORDERED: PATIROMER SORBITEX CALCIUM 8.4 GM POWDER PACKET (VELTASSA) ONE (15:00)
[2020-05-07] MEDS ORDERED: predniSONE 20 MG TAB As Ordered ONE (20:35)
[2020-05-08] MEDS ORDERED: DOCUSATE SODIUM 100 MG CAP As Ordered ONE ×3 (08:58→19:58)
[2020-05-08] MEDS ORDERED: PANTOPRAZOLE 40MG TAB (PROTONIX) As Ordered ONE ×2 (08:58→20:00)
[2020-05-08] MEDS ORDERED: MULTIVITAMINS/MINERALS THERAP 1 TAB As Ordered ONE (08:58)
[2020-05-08] MEDS ORDERED: predniSONE 10 MG TAB As Ordered ONE (08:59)
[2020-05-08] MEDS ORDERED: amLODIPine 5 MG TAB As Ordered ONE ×2 (08:59→20:00)
[2020-05-08] MEDS ORDERED: PATIROMER SORBITEX CALCIUM 8.4 GM POWDER PACKET (VELTASSA) ONE (12:00)
[2020-05-08] MEDS ORDERED: predniSONE 20 MG TAB As Ordered ONE (20:00)
[2020-05-09] MEDS ORDERED: DOCUSATE SODIUM 100 MG CAP As Ordered ONE ×2 (08:21→21:40)
[2020-05-09] MEDS ORDERED: PANTOPRAZOLE 40MG TAB (PROTONIX) As Ordered ONE ×2 (08:21→21:41)
[2020-05-09] MEDS ORDERED: MULTIVITAMINS/MINERALS THERAP 1 TAB As Ordered ONE (08:21)
[2020-05-09] MEDS ORDERED: amLODIPine 5 MG TAB As Ordered ONE ×2 (08:22→21:41)
[2020-05-09] MEDS ORDERED: predniSONE 10 MG TAB As Ordered ONE (08:22)
[2020-05-09] MEDS ORDERED: predniSONE 20 MG TAB As Ordered ONE (21:41)
[2020-05-10] MEDS ORDERED: PANTOPRAZOLE 40MG TAB (PROTONIX) As Ordered ONE (08:59)
[2020-05-10] MEDS ORDERED: DOCUSATE SODIUM 100 MG CAP As Ordered ONE (08:59)
[2020-05-10] MEDS ORDERED: amLODIPine 5 MG TAB As Ordered ONE (09:00)
[2020-05-10] MEDS ORDERED: predniSONE 10 MG TAB As Ordered ONE (09:01)
[2020-05-10] MEDS ORDERED: DANAZOL 200 MG ONE (11:00)
[2020-06-01] MEDS ORDERED: PRED20TA PO (13:32)
[2020-06-01] MEDS ORDERED: AMLO1TAB24 PO (13:33)
[2020-06-01] MEDS ORDERED: PROT1TAB2 PO (13:35)
[2020-06-01] MEDS ORDERED: CELL500T PO (13:36)
[2020-06-09 04:59] LABS: HEMATOCRIT 26.8 % (36.0-47.0); HEMOGLOBIN 8.7 g/dl (12.0-15.5); MEAN CORPUSCULAR HGB CONC 32.5 g/dl (32.0-36.5); MEAN CORPUSCULAR VOLUME 95.4 fl (80.0-96.0); RED BLOOD COUNT 2.81 10^6/uL (4.00-5.40)
[2020-06-09 05:04] LABS: PLATELET COUNT, AUTOMATED 1196 10^3/uL (150-450); WHITE BLOOD COUNT 34.2 10^3/uL (4.0-10.0)
[2020-06-11 01:23] LABS: HEMOGLOBIN 7.2 g/dl (12.0-15.5); MEAN CORPUSCULAR HEMOGLOBIN 30.8 pg (27.0-33.0); MEAN CORPUSCULAR HGB CONC 32.7 g/dl (32.0-36.5); RED BLOOD COUNT 2.34 10^6/uL (4.00-5.40)
[2020-06-11 01:24] LABS: PLATELET COUNT, AUTOMATED 1046 10^3/uL (150-450)
[2020-06-15 09:23] LABS: BASO % 0.2 % (0.0-1.0); EOS # 0.1 10^3/uL (0.0-0.5); EOS % 0.5 % (0.0-3.0); HEMOGLOBIN 9.2 g/dl (12.0-15.5); LYMPH # 2.9 10^3/uL (1.5-5.0); LYMPH % 16.4 % (24.0-44.0); MEAN CORPUSCULAR HEMOGLOBIN 29.8 pg (27.0-33.0); MEAN CORPUSCULAR HGB CONC 31.7 g/dl (32.0-36.5); MEAN CORPUSCULAR VOLUME 93.9 fl (80.0-96.0); MONO # 3.6 10^3/uL (0.0-0.8); NEUTROPHILS # 10.3 10^3/uL (1.5-8.5); NEUTROPHILS % 57.8 % (36.0-66.0); RED BLOOD COUNT 3.09 10^6/uL (4.00-5.40); WHITE BLOOD COUNT 17.8 10^3/uL (4.0-10.0)
[2020-06-15 09:24] LABS: PLATELET COUNT, AUTOMATED 55 10^3/uL (150-450)
[2020-06-15 12:24] LABS: ALBUMIN 1.8 GM/DL (3.2-5.2); CALCIUM LEVEL 7.3 MG/DL (8.5-10.1); CREATININE FOR GFR 1.11 MG/DL (0.55-1.30); GLOMERULAR FILTRATION RATE 55.4 (>51); MAGNESIUM LEVEL 2.1 MG/DL (1.8-2.4); POTASSIUM SERUM 3.8 MEQ/L (3.5-5.1)
[2020-06-15 19:07] LABS: BLOOD UREA NITROGEN 36 MG/DL (7-18); CALCIUM LEVEL 7.4 MG/DL (8.5-10.1); CARBON DIOXIDE LEVEL 30 MEQ/L (21-32); CHLORIDE LEVEL 107 MEQ/L (98-107); CREATININE FOR GFR 1.01 MG/DL (0.55-1.30); GLOMERULAR FILTRATION RATE > 60.0 (>51); GLUCOSE, FASTING 83 MG/DL (70-100); POTASSIUM SERUM 3.9 MEQ/L (3.5-5.1); SODIUM LEVEL 142 MEQ/L (136-145)
[2020-06-17 22:21] LABS: CREATININE FOR GFR 1.07 MG/DL (0.55-1.30); GLOMERULAR FILTRATION RATE 57.8 (>51); MAGNESIUM LEVEL 1.9 MG/DL (1.8-2.4); POTASSIUM SERUM 5.2 MEQ/L (3.5-5.1)
[2020-06-17 22:23] LABS: C REACTIVE PROTEIN QUANTITATIV < 0.30 MG/DL (0.00-0.30); FERRITIN 82 NG/ML (8-252); FOLATE > 24.0 NG/ML (>5.4); IRON (FE) 91 UG/DL (50-170); TOTAL IRON BINDING CAPACITY 303 UG/DL (250-450); VITAMIN B12 LEVEL 809 PG/ML (247-911)
--- NOTE | 2020-06-19 12:09 | ROOPDOC ---
[facility] Report of Operation DATE OF PROCEDURE: 04/22/20 PREPROCEDURE DIAGNOSES: ITP, post kidney biopsy intraabdominal bleeding, possible bowel injury, possible infected hematoma, sepsis. POSTPROCEDURE DIAGNOSES: Large amount of hematoma and hemoperitoneum (more than 2 L). No evidence of small bowel injury, possible compartment syndrome, DIC. PROCEDURE: Initial diagnostic laparoscopy converted to exploratory laparotomy, evacuation of hematoma. Insertion of left subclavian triple-lumen catheter. SURGEON: Rich Reeves MD FIRE CONTROL TECHNICIAN B: ANESTHESIA: General Anesthesia. ESTIMATED BLOOD LOSS: Approximately 200 mL, 3L of hemoperitoneum and hematoma evacuated COMPLICATIONS: Patient remains intubated on vasopressors PROCEDURE NOTE: Large amount of hematoma on the left kidney bed. No evidence of injury to small bowel. Patient received multiple bags of packed RBC, FFP intraoperatively. DESCRIPTION OF PROCEDURE: Patient was brought to the operating room emergently. She is critically ill following a left kidney biopsy in evidence of bleeding. She underwent mesenteric angiogram with coiling of the renal vessels initially seemed to control the bleeding but she continues to have increased abdominal girth and distention, noted to be hypotensive and have been decreasing urine output. Pathology called today saying that there is evidence of small bowel mucosa from the biopsy portions and there is a concern of possible bowel injury. In the operating room she was laid supine on the table. Compression boots placed on both lower extremities were DVT prophylaxis. She already has a Graves catheter in place and this is draining concentrated urine. Gen. endotracheal anesthesia started. Patient is already hypotensive and this has mildly worsened with the induction. I placed a left subclavian triple-lumen catheter. Bundle for this. Her left shoulder arm chest and neck was prepped and draped in usual sterile fashion using chlorhexidine. She was placed in slight Trendelenburg position. Using an infraclavicular approach and using her bony landmarks a finder needle was inserted from the medial two thirds of the clavicle directed towards the manubrium sterna until the subclavian vein was accessed. Using modified Seldinger technique, guidewire was threaded through and then later on exchange for the triple-lumen catheter. All ports were noted to be aspirating and flushing accordingly. This was secured to the skin and an antibiotic nonocclusive dressing then placed. Her abdomen was then prepped and draped in usual sterile fashion.We paused for a surgical timeout using both pre-incision safety checklist to verify correct patient, procedure site and additional clinical information prior to beginning the procedure I initially began with diagnostic laparoscopy. I entered the abdomen with a small incision in the left upper quadrant area. A Veress needle was inserted and a controlled fashion. The placement seemed to be adequate there was some quick increase of the pressure 13 started insufflating. Once we got to 15 limbs of mercury under direct vision introduced a 5 mm port. On entry it was large amounts of hemoperitoneum noted. I could barely see anything given the distention of the small bowel and her pressure remains high despite not being able to adequately distend her abdomen. I introduced another 5 mm port over her left lower quadrant area and direct vision and reposition her to try to further visualize the abdomen looking for possible bowel injury. All ICC more pertaining and there is no evidence of any leakage of succus. Unfortunately I could not adequately run the bowel or further inspect the degree of bleeding as I was not able to gain much space even with her pressures going as high up a 7 mmHg. Thus at this point I decided to convert to an open laparotomy. The her abdomen was deflated. I started with an upper midline incision starting at an area between the umbilicus and xiphisternum and extending these to about 5-6 cm below her umbilicus. This was deepened through to the subcu taneous tissue tissue her fascia was encountered and this was lifted up and her abdomen was opened up. The fascial incision was extended throughout the skin incision and to gain more space we extended the incision both superiorly and inferiorly. I then started evacuating a large amount of hemoperitoneum. Initial evacuations 2 L of hemoperitoneum. As soon as we opened up her abdomen since her pressure got better, she was breathing better and several minutes later her urine output started increasing this is all consistent with compartment syndrome. He continued to evacuate hemoperitoneum her small bowel was exteriorized. I then ran the small bowel from the terminal ileum retrogradely to the ligament of Treitz. I could not find any evidence of injury. Since the needle was inserted through the left flank most likely injury would be at the level of the ligament of Treitz. Here in the bowel about 3 times and could not find any injury. At this point a started evacuating the solidified portion of the hematoma which was on top of the left kidney and laying on top of the mesentery of the left colon. I started medializing the left colon to look for any active bleeding. There is no signs of active bleeding at the area but I could not is a lot of bruising on her laparotomy incision. Her abdomen was then washed out with about 3 L of warm saline. Again I ran the bowel twice both antegradely and retrogradely to look for any injury and satisfied with none was found I also ran the colon to be for possible colon injury and none was found the bleeding seems to be at the left colon mesentery. There is no active estrogenization that I could see. At this point I decided to end the procedure. I placed 219 round Ammon drains one going through the left side to the kidney bed and the left colic masturbated and one from the right side, towards the pelvis. The fascia was then closed using double looped 1 PDS. At this point there is a lot more oozing at the laparotomy incision 90 cauterized this and to close this skin incision with emma. The drains were secured to the skin with 2-0 silk. The end of the procedure patient shows improvement of her blood pressure no she still remains in vasopressors. She is also making adequate urine. In more drainage from our Ammon drain and in between the staple sites on the laparotomy incision which increases my concern for ongoing DIC. She was brought intubated to the recovery room I discussed findings with her critical care person. Postoperative laboratories were done as well as DIC parameters obtained. RICH REEVES MD Jun 19, 2020 12:09
[2020-06-20 20:29] LABS: HEMATOCRIT 30.4 % (36.0-47.0); HEMOGLOBIN 9.8 g/dl (12.0-15.5); MEAN CORPUSCULAR HEMOGLOBIN 30.5 pg (27.0-33.0); MEAN CORPUSCULAR HGB CONC 32.2 g/dl (32.0-36.5); MEAN CORPUSCULAR VOLUME 94.7 fl (80.0-96.0); RED BLOOD COUNT 3.21 10^6/uL (4.00-5.40); WHITE BLOOD COUNT 21.3 10^3/uL (4.0-10.0)
[2020-06-20 20:30] LABS: PLATELET COUNT, AUTOMATED 168 10^3/uL (150-450)
[2020-06-20 21:01] LABS: BASO % 0.2 % (0.0-1.0); EOS % 0.1 % (0.0-3.0); HEMATOCRIT 28.8 % (36.0-47.0); HEMOGLOBIN 9.4 g/dl (12.0-15.5); LYMPH # 1.3 10^3/uL (1.5-5.0); LYMPH % 6.6 % (24.0-44.0); MEAN CORPUSCULAR HEMOGLOBIN 30.3 pg (27.0-33.0); MEAN CORPUSCULAR HGB CONC 32.6 g/dl (32.0-36.5); MEAN CORPUSCULAR VOLUME 92.9 fl (80.0-96.0); MONO # 1.8 10^3/uL (0.0-0.8); MONO % 9.5 % (0.0-5.0); NEUTROPHILS % 79.2 % (36.0-66.0)
[2020-06-20 21:01] LABS: HEMATOCRIT 28.7 % (36.0-47.0); HEMOGLOBIN 9.2 g/dl (12.0-15.5)
[2020-06-20 21:02] LABS: PLATELET COUNT, AUTOMATED 59 10^3/uL (150-450)
[2020-06-20 21:05] LABS: HEMATOCRIT 27.8 % (36.0-47.0); HEMOGLOBIN 9.1 g/dl (12.0-15.5); MEAN CORPUSCULAR HEMOGLOBIN 30.2 pg (27.0-33.0); MEAN CORPUSCULAR VOLUME 92.4 fl (80.0-96.0); RED BLOOD COUNT 3.01 10^6/uL (4.00-5.40); WHITE BLOOD COUNT 15.6 10^3/uL (4.0-10.0)
[2020-06-20 21:06] LABS: BASO % 0.1 % (0.0-1.0); EOS % 0.1 % (0.0-3.0); MEAN CORPUSCULAR HGB CONC 32.7 g/dl (32.0-36.5); MONO % 19.8 % (0.0-5.0); NEUTROPHILS % 62.1 % (36.0-66.0); PLATELET COUNT, AUTOMATED 53 10^3/uL (150-450)
[2020-06-20 21:07] LABS: MONO # 3.1 10^3/uL (0.0-0.8); NEUTROPHILS # 9.7 10^3/uL (1.5-8.5)
[2020-06-22] MEDS ORDERED: PROM50TA28 PO ×2 (10:24→11:56)
[2020-06-23 01:50] LABS: PLATELET COUNT, AUTOMATED 812 10^3/uL (150-450)
[2020-06-23 01:50] LABS: HEMATOCRIT 57.2 % (36.0-47.0); HEMOGLOBIN 18.7 g/dl (12.0-15.5); MEAN CORPUSCULAR HEMOGLOBIN 30.6 pg (27.0-33.0); MEAN CORPUSCULAR HGB CONC 32.7 g/dl (32.0-36.5); MEAN CORPUSCULAR VOLUME 93.6 fl (80.0-96.0); PLATELET COUNT, AUTOMATED 208 10^3/uL (150-450); RED BLOOD COUNT 6.11 10^6/uL (4.00-5.40); WHITE BLOOD COUNT 12.5 10^3/uL (4.0-10.0)
[2020-06-23 01:50] LABS: HEMATOCRIT 24.1 % (36.0-47.0); HEMOGLOBIN 7.7 g/dl (12.0-15.5); MEAN CORPUSCULAR HEMOGLOBIN 30.7 pg (27.0-33.0); PLATELET COUNT, AUTOMATED 825 10^3/uL (150-450); RED BLOOD COUNT 2.51 10^6/uL (4.00-5.40)
[2020-06-23 01:58] LABS: WHITE BLOOD COUNT 36.8 10^3/uL (4.0-10.0)
[2020-06-23 02:30] LABS: CREATININE FOR GFR 1.17 MG/DL (0.55-1.30); GLOMERULAR FILTRATION RATE 52.1 (>51)
[2020-06-23 02:31] LABS: CALCIUM LEVEL 7.5 MG/DL (8.5-10.1); POTASSIUM SERUM 4.2 MEQ/L (3.5-5.1)
[2020-06-23 02:38] LABS: ALBUMIN 1.8 GM/DL (3.2-5.2); CALCIUM LEVEL 7.6 MG/DL (8.5-10.1); CREATININE FOR GFR 1.13 MG/DL (0.55-1.30); GLOMERULAR FILTRATION RATE 54.3 (>51); POTASSIUM SERUM 4.1 MEQ/L (3.5-5.1); VANCOMYCIN LEVEL TROUGH 6.7 UG/ML (10.0-20.0)
[2020-06-23 12:00] LABS: HEMATOCRIT 25.5 % (36.0-47.0); HEMOGLOBIN 8.1 g/dl (12.0-15.5); MEAN CORPUSCULAR HEMOGLOBIN 30.8 pg (27.0-33.0); MEAN CORPUSCULAR HGB CONC 31.8 g/dl (32.0-36.5); PLATELET COUNT, AUTOMATED 596 10^3/uL (150-450); RED BLOOD COUNT 2.63 10^6/uL (4.00-5.40); WHITE BLOOD COUNT 33.6 10^3/uL (4.0-10.0)
[2020-06-23 12:01] LABS: LYMPHOCYTES 6 % (16-44); MONOCYTES 3 % (0-5); NEUTROPHILS 89 % (28-66)
[2020-06-23 12:02] LABS: PLATELET ESTIMATE INCREASED (NORMAL)
[2020-06-24 15:31] LABS: HEMATOCRIT 22.6 % (36.0-47.0); HEMOGLOBIN 7.3 g/dl (12.0-15.5); MEAN CORPUSCULAR HEMOGLOBIN 30.8 pg (27.0-33.0); MEAN CORPUSCULAR HGB CONC 32.3 g/dl (32.0-36.5); MEAN CORPUSCULAR VOLUME 95.4 fl (80.0-96.0); PLATELET COUNT, AUTOMATED 771 10^3/uL (150-450); RED BLOOD COUNT 2.37 10^6/uL (4.00-5.40); WHITE BLOOD COUNT 30.8 10^3/uL (4.0-10.0)
[2020-06-24 15:37] LABS: HEMATOCRIT 26.8 % (36.0-47.0); HEMOGLOBIN 8.6 g/dl (12.0-15.5); MEAN CORPUSCULAR HGB CONC 32.1 g/dl (32.0-36.5); MEAN CORPUSCULAR VOLUME 93.4 fl (80.0-96.0); RED BLOOD COUNT 2.87 10^6/uL (4.00-5.40)
[2020-06-24 15:38] LABS: PLATELET COUNT, AUTOMATED 1091 10^3/uL (150-450); WHITE BLOOD COUNT 32.9 10^3/uL (4.0-10.0)
[2020-06-28 10:55] LABS: HEMATOCRIT 34.2 % (36.0-47.0); HEMOGLOBIN 11.3 g/dl (12.0-15.5); MEAN CORPUSCULAR HEMOGLOBIN 30.7 pg (27.0-33.0); MEAN CORPUSCULAR VOLUME 92.9 fl (80.0-96.0); PLATELET COUNT, AUTOMATED 1380 10^3/uL (150-450); RED BLOOD COUNT 3.68 10^6/uL (4.00-5.40)
[2020-06-28 10:57] LABS: HEMATOCRIT 37.6 % (36.0-47.0); MEAN CORPUSCULAR HEMOGLOBIN 30.3 pg (27.0-33.0); MEAN CORPUSCULAR HGB CONC 33.5 g/dl (32.0-36.5); MEAN CORPUSCULAR VOLUME 90.4 fl (80.0-96.0); RED BLOOD COUNT 4.16 10^6/uL (4.00-5.40); WHITE BLOOD COUNT 11.2 10^3/uL (4.0-10.0)
[2020-06-28 10:58] LABS: HEMOGLOBIN 12.6 g/dl (12.0-15.5); PLATELET COUNT, AUTOMATED 633 10^3/uL (150-450)
[2020-07-08 08:34] LABS: BASO % 0.1 % (0.0-1.0); HEMATOCRIT 27.6 % (36.0-47.0); HEMOGLOBIN 9.1 g/dl (12.0-15.5); LYMPH # 0.9 10^3/uL (1.5-5.0); LYMPH % 6.5 % (24.0-44.0); MEAN CORPUSCULAR HEMOGLOBIN 30.1 pg (27.0-33.0); MEAN CORPUSCULAR VOLUME 91.4 fl (80.0-96.0); MONO # 1.3 10^3/uL (0.0-0.8); MONO % 9.7 % (0.0-5.0); NEUTROPHILS % 82.8 % (36.0-66.0); PLATELET COUNT, AUTOMATED 846 10^3/uL (150-450); RED BLOOD COUNT 3.02 10^6/uL (4.00-5.40); WHITE BLOOD COUNT 13.3 10^3/uL (4.0-10.0)
[2020-07-13 12:02] LABS: HEMATOCRIT 32.6 % (36.0-47.0); HEMOGLOBIN 10.7 g/dl (12.0-15.5); MEAN CORPUSCULAR HEMOGLOBIN 30.2 pg (27.0-33.0); MEAN CORPUSCULAR HGB CONC 32.8 g/dl (32.0-36.5); MEAN CORPUSCULAR VOLUME 92.1 fl (80.0-96.0); PLATELET COUNT, AUTOMATED 1224 10^3/uL (150-450); RED BLOOD COUNT 3.54 10^6/uL (4.00-5.40); WHITE BLOOD COUNT 15.9 10^3/uL (4.0-10.0)
[2020-07-16 14:02] LABS: HEMATOCRIT 27.4 % (36.0-47.0); MEAN CORPUSCULAR HEMOGLOBIN 30.3 pg (27.0-33.0); MEAN CORPUSCULAR HGB CONC 32.8 g/dl (32.0-36.5); MEAN CORPUSCULAR VOLUME 92.3 fl (80.0-96.0); PLATELET COUNT, AUTOMATED 912 10^3/uL (150-450); RED BLOOD COUNT 2.97 10^6/uL (4.00-5.40); WHITE BLOOD COUNT 15.7 10^3/uL (4.0-10.0)
[2020-07-16 14:43] LABS: ERYTHROPOIETIN See Separate Report mIU/ML; TRANSFERRIN SEE SEPARATE REPORT mg/dl
[2020-07-23 21:17] LABS: CALCIUM LEVEL 7.9 MG/DL (8.5-10.1); CREATININE FOR GFR 1.1 MG/DL (0.55-1.30); POTASSIUM SERUM 4.4 MEQ/L (3.5-5.1)
[2020-07-25] MEDS ORDERED: PRED10PA2 PO (09:12)
[2020-07-27 14:10] LABS: CALCIUM LEVEL 7.7 MG/DL (8.5-10.1); CREATININE FOR GFR 1.12 MG/DL (0.55-1.30); GLOMERULAR FILTRATION RATE 54.8 (>51); MAGNESIUM LEVEL 1.8 MG/DL (1.8-2.4); POTASSIUM SERUM 4.6 MEQ/L (3.5-5.1)
[2020-07-30 10:43] LABS: CALCIUM LEVEL 8.5 MG/DL (8.5-10.1); CREATININE FOR GFR 1.08 MG/DL (0.55-1.30); GLOMERULAR FILTRATION RATE 57.2 (>51); POTASSIUM SERUM 5.4 MEQ/L (3.5-5.1)
[2020-08-01 10:19] LABS: C REACTIVE PROTEIN QUANTITATIV 0.3 MG/DL (0.00-0.30); CALCIUM LEVEL 8.1 MG/DL (8.5-10.1); CREATININE FOR GFR 1.22 MG/DL (0.55-1.30); GLOMERULAR FILTRATION RATE 49.7 (>51); MAGNESIUM LEVEL 1.7 MG/DL (1.8-2.4); POTASSIUM SERUM 4.5 MEQ/L (3.5-5.1)
[2020-08-01 10:23] LABS: FOLATE > 24.0 NG/ML; VITAMIN B12 LEVEL 809 PG/ML
[2020-08-01 11:48] LABS: CALCIUM LEVEL 8.3 MG/DL (8.5-10.1); CREATININE FOR GFR 1.16 MG/DL (0.55-1.30); GLOMERULAR FILTRATION RATE 52.6 (>51); MAGNESIUM LEVEL 1.9 MG/DL (1.8-2.4); POTASSIUM SERUM 4.8 MEQ/L (3.5-5.1)
[2020-08-02 11:57] LABS: HEMATOCRIT 22.4 % (36.0-47.0); HEMOGLOBIN 7.4 g/dl (12.0-15.5); MEAN CORPUSCULAR HEMOGLOBIN 31.2 pg (27.0-33.0); MEAN CORPUSCULAR VOLUME 94.5 fl (80.0-96.0); RED BLOOD COUNT 2.37 10^6/uL (4.00-5.40)
[2020-08-02 11:58] LABS: WHITE BLOOD COUNT 31.4 10^3/uL (4.0-10.0)
[2020-08-02 11:59] LABS: PLATELET COUNT, AUTOMATED 961 10^3/uL (150-450)
[2020-08-02 20:31] LABS: ALBUMIN 2.2 GM/DL (3.2-5.2); CALCIUM LEVEL 8.2 MG/DL (8.5-10.1); CREATININE FOR GFR 1.32 MG/DL (0.55-1.30); GLOMERULAR FILTRATION RATE 45.4 (>51); PHOSPHORUS LEVEL 4.3 MG/DL (2.5-4.9); POTASSIUM SERUM 4.5 MEQ/L (3.5-5.1)
[2020-08-04 09:26] LABS: C REACTIVE PROTEIN QUANTITATIV 0.3 MG/DL (0.00-0.30); CREATININE FOR GFR 1.26 MG/DL (0.55-1.30); GLOMERULAR FILTRATION RATE 47.9 (>51); MAGNESIUM LEVEL 1.8 MG/DL (1.8-2.4); POTASSIUM SERUM 4.9 MEQ/L (3.5-5.1)
== END 2020-05-10 16:00 | disposition home or self-care (01) | DRG 791 ==
LOC: M IRPRO 11:24 → M ICU 19:19
PROVIDERS: ADMIT Internal Medicine; ATTEND Internal Medicine
PROC: 5A1955Z Respiratory Ventilation, Greater than 96 Consecutive Hours (ICD-10-PCS; 2020-04-17)
PROC: 0TB13ZX Excision of Left Kidney, Percutaneous Approach, Diagnostic (ICD-10-PCS; principal; 2020-04-19)
PROC: 30233N1 Transfusion of Nonautologous Red Blood Cells into Peripheral Vein, Percutaneous Approach (ICD-10-PCS; 2020-04-20)
PROC: 04LA3DZ Occlusion of Left Renal Artery with Intraluminal Device, Percutaneous Approach (ICD-10-PCS; 2020-04-21)
PROC: B404YZZ Plain Radiography of Superior Mesenteric Artery using Other Contrast (ICD-10-PCS; 2020-04-21)
PROC: B407YZZ Plain Radiography of Left Renal Artery using Other Contrast (ICD-10-PCS; 2020-04-21)
PROC: 30233R1 Transfusion of Nonautologous Platelets into Peripheral Vein, Percutaneous Approach (ICD-10-PCS; 2020-04-21)
PROC: 0DCW0ZZ Extirpation of Matter from Peritoneum, Open Approach (ICD-10-PCS; 2020-04-22)
PROC: 30233K1 Transfusion of Nonautologous Frozen Plasma into Peripheral Vein, Percutaneous Approach (ICD-10-PCS; 2020-04-22)
DX: N99.61 Intraoperative hemorrhage and hematoma of a genitourinary system organ or structure complicating a genitourinary system procedure (principal); R57.8 Other shock; D65 Disseminated intravascular coagulation [defibrination syndrome]; J96.01 Acute respiratory failure with hypoxia; J90 Pleural effusion, not elsewhere classified; M32.14 Glomerular disease in systemic lupus erythematosus; N17.9 Acute kidney failure, unspecified; E87.2 Acidosis; N18.3 Chronic kidney disease, stage 3 (moderate); E83.42 Hypomagnesemia; D47.2 Monoclonal gammopathy; E83.51 Hypocalcemia; R80.9 Proteinuria, unspecified; D63.1 Anemia in chronic kidney disease; T79.A3XA Traumatic compartment syndrome of abdomen, initial encounter; J98.11 Atelectasis; Z79.899 Other long term (current) drug therapy; Z88.2 Allergy status to sulfonamides; Z53.31 Laparoscopic surgical procedure converted to open procedure; D62 Acute posthemorrhagic anemia

== ENCOUNTER → 2020-05-13 | Outpatient (CLI) | payer BC ==
[~2020-05-13] MED LIST changes: +CELL500T PO; +FAMO40TA3 PO; +PRED10PA2 PO
== END ==
LOC: M LAB 12:15
PROVIDERS: ATTEND Internal Medicine Medical Oncology
DX: Z53.9 Procedure and treatment not carried out, unspecified reason (principal)

== ENCOUNTER 2020-05-15 23:45 | Emergency (ER) | payer BC ==
[~2020-05-15 23:45] MED LIST changes: -CELL500T PO; -FAMO40TA3 PO; -PRED10PA2 PO
[2020-05-16] MEDS ORDERED: ISOVUE-370 76% 100ML VIAL ONE (01:01)
[2020-06-01] MEDS ORDERED: PRED20TA PO (13:32)
[2020-06-01] MEDS ORDERED: AMLO1TAB24 PO (13:33)
[2020-06-01] MEDS ORDERED: PROT1TAB2 PO (13:35)
[2020-06-01] MEDS ORDERED: CELL500T PO (13:36)
[2020-06-22] MEDS ORDERED: PROM50TA28 PO ×2 (10:24→11:56)
[2020-06-30 22:12] LABS: BASO % 0.1 % (0.0-1.0); EOS % 0.4 % (0.0-3.0); HEMATOCRIT 31.5 % (36.0-47.0); HEMOGLOBIN 10.6 g/dl (12.0-15.5); LYMPH # 2.5 10^3/uL (1.5-5.0); MEAN CORPUSCULAR HEMOGLOBIN 30.9 pg (27.0-33.0); MEAN CORPUSCULAR HGB CONC 33.7 g/dl (32.0-36.5); MEAN CORPUSCULAR VOLUME 91.8 fl (80.0-96.0); MONO % 17.7 % (0.0-5.0); NEUTROPHILS # 6.6 10^3/uL (1.5-8.5); NEUTROPHILS % 59.2 % (36.0-66.0); PLATELET COUNT, AUTOMATED 270 10^3/uL (150-450); RED BLOOD COUNT 3.43 10^6/uL (4.00-5.40); WHITE BLOOD COUNT 11.2 10^3/uL (4.0-10.0)
[2020-06-30 22:16] LABS: INR 0.99; PARTIAL THROMBOPLASTIN TIME 22.9 SECONDS (24.2-38.5); PROTHROMBIN TIME 13.3 SECONDS (12.5-14.3)
[2020-07-25] MEDS ORDERED: PRED10PA2 PO (09:12)
[2020-07-29 22:36] LABS: ALBUMIN 2.7 GM/DL (3.2-5.2); BILIRUBIN,DIRECT 0.1 MG/DL (0.0-0.2); BILIRUBIN,TOTAL 0.5 MG/DL (0.2-1.0); CALCIUM LEVEL 8.5 MG/DL (8.5-10.1); CREATININE FOR GFR 1.35 MG/DL (0.55-1.30); GLOMERULAR FILTRATION RATE 44.2 (>51); POTASSIUM SERUM 3.7 MEQ/L (3.5-5.1); TOTAL PROTEIN 7.1 GM/DL (6.4-8.2)
== END 2020-05-16 03:45 | disposition home or self-care (01) ==
LOC: M ED 23:45
DX: L76.22 Postprocedural hemorrhage of skin and subcutaneous tissue following other procedure (principal); M32.9 Systemic lupus erythematosus, unspecified; D69.6 Thrombocytopenia, unspecified; K76.0 Fatty (change of) liver, not elsewhere classified; Z90.81 Acquired absence of spleen; Z79.899 Other long term (current) drug therapy
CPT/HCPCS: 36415; 74177; 80048; 80076; 85025; 85610; 85730; 86850; 86900; 86901; 99283; Q9967

== ENCOUNTER → 2020-05-20 | Outpatient (CLI) | payer BC ==
[~2020-05-20] MED LIST changes: +CELL500T PO; +FAMO40TA3 PO; +PRED10PA2 PO
== END ==
LOC: M LAB 13:33
PROVIDERS: ATTEND Internal Medicine Medical Oncology
DX: D69.3 Immune thrombocytopenic purpura (principal); L93.0 Discoid lupus erythematosus

== ENCOUNTER → 2020-05-26 | Outpatient (REF) | payer BC ==
[2020-05-26 16:36] LABS: HEMATOCRIT 36.3 % (36.0-47.0); HEMOGLOBIN 11.9 g/dl (12.0-15.5); MEAN CORPUSCULAR HEMOGLOBIN 30.4 pg (27.0-33.0); MEAN CORPUSCULAR HGB CONC 32.8 g/dl (32.0-36.5); MEAN CORPUSCULAR VOLUME 92.6 fl (80.0-96.0); RED BLOOD COUNT 3.92 10^6/uL (4.00-5.40); WHITE BLOOD COUNT 12.2 10^3/uL (4.0-10.0)
[2020-05-26 16:51] LABS: PLATELET COUNT, AUTOMATED 88 10^3/uL (150-450)
== END ==
LOC: M SHH 15:11
PROVIDERS: ATTEND Family Medicine
DX: L93.2 Other local lupus erythematosus (principal)

== ENCOUNTER → 2020-06-07 | Outpatient (REF) | payer BC ==
[2020-06-07 19:51] LABS: COMPLEMENT C3 55 MG/DL (90-180); COMPLEMENT C4 3 MG/DL (10-40)
[2020-06-15 12:07] LABS: ANTI DS-DNA AB Negative (Negative)
== END ==
LOC: M LAB REF 17:58
PROVIDERS: ATTEND Internal Medicine Nephrology
DX: M32.14 Glomerular disease in systemic lupus erythematosus (principal)

== ENCOUNTER → 2020-07-10 | Outpatient (REF) | payer BC | LOC: M LAB REF 16:57 | PROVIDERS: ATTEND Internal Medicine Nephrology | DX: N39.0 Urinary tract infection, site not specified (principal) ==

== ENCOUNTER 2020-07-11 15:06 | Emergency (ER) | payer BC ==
[~2020-07-11] VITALS: Ht 154.9 cm; Wt 61.2 kg
[~2020-07-11 15:06] MED LIST changes: -FAMO40TA3 PO; -PRED10PA2 PO
[2020-07-11] MEDS ORDERED: NS 1,000 ML IV SCH (15:40)
[2020-07-11] MEDS ORDERED: METOCLOPRAMIDE INJ 10MG/2ML VIAL (J2765 PER 1) IV ONE (15:45)
[2020-07-11] MEDS ORDERED: PANTOPRAZOLE 40MG VIAL (C9113 PER 1) IV ONE (15:45)
--- NOTE | 2020-07-11 16:33 | REPVR ---
PROCEDURE INFORMATION: Exam: CT Abdomen And Pelvis Without Contrast Exam date and time: 07/11/2020 4:04 PM Age: 49 years old Clinical indication: Abdominal pain; Epigastric; Additional info: Epigastric pain TECHNIQUE: Imaging protocol: Computed tomography of the abdomen and pelvis without contrast. Radiation optimization: All CT scans at this facility use at least one of these dose optimization techniques: automated exposure control; mA and/or kV adjustment per patient size (includes targeted exams where dose is matched to clinical indication); or iterative reconstruction. COMPARISON: CT ABD/PEL W/IV CONTRAST ONLY 05/16/2020 1:22 AM FINDINGS: Lungs: The lung bases are unremarkable. Heart: A moderate pericardial effusion is again noted. Liver: There are no focal liver lesions. Gallbladder and bile ducts: The gallbladder is unremarkable. Pancreas: The pancreas is normal. Spleen: Splenectomy. Adrenals: The adrenal glands are unremarkable. Kidneys and ureters: Surgical clips are again seen along the anterior superior margin of the left kidney and surgical clips or coils in the lower pole of the left kidney. The right kidney is unremarkable. Stomach and bowel: There is no evidence of intestinal obstruction. Appendix: The appendix is unremarkable. Intraperitoneal space: There is diffuse mild increased density throughout the mesentery but no residual free fluid. Vasculature: There is no evidence of an infrarenal abdominal aortic aneurysm. The arteries demonstrates diffuse mild atherosclerotic calcification. Lymph nodes: No enlarged lymph nodes. Urinary bladder: The bladder is unremarkable. Reproductive: Unremarkable as visualized. Bones/joints: Cupping of multiple lower thoracic and lumbar vertebral body endplates is again noted. Soft tissues: Midline abdominal surgical scar is apparent. IMPRESSION: No acute findings on this noncontrast examination other than mild diffuse increased density throughout the mesentery. There is a persistent moderate pericardial effusion which may have increased in volume in comparison to the 05/16/2020 CT. Electronically signed by: Iona Birmingham On 07/11/2020 16:33:34 PM
[2020-07-11 16:46] LABS: BASO # 0.1 10^3/uL (0.0-0.2); BASO % 0.8 % (0.0-1.0); HEMATOCRIT 31.1 % (36.0-47.0); HEMOGLOBIN 9.8 g/dl (12.0-15.5); LYMPH # 1.1 10^3/uL (1.5-5.0); LYMPH % 10.7 % (24.0-44.0); MEAN CORPUSCULAR HEMOGLOBIN 28.7 pg (27.0-33.0); MEAN CORPUSCULAR HGB CONC 31.5 g/dl (32.0-36.5); MEAN CORPUSCULAR VOLUME 90.9 fl (80.0-96.0); MONO # 1.1 10^3/uL (0.0-0.8); MONO % 11.5 % (0.0-5.0); NEUTROPHILS # 7.4 10^3/uL (1.5-8.5); NEUTROPHILS % 74.7 % (36.0-66.0); RED BLOOD COUNT 3.42 10^6/uL (4.00-5.40); WHITE BLOOD COUNT 9.8 10^3/uL (4.0-10.0)
[2020-07-11 17:04] LABS: ALBUMIN 3.2 GM/DL (3.2-5.2); ALT/SGPT 18 U/L (12-78); AMYLASE 73 U/L (25-115); BILIRUBIN,DIRECT < 0.1 MG/DL (0.0-0.2); BILIRUBIN,TOTAL 0.7 MG/DL (0.2-1.0); BLOOD UREA NITROGEN 15 MG/DL (7-18); CALCIUM LEVEL 8.7 MG/DL (8.5-10.1); CARBON DIOXIDE LEVEL 25 MEQ/L (21-32); CHLORIDE LEVEL 109 MEQ/L (98-107); CREATININE FOR GFR 1.23 MG/DL (0.55-1.30); GLOMERULAR FILTRATION RATE 49.2 (>51); GLUCOSE, FASTING 180 MG/DL (70-100); LIPASE 301 U/L (73-393); SODIUM LEVEL 139 MEQ/L (136-145); TOTAL PROTEIN 6.8 GM/DL (6.4-8.2)
[2020-07-11 17:30] LABS: PLATELET COUNT, AUTOMATED 71 10^3/uL (150-450)
[2020-07-11 17:53] LABS: INR 0.95; PROTHROMBIN TIME 12.8 SECONDS (12.5-14.3)
[2020-07-11] MEDS ORDERED: FAMO40TA3 PO (18:12)
[2020-07-11 19:17] VITALS: BP 168/98
--- NOTE | 2020-07-12 12:24 | ED PDOC ---
Post-Departure Follow-Up dr [email or web address] faxed formal report of ct abd/p for fu Tarik Berrios MD Jul 12, 2020 12:23
[2020-07-25] MEDS ORDERED: PRED10PA2 PO (09:12)
== END 2020-07-11 19:22 | disposition home or self-care (01) ==
LOC: M ED 15:06
DX: N39.0 Urinary tract infection, site not specified (principal); R10.13 Epigastric pain; I31.3 Pericardial effusion (noninflammatory); D69.3 Immune thrombocytopenic purpura; M32.9 Systemic lupus erythematosus, unspecified; K21.9 Gastro-esophageal reflux disease without esophagitis; Z88.2 Allergy status to sulfonamides; Z79.899 Other long term (current) drug therapy
CPT/HCPCS: 74176; 80048; 80076; 81001; 82150; 83690; 85025; 85049; 85055; 85610; 87088; 87186; 96374; 99284; C9113

== ENCOUNTER → 2020-07-26 | Outpatient (CLI) | payer BC ==
[~2020-07-26] MED LIST changes: +FAMO40TA3 PO; +PRED10PA2 PO
--- NOTE | 2020-07-31 08:12 | ECHO ---
DATE OF PROCEDURE: 07/26/2020 Age: 49 Gender: Female Height: 61 inches Weight: 132 pounds Body surface area: 1.58 m2 PATIENT LOCATION: Outpatient. REFERRING PHYSICIAN: Naila Umaña MD. INDICATION: Pericardial effusion. MEASUREMENTS: 2D Measurements: RV 3.3 cm LV 4.1 cm Septum 1.1 cm Posterior wall 1.1 cm Aortic Root 3.0 cm LA 3.6 cm LVEF 75% Doppler Measurements: AV 1.82 m/s LVOT 1.17 m/s LVOT diameter 1.8 cm MV-E 93, A 81, E/A ratio 1.1 Early mitral deceleration time 183 m/s E prime medial 8, A prime medial 8, E prime lateral 10.9 PV 1.0 m/s Pulmonary artery acceleration time 154 m/s RVSP 23 mmHg IVC 1.8 cm COMMENTS: Normal sinus rhythm without intraventricular conduction disturbance. M-mode and two-dimensional scanning echocardiography was performed with pulse, continuous wave, color flow, and tissue Doppler studies. Normal left ventricular size and wall thickness with hyperkinetic wall motion. Normal left atrial size with normal Doppler assessment of left ventricular (LV) diastolic function and estimated mean left atrial pressure. Normal right heart chamber sizes and motion and estimated pulmonary arterial pressure. Normal inferior vena cava (IVC) and collapse against an elevated central venous pressure. Normal aortic dimensions. Normal appearing and functioning aortic valve. Normal appearing mitral valvular apparatus and leaflet excursion with no obvious posterior systolic buckling, but at least mild mitral insufficiency. Possibly still physiologic. Normal appearing tricuspid valve with very mild insufficiency. No apparent intracardiac mass. Small anterior and posterior echo free spaces measuring 2-4 mm without evidence of cardiac chamber compression or Doppler evidence to suggest cardiac tamponade. MTDD
--- NOTE | 2020-08-04 13:07 | MEDONCTEEN ---
Date/Time of Encounter Date of Encounter: Aug 04, 2020 Time of Encounter: 13:05 Telephone Encounter Echocardiogram 07/26/2020 showed a small pericardial effusion. I suggested continued observation as this is not likely to be clinically significant. We'll arrange a follow-up echocardiogram in 2 months around end of September. Above discussed with patient over the phone. KEVIN GORDILLO MD Aug 04, 2020 13:07
== END ==
LOC: M CARPUL 11:31
PROVIDERS: ATTEND Internal Medicine Medical Oncology
DX: I31.9 Disease of pericardium, unspecified (principal)

== ENCOUNTER → 2020-08-07 | Outpatient (REF) | payer BC ==
[2020-08-07 19:29] LABS: COMPLEMENT C3 58 MG/DL (90-180); COMPLEMENT C4 3 MG/DL (10-40)
[2020-08-10 16:08] LABS: ANTI DS-DNA AB Positive (Negative)
== END ==
LOC: M LAB REF 16:46
PROVIDERS: ATTEND Internal Medicine Nephrology
DX: M32.14 Glomerular disease in systemic lupus erythematosus (principal)

== ENCOUNTER → 2020-10-10 | Outpatient (REF) | payer BC ==
[~2020-10-10] MED LIST changes: +MYCO500T PO; +PLAQ200T4 PO
[2020-10-10 20:08] LABS: COMPLEMENT C3 75 MG/DL (90-180); COMPLEMENT C4 4 MG/DL (10-40)
== END ==
LOC: M LAB REF 17:10
PROVIDERS: ATTEND Internal Medicine Nephrology
DX: R80.9 Proteinuria, unspecified (principal); M32.14 Glomerular disease in systemic lupus erythematosus

== ENCOUNTER → 2020-10-27 | Outpatient (CLI) | payer BC ==
[2020-10-27 16:37] LABS: HEMATOCRIT 36.2 % (36.0-47.0); HEMOGLOBIN 10.9 g/dl (12.0-15.5); MEAN CORPUSCULAR HEMOGLOBIN 29.1 pg (27.0-33.0); MEAN CORPUSCULAR HGB CONC 30.1 g/dl (32.0-36.5); MEAN CORPUSCULAR VOLUME 96.8 fl (80.0-96.0); RED BLOOD COUNT 3.74 10^6/uL (4.00-5.40)
[2020-10-27 16:42] LABS: PLATELET COUNT, AUTOMATED 96 10^3/uL (150-450)
[2020-10-27 17:10] LABS: BASOPHILS 2 % (0-1); EOSINOPHILS 1 % (0-3); LYMPHOCYTES 12 % (16-44); MONOCYTES 18 % (0-5); MYELOCYTES 2 % (0-0); NEUTROPHILS 59 % (28-66)
[2020-10-27 17:11] LABS: ANISOCYTOSIS 2+; HYPOCHROMASIA 1+; PLATELET ESTIMATE DECREASED (NORMAL)
[2020-10-27 17:12] LABS: BURR CELLS 1+; HELMET CELLS 1+; OVALOCYTES 1+
[2020-10-27 17:13] LABS: GIANT PLATELETS 2+
== END ==
LOC: M WUC 12:31
PROVIDERS: ATTEND Internal Medicine Medical Oncology
DX: D69.3 Immune thrombocytopenic purpura (principal); D47.2 Monoclonal gammopathy; D50.0 Iron deficiency anemia secondary to blood loss (chronic); M32.9 Systemic lupus erythematosus, unspecified

== ENCOUNTER → 2020-11-10 | Outpatient (CLI) | payer BC ==
[2020-11-10 15:48] LABS: BASO # 0.2 10^3/uL (0.0-0.2); BASO % 0.8 % (0.0-1.0); EOS # 0.1 10^3/uL (0.0-0.5); EOS % 0.4 % (0.0-3.0); HEMATOCRIT 37.5 % (36.0-47.0); HEMOGLOBIN 10.7 g/dl (12.0-15.5); LYMPH # 3.3 10^3/uL (1.5-5.0); LYMPH % 14.6 % (24.0-44.0); MEAN CORPUSCULAR HEMOGLOBIN 28.2 pg (27.0-33.0); MEAN CORPUSCULAR HGB CONC 28.5 g/dl (32.0-36.5); MEAN CORPUSCULAR VOLUME 98.9 fl (80.0-96.0); MONO # 1.5 10^3/uL (0.0-0.8); MONO % 6.5 % (0.0-5.0); NEUTROPHILS # 16.6 10^3/uL (1.5-8.5); NEUTROPHILS % 74.1 % (36.0-66.0); PLATELET COUNT, AUTOMATED 704 10^3/uL (150-450); RED BLOOD COUNT 3.79 10^6/uL (4.00-5.40); WHITE BLOOD COUNT 22.4 10^3/uL (4.0-10.0)
== END ==
LOC: M WUC 14:17
PROVIDERS: ATTEND Internal Medicine Medical Oncology
DX: D69.3 Immune thrombocytopenic purpura (principal); D47.2 Monoclonal gammopathy; D50.0 Iron deficiency anemia secondary to blood loss (chronic); M32.9 Systemic lupus erythematosus, unspecified

== ENCOUNTER → 2020-11-16 | Outpatient (REF) | payer BC ==
[2020-11-16 20:06] LABS: COMPLEMENT C3 84 MG/DL (90-180); COMPLEMENT C4 6 MG/DL (10-40)
== END ==
LOC: M LAB REF 16:54
PROVIDERS: ATTEND Internal Medicine Nephrology
DX: M32.14 Glomerular disease in systemic lupus erythematosus (principal); R80.9 Proteinuria, unspecified

== ENCOUNTER → 2020-12-21 | Outpatient (REF) | payer BC ==
[~2020-12-21] MED LIST changes: +CORE6.25 PO
[2020-12-21 18:12] LABS: COMPLEMENT C3 82 MG/DL (90-180); COMPLEMENT C4 5 MG/DL (10-40)
== END ==
LOC: M LAB REF 17:06
PROVIDERS: ATTEND Internal Medicine Nephrology
DX: M32.14 Glomerular disease in systemic lupus erythematosus (principal); R80.9 Proteinuria, unspecified

== ENCOUNTER → 2021-02-09 | Outpatient (CLI) | payer BC ==
[2021-02-09 16:46] LABS: APPEARANCE, URINE HAZY (CLEAR); BACTERIA, URINE AUTO 1+ (NEGATIVE); BILIRUBIN, URINE AUTO NEGATIVE (NEGATIVE); BLOOD, URINE BLOOD 1+ (NEGATIVE); COLOR, URINE YELLOW (YELLOW); GLUCOSE, URINE (UA) AUTO NEGATIVE (NEGATIVE); KETONE, URINE AUTO NEGATIVE (NEGATIVE); LEUKOCYTE ESTERASE, URINE AUTO 3+ (NEGATIVE); NITRITE, URINE AUTO NEGATIVE (NEGATIVE); PROTEIN, URINE AUTO 1+ mg/dL (NEGATIVE); RBC, URINE AUTO 3 /HPF (0-3); SPECIFIC GRAVITY URINE AUTO 1.002 (1.002-1.035); SQUAMOUS EPITHELIAL CELL UR AU 0 /HPF (0-6); UROBILINOGEN, URINE AUTO 0.2 mg/dL (0.0-2.0); WBC, URINE AUTO 34 /HPF (0-3)
== END ==
LOC: M WUC 13:34
PROVIDERS: ATTEND Internal Medicine Nephrology
DX: N39.0 Urinary tract infection, site not specified (principal)

== ENCOUNTER → 2021-03-29 | Outpatient (REF) | payer BC ==
[2021-03-29 17:39] LABS: COMPLEMENT C3 73 MG/DL (90-180); COMPLEMENT C4 5 MG/DL (10-40)
== END ==
LOC: M LAB REF 16:33
PROVIDERS: ATTEND Internal Medicine Nephrology
DX: M32.14 Glomerular disease in systemic lupus erythematosus (principal); R80.9 Proteinuria, unspecified

== ENCOUNTER → 2021-05-07 | Outpatient (CLI) | payer BC ==
[~2021-05-07] MED LIST changes: +PRED5PAK PO
== END ==
LOC: M LAB 14:21
PROVIDERS: ATTEND Internal Medicine Gastroenterology
DX: D50.9 Iron deficiency anemia, unspecified (principal)

== ENCOUNTER → 2021-05-21 | Outpatient (CLI) | payer BC ==
[~2021-05-21] MED LIST changes: -PRED5PAK PO
== END ==
LOC: M LABSMTC 10:44
PROVIDERS: ATTEND Anesthesiology
DX: Z20.828 Contact with and (suspected) exposure to other viral communicable diseases (principal); Z11.59 Encounter for screening for other viral diseases

== ENCOUNTER 2021-05-24 10:36 | Day surgery (SDC) | payer BC ==
[~2021-05-24] VITALS: Ht 154.9 cm; Wt 64.9 kg
[~2021-05-24 10:36] MED LIST changes: +NS 1,000 ML IV ONE
[2021-05-24 11:42] LABS: HEMATOCRIT 36.2 % (36.0-47.0); HEMOGLOBIN 11.5 g/dl (12.0-15.5); MEAN CORPUSCULAR HEMOGLOBIN 29.5 pg (27.0-33.0); MEAN CORPUSCULAR HGB CONC 31.8 g/dl (32.0-36.5); MEAN CORPUSCULAR VOLUME 92.8 fl (80.0-96.0); PLATELET COUNT, AUTOMATED 131 10^3/uL (150-450); WHITE BLOOD COUNT 9.8 10^3/uL (4.0-10.0)
[2021-05-24 11:49] LABS: INR 0.98; PROTHROMBIN TIME 13.4 SECONDS (12.7-14.5)
[2021-05-24] MEDS ORDERED: LIDOCAINE 2% 100MG/5ML SDV (FOR ANES.) As Ordered ONE (12:50)
[2021-05-24] MEDS ORDERED: fentaNYL 100 MCG/2 ML INJECTION (J3010) As Ordered ONE (12:50)
[2021-05-24] MEDS ORDERED: propofoL 500 MG/50 ML VIAL As Ordered ONE (12:50)
[2021-05-24] MEDS ORDERED: PRED5PAK PO (13:03)
--- NOTE | 2021-05-24 14:31 | ROOR ---
Patient Name: Marleen Gurrola Procedure Date: 05/24/2021 2:25 PM Date of : 1970 Age: 50 Room: [facility] Gender: Female Note Status: Finalized Procedure: Upper GI endoscopy Indications: Iron deficiency anemia Providers: Aristeo Christianson MD Referring MD: LAZARUS WAGNER DO Requesting Provider: Medicines: Monitored Anesthesia Care Complications: No immediate complications. Procedure: Pre-Anesthesia Assessment: - The heart rate, respiratory rate, oxygen saturations, blood pressure, adequacy of pulmonary ventilation, and response to care were monitored throughout the procedure. The Endoscope was introduced through the mouth, and advanced to the second part of duodenum. The upper GI endoscopy was accomplished without difficulty. The patient tolerated the procedure well. Findings: The esophagus was normal. The stomach was normal. The examined duodenum was normal. Impression: - Normal esophagus. - Normal stomach. - Normal examined duodenum. - No specimens collected. Recommendation: - Observe patient's clinical course. Procedure Code(s): --- Professional --- 19538, Esophagogastroduodenoscopy, flexible, transoral; diagnostic, including collection of specimen(s) by brushing or washing, when performed (separate procedure) Diagnosis Code(s): --- Professional --- D50.9, Iron deficiency anemia, unspecified CPT copyright 2019 [employer]. All rights reserved. The codes documented in this report are preliminary and upon residential nurse review may be revised to meet current compliance requirements. Aristeo Christianson MD Aristeo Christianson MD 05/24/2021 2:31:21 PM Electronically signed by Aristeo Christianson MD Number of Addenda: 0 Note Initiated On: 05/24/2021 2:25 PM Estimated Blood Loss: Estimated blood loss: none.
--- NOTE | 2021-05-24 14:48 | ROOR ---
Patient Name: Marleen Gurrola Procedure Date: 05/24/2021 2:26 PM Date of : 1970 Age: 50 Room: [facility] Gender: Female Note Status: Finalized Procedure: Colonoscopy Indications: Iron deficiency anemia Providers: Aristeo Christianson MD Referring MD: LAZARUS WAGNER DO Requesting Provider: Medicines: Monitored Anesthesia Care Complications: No immediate complications. Procedure: Pre-Anesthesia Assessment: - The heart rate, respiratory rate, oxygen saturations, blood pressure, adequacy of pulmonary ventilation, and response to care were monitored throughout the procedure. The Colonoscope was introduced through the anus and advanced to 10 cm into the ileum. The colonoscopy was performed without difficulty. The patient tolerated the procedure well. The quality of the bowel preparation was good. Findings: The perianal and digital rectal examinations were normal. The entire examined colon appeared normal on direct and retroflexion views. The terminal ileum appeared normal. Impression: - Small internal hemorhoids. - The entire colon is otherwise normal on direct and retroflexion views. - The examined portion of the ileum was normal. - No specimens collected. Recommendation: - Continue present medications. Procedure Code(s): --- Professional --- 78820, Colonoscopy, flexible; diagnostic, including collection of specimen(s) by brushing or washing, when performed (separate procedure) Diagnosis Code(s): --- Professional --- D50.9, Iron deficiency anemia, unspecified CPT copyright 2019 [employer]. All rights reserved. The codes documented in this report are preliminary and upon refinery operator assistant review may be revised to meet current compliance requirements. Aristeo Christianson MD Aristeo Christianson MD 05/24/2021 2:47:42 PM Electronically signed by Aristeo Christianson MD Number of Addenda: 0 Note Initiated On: 05/24/2021 2:26 PM Estimated Blood Loss: Estimated blood loss: none.
[2021-05-24 15:06] VITALS: BP 144/78
== END 2021-05-24 15:08 | disposition home or self-care (01) ==
LOC: M OPP 10:36
PROVIDERS: ATTEND Internal Medicine Gastroenterology
DX: D50.9 Iron deficiency anemia, unspecified (principal); K64.8 Other hemorrhoids; M32.14 Glomerular disease in systemic lupus erythematosus; Z79.52 Long term (current) use of systemic steroids; Z79.899 Other long term (current) drug therapy; Z88.2 Allergy status to sulfonamides; Z90.81 Acquired absence of spleen
CPT/HCPCS: 36415; 43235; 45378; 85027; 85610; J3010

== ENCOUNTER → 2021-06-19 | Outpatient (REF) | payer BC ==
[~2021-06-19] MED LIST changes: -NS 1,000 ML IV ONE; +PRED5PAK PO
[2021-06-19 18:47] LABS: APPEARANCE, URINE HAZY (CLEAR); BACTERIA, URINE AUTO 1+ (NEGATIVE); BILIRUBIN, URINE AUTO NEGATIVE (NEGATIVE); BLOOD, URINE BLOOD 1+ (NEGATIVE); COLOR, URINE STRAW (YELLOW); GLUCOSE, URINE (UA) AUTO NEGATIVE (NEGATIVE); KETONE, URINE AUTO NEGATIVE (NEGATIVE); LEUKOCYTE ESTERASE, URINE AUTO 3+ (NEGATIVE); NITRITE, URINE AUTO NEGATIVE (NEGATIVE); PROTEIN, URINE AUTO NEGATIVE (NEGATIVE); RBC, URINE AUTO 2 /HPF (0-3); SPECIFIC GRAVITY URINE AUTO 1.002 (1.002-1.035); SQUAMOUS EPITHELIAL CELL UR AU 0 /HPF (0-6); UROBILINOGEN, URINE AUTO 0.2 mg/dL (0.0-2.0); WBC, URINE AUTO 40 /HPF (0-3)
== END ==
LOC: M LAB REF 17:40
PROVIDERS: ATTEND Internal Medicine Nephrology
DX: N39.0 Urinary tract infection, site not specified (principal)

== ENCOUNTER → 2021-09-06 | Outpatient (REF) | payer BC ==
[2021-09-06 17:58] LABS: COMPLEMENT C3 86 MG/DL (90-180); COMPLEMENT C4 8 MG/DL (10-40)
== END ==
LOC: M LAB REF 16:59
PROVIDERS: ATTEND Internal Medicine Nephrology
DX: M32.14 Glomerular disease in systemic lupus erythematosus (principal); R80.9 Proteinuria, unspecified

== ENCOUNTER → 2021-10-18 | Outpatient (REF) | payer BC | LOC: M LAB REF 17:01 | PROVIDERS: ATTEND Internal Medicine Nephrology | DX: N39.0 Urinary tract infection, site not specified (principal) ==

== ENCOUNTER → 2021-12-04 | Outpatient (REF) | payer BC | LOC: M LAB REF 16:53 | PROVIDERS: ATTEND Internal Medicine Nephrology | DX: N39.0 Urinary tract infection, site not specified (principal) ==

== ENCOUNTER → 2022-02-12 | Outpatient (CLI) | payer BC ==
[2022-02-12 14:35] LABS: BASO # 0.1 10^3/uL (0.0-0.2); BASO % 1.7 % (0.0-1.0); EOS # 0.1 10^3/uL (0.0-0.5); EOS % 1.2 % (0.0-3.0); HEMOGLOBIN 8.9 g/dl (12.0-15.5); LYMPH # 1.9 10^3/uL (1.5-5.0); LYMPH % 29.5 % (24.0-44.0); MEAN CORPUSCULAR HEMOGLOBIN 27.6 pg (27.0-33.0); MEAN CORPUSCULAR HGB CONC 30.7 g/dl (32.0-36.5); MEAN CORPUSCULAR VOLUME 90.1 fl (80.0-96.0); MONO # 1.3 10^3/uL (0.0-0.8); MONO % 20.6 % (2.0-8.0); NEUTROPHILS % 46.7 % (36.0-66.0); PLATELET COUNT, AUTOMATED 111 10^3/uL (150-450); RED BLOOD COUNT 3.22 10^6/uL (4.00-5.40); WHITE BLOOD COUNT 6.5 10^3/uL (4.0-10.0)
[2022-02-12 17:59] LABS: VITAMIN B12 LEVEL 474 PG/ML
== END ==
LOC: M WUC 11:42
PROVIDERS: ATTEND Internal Medicine Medical Oncology
DX: D47.2 Monoclonal gammopathy (principal)

== ENCOUNTER 2022-07-05 16:35 | Inpatient (IN) | payer BC ==
[~2022-07-05] VITALS: Ht 154.9 cm; Wt 64.2 kg
[2022-07-05] MEDS ORDERED: dexameTHASONE 20MG/5ML VIAL (J1100 PER 1MG) IV ONE (17:20)
[2022-07-05 17:33] LABS: BASO # 0.1 10^3/uL (0.0-0.2); BASO % 1.2 % (0.0-1.0); EOS % 0.6 % (0.0-3.0); HEMATOCRIT 33.7 % (36.0-47.0); HEMOGLOBIN 11.1 g/dl (12.0-15.5); LYMPH # 1.3 10^3/uL (1.5-5.0); LYMPH % 25.3 % (24.0-44.0); MEAN CORPUSCULAR HEMOGLOBIN 30.3 pg (27.0-33.0); MEAN CORPUSCULAR HGB CONC 32.9 g/dl (32.0-36.5); MEAN CORPUSCULAR VOLUME 92.1 fl (80.0-96.0); MONO # 1.3 10^3/uL (0.0-0.8); MONO % 26.7 % (2.0-8.0); NEUTROPHILS # 2.3 10^3/uL (1.5-8.5); NEUTROPHILS % 45.6 % (36.0-66.0); RED BLOOD COUNT 3.66 10^6/uL (4.00-5.40)
[2022-07-05] MEDS ORDERED: IMMUNE GLOBULIN 10% 20 GM in IV 1 EA IV ONE (18:00)
[2022-07-05 18:03] LABS: PLATELET COUNT, AUTOMATED 3 10^3/uL (150-450)
[2022-07-05 18:07] LABS: RSV AMPLIFICATION NEGATIVE (NEGATIVE)
[2022-07-05 18:21] LABS: ALBUMIN 3.8 GM/DL (3.2-5.2); ALT/SGPT 24 U/L (12-78); BILIRUBIN,DIRECT < 0.1 MG/DL (0.0-0.2); BILIRUBIN,TOTAL 0.5 MG/DL (0.2-1.0); BLOOD UREA NITROGEN 20 MG/DL (7-18); CALCIUM LEVEL 8.5 MG/DL (8.5-10.1); CARBON DIOXIDE LEVEL 28 MEQ/L (21-32); CHLORIDE LEVEL 104 MEQ/L (98-107); CREATININE FOR GFR 1.47 MG/DL (0.55-1.30); GLOMERULAR FILTRATION RATE 39.7 (>51); GLUCOSE, FASTING 98 MG/DL (70-100); POTASSIUM SERUM 5.2 MEQ/L (3.5-5.1); SODIUM LEVEL 137 MEQ/L (136-145); THYROXINE (T4) 11.1 UG/DL (4.5-12.0); TOTAL PROTEIN 7.4 GM/DL (6.4-8.2)
[2022-07-05] MEDS ORDERED: PROM50TA28 PO (19:00)
[2022-07-05] MEDS ORDERED: IMMUNE GLOBULIN 10% 40 GM in IV 1 EA IV ONE (19:00)
[2022-07-05] MEDS ORDERED: HOME MED LIST COMPLETE! XX SCH (19:05)
[2022-07-05] MEDS ORDERED: ACETAMINOPHEN TAB 650MG DOSE (2X325MG) PO PRN (19:20)
[2022-07-05 20:31] LABS: INR 0.9; PROTHROMBIN TIME 12.5 SECONDS (12.7-14.5)
[2022-07-05 20:32] LABS: PARTIAL THROMBOPLASTIN TIME 36.4 SECONDS (25.9-37.0)
[2022-07-05 22:15] VITALS: BP 158/75
[2022-07-05 23:42] VITALS: BP 125/80
[2022-07-06] VITALS (16 sets, daily range): BP systolic 118–164; BP diastolic 68–92
[2022-07-06] MEDS: SUCRALFATE SUSP 1GM/10ML UD PO SCH ×5 (00:16→21:34)
[2022-07-06] MEDS: PANTOPRAZOLE 40MG TAB (PROTONIX) PO SCH ×3 (00:16→21:00)
[2022-07-06] MEDS: CARVedilol 3.125 MG TAB PO SCH ×3 (00:17→19:52)
[2022-07-06] MEDS: HYDROXYCHLOROQUINE 200 MG TAB PO SCH ×3 (00:17→19:52)
[2022-07-06] MEDS: MYCOPHENOLATE MOFETIL 250 MG CAP (J7517) PO SCH ×3 (00:17→21:33)
[2022-07-06 07:15] LABS: HEMATOCRIT 31.1 % (36.0-47.0); MEAN CORPUSCULAR HEMOGLOBIN 30.7 pg (27.0-33.0); MEAN CORPUSCULAR HGB CONC 32.2 g/dl (32.0-36.5); MEAN CORPUSCULAR VOLUME 95.4 fl (80.0-96.0); RED BLOOD COUNT 3.26 10^6/uL (4.00-5.40); WHITE BLOOD COUNT 5.8 10^3/uL (4.0-10.0)
[2022-07-06 07:48] LABS: CALCIUM LEVEL 8.7 MG/DL (8.5-10.1); CREATININE FOR GFR 1.38 MG/DL (0.55-1.30); GLOMERULAR FILTRATION RATE 42.7 (>51); MAGNESIUM LEVEL 2.2 MG/DL (1.8-2.4); POTASSIUM SERUM 4.6 MEQ/L (3.5-5.1)
[2022-07-06 07:53] LABS: PLATELET COUNT, AUTOMATED 19 10^3/uL (150-450)
[2022-07-06] MEDS: dexameTHASONE 20MG/5ML VIAL (J1100 PER 1MG) IV SCH (08:23)
[2022-07-06] MEDS ORDERED: CARVedilol 3.125 MG TAB PO ONE (13:00)
[2022-07-06 17:53] LABS: HEMATOCRIT 31.9 % (36.0-47.0); HEMOGLOBIN 10.3 g/dl (12.0-15.5); MEAN CORPUSCULAR HEMOGLOBIN 30.3 pg (27.0-33.0); MEAN CORPUSCULAR HGB CONC 32.3 g/dl (32.0-36.5); MEAN CORPUSCULAR VOLUME 93.8 fl (80.0-96.0); PLATELET COUNT, AUTOMATED 104 10^3/uL (150-450); WHITE BLOOD COUNT 14.7 10^3/uL (4.0-10.0)
[2022-07-06] MEDS ORDERED: IMMUNE GLOBULIN 10% 40 GM in IV 1 EA IV ONE (18:00)
[2022-07-06] MEDS ORDERED: IMMUNE GLOBULIN 10% 20 GM in IV 1 EA IV ONE (19:00)
[2022-07-06] MEDS ORDERED: PROMACTA 50 MG PO SCH (21:00)
[2022-07-07] VITALS: BP 120/68
[2022-07-07 04:00] VITALS: BP 120/70
[2022-07-07 06:07] LABS: HEMATOCRIT 28.9 % (36.0-47.0); HEMOGLOBIN 9.2 g/dl (12.0-15.5); MEAN CORPUSCULAR HEMOGLOBIN 31.1 pg (27.0-33.0); MEAN CORPUSCULAR HGB CONC 31.8 g/dl (32.0-36.5); MEAN CORPUSCULAR VOLUME 97.6 fl (80.0-96.0); RED BLOOD COUNT 2.96 10^6/uL (4.00-5.40)
[2022-07-07 06:08] LABS: PLATELET COUNT, AUTOMATED 224 10^3/uL (150-450)
[2022-07-07 06:31] LABS: CALCIUM LEVEL 8.2 MG/DL (8.5-10.1); CREATININE FOR GFR 1.49 MG/DL (0.55-1.30); GLOMERULAR FILTRATION RATE 39.1 (>51); MAGNESIUM LEVEL 2.3 MG/DL (1.8-2.4); POTASSIUM SERUM 4.5 MEQ/L (3.5-5.1)
[2022-07-07] MEDS: SUCRALFATE SUSP 1GM/10ML UD PO SCH (08:35)
[2022-07-07] MEDS: PANTOPRAZOLE 40MG TAB (PROTONIX) PO SCH (08:36)
[2022-07-07] MEDS: HYDROXYCHLOROQUINE 200 MG TAB PO SCH (08:36)
[2022-07-07] MEDS: MYCOPHENOLATE MOFETIL 250 MG CAP (J7517) PO SCH (08:36)
[2022-07-07] MEDS: dexameTHASONE 20MG/5ML VIAL (J1100 PER 1MG) IV SCH (08:37)
[2022-07-07] MEDS: CARVedilol 3.125 MG TAB PO SCH (08:37)
[2022-07-07 09:12] VITALS: BP 159/79
== END 2022-07-07 09:40 | disposition home or self-care (01) | DRG 661 ==
LOC: M ED 16:35 → M ED INP 19:18 → ENRESERV 20:33 → M PCU 22:10
PROVIDERS: ADMIT Internal Medicine; ATTEND General Practice
DX: D69.3 Immune thrombocytopenic purpura (principal); U07.1 COVID-19; M32.14 Glomerular disease in systemic lupus erythematosus; N18.30 Chronic kidney disease, stage 3 unspecified; I12.9 Hypertensive chronic kidney disease with stage 1 through stage 4 chronic kidney disease, or unspecified chronic kidney disease; Z90.81 Acquired absence of spleen; Z88.2 Allergy status to sulfonamides; Z79.899 Other long term (current) drug therapy

== ENCOUNTER → 2022-07-05 | Outpatient (CLI) | payer BC ==
[~2022-07-05] MED LIST changes: +LEVO1TAB40 PO; -LEVO750T13 PO
[2022-07-05 14:51] LABS: BASO % 0.8 % (0.0-1.0); EOS % 0.6 % (0.0-3.0); HEMATOCRIT 31.7 % (36.0-47.0); HEMOGLOBIN 10.3 g/dl (12.0-15.5); LYMPH # 0.9 10^3/uL (1.5-5.0); LYMPH % 18.4 % (24.0-44.0); MEAN CORPUSCULAR HEMOGLOBIN 30.3 pg (27.0-33.0); MEAN CORPUSCULAR HGB CONC 32.5 g/dl (32.0-36.5); MEAN CORPUSCULAR VOLUME 93.2 fl (80.0-96.0); MONO # 1.1 10^3/uL (0.0-0.8); MONO % 22.7 % (2.0-8.0); NEUTROPHILS # 2.8 10^3/uL (1.5-8.5); NEUTROPHILS % 56.7 % (36.0-66.0); WHITE BLOOD COUNT 4.9 10^3/uL (4.0-10.0)
[2022-07-05 15:41] LABS: PLATELET COUNT, AUTOMATED 3 10^3/uL (150-450)
== END ==
LOC: M LAB 13:38
PROVIDERS: ATTEND Internal Medicine Medical Oncology
DX: D47.2 Monoclonal gammopathy (principal)

== ENCOUNTER → 2022-07-18 | Outpatient (CLI) | payer BC ==
[2022-07-18 16:52] LABS: BASO # 0.2 10^3/uL (0.0-0.2); EOS # 0.1 10^3/uL (0.0-0.5); EOS % 0.5 % (0.0-3.0); HEMATOCRIT 31.5 % (36.0-47.0); HEMOGLOBIN 9.5 g/dl (12.0-15.5); LYMPH # 2.1 10^3/uL (1.5-5.0); LYMPH % 13.9 % (24.0-44.0); MEAN CORPUSCULAR HEMOGLOBIN 30.4 pg (27.0-33.0); MEAN CORPUSCULAR HGB CONC 30.2 g/dl (32.0-36.5); MEAN CORPUSCULAR VOLUME 100.6 fl (80.0-96.0); MONO % 13.9 % (2.0-8.0); NEUTROPHILS # 10.3 10^3/uL (1.5-8.5); NEUTROPHILS % 69.8 % (36.0-66.0); RED BLOOD COUNT 3.13 10^6/uL (4.00-5.40); WHITE BLOOD COUNT 14.8 10^3/uL (4.0-10.0)
[2022-07-18 18:09] LABS: MONO # 2.1 10^3/uL (0.0-0.8)
[2022-07-18 18:10] LABS: PLATELET COUNT, AUTOMATED 1217 10^3/uL (150-450)
== END ==
LOC: M WUC 10:03
PROVIDERS: ATTEND Internal Medicine Medical Oncology
DX: D69.3 Immune thrombocytopenic purpura (principal); D47.2 Monoclonal gammopathy

== ENCOUNTER → 2022-07-22 | Outpatient (REF) | payer BC ==
[2022-07-22 12:31] LABS: BASO # 0.2 10^3/uL (0.0-0.2); EOS # 0.1 10^3/uL (0.0-0.5); HEMATOCRIT 31.3 % (36.0-47.0); HEMOGLOBIN 9.6 g/dl (12.0-15.5); LYMPH # 1.5 10^3/uL (1.5-5.0); LYMPH % 19.6 % (24.0-44.0); MEAN CORPUSCULAR HEMOGLOBIN 30.6 pg (27.0-33.0); MEAN CORPUSCULAR HGB CONC 30.7 g/dl (32.0-36.5); MEAN CORPUSCULAR VOLUME 99.7 fl (80.0-96.0); MONO # 1.2 10^3/uL (0.0-0.8); MONO % 15.7 % (2.0-8.0); NEUTROPHILS # 4.7 10^3/uL (1.5-8.5); NEUTROPHILS % 61.3 % (36.0-66.0); RED BLOOD COUNT 3.14 10^6/uL (4.00-5.40); WHITE BLOOD COUNT 7.7 10^3/uL (4.0-10.0)
[2022-07-22 12:45] LABS: PLATELET COUNT, AUTOMATED 364 10^3/uL (150-450)
== END ==
LOC: M LABWUC 11:34
PROVIDERS: ATTEND Internal Medicine Medical Oncology
DX: D64.9 Anemia, unspecified (principal)

== ENCOUNTER → 2022-07-26 | Outpatient (CLI) | payer BC ==
[2022-07-26 17:25] LABS: BASO # 0.1 10^3/uL (0.0-0.2); BASO % 2.2 % (0.0-1.0); EOS % 0.6 % (0.0-3.0); HEMATOCRIT 33.6 % (36.0-47.0); HEMOGLOBIN 10.3 g/dl (12.0-15.5); LYMPH # 1.4 10^3/uL (1.5-5.0); MEAN CORPUSCULAR HEMOGLOBIN 30.8 pg (27.0-33.0); MEAN CORPUSCULAR HGB CONC 30.7 g/dl (32.0-36.5); MEAN CORPUSCULAR VOLUME 100.6 fl (80.0-96.0); MONO # 1.2 10^3/uL (0.0-0.8); MONO % 23.8 % (2.0-8.0); NEUTROPHILS # 2.3 10^3/uL (1.5-8.5); NEUTROPHILS % 46.2 % (36.0-66.0); RED BLOOD COUNT 3.34 10^6/uL (4.00-5.40)
[2022-07-26 19:46] LABS: PLATELET COUNT, AUTOMATED 78 10^3/uL (150-450)
== END ==
LOC: M WUC 11:28
PROVIDERS: ATTEND Internal Medicine Medical Oncology
DX: D64.9 Anemia, unspecified (principal)

== ENCOUNTER → 2022-08-01 | Outpatient (REF) | payer BC ==
[2022-08-01 17:35] LABS: BASO # 0.1 10^3/uL (0.0-0.2); BASO % 1.5 % (0.0-1.0); EOS # 0.1 10^3/uL (0.0-0.5); EOS % 1.2 % (0.0-3.0); HEMATOCRIT 35.6 % (36.0-47.0); HEMOGLOBIN 10.8 g/dl (12.0-15.5); LYMPH # 1.6 10^3/uL (1.5-5.0); LYMPH % 21.6 % (24.0-44.0); MEAN CORPUSCULAR HEMOGLOBIN 30.8 pg (27.0-33.0); MEAN CORPUSCULAR HGB CONC 30.3 g/dl (32.0-36.5); MEAN CORPUSCULAR VOLUME 101.4 fl (80.0-96.0); MONO # 1.4 10^3/uL (0.0-0.8); MONO % 18.2 % (2.0-8.0); NEUTROPHILS # 4.3 10^3/uL (1.5-8.5); NEUTROPHILS % 57.2 % (36.0-66.0); RED BLOOD COUNT 3.51 10^6/uL (4.00-5.40); WHITE BLOOD COUNT 7.5 10^3/uL (4.0-10.0)
[2022-08-01 17:39] LABS: PLATELET COUNT, AUTOMATED 69 10^3/uL (150-450)
== END ==
LOC: M WUC 16:31
PROVIDERS: ATTEND Internal Medicine Medical Oncology
DX: D69.3 Immune thrombocytopenic purpura (principal); D47.2 Monoclonal gammopathy

== ENCOUNTER → 2022-08-07 | Outpatient (REF) | payer BC ==
[2022-08-07 13:02] LABS: BASO # 0.1 10^3/uL (0.0-0.2); BASO % 1.4 % (0.0-1.0); EOS # 0.1 10^3/uL (0.0-0.5); EOS % 0.7 % (0.0-3.0); HEMATOCRIT 37.5 % (36.0-47.0); LYMPH # 1.8 10^3/uL (1.5-5.0); LYMPH % 18.4 % (24.0-44.0); MEAN CORPUSCULAR HEMOGLOBIN 29.9 pg (27.0-33.0); MEAN CORPUSCULAR HGB CONC 29.3 g/dl (32.0-36.5); MEAN CORPUSCULAR VOLUME 101.9 fl (80.0-96.0); MONO % 17.2 % (2.0-8.0); NEUTROPHILS # 6.1 10^3/uL (1.5-8.5); NEUTROPHILS % 61.2 % (36.0-66.0); PLATELET COUNT, AUTOMATED 429 10^3/uL (150-450); RED BLOOD COUNT 3.68 10^6/uL (4.00-5.40)
[2022-08-07 13:05] LABS: MONO # 1.7 10^3/uL (0.0-0.8)
== END ==
LOC: M LABWUC 12:15
PROVIDERS: ATTEND Internal Medicine Medical Oncology
DX: D69.3 Immune thrombocytopenic purpura (principal); D47.2 Monoclonal gammopathy

== ENCOUNTER → 2022-08-14 | Outpatient (CLI) | payer BC ==
[2022-08-14 13:41] LABS: HEMATOCRIT 35.2 % (36.0-47.0); HEMOGLOBIN 10.9 g/dl (12.0-15.5); MEAN CORPUSCULAR HEMOGLOBIN 30.6 pg (27.0-33.0); MEAN CORPUSCULAR VOLUME 98.9 fl (80.0-96.0); PLATELET COUNT, AUTOMATED 525 10^3/uL (150-450); RED BLOOD COUNT 3.56 10^6/uL (4.00-5.40); WHITE BLOOD COUNT 9.4 10^3/uL (4.0-10.0)
[2022-08-14 14:36] LABS: ATYPICAL LYMPH 6 % (0-5); BASOPHILS 1 % (0-1); LYMPHOCYTES 19 % (16-44); MONOCYTES 18 % (0-5); NEUTROPHILS 51 % (28-66)
[2022-08-14 14:37] LABS: ANISOCYTOSIS 1+; PLATELET ESTIMATE INCREASED (NORMAL)
[2022-08-14 14:40] LABS: GIANT PLATELETS 3+
== END ==
LOC: M WUC 10:46
PROVIDERS: ATTEND Internal Medicine Medical Oncology
DX: D69.3 Immune thrombocytopenic purpura (principal); D47.2 Monoclonal gammopathy

== ENCOUNTER → 2022-09-25 | Outpatient (CLI) | payer BC ==
[2022-09-25 19:45] LABS: BASO # 0.1 10^3/uL (0.0-0.2); BASO % 0.6 % (0.0-1.0); EOS % 0.2 % (0.0-3.0); HEMATOCRIT 31.7 % (36.0-47.0); HEMOGLOBIN 10.2 g/dl (12.0-15.5); LYMPH % 7.5 % (24.0-44.0); MEAN CORPUSCULAR HEMOGLOBIN 30.6 pg (27.0-33.0); MEAN CORPUSCULAR HGB CONC 32.2 g/dl (32.0-36.5); MEAN CORPUSCULAR VOLUME 95.2 fl (80.0-96.0); MONO % 11.8 % (2.0-8.0); NEUTROPHILS # 10.5 10^3/uL (1.5-8.5); NEUTROPHILS % 79.4 % (36.0-66.0); RED BLOOD COUNT 3.33 10^6/uL (4.00-5.40); WHITE BLOOD COUNT 13.2 10^3/uL (4.0-10.0)
[2022-09-25 19:58] LABS: MONO # 1.6 10^3/uL (0.0-0.8)
[2022-09-25 19:59] LABS: PLATELET COUNT, AUTOMATED 94 10^3/uL (150-450)
== END ==
LOC: M WUC 15:16
PROVIDERS: ATTEND Internal Medicine Medical Oncology
DX: D69.3 Immune thrombocytopenic purpura (principal)

== ENCOUNTER → 2022-11-20 | Outpatient (CLI) | payer BC ==
[2022-11-20 16:37] LABS: IMMUNOGLOBULIN A 153.6 MG/DL (40-350)
[2022-11-20 16:39] LABS: BASO # 0.1 10^3/uL (0.0-0.2); BASO % 1.4 % (0.0-1.0); EOS % 0.4 % (0.0-3.0); HEMATOCRIT 35.6 % (36.0-47.0); HEMOGLOBIN 10.8 g/dl (12.0-15.5); IMMUNOGLOBULIN M 47.3 MG/DL (50-300); LYMPH # 1.6 10^3/uL (1.5-5.0); LYMPH % 20.6 % (24.0-44.0); MEAN CORPUSCULAR HGB CONC 30.3 g/dl (32.0-36.5); MEAN CORPUSCULAR VOLUME 92.2 fl (80.0-96.0); MONO # 1.5 10^3/uL (0.0-0.8); MONO % 19.5 % (2.0-8.0); NEUTROPHILS # 4.5 10^3/uL (1.5-8.5); NEUTROPHILS % 57.8 % (36.0-66.0); PERCENT SATURATION 27.3 % (13.2-45.0); PLATELET COUNT, AUTOMATED 288 10^3/uL (150-450); RED BLOOD COUNT 3.86 10^6/uL (4.00-5.40)
[2022-11-20 16:40] LABS: WHITE BLOOD COUNT 7.7 10^3/uL (4.0-10.0)
[2022-11-20 22:23] LABS: BILIRUBIN,TOTAL 0.5 MG/DL (0.3-1.2); CALCIUM LEVEL 9.5 MG/DL (8.5-10.1); CREATININE FOR GFR 1.43 MG/DL (0.55-1.30); FERRITIN 13.8 NG/ML (7.3-270.7); GLOMERULAR FILTRATION RATE 40.9 (>51); POTASSIUM SERUM 4.9 MMOL/L (3.5-5.1); TOTAL PROTEIN 7.2 G/DL (5.7-8.2)
== END ==
LOC: M WUC 10:41
PROVIDERS: ATTEND Internal Medicine Medical Oncology
DX: D69.3 Immune thrombocytopenic purpura (principal)

== ENCOUNTER → 2023-01-13 | Outpatient (CLI) | payer BC ==
[2023-01-13 12:03] LABS: BASO # 0.1 10^3/uL (0.0-0.2); BASO % 1.6 % (0.0-1.0); EOS % 0.5 % (0.0-3.0); HEMATOCRIT 36.6 % (36.0-47.0); HEMOGLOBIN 11.2 g/dl (12.0-15.5); LYMPH # 1.8 10^3/uL (1.5-5.0); MEAN CORPUSCULAR HEMOGLOBIN 27.5 pg (27.0-33.0); MEAN CORPUSCULAR HGB CONC 30.6 g/dl (32.0-36.5); MEAN CORPUSCULAR VOLUME 89.7 fl (80.0-96.0); MONO % 22.6 % (2.0-8.0); NEUTROPHILS # 4.2 10^3/uL (1.5-8.5); RED BLOOD COUNT 4.08 10^6/uL (4.00-5.40)
[2023-01-13 12:48] LABS: MONO # 1.8 10^3/uL (0.0-0.8)
== END ==
LOC: M LAB 11:06
PROVIDERS: ATTEND Internal Medicine Medical Oncology
DX: A04.72 Enterocolitis due to Clostridium difficile, not specified as recurrent (principal)

== ENCOUNTER → 2023-01-27 | Outpatient (REF) | payer BC | LOC: M LAB REF 17:33 | PROVIDERS: ATTEND Internal Medicine Nephrology | DX: N39.0 Urinary tract infection, site not specified (principal) ==

== ENCOUNTER → 2023-10-23 | Outpatient (REF) | payer BC ==
[~2023-10-23] MED LIST changes: +CARV6.25 PO; +FERR325T3 PO; +SALI1GEL
[2023-10-23 17:12] LABS: BASO # 0.2 10^3/uL (0.0-0.2); BASO % 2.7 % (0.0-1.0); EOS % 0.6 % (0.0-3.0); HEMATOCRIT 41.9 % (36.0-47.0); LYMPH # 1.7 10^3/uL (1.5-5.0); LYMPH % 25.2 % (24.0-44.0); MEAN CORPUSCULAR HGB CONC 33.4 g/dl (32.0-36.5); MEAN CORPUSCULAR VOLUME 89.7 fl (80.0-96.0); MONO # 1.8 10^3/uL (0.0-0.8); MONO % 27.1 % (2.0-8.0); NEUTROPHILS # 2.9 10^3/uL (1.5-8.5); NEUTROPHILS % 43.4 % (36.0-66.0); RED BLOOD COUNT 4.67 10^6/uL (4.00-5.40); WHITE BLOOD COUNT 6.8 10^3/uL (4.0-10.0)
[2023-10-23 17:24] LABS: APPEARANCE, URINE HAZY (CLEAR); BACTERIA, URINE AUTO NEGATIVE (NEGATIVE); BILIRUBIN, URINE AUTO NEGATIVE (NEGATIVE); BLOOD, URINE BLOOD 1+ (NEGATIVE); COLOR, URINE YELLOW (YELLOW); GLUCOSE, URINE (UA) AUTO NEGATIVE (NEGATIVE); KETONE, URINE AUTO NEGATIVE (NEGATIVE); LEUKOCYTE ESTERASE, URINE AUTO TRACE (NEGATIVE); NITRITE, URINE AUTO NEGATIVE (NEGATIVE); PROTEIN, URINE AUTO 2+ mg/dL (NEGATIVE); RBC, URINE AUTO 5 /HPF (0-3); SPECIFIC GRAVITY URINE AUTO 1.012 (1.002-1.035); SQUAMOUS EPITHELIAL CELL UR AU 3 /HPF (0-6); UROBILINOGEN, URINE AUTO 0.2 mg/dL (0.0-2.0); WBC, URINE AUTO 1 /HPF (0-3)
[2023-10-23 17:46] LABS: ALBUMIN 3.9 G/DL (3.2-5.2); BILIRUBIN,TOTAL 0.3 MG/DL (0.3-1.2); CALCIUM LEVEL 8.6 MG/DL (8.5-10.1); CREATININE FOR GFR 1.81 MG/DL (0.55-1.30); POTASSIUM SERUM 4.5 MMOL/L (3.5-5.1); TOTAL PROTEIN 7.7 G/DL (5.7-8.2)
== END ==
LOC: M LABWUC 16:10 → M LAB REF 16:10
PROVIDERS: ATTEND Family Medicine
DX: J01.90 Acute sinusitis, unspecified (principal); R53.83 Other fatigue; D69.6 Thrombocytopenia, unspecified

== ENCOUNTER 2023-12-09 12:16 | Outpatient (CLI) | payer BC ==
[~2023-12-09] VITALS: Ht 154.9 cm; Wt 63.6 kg
[2023-12-09] MEDS: FERRIC CARBOXYMALTOSE INJ 750 MG in NS 250 ML (>50kg) IV ONE (12:42)
[2023-12-09 12:52] VITALS: BP 151/79; O2SAT 100
[2023-12-09 13:54] VITALS: BP 179/98; O2SAT 97
== END 2023-12-09 14:00 | disposition home or self-care (01) ==
LOC: M INFU 12:16
PROVIDERS: ATTEND Internal Medicine Medical Oncology
DX: D50.9 Iron deficiency anemia, unspecified (principal); Z88.2 Allergy status to sulfonamides
CPT/HCPCS: 96365; J1439

== ENCOUNTER 2023-12-16 07:30 | Outpatient (CLI) | payer BC ==
[~2023-12-16] VITALS: Ht 154.9 cm; Wt 65.3 kg
[2023-12-16] MEDS: FERRIC CARBOXYMALTOSE INJ 750 MG in NS 250 ML (>50kg) IV ONE (07:35)
[2023-12-16 07:44] VITALS: BP 130/70; O2SAT 96
[2023-12-16 08:50] VITALS: BP 142/86; O2SAT 97
== END 2023-12-16 08:50 | disposition home or self-care (01) ==
LOC: M INFU 07:30
PROVIDERS: ATTEND Internal Medicine Medical Oncology
DX: D50.9 Iron deficiency anemia, unspecified (principal); Z88.2 Allergy status to sulfonamides
CPT/HCPCS: 96365; J1439

== ENCOUNTER 2024-03-02 18:18 | Emergency (ER) | payer BC ==
[~2024-03-02] VITALS: Ht 154.9 cm; Wt 66.6 kg
[~2024-03-02 18:18] MED LIST changes: -PROM-188 PO
[2024-03-02 19:29] VITALS: TEMP 97.6
[2024-03-02 19:44] LABS: BASO # 0.1 10^3/uL (0.0-0.2); BASO % 1.4 % (0.0-1.0); EOS # 0.1 10^3/uL (0.0-0.5); EOS % 1.4 % (0.0-3.0); HEMATOCRIT 41.2 % (36.0-47.0); LYMPH # 2.2 10^3/uL (1.5-5.0); LYMPH % 24.6 % (24.0-44.0); MEAN CORPUSCULAR HEMOGLOBIN 30.2 pg (27.0-33.0); MEAN CORPUSCULAR HGB CONC 31.6 g/dl (32.0-36.5); MEAN CORPUSCULAR VOLUME 95.8 fl (80.0-96.0); MONO # 1.5 10^3/uL (0.0-0.8); MONO % 16.1 % (2.0-8.0); NEUTROPHILS # 5.1 10^3/uL (1.5-8.5); NEUTROPHILS % 56.1 % (36.0-66.0); PLATELET COUNT, AUTOMATED 474 10^3/uL (150-450)
[2024-03-02 20:14] LABS: CALCIUM LEVEL 9.2 MG/DL (8.5-10.1); CREATININE FOR GFR 1.17 MG/DL (0.55-1.30); GLOMERULAR FILTRATION RATE 51.3 (>51); POTASSIUM SERUM 4.8 MMOL/L (3.5-5.1)
[2024-03-02 20:30] VITALS: BP 148/73; O2SAT 97
[2024-03-03] MEDS ORDERED: PROM-188 PO (09:58)
== END 2024-03-02 20:43 | disposition home or self-care (01) ==
LOC: M ED 18:18
DX: E87.8 Other disorders of electrolyte and fluid balance, not elsewhere classified (principal); Z86.2 Personal history of diseases of the blood and blood-forming organs and certain disorders involving the immune mechanism; R00.1 Bradycardia, unspecified; N18.9 Chronic kidney disease, unspecified; M32.9 Systemic lupus erythematosus, unspecified; I10 Essential (primary) hypertension; D69.3 Immune thrombocytopenic purpura; D64.9 Anemia, unspecified; Z90.81 Acquired absence of spleen; Z79.899 Other long term (current) drug therapy; Z88.2 Allergy status to sulfonamides

== ENCOUNTER → 2024-03-02 | Outpatient (CLI) | payer BC ==
[~2024-03-02] MED LIST changes: +PROM-188 PO
[2024-03-02 16:53] LABS: PERCENT SATURATION 43.2 % (13.2-45.0)
[2024-03-02 16:56] LABS: FERRITIN 190.3 NG/ML (7.3-270.7)
[2024-03-02 17:11] LABS: ALBUMIN 3.6 G/DL (3.2-5.2); BILIRUBIN,TOTAL 0.4 MG/DL (0.3-1.2); CALCIUM LEVEL 9.1 MG/DL (8.5-10.1); CREATININE FOR GFR 1.15 MG/DL (0.55-1.30); GLOMERULAR FILTRATION RATE 52.3 (>51); POTASSIUM SERUM 6.1 MMOL/L (3.5-5.1); TOTAL PROTEIN 6.5 G/DL (5.7-8.2)
[2024-03-02 17:21] LABS: BASO # 0.1 10^3/uL (0.0-0.2); BASO % 1.4 % (0.0-1.0); EOS # 0.1 10^3/uL (0.0-0.5); EOS % 0.7 % (0.0-3.0); HEMATOCRIT 38.9 % (36.0-47.0); HEMOGLOBIN 12.8 g/dl (12.0-15.5); LYMPH # 1.7 10^3/uL (1.5-5.0); LYMPH % 19.8 % (24.0-44.0); MEAN CORPUSCULAR HGB CONC 32.9 g/dl (32.0-36.5); MEAN CORPUSCULAR VOLUME 94.2 fl (80.0-96.0); MONO # 1.5 10^3/uL (0.0-0.8); MONO % 17.5 % (2.0-8.0); NEUTROPHILS # 5.2 10^3/uL (1.5-8.5); NEUTROPHILS % 60.3 % (36.0-66.0); PLATELET COUNT, AUTOMATED 493 10^3/uL (150-450); RED BLOOD COUNT 4.13 10^6/uL (4.00-5.40); WHITE BLOOD COUNT 8.6 10^3/uL (4.0-10.0)
== END ==
LOC: M WUC 14:50
PROVIDERS: ATTEND Internal Medicine Medical Oncology
DX: D69.3 Immune thrombocytopenic purpura (principal)

== ENCOUNTER → 2024-03-11 | Outpatient (REF) | payer BC ==
[~2024-03-11] MED LIST changes: +PROM-188 PO
[2024-03-11 14:13] LABS: BASO # 0.1 10^3/uL (0.0-0.2); BASO % 1.1 % (0.0-1.0); EOS % 0.5 % (0.0-3.0); LYMPH # 1.8 10^3/uL (1.5-5.0); LYMPH % 20.4 % (24.0-44.0); MEAN CORPUSCULAR HEMOGLOBIN 30.4 pg (27.0-33.0); MEAN CORPUSCULAR HGB CONC 32.5 g/dl (32.0-36.5); MEAN CORPUSCULAR VOLUME 93.5 fl (80.0-96.0); MONO # 1.6 10^3/uL (0.0-0.8); NEUTROPHILS # 5.3 10^3/uL (1.5-8.5); NEUTROPHILS % 59.5 % (36.0-66.0); PLATELET COUNT, AUTOMATED 388 10^3/uL (150-450); RED BLOOD COUNT 4.28 10^6/uL (4.00-5.40); WHITE BLOOD COUNT 8.8 10^3/uL (4.0-10.0)
== END ==
LOC: M LABWUC 12:44
PROVIDERS: ATTEND Internal Medicine Medical Oncology
DX: D69.3 Immune thrombocytopenic purpura (principal)

== ENCOUNTER → 2024-03-18 | Outpatient (REF) | payer BC ==
[2024-03-18 16:32] LABS: BASO # 0.1 10^3/uL (0.0-0.2); BASO % 1.2 % (0.0-1.0); EOS # 0.1 10^3/uL (0.0-0.5); EOS % 0.8 % (0.0-3.0); HEMOGLOBIN 13.3 g/dl (12.0-15.5); LYMPH # 2.2 10^3/uL (1.5-5.0); LYMPH % 25.2 % (24.0-44.0); MEAN CORPUSCULAR HEMOGLOBIN 30.6 pg (27.0-33.0); MEAN CORPUSCULAR HGB CONC 32.4 g/dl (32.0-36.5); MEAN CORPUSCULAR VOLUME 94.5 fl (80.0-96.0); MONO % 11.3 % (2.0-8.0); NEUTROPHILS # 5.3 10^3/uL (1.5-8.5); NEUTROPHILS % 60.9 % (36.0-66.0); PLATELET COUNT, AUTOMATED 334 10^3/uL (150-450); RED BLOOD COUNT 4.34 10^6/uL (4.00-5.40); WHITE BLOOD COUNT 8.7 10^3/uL (4.0-10.0)
== END ==
LOC: M LABWUC 16:07
PROVIDERS: ATTEND Internal Medicine Medical Oncology
DX: D69.3 Immune thrombocytopenic purpura (principal)

== ENCOUNTER → 2024-04-01 | Outpatient (REF) | payer BC ==
[2024-04-01 16:40] LABS: BASO # 0.1 10^3/uL (0.0-0.2); BASO % 1.3 % (0.0-1.0); EOS # 0.1 10^3/uL (0.0-0.5); EOS % 0.7 % (0.0-3.0); HEMATOCRIT 40.3 % (36.0-47.0); MEAN CORPUSCULAR HEMOGLOBIN 30.2 pg (27.0-33.0); MEAN CORPUSCULAR HGB CONC 32.3 g/dl (32.0-36.5); MEAN CORPUSCULAR VOLUME 93.7 fl (80.0-96.0); MONO # 1.1 10^3/uL (0.0-0.8); MONO % 14.3 % (2.0-8.0); NEUTROPHILS # 4.3 10^3/uL (1.5-8.5); NEUTROPHILS % 57.2 % (36.0-66.0); PLATELET COUNT, AUTOMATED 299 10^3/uL (150-450); WHITE BLOOD COUNT 7.5 10^3/uL (4.0-10.0)
== END ==
LOC: M LABWUC 16:14
PROVIDERS: ATTEND Internal Medicine Medical Oncology
DX: D69.3 Immune thrombocytopenic purpura (principal)

== ENCOUNTER → 2024-04-14 | Outpatient (CLI) | payer BC ==
[2024-04-14 16:17] LABS: BASO # 0.1 10^3/uL (0.0-0.2); BASO % 1.3 % (0.0-1.0); EOS # 0.1 10^3/uL (0.0-0.5); EOS % 0.9 % (0.0-3.0); HEMATOCRIT 44.2 % (36.0-47.0); HEMOGLOBIN 14.3 g/dl (12.0-15.5); LYMPH % 25.4 % (24.0-44.0); MEAN CORPUSCULAR HEMOGLOBIN 30.4 pg (27.0-33.0); MEAN CORPUSCULAR HGB CONC 32.4 g/dl (32.0-36.5); MONO # 1.2 10^3/uL (0.0-0.8); MONO % 15.5 % (2.0-8.0); NEUTROPHILS # 4.5 10^3/uL (1.5-8.5); NEUTROPHILS % 56.4 % (36.0-66.0); PLATELET COUNT, AUTOMATED 169 10^3/uL (150-450); WHITE BLOOD COUNT 7.9 10^3/uL (4.0-10.0)
[2024-04-14 16:41] LABS: IRON (FE) 96 UG/DL (50-170); PERCENT SATURATION 37.4 % (13.2-45.0); TOTAL IRON BINDING CAPACITY 257 UG/DL (250-425)
[2024-04-14 16:42] LABS: ALKALINE PHOSPHATASE 92 U/L (46-116); ALT/SGPT 21 U/L (7.0-40); AST/SGOT 14 U/L (<34); BILIRUBIN,TOTAL 0.5 MG/DL (0.3-1.2); BLOOD UREA NITROGEN 20 MG/DL (9-23); CALCIUM LEVEL 9.4 MG/DL (8.5-10.1); CARBON DIOXIDE LEVEL 27 MMOL/L (20-31); CHLORIDE LEVEL 108 MMOL/L (98-107); CREATININE FOR GFR 1.24 MG/DL (0.55-1.30); GLUCOSE, FASTING 87 MG/DL (60-100); POTASSIUM SERUM 4.3 MMOL/L (3.5-5.1); SODIUM LEVEL 139 MMOL/L (136-145); TOTAL PROTEIN 7.5 G/DL (5.7-8.2)
[2024-04-15 14:31] LABS: IMMUNOGLOBULIN A 223.1 MG/DL (40-350); IMMUNOGLOBULIN G 1852 MG/DL (650-1600)
[2024-04-16 06:48] LABS: T P ELECTROPHORESIS SO 7.8 g/dL (6.1-8.1)
[2024-04-16 12:57] LABS: FREE KAPPA LIGHT CHAINS SERUM 316.9 mg/L (3.3-19.4); FREE LAMBDA LIGHT CHAINS SERUM 50.8 mg/L (5.7-26.3); KAPPA/LAMBDA RATIO SERUM 6.24 (0.26-1.65)
[2024-04-19 08:28] LABS: ALBUMIN SPEP 4.5 g/dL (3.8-4.8); ALPHA-1-GLOBULINS SO 0.3 g/dL (0.2-0.3); ALPHA-2-GLOBULINS SO 0.7 g/dL (0.5-0.9); BETA 2 GLOBULIN 0.4 g/dL (0.2-0.5); BETA-GLOBULIN SO 0.4 g/dL (0.4-0.6); GAMMA GLOBULINS SO 1.6 g/dL (0.8-1.7); SPEP ABN PROTEIN BAND 1 0.6 g/dL (NONE DETECTED)
== END ==
LOC: M WUC 13:56
PROVIDERS: ATTEND Internal Medicine Medical Oncology
DX: D69.3 Immune thrombocytopenic purpura (principal)

== ENCOUNTER → 2024-04-23 | Outpatient (CLI) | payer BC ==
[2024-04-23 17:30] LABS: CHOLESTEROL LEVEL 189 MG/DL (<200); CHOLESTEROL RISK RATIO 6.07 (<5); HDL CHOLESTEROL 31.1 MG/DL (>40); NON-HDL-C 157.9 MG/DL
[2024-04-23 17:32] LABS: THYROID STIMULATING HORMONE 1.511 uIU/ML (0.55-4.78)
[2024-04-27 10:47] LABS: TRIGLYCERIDES LEVEL 462 MG/DL (<150)
== END ==
LOC: M WUC 14:02
PROVIDERS: ATTEND Family Medicine
DX: E78.5 Hyperlipidemia, unspecified (principal); R53.83 Other fatigue

== ENCOUNTER → 2024-04-23 | Outpatient (CLI) | payer BC ==
[2024-04-23 16:41] LABS: BASO # 0.1 10^3/uL (0.0-0.2); BASO % 1.1 % (0.0-1.0); EOS % 0.4 % (0.0-3.0); HEMATOCRIT 41.3 % (36.0-47.0); HEMOGLOBIN 13.7 g/dl (12.0-15.5); LYMPH # 1.9 10^3/uL (1.5-5.0); LYMPH % 19.4 % (24.0-44.0); MEAN CORPUSCULAR HEMOGLOBIN 31.2 pg (27.0-33.0); MEAN CORPUSCULAR HGB CONC 33.2 g/dl (32.0-36.5); MEAN CORPUSCULAR VOLUME 94.1 fl (80.0-96.0); MONO # 1.4 10^3/uL (0.0-0.8); MONO % 13.8 % (2.0-8.0); NEUTROPHILS # 6.5 10^3/uL (1.5-8.5); NEUTROPHILS % 64.8 % (36.0-66.0); PLATELET COUNT, AUTOMATED 336 10^3/uL (150-450); RED BLOOD COUNT 4.39 10^6/uL (4.00-5.40)
== END ==
LOC: M WUC 13:59
PROVIDERS: ATTEND Internal Medicine Medical Oncology
DX: D69.3 Immune thrombocytopenic purpura (principal)

== ENCOUNTER → 2024-05-06 | Outpatient (CLI) | payer BC ==
[2024-05-06 16:09] LABS: BASO # 0.1 10^3/uL (0.0-0.2); BASO % 1.1 % (0.0-1.0); EOS % 0.4 % (0.0-3.0); HEMATOCRIT 38.2 % (36.0-47.0); HEMOGLOBIN 12.7 g/dl (12.0-15.5); LYMPH # 1.8 10^3/uL (1.5-5.0); LYMPH % 20.8 % (24.0-44.0); MEAN CORPUSCULAR HEMOGLOBIN 31.4 pg (27.0-33.0); MEAN CORPUSCULAR HGB CONC 33.2 g/dl (32.0-36.5); MEAN CORPUSCULAR VOLUME 94.3 fl (80.0-96.0); MONO # 1.3 10^3/uL (0.0-0.8); MONO % 15.7 % (2.0-8.0); NEUTROPHILS # 5.2 10^3/uL (1.5-8.5); NEUTROPHILS % 61.8 % (36.0-66.0); PLATELET COUNT, AUTOMATED 213 10^3/uL (150-450); RED BLOOD COUNT 4.05 10^6/uL (4.00-5.40); WHITE BLOOD COUNT 8.5 10^3/uL (4.0-10.0)
== END ==
LOC: M WUC 14:12
PROVIDERS: ATTEND Internal Medicine Medical Oncology
DX: D69.3 Immune thrombocytopenic purpura (principal)

== ENCOUNTER → 2024-05-20 | Outpatient (CLI) | payer BC ==
[2024-05-20 15:37] LABS: BASO # 0.1 10^3/uL (0.0-0.2); BASO % 1.2 % (0.0-1.0); EOS # 0.1 10^3/uL (0.0-0.5); EOS % 0.6 % (0.0-3.0); HEMATOCRIT 41.1 % (36.0-47.0); HEMOGLOBIN 13.5 g/dl (12.0-15.5); LYMPH % 24.1 % (24.0-44.0); MEAN CORPUSCULAR HEMOGLOBIN 30.5 pg (27.0-33.0); MEAN CORPUSCULAR HGB CONC 32.8 g/dl (32.0-36.5); MONO # 1.1 10^3/uL (0.0-0.8); MONO % 13.3 % (2.0-8.0); NEUTROPHILS # 5.1 10^3/uL (1.5-8.5); NEUTROPHILS % 60.4 % (36.0-66.0); PLATELET COUNT, AUTOMATED 156 10^3/uL (150-450); RED BLOOD COUNT 4.42 10^6/uL (4.00-5.40); WHITE BLOOD COUNT 8.4 10^3/uL (4.0-10.0)
== END ==
LOC: M LAB 15:02
PROVIDERS: ATTEND Internal Medicine Medical Oncology
DX: D69.3 Immune thrombocytopenic purpura (principal)

== ENCOUNTER → 2024-07-21 | Outpatient (CLI) | payer BC ==
[2024-07-21 17:03] LABS: BASO # 0.1 10^3/uL (0.0-0.2); BASO % 1.8 % (0.0-1.0); EOS % 0.3 % (0.0-3.0); HEMATOCRIT 43.3 % (36.0-47.0); HEMOGLOBIN 13.9 g/dl (12.0-15.5); LYMPH # 1.7 10^3/uL (1.5-5.0); MEAN CORPUSCULAR HEMOGLOBIN 30.6 pg (27.0-33.0); MEAN CORPUSCULAR HGB CONC 32.1 g/dl (32.0-36.5); MEAN CORPUSCULAR VOLUME 95.4 fl (80.0-96.0); MONO # 1.2 10^3/uL (0.0-0.8); MONO % 18.6 % (2.0-8.0); NEUTROPHILS # 3.2 10^3/uL (1.5-8.5); PLATELET COUNT, AUTOMATED 148 10^3/uL (150-450); RED BLOOD COUNT 4.54 10^6/uL (4.00-5.40); WHITE BLOOD COUNT 6.2 10^3/uL (4.0-10.0)
[2024-07-21 17:38] LABS: ALBUMIN 3.7 G/DL (3.2-5.2); ALKALINE PHOSPHATASE 93 U/L (46-116); ALT/SGPT 19 U/L (7.0-40); AST/SGOT 17 U/L (<34); BILIRUBIN,TOTAL 0.5 MG/DL (0.3-1.2); BLOOD UREA NITROGEN 22 MG/DL (9-23); CALCIUM LEVEL 9.4 MG/DL (8.5-10.1); CARBON DIOXIDE LEVEL 28 MMOL/L (20-31); CHLORIDE LEVEL 107 MMOL/L (98-107); CREATININE FOR GFR 1.24 MG/DL (0.55-1.30); GLUCOSE, FASTING 91 MG/DL (60-100); IRON (FE) 84 UG/DL (50-170); PERCENT SATURATION 28.7 % (13.2-45.0); POTASSIUM SERUM 4.1 MMOL/L (3.5-5.1); SODIUM LEVEL 139 MMOL/L (136-145); TOTAL IRON BINDING CAPACITY 293 UG/DL (250-425); TOTAL PROTEIN 7.9 G/DL (5.7-8.2)
[2024-07-21 17:39] LABS: IMMUNOGLOBULIN A 224.3 MG/DL (40-350); IMMUNOGLOBULIN G 1967 MG/DL (650-1600)
[2024-07-21 17:40] LABS: VITAMIN B12 LEVEL 475 PG/ML (211-911)
[2024-07-23 09:46] LABS: T P ELECTROPHORESIS SO 7.7 g/dL (6.1-8.1)
[2024-07-23 13:42] LABS: FREE KAPPA LIGHT CHAINS SERUM 338.4 mg/L (3.3-19.4); FREE LAMBDA LIGHT CHAINS SERUM 69.2 mg/L (5.7-26.3); KAPPA/LAMBDA RATIO SERUM 4.89 (0.26-1.65)
== END ==
LOC: M WUC 10:35
PROVIDERS: ATTEND Internal Medicine Medical Oncology
DX: D69.3 Immune thrombocytopenic purpura (principal)

== ENCOUNTER → 2024-11-23 | Outpatient (CLI) | payer BC ==
[~2024-11-23] MED LIST changes: +CARV12.5
[2024-11-23 16:34] LABS: BASO # 0.1 10^3/uL (0.0-0.2); EOS % 0.5 % (0.0-3.0); HEMATOCRIT 42.9 % (36.0-47.0); LYMPH # 1.7 10^3/uL (1.5-5.0); LYMPH % 19.3 % (24.0-44.0); MEAN CORPUSCULAR HEMOGLOBIN 30.6 pg (27.0-33.0); MEAN CORPUSCULAR HGB CONC 32.6 g/dl (32.0-36.5); MEAN CORPUSCULAR VOLUME 93.7 fl (80.0-96.0); MONO # 1.1 10^3/uL (0.0-0.8); MONO % 12.8 % (2.0-8.0); NEUTROPHILS # 5.8 10^3/uL (1.5-8.5); NEUTROPHILS % 66.1 % (36.0-66.0); PLATELET COUNT, AUTOMATED 331 10^3/uL (150-450); RED BLOOD COUNT 4.58 10^6/uL (4.00-5.40); WHITE BLOOD COUNT 8.8 10^3/uL (4.0-10.0)
[2024-11-23 17:12] LABS: PERCENT SATURATION 24.8 % (13.2-45.0)
[2024-11-23 17:13] LABS: ALBUMIN 3.7 G/DL (3.2-5.2); BILIRUBIN,TOTAL 0.7 MG/DL (0.3-1.2); CALCIUM LEVEL 9.6 MG/DL (8.5-10.1); CREATININE FOR GFR 1.41 MG/DL (0.55-1.30); FERRITIN 20.1 NG/ML (7.3-270.7); GLOMERULAR FILTRATION RATE 41.2 (>51); IMMUNOGLOBULIN A 237.4 MG/DL (40-350); TOTAL PROTEIN 8.1 G/DL (5.7-8.2)
[2024-11-23 17:18] LABS: IMMUNOGLOBULIN M 86.4 MG/DL (50-300)
== END ==
LOC: M WUC 10:33
PROVIDERS: ATTEND Internal Medicine Medical Oncology
DX: D47.2 Monoclonal gammopathy (principal)

== ENCOUNTER 2025-08-12 14:18 | Outpatient (CLI) | payer BC ==
[~2025-08-12] VITALS: Ht 152.4 cm; Wt 67.2 kg
[~2025-08-12 14:18] MED LIST changes: +ALBUTEROL SULFATE 2.5 MG/0.5 ML INH CONCENTRATE NEB SOLN INH PRN; +EPINEPHrine INJ 1 MG/ML 1ML AMP IM PRN; +NS (Normal Saline) 0.9% 1,000 ML IV SCH; +PROM12.548 PO; +diphenhydrAMINE 50 MG/ML VIAL IV PRN
[2025-08-12 14:20] VITALS: BP 122/72; O2SAT 99
[2025-08-12] MEDS: FERRIC CARBOXYMALTOSE 750 MG (VIAL MATE) IN 100ML NS IV ONE (14:42)
[2025-08-12 15:20] VITALS: BP 158/87; O2SAT 97
== END 2025-08-12 15:20 | disposition home or self-care (01) ==
LOC: M INFU 14:18
DX: D50.0 Iron deficiency anemia secondary to blood loss (chronic) (principal); Z88.2 Allergy status to sulfonamides
CPT/HCPCS: 96365; J1439

== ENCOUNTER → 2025-08-22 | Outpatient (CLI) | payer BC ==
[~2025-08-22] MED LIST changes: -ALBUTEROL SULFATE 2.5 MG/0.5 ML INH CONCENTRATE NEB SOLN INH PRN; -EPINEPHrine INJ 1 MG/ML 1ML AMP IM PRN; -NS (Normal Saline) 0.9% 1,000 ML IV SCH; -diphenhydrAMINE 50 MG/ML VIAL IV PRN
[2025-08-23 12:31] LABS: BASO # 0.1 10^3/uL (0.0-0.2); BASO % 1.0 % (0.0-1.0); EOS # 0.2 10^3/uL (0.0-0.5); EOS % 1.4 % (0.0-3.0); LYMPH # 2.4 10^3/uL (1.5-5.0); LYMPH % 23.3 % (24.0-44.0); MONO # 1.3 10^3/uL (0.0-0.8); MONO % 12.0 % (2.0-8.0); NEUTROPHILS # 6.3 10^3/uL (1.5-8.5); NEUTROPHILS % 60.7 % (36.0-66.0)
== END ==
LOC: M WUC 14:13
PROVIDERS: ATTEND Internal Medicine Medical Oncology
DX: D69.3 Immune thrombocytopenic purpura (principal)

== ENCOUNTER 2025-08-26 15:25 | Outpatient (CLI) | payer BC ==
[~2025-08-26] VITALS: Ht 152.4 cm; Wt 65.7 kg
[~2025-08-26 15:25] MED LIST changes: +ALBUTEROL SULFATE 2.5 MG/0.5 ML INH CONCENTRATE NEB SOLN INH PRN; +EPINEPHrine INJ 1 MG/ML 1ML AMP IM PRN; +FERRIC CARBOXYMALTOSE 750 MG (VIAL MATE) IN 100ML NS IV ONE; +diphenhydrAMINE 50 MG/ML VIAL IV PRN
[2025-08-26] MEDS ORDERED: FERRIC CARBOXYMALTOSE 750 MG (VIAL MATE) IN 100ML NS IV ONE (15:30)
[2025-08-26 15:40] VITALS: BP 144/68; O2SAT 97
[2025-08-26] MEDS: FERRIC CARBOXYMALTOSE 750 MG (VIAL MATE) IN 100ML NS IV ONE (15:55)
[2025-08-26 16:05] VITALS: BP 144/75; O2SAT 99
== END 2025-08-26 16:15 | disposition home or self-care (01) ==
LOC: M INFU 15:25
DX: D50.0 Iron deficiency anemia secondary to blood loss (chronic) (principal); Z88.2 Allergy status to sulfonamides
CPT/HCPCS: 96374; J1439

== ENCOUNTER → 2025-09-08 | Outpatient (CLI) | payer BC ==
[~2025-09-08] MED LIST changes: -ALBUTEROL SULFATE 2.5 MG/0.5 ML INH CONCENTRATE NEB SOLN INH PRN; -EPINEPHrine INJ 1 MG/ML 1ML AMP IM PRN; -FERRIC CARBOXYMALTOSE 750 MG (VIAL MATE) IN 100ML NS IV ONE; -diphenhydrAMINE 50 MG/ML VIAL IV PRN
[2025-09-08 17:34] LABS: CALCIUM LEVEL 9.2 MG/DL (8.5-10.1); CARBON DIOXIDE LEVEL 28.0 MMOL/L (20-31); CHLORIDE LEVEL 106.0 MMOL/L (98-107); CREATININE FOR GFR 1.33 MG/DL (0.55-1.30); GLOMERULAR FILTRATION RATE 47.0 (>51); POTASSIUM SERUM 5.0 MMOL/L (3.5-5.1); SODIUM LEVEL 140.0 MMOL/L (136-145)
== END ==
LOC: M WUC 14:02
PROVIDERS: ATTEND Family Medicine
DX: N18.31 Chronic kidney disease, stage 3a (principal); M32.9 Systemic lupus erythematosus, unspecified

== ENCOUNTER → 2025-09-08 | Outpatient (CLI) | payer BC ==
[2025-09-08 16:58] LABS: BASO # 0.1 10^3/uL (0.0-0.2); BASO % 1.2 % (0.0-1.0); EOS # 0.1 10^3/uL (0.0-0.5); EOS % 0.7 % (0.0-3.0); LYMPH # 2.0 10^3/uL (1.5-5.0); LYMPH % 26.9 % (24.0-44.0); MONO # 1.3 10^3/uL (0.0-0.8); MONO % 17.0 % (2.0-8.0); NEUTROPHILS # 4.0 10^3/uL (1.5-8.5); NEUTROPHILS % 54.1 % (36.0-66.0); PLATELET COUNT, AUTOMATED 582 10^3/uL (150-450)
[2025-09-08 17:19] LABS: PLATELET CHECK? YES (YES)
== END ==
LOC: M WUC 13:59
PROVIDERS: ATTEND Internal Medicine Medical Oncology
DX: D69.3 Immune thrombocytopenic purpura (principal); N18.31 Chronic kidney disease, stage 3a; M32.9 Systemic lupus erythematosus, unspecified